=== PATIENT | female | born 1950 | race Caucasian/White ===

== ENCOUNTER 2018-12-14 14:45 | Inpatient (IN) | payer MEDICARE, OTHER ==
[~2018-12-14] VITALS: Ht 172.7 cm; Wt 69.9 kg
[~2018-12-14 14:45] MED LIST: ATENOLOL50 MG PO; EFFEXOR XR 3737.5 MG PO; KEPPRA XR500 MG PO; NEURONTIN300 MG PO; TOPIRAMATE100 MG PO
--- OUTSIDE RECORDS SUMMARY | 2018-12-14 14:48 | XMS REPORT | Clinical Summary ---
Author Author Jesus Manuel [facility] Organization [facility] Address Unknown Phone Unavailable Care Team Providers Care Radiocommunications Technician Name Role Phone Asked, No Pcp PCP Unavailable Allergies Comments Active Allergy Reactions Severity Noted Date Skin removal Adhesive Tape-Silicones Other (See 07/09/2016 Comments) Codeine GI 07/09/2016 Intolerance Meperidine Anaphylaxis High 06/03/2016 Erythromycin Base Rash Low 06/03/2016 Morphine Anaphylaxis High 06/03/2016 Pentobarbital Sodium Rash Low 07/09/2016 Penicillins Hives 07/09/2016 Phenobarbital Rash Low 07/09/2016 Sulfa (Sulfonamide Rash Low 06/03/2016 Antibiotics) Vision issues Carbamazepine Other (See 07/09/2016 Comments) Perphenazine-Amitriptylin Rash Low 07/09/2016 e Medications End Date Status Medication Sig Dispensed Refills Start Date Active atenolol (TENORMIN) 25 MG Take 25 mg by 0 tablet mouth every morning. Active omeprazole (PriLOSEC) 20 Take 20 mg by 0 MG capsule mouth every morning. Active venlafaxine XR TAKE 1 180 capsule 3 (EFFEXOR-XR) 150 MG 24 hr CAPSULE TWICE 7 capsule A DAY 01/22/2019 Active gabapentin (NEURONTIN) Take 3 540 capsule 3 300 mg capsule capsules (900 8 mg total) by mouth 2 (two) times a day. 01/22/2019 Active topiramate (TOPAMAX) 100 Take 1 tablet 180 tablet 3 MG tablet (100 mg 8 total) by mouth 2 (two) times a day. Active levETIRAcetam (KEPPRA) Take 1,500 mg 0 500 MG tablet by mouth 2 (two) times a day. 11/16/2018 Discontinued cholecalciferol, vitamin Take 5,000 0 D3, (VITAMIN D3) 5,000 Units by unit capsule mouth every morning. 11/16/2018 Discontinued calcium citrate-vitamin Take 1 tablet 0 D3 (CITRACAL+D) 315-200 by mouth mg-unit per tablet nightly. 11/16/2018 Discontinued vitamin E 1000 UNIT Take 1,000 0 capsule Units by mouth nightly. 11/16/2018 Discontinued calcium carbonate-vitamin Take 1 tablet 0 D3 (CALCIUM 600 + D,3,) by mouth 600 mg(1,500mg) -200 unit nightly. per tablet 11/16/2018 Discontinued vit Take 1 tablet 0 [id number]-syuiba-bioflv-ros by mouth e 1,000-50-50 mg tablet nightly. extended release 11/16/2018 Discontinued ascorbic acid, vitamin C, Take 1,000 mg 0 (vitamin C) 1000 MG by mouth tablet nightly. 11/16/2018 Discontinued multivitamin (THERAGRAN) Take 1 tablet 0 tablet by mouth nightly. 11/16/2018 Discontinued aspirin (ECOTRIN) 81 MG Take 81 mg by 0 enteric coated tablet mouth daily. 11/16/2018 Discontinued nortriptyline (PAMELOR) TK 1 C PO QHS 0 25 MG capsule 7 01/22/2018 Discontinued gabapentin (NEURONTIN) Take 3 540 capsule 3 300 mg capsule capsules (900 7 mg total) by mouth 2 (two) times a day. 01/22/2018 Discontinued topiramate (TOPAMAX) 100 Take 1 tablet 180 tablet 3 MG tablet (100 mg 7 total) by mouth 2 (two) times a day. 08/12/2018 levETIRAcetam XR (KEPPRA Take 6 540 tablet 3 XR) 500 mg 24 hr tablet tablets 7 (3,000 mg total) by mouth daily. 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 Malignant neoplasm of breast 06/03/2016 Seizure disorder 06/03/2016 Seizure 06/03/2016 Encounters Care Team Description Date Type Specialty Sacha Olivarez 11/17/2018 Anesthesia General Surgery Event Vega Madrigal MD RIGHT ESWL WITH CYSTO STENT PLACEMENT, LITHOLAPAXY, STONE EXTRACTION 11/17/2018 Surgery General Surgery Vega Madrigal MD 11/17/2018 Hospital General Surgery Encounter Vega Madrigal MD 11/16/2018 Hospital Radiology Encounter Vega Madrigal MD Preop testing 11/16/2018 Hospital Radiology Encounter Vega Madrigal MD Preop testing (Primary Dx) 11/16/2018 Pre-Admit Pre-Admission Testing Testing Appointment Shun Lugo MD Spondylosis without myelopathy or radiculopathy, lumbosacral region 03/05/2018 Hospital Radiology Encounter Shun Lugo MD Spondylosis without myelopathy or radiculopathy, lumbar region 03/05/2018 Hospital Radiology Encounter Shun Lugo MD Spondylosis without myelopathy or radiculopathy, lumbar region (Primary Dx); Spondylosis without myelopathy or radiculopathy, lumbosacral region 02/25/2018 Transcribe Access Orders Jojo Gutierrez RN 01/22/2018 Refill Neurology Jojo Gutierrez RN 01/22/2018 Refill Neurology after 12/13/2017 Family History Medical History Relation Name Comments Heart murmur Father Cancer Mother breast Relation Name Status Comments Father Mother Social History Date Tobacco Use Types Packs/Day Years Used Never Smoker Smokeless Tobacco: Never Used Alcohol Use Drinks/Week oz/Week Comments Yes occasional Sex Assigned at Date Recorded Not on file Industry Job Start Date Occupation Not on file Not on file Not on file Travel End Travel History Travel Start No recent travel history available. Last Filed Vital Signs Time Taken Vital Sign Reading 11/17/2018 5:15 PM CDT Blood Pressure 108/63 11/17/2018 5:15 PM CDT Pulse 91 11/17/2018 4:49 PM CDT Temperature 36.6 C (97.9 F) 11/17/2018 5:15 PM CDT Respiratory Rate 16 11/17/2018 5:15 PM CDT Oxygen Saturation 98% - Inhaled Oxygen - Concentration 11/17/2018 12:55 PM CDT Weight 63.5 kg (140 lb) 11/17/2018 12:55 PM CDT Height 172.7 cm (5' 8") 11/17/2018 12:55 PM CDT Body Mass Index 21.29 Plan of Treatment Care Team Description Date Type Specialty Kartik Sullivan MD [address] [facility] [address] [place] [address] 02/23/2019 Office Visit Neurology Health Maintenance Due Date Last Done Comments BREAST CANCER SCREENING 2000 COLON CANCER SCREENING 2000 SHINGLES VACCINES (#1) 2000 65+ PNEUMOCOCCAL VACCINE 2015 (1 of 2 - PCV13) PNEUMOCOCCAL 2015 POLYSACCHARIDE VACCINE AGE 65 AND OVER INFLUENZA VACCINE 03/31/2019 Implants Device Identifier Shelf Expiration Date Model / Serial / Lot Implanted Type Area Manufactur er 11/26/2018 [id number] / / [id number] Kit Mixer Bone Cmnt Kyphon Kyphx Surgical N/A: N/A KYPHON DIV Hv-R - [id number] Implants; OF Implanted: Qty: 1 on 05/08/2017 by Expanders; MEDTc Zhang MD Extenders; SPINE Surgical Wires 1600 [id number] / / Wire K Dual Trcr Pt [id number] Ns - Temporary Left: Thumb MICRO AIRE [id number] Fixation SURGICAL Implanted: Qty: 2 on 08/21/2017 by Pin or INSTRUMENT Marilu Summers MD Wire 09/07/2021 [id number] / / [id number] Stent Uretl Unvrsa 6fr 26cm Urological N/A: N/A COOK Hydrphlc W/O Gw - [id number] Implants UROLOGICAL Implanted: Qty: 1 on 11/17/2018 by or Vega Colvin MD Procedures Comments Procedure Name Priority Date/Time Associated Diagnosis SURGICAL PATHOLOGY Routine 11/17/2018 REQUEST 2:48 PM CDT CALCULI ANALYSIS WITH Routine 11/17/2018 PHOTO 2:48 PM CDT ND AN ELECTIVE Routine 11/17/2018 SUPRAGLOTTIC AIRWAY 2:27 PM CDT Procedure Note - Sacha Olivarez - 11/17/2018 2:27 PM CDT Airway Performed by: Sacha Olivarez Authorized by: Ezio Hassan MD Location: OR Urgency: Elective Difficult Airway: No Anesthesio logist: Ezio Hassan MD Resident/C RNA/AA: Sacha Olivarez Performed by: resident/C RNA/AA Preoxygena jimmy with 100% O2: Yes C-spine Precaution s Maintained Throughout : Yes Mask Ventilatio n: Not attempted Final Airway Type: Supraglott ic airway Final LMA: Unique LMA Size: 4 Number of Attempts at Approach: 1 ESWL WITH CYSTO WITH 11/17/2018 KIDNEY STONE INSERTION OF STENT 2:00 PM CDT N20.0 XR KUB KIDNEY URETER Routine 11/16/2018 Preop testing BLADDER 12:15 PM CDT XR CHEST 1 VW Routine 11/16/2018 Preop testing 12:14 PM CDT SMEAR REVIEW Routine 11/16/2018 11:02 AM CDT HC COMPLETE BLD COUNT Routine 11/16/2018 Preop testing W/AUTO DIFF 11:02 AM CDT ECG 12-LEAD Routine 11/16/2018 Preop testing 10:14 AM CDT MRI LUMBAR SPINE WO Routine 03/05/2018 Spondylosis without CONTRAST 2:28 PM CDT myelopathy or radiculopathy, lumbar region MRI SACRUM AND OR COCCYX Routine 03/05/2018 Spondylosis without WO CONTRAST 2:08 PM CDT myelopathy or radiculopathy, lumbosacral region after 12/13/2017 Results * Calculi analysis with photo (11/17/2018 2:48 PM CDT) Calculi mass 101 mg [facility] Calculi number 6 [facility] Calculi size Various mm [facility] Calculi descrption See Note [facility] Comment: Specimen consists of six, various sized (1 mm to 9 mm), sage, irregular calculi fragments. Calculi composition See Note [facility] Comment: Calculi composed primarily of: 80% magnesium ammonium phosphate (struvite), and 20% calcium phosphate (hydroxy- and carbonate- apatite). INTERPRETIVE INFORMATION: Calculi (Stone) analysis Calculi are the products of physiological processes that yield crystalline compounds in a matrix of biological compounds and blood.Matrix components are not reported.The clinically significant crystalline components identified in calculi specimens are reported.Gross description may not be consistent with composition determined by FTIR analysis. EER calculi (stone) See Note [facility] analysis and photo Comment: Access [employer] Enhanced Report using either link below: -Direct access: [email or web address] -Enter Username, Password: [email or web address] Username: [email or web address] Password: [email or web address] Performed by [facility], [address] [place], [place] [id number] [email or web address], Junito Heck MD - Lab. Director Specimen Serum Narrative Performed At [id number] [employer] LABORATORY UTERERAL STONE Performing Organization Address City/[facility]/Zipcode Phone Number [email or web address] LABORATORY [address] [place] [id number] [place] RE[facility] LAB [address] [place] [address] * Surgical pathology request (11/17/2018 2:48 PM CDT) [facility] DEPARTMENT OF PATHOLOGY AND GENOMIC MEDICINE Surgical pathology report See link below for PDF Lab [facility] DEPARTMENT OF Report PATHOLOGY AND GENOMIC MEDICINE Result status This is Final Report for [facility] DEPARTMENT OF [id number] PATHOLOGY AND GENOMIC MEDICINE Performing Organization Address City/State/Zipcode Phone Number [facility] DEPARTMENT [place] [address] [place] [address] PATHOLOGY AND GENOMIC MEDICINE * XR Kub Kidney Ureter Bladder (11/16/2018 12:15 PM CDT) Narrative Performed At EXAMINATION:XR KUB KIDNEY URETER BLADDER [facility] CLINICAL HISTORY:Z01.818 Encounter for other preprocedural examination, preop for right stent stone COMPARISON:None. FINDINGS: Double-J ureteral stent on the right Numerous bilateral calculi projected over the kidneys measuring up to 7-10 mm in size, right greater than left. Moderate fecal material in the colon somewhat limiting evaluation Kyphoplasty/vertebral plasty changes L1 and T11 IMPRESSION: Bilateral renal calculi Right-sided double-J ureteral stent [facility]-[id number] Procedure Note Interface, Radiology Results Incoming - 11/16/2018 1:03 PM CDT EXAMINATION: XR KUB KIDNEY URETER BLADDER CLINICAL HISTORY: Z01.818 Encounter for other preprocedural examination, preop for right stent stone COMPARISON: None. FINDINGS: Double-J ureteral stent on the right Numerous bilateral calculi projected over the kidneys measuring up to 7-10 mm in size, right greater than left. Moderate fecal material in the colon somewhat limiting evaluation Kyphoplasty/vertebral plasty changes L1 and T11 IMPRESSION: Bilateral renal calculi Right-sided double-J ureteral stent [facility]-[id number] Performing Organization Address [facility] Phone Number [employer] [place] [address] * XR Chest 1 Vw (11/16/2018 12:14 PM CDT) Narrative Performed At EXAMINATION:XR CHEST 1 VW [facility] CLINICAL HISTORY:Z01.818 Encounter for other preprocedural examination, preop COMPARISON:05/06/2017 chest IMPRESSION: No acute abnormality single view chest The lungs are clear. Azygos lobe incidentally noted The heart is not enlarged. Minimal atherosclerosis arch aorta. Axillary clips on the right as before. Previously noted right subclavian catheter has been removed The bony structures are within normal limits. [facility]-[id number] Procedure Note Interface, Radiology Results Incoming - 11/16/2018 1:04 PM CDT EXAMINATION: XR CHEST 1 VW CLINICAL HISTORY: Z01.818 Encounter for other preprocedural examination, preop COMPARISON: 05/06/2017 chest IMPRESSION: No acute abnormality single view chest The lungs are clear. Azygos lobe incidentally noted The heart is not enlarged. Minimal atherosclerosis arch aorta. Axillary clips on the right as before. Previously noted right subclavian catheter has been removed The bony structures are within normal limits. [facility]-[id number] Performing Organization Address [facility]/[employer] Phone Number [place] [address] * Smear review (11/16/2018 11:02 AM CDT) Platelet slide review Violeta adequate [facility] Anisocytosis Few [facility] Reactive lymphocytes 100 [facility] Performing Organization Address [facility] Phone Number [address] [place] [address] PATHOLOGY AND GENOMIC MEDICINE [address] * CBC with platelet and differential (11/16/2018 11:02 AM CDT) WBC 11.21 (H) 4.50 - 11.00 k/uL [facility] RBC 4.78 4.20 - 5.50 m/uL [facility] HGB 14.7 12.0 - 16.0 g/dL [facility] HCT 47.8 (H) 37.0 - 47.0 % [facility] MCV 100.0 82.0 - 100.0 fL [facility] MCH 30.8 27.0 - 34.0 pg [facility] MCHC 30.8 (L) 31.0 - 37.0 g/dL [facility] RDW - SD 44.9 37.0 - 55.0 fL [facility] MPV 9.4 8.8 - 13.2 fL [facility] Platelet count 303 150 - 400 k/uL [facility] Nucleated RBC 0.00 /100 WBC [facility] Neutrophils 35.7 (L) 39.0 - 69.0 % [facility] Lymphocytes 53.4 (H) 25.0 - 45.0 % [facility] Monocytes 8.2 0.0 - 10.0 % [facility] Eosinophils 2.0 0.0 - 5.0 % [facility] Basophils 0.4 0.0 - 1.0 % [facility] Specimen Blood Performing Organization Address City/[facility]/Zipcode Phone Number [facility] DEPARTMENT [address] [place] [address] PATHOLOGY AND GENOMIC MEDICINE [facility] [address] [place] [address] [facility] * ECG 12 lead (11/16/2018 10:14 AM CDT) Ventricular rate 80 [facility] Atrial rate 80 [facility] ND interval 142 [facility] QRSD interval 80 [facility] QT interval 376 [facility] QTC interval 433 [facility] P axis 1 25 [facility] QRS axis 1 -35 [facility] T wave axis 49 [facility] EKG impression Normal sinus rhythm-Left axis [facility] deviation-Low voltage QRS-Nonspecific T wave abnormality-Abnormal ECG-In automated comparison with ECG of 20-AUG-2017 13:04,-Nonspecific T wave abnormality now evident in Anterior leads- Narrative Performed At Performing Organization Address City/State/Zipcode Phone Number [facility] MUSE [address] [place] [address] * MRI Lumbar Spine Wo Contrast (03/05/2018 2:28 PM CDT) Narrative Performed At EXAMINATION: MRI LUMBAR SPINE WO CONTRAST [facility] CLINICAL HISTORY: M47.816 Spondylosis without myelopathy or radiculopathylumbar region, Spondylosis without myelopathy or radiculopathylumbar region COMPARISON:MRI lumbar spine from April 15, 2017 TECHNIQUE: Multiplanar multisequence noncontrast enhanced examination was performed of the Lumbar spine. FINDINGS: There are old treated fractures with methylmethacrylate signal intensity at L1 and T11. There are other old fractures which were not treated. There is no signal to suggest an acute fracture in the lumbar and thoracic spine. The lumbar curvature is convex towards the left. There is decreased T2 signal intensity in the lumbar discs. L5-S1: The left S1 and S2 nerve root sleeves are conjoined. There is inward concavity of the endplates greater in the left inferior L5 region with greater decreased height of the vertebral body in this area. There is bulge slightly indenting the anterior subarachnoid space greater on the left near the S1 nerve roots. There is facet hypertrophic changes with a small amount of fluid in the left facet joint. There is severe proximal left and mild right foramen stenosis. There is left extraforaminal spondylosis near the nerve. L4-5: There is greater right disc space narrowing and severe posterior disc space narrowing. There is dorsal spondylosis with bulge indenting the anterior subarachnoid space. There is narrowing of the ventrolateral subarachnoid space in the region of the L5 nerve root between bulge and facet and ligamentum flavum hypertrophy with trefoil shape canal stenosis. There is no significant narrowing of the AP dimension of the central subarachnoid space. There is moderate left and slightly less right foramen stenosis. L3-4: There is inward concavity of the upper left L4 endplate and portion of the inferior L3 endplate greater in the central region. There is dorsal spondylosis with bulge indenting the anterior subarachnoid space without definite mass effect on the nerve roots. There is facet hypertrophic changes. There is mild posterior midline epidural fat and mild narrowing of the AP dimension of the central subarachnoid space. There is mild left foramen stenosis. L2-3: There is greater right and posterior disc space narrowing. There is bulge with tiny central protrusion with T2 hyperintensity in the annulus indenting the anterior subarachnoid space without mass effect on the nerve roots. There is also a shallow left foramen and extraforaminal protrusion without definite mass effect on the nerve. It tapers in the paracentral region and slightly indents the ventrolateral subarachnoid space without mass effect on the nerve roots. There is facet and ligamentum flavum hypertrophic changes. The right posterior lateral indentation on the subarachnoid space near the nerve roots. There is no significant canal or foramen stenosis from degenerative change. L1-2: There is severe posterior disc space narrowing. There is minimal retropulsion of bone with uncovered disc indenting the anterior subarachnoid space. There are facet hypertrophic changes with posterior lateral indentation on the subarachnoid space on the right near the nerve roots. There is no significant central canal stenosis or foramen stenosis. The sagittal images show dorsal spondylosis at T11-12 and T12-L1 indenting the anterior subarachnoid space. At T10-11 there is dorsal spondylosis indenting the anterior subarachnoid space with minimal angulation of the cord at this level. The study was not performed for proper imaging of soft tissue structures in the abdomen and pelvis. IMPRESSION: Multiple old compression fractures some of which were treated with placement of methylmethacrylate. Lumbar curvature convex towards the left. Degenerative changes with areas of canal and foramen stenosis as described. Indentation on the subarachnoid space in the regions of the L5 and left S1 nerve roots. [id number] Procedure Note Hm Interface, Radiology Results Incoming - 03/05/2018 4:13 PM CDT EXAMINATION: MRI LUMBAR SPINE WO CONTRAST CLINICAL HISTORY: M47.816 Spondylosis without myelopathy or radiculopathy lumbar region, Spondylosis without myelopathy or radiculopathy lumbar region COMPARISON: MRI lumbar spine from April 15, 2017 TECHNIQUE: Multiplanar multisequence noncontrast enhanced examination was performed of the Lumbar spine. FINDINGS: There are old treated fractures with methylmethacrylate signal intensity at L1 and T11. There are other old fractures which were not treated. There is no signal to suggest an acute fracture in the lumbar and thoracic spine. The lumbar curvature is convex towards the left. There is decreased T2 signal intensity in the lumbar discs. L5-S1: The left S1 and S2 nerve root sleeves are conjoined. There is inward concavity of the endplates greater in the left inferior L5 region with greater decreased height of the vertebral body in this area. There is bulge slightly indenting the anterior subarachnoid space greater on the left near the S1 nerve roots. There is facet hypertrophic changes with a small amount of fluid in the left facet joint. There is severe proximal left and mild right foramen stenosis. There is left extraforaminal spondylosis near the nerve. L4-5: There is greater right disc space narrowing and severe posterior disc space narrowing. There is dorsal spondylosis with bulge indenting the anterior subarachnoid space. There is narrowing of the ventrolateral subarachnoid space in the region of the L5 nerve root between bulge and facet and ligamentum flavum hypertrophy with trefoil shape canal stenosis. There is no significant narrowing of the AP dimension of the central subarachnoid space. There is moderate left and slightly less right foramen stenosis. L3-4: There is inward concavity of the upper left L4 endplate and portion of the inferior L3 endplate greater in the central region. There is dorsal spondylosis with bulge indenting the anterior subarachnoid space without definite mass effect on the nerve roots. There is facet hypertrophic changes. There is mild posterior midline epidural fat and mild narrowing of the AP dimension of the central subarachnoid space. There is mild left foramen stenosis. L2-3: There is greater right and posterior disc space narrowing. There is bulge with tiny central protrusion with T2 hyperintensity in the annulus indenting the anterior subarachnoid space without mass effect on the nerve roots. There is also a shallow left foramen and extraforaminal protrusion without definite mass effect on the nerve. It tapers in the paracentral region and slightly indents the ventrolateral subarachnoid space without mass effect on the nerve roots. There is facet and ligamentum flavum hypertrophic changes. The right posterior lateral indentation on the subarachnoid space near the nerve roots. There is no significant canal or foramen stenosis from degenerative change. L1-2: There is severe posterior disc space narrowing. There is minimal retropulsion of bone with uncovered disc indenting the anterior subarachnoid space. There are facet hypertrophic changes with posterior lateral indentation on the subarachnoid space on the right near the nerve roots. There is no significant central canal stenosis or foramen stenosis. The sagittal images show dorsal spondylosis at T11-12 and T12-L1 indenting the anterior subarachnoid space. At T10-11 there is dorsal spondylosis indenting the anterior subarachnoid space with minimal angulation of the cord at this level. The study was not performed for proper imaging of soft tissue structures in the abdomen and pelvis. IMPRESSION: Multiple old compression fractures some of which were treated with placement of methylmethacrylate. Lumbar curvature convex towards the left. Degenerative changes with areas of canal and foramen stenosis as described. Indentation on the subarachnoid space in the regions of the L5 and left S1 nerve roots. [facility]-[id number] Performing Organization Address City/State/Zipcode Phone Number [facility] [address] [place] [address] * MRI Sacrum And Or Coccyx Wo Contrast (03/05/2018 2:08 PM CDT) Narrative Performed At [facility] EXAMINATION:MRI SACRUM AND OR COCCYX WO CONTRAST CLINICAL HISTORY:M47.817 Spondylosis without myelopathy or radiculopathylumbosacral region, Spondylosis without myelopathy or radiculopathylumbosacral region COMPARISON:MRI lumbar spine from April 15, 2017. FINDINGS: There is no evidence of acute fracture in the sacrum or coccyx. There are mild degenerative changes of the sacroiliac joints which are relatively stable. There is nonspecific prominent size sigmoid colon and rectum region. The study was not performed for good evaluation of a mass distal to this region. Recommend clinical correlation with other imaging if indicated. The uterus is absent. IMPRESSION: Mild degenerative changes of the sacroiliac joints. Nonspecific prominent aeration of the sigmoid colon and rectum region. I cannot exclude a mass distal to this region. This can be better evaluated with other imaging if indicated. [id number] Procedure Note Hm Interface, Radiology Results Incoming - 03/05/2018 4:08 PM CDT EXAMINATION: MRI SACRUM AND OR COCCYX WO CONTRAST CLINICAL HISTORY: M47.817 Spondylosis without myelopathy or radiculopathy lumbosacral region, Spondylosis without myelopathy or radiculopathy lumbosacral region COMPARISON: MRI lumbar spine from April 15, 2017. FINDINGS: There is no evidence of acute fracture in the sacrum or coccyx. There are mild degenerative changes of the sacroiliac joints which are relatively stable. There is nonspecific prominent size sigmoid colon and rectum region. The study was not performed for good evaluation of a mass distal to this region. Recommend clinical correlation with other imaging if indicated. The uterus is absent. IMPRESSION: Mild degenerative changes of the sacroiliac joints. Nonspecific prominent aeration of the sigmoid colon and rectum region. I cannot exclude a mass distal to this region. This can be better evaluated with other imaging if indicated. [id number] Performing Organization Address City/State/Zipcode Phone Number [facility] [address] [place] [address] after 12/13/2017 Insurance Payer Benefit Subscriber ID Type Phone Address Plan / Group HUMANA MEDICARE HUMANA xxxxxxxxx PPO MEDICARE PPO/PFFS/E [facility] Advance Directives Patient has advance care planning documents, and code status on file. For more i nformation, please contact: Jesus Manuel Ochoa [address] [place] [address] Date Inactivated Comments Code Status Date Activated 09/09/2016 6:38 PM Full Code 09/08/2016 2:20 PM Code Status decision reached by: Patient
[2018-12-14 16:30] LABS: BASOPHILS # (AUTO) 0.1 (0.0-0.1); BASOPHILS % 0.3 % (0.0-1.0); EOSINOPHILS % 0.2 % (0.0-6.0); HEMATOCRIT 39.9 % (34.2-44.1); HEMOGLOBIN 12.6 g/dL (12.0-16.0); LYMPHOCYTES # (AUTO) 3.7 (1.0-3.2); LYMPHOCYTES % 17.2 % (18.0-39.1); MEAN CORPUSCULAR HGB CONC 31.6 g/dL (31-35); MONOCYTES # (AUTO) 1.7 (0.2-0.8); MONOCYTES % 7.8 % (4.4-11.3); NEUTROPHILS # (AUTO) 15.7 (2.1-6.9); NEUTROPHILS % 71.9 % (38.7-80.0); PLATELET COUNT 339 x10e3/uL (140-360); RED CELL DISTRIBUTION WIDTH 12.3 % (11.7-14.4)
[2018-12-14 16:44] LABS: ALBUMIN 2.6 g/dL (3.5-5.0); ALBUMIN/GLOBULIN RATIO 0.4 (0.8-2.0); ANION GAP 19.1 mmol/L (8-16); CALCIUM 9.9 mg/dL (8.4-10.2); CREATININE, SERUM 1.61 mg/dL (0.57-1.11)
[2018-12-14] MEDS ORDERED: SODIUM CHLORIDE 0.9% 1000ML 1,000 ML IV ONE ×2 (16:45)
[2018-12-14 16:47] LABS: POTASSIUM 5.1 mmol/L (3.5-5.1)
[2018-12-14 16:53] LABS: COLOR,URINE YELLOW (YELLOW)
[2018-12-14 16:54] LABS: BILIRUBIN,URINE NEGATIVE (NEGATIVE); CLARITY,URINE HAZY (CLEAR); KETONES,URINE NEGATIVE (NEGATIVE); LEUKOCYTE ESTERASE ,URINE 2+ (NEGATIVE); NITRITE,URINE POSITIVE (NEGATIVE); PROTEIN,URINE DIPSTICK NEGATIVE (NEGATIVE); URINE UROBILINOGEN 0.2 mg/dL (0.2 - 1)
--- NOTE | 2018-12-14 17:00 | Diagnostic Imaging Report ---
EXAMINATION: CHEST 2 VIEWS INDICATION: Fever. Lethargic. ^SEPSIS ^[id number] ^1642 ^Y COMPARISON: 11/25/2018 FINDINGS: LINES/TUBES: Surgical clips present in the right axilla. LUNGS: No consolidations or edema. Azygos lobe present. PLEURA: No effusions or pneumothorax. HEART AND MEDIASTINUM: Normal size and contour. BONES AND SOFT TISSUES: No acute findings. Vertebroplasty cement in a lower thoracic spine and upper lumbar spine vertebral body. IMPRESSION: No acute thoracic abnormality. Signed by: Dr. Brad Osborne M.D. on 12/14/2018 4:56 PM
[2018-12-14 17:07] LABS: BACTERIA,URINE MANY /HPF
[2018-12-14] MEDS: LEVOFLOXACIN 750MG/D5W 150ML 150 ML IV SCH (17:46)
[2018-12-14] MEDS ORDERED: PRILOSEC OTC20 MG PO (17:50)
[2018-12-14] MEDS ORDERED: ONDANSETRON HCL INJ 2MG/ML 2ML 2 MG/ML VIAL IV PRN (18:30)
[2018-12-14 18:49] LABS: CREATINE KINASE MB 0.6 ng/mL (0-5.0)
[2018-12-14] MEDS: SODIUM CHLORIDE 0.9% 1000ML 1,000 ML IV SCH (19:34)
[2018-12-14] MEDS ORDERED: CEFEPIME HCL 1 GM VIAL IV SCH (20:15)
[2018-12-14] MEDS ORDERED: VANCOMYCIN 1GM/NS 250 ML 250 ML IV NR (20:15)
[2018-12-14] MEDS: CEFEPIME 1GM/NS 0.9% 50 ML 50 ML IV SCH (20:22)
--- OUTSIDE RECORDS SUMMARY | 2018-12-14 20:31 | XMS REPORT | Clinical Summary ---
Author Author [facility] Address Unknown Phone Unavailable Care Team Providers Care Supervisor Filling And Packing Name Role Phone Asked, No Pcp PCP [...] 11/16/2018 Discontinued vit Take 1 tablet 0 K-roqrp-yhtlgu-bioflv-ros by mouth e 1,000-50-50 mg tablet nightly. [...] Description Date Type Specialty Kartik Sullivan MD [address] [facility] [address] [place] [address] 02/23/2019 Office Visit Neurology Health [...] Area Manufactur er 11/26/2018 [id number] / / [id number] Kit Mixer Bone Cmnt Kyphon Kyphx Surgical N/A: N/A KYPHON DIV Hv-R - [id number] Implants; OF Implanted: Qty: 1 on 05/08/2017 by Expanders; MEDTc Zhang MD Extenders; SPINE Surgical Wires 1600 [id number] / / Wire K Dual Trcr Pt [id number] Ns - Temporary Left: Thumb MICRO AIRE [id number] Fixation SURGICAL Implanted: Qty: 2 on 08/21/2017 by Pin or INSTRUMENT Marilu Summers MD Wire 09/07/2021 [id number] / / [id number] Stent Uretl Unvrsa 6fr 26cm Urological N/A: N/A COOK Hydrphlc W/O Gw - [id number] Implants UROLOGICAL Implanted: Qty: 1 on 11/17/2018 by or Vega Colvin MD Procedures Comments Procedure Name Priority Date/Time Associated Diagnosis SURGICAL PATHOLOGY Routine 11/17/2018 REQUEST 2:48 PM CDT CALCULI ANALYSIS WITH Routine 11/17/2018 PHOTO 2:48 PM CDT MS AN ELECTIVE Routine 11/17/2018 SU[address]IC AIRWAY 2:27 [...] REF LAB analysis and photo Comment: Access [employer] Enhanced Report using either link below: -Direct access: [email or web address] -Enter Username, Password: [email or web address] Username: [email or web address] Password: [email or web address] Performed by [employer], [address] [place], [place] [id number] [email or web address], Junito Heck MD - Lab. Director Specimen Serum Narrative Performed At [id number] [employer] LABORATORY UTERERAL STONE Performing Organization Address City/[facility]/Zipcode Phone Number [facility] LABORATORY [address] [place] [address] [place] REF LAB [address] [place] [address] * Surgical pathology request (11/17/2018 2:48 PM CDT) [facility] DEPARTMENT OF PATHOLOGY AND GENOMIC MEDICINE Surgical pathology report See link below for PDF Lab [facility] DEPARTMENT OF Report PATHOLOGY AND GENOMIC MEDICINE Result status This is Final Report for [facility] DEPARTMENT OF [id number] PATHOLOGY AND GENOMIC MEDICINE Performing Organization Address City/State/Zipcode Phone Number [facility] DEPARTMENT [place] [address] [place] [address] PATHOLOGY AND GENOMIC MEDICINE * XR Kub [...] Bilateral renal calculi Right-sided double-J ureteral stent [facility]-[id number] Procedure Note Interface, Radiology Results Incoming - [...] Bilateral renal calculi Right-sided double-J ureteral stent [facility]-[id number] Performing Organization Address [facility] Phone Number [facility] [place] [address] * XR Chest 1 Vw (11/16/2018 12:14 [...] The bony structures are within normal limits. [facility]-[id number] Procedure Note Interface, Radiology Results Incoming - [...] The bony structures are within normal limits. [facility]-[id number] Performing Organization Address [facility]/DGTS Phone Number [place] [address] * Smear review (11/16/2018 11:02 AM CDT) Platelet slide review Violeta adequate [facility] Anisocytosis Few [facility] Reactive lymphocytes 100 [facility] Performing Organization Address [facility] Cent[facility] Phone Number [address] [place] [address] PATHOLOGY AND GENOMIC MEDICINE [address] * CBC with platelet and differential (11/16/2018 11:02 AM CDT) WBC 11.21 (H) 4.50 - 11.00 k/uL [facility] RBC 4.78 4.20 - 5.50 m/uL [facility] HGB 14.7 12.0 - 16.0 g/dL [facility] HCT 47.8 (H) 37.0 - 47.0 % [facility] MCV 100.0 82.0 - 100.0 fL [facility] MCH 30.8 27.0 - 34.0 pg [facility] MCHC 30.8 (L) 31.0 - 37.0 g/dL [facility] RDW - SD 44.9 37.0 - 55.0 fL [facility] MPV 9.4 8.8 - 13.2 fL [facility] Platelet count 303 150 - 400 k/uL [facility] Nucleated RBC 0.00 /100 WBC [facility] Neutrophils 35.7 (L) 39.0 - 69.0 % [facility] Lymphocytes 53.4 (H) 25.0 - 45.0 % [facility] Monocytes 8.2 0.0 - 10.0 % [facility] Eosinophils 2.0 0.0 - 5.0 % [facility] Basophils 0.4 0.0 - 1.0 % [facility] Specimen Blood Performing Organization Address City/[facility]/Zipcode Phone Number [facility] DEPARTMENT [address] [place] [address] PATHOLOGY AND GENOMIC MEDICINE [facility] [address] [place] [address] [facility] * ECG 12 lead (11/16/2018 10:14 AM CDT) Ventricular rate 80 [facility] Atrial rate 80 [facility] MS interval 142 [facility] QRSD interval 80 [...] At Performing Organization Address City/State/Zipcode Phone Number [facility] MUSE [address] [place] [address] * MRI Lumbar Spine Wo Contrast (03/05/2018 [...] the L5 and left S1 nerve roots. [id number] Procedure Note Hm Interface, Radiology Results Incoming [...] the L5 and left S1 nerve roots. [facility]-[id number] Performing Organization Address City/State/Zipcode Phone Number [facility] [address] [place] [address] * MRI Sacrum And Or Coccyx Wo [...] better evaluated with other imaging if indicated. [id number] Procedure Note Hm Interface, Radiology Results Incoming [...] better evaluated with other imaging if indicated. [id number] Performing Organization Address City/State/Zipcode Phone Number [facility] [address] [place] [address] after 12/13/2017 Insurance Payer Benefit Subscriber ID Type Phone Address Plan / Group HUMANA MEDICARE HUMANA xxxxxxxxx PPO MEDICARE PPO/PFFS/E [facility] Advance Directives Patient has advance care planning documents, and code status on file. For more i nformation, please contact: Jesus Manuel Ochoa [address] [place] [address] Date Inactivated Comments Code Status Date Activated 09/09/2016 6:38 PM Full Code 09/08/2016 2:20 PM Code Status decision reached by: Patient
[2018-12-14 22:07] VITALS: BP 91/47
[2018-12-14 22:15] VITALS: BP 91/47
--- NOTE | 2018-12-14 22:26 | Diagnostic Imaging Report ---
CT Abdomen and Pelvis without contrast INDICATION: Renal stent, fever TECHNIQUE: Thin collimation axial images obtained from the diaphragm to the level of the pubic symphysis without nonionic intravenous contrast. Dose reduction techniques used: Automated exposure control, adjustment of the mAs and/or kVp according to patient size, standardized low-dose protocol, and/or iterative reconstruction technique. [facility] DOSE: Total DLP: 3-3.3 mGy*cm Estimated effective dose: (DLP x 0.015 x size factor) mSv CTDIvol has been reviewed. It is below the limits set by the Radiation Protocol Committee (RPC). COMPARISON: None. ABDOMEN FINDINGS: Lung Bases: Mild volume loss of the right hemithorax with posterior lower lobe subsegmental atelectasis. Visualized portion of the mediastinum is normal. Liver: Normal in attenuation without mass. Gallbladder: Absent. No ductal dilatation. Pancreas: Normal attenuation without mass. Spleen: Normal size without mass. Adrenal Glands: No evidence for mass. Kidneys/ureters: Right: Multiple intrarenal calculi measure up to 13 mm. No perinephric inflammation or fluid collection. A stent is in the collecting system and extends into the bladder. No evidence of encrustation. No collecting system dilatation. The ureter is normal in diameter throughout its course. Left: Multiple intrarenal calculi measuring up to 11 mm. The collecting system is prominent. No perinephric inflammation. The upper and mid ureter are distended. A calculus in the mid/distal ureter measures 6 mm. Distal to this, the ureter is collapsed. Lymph Nodes: No enlarged abdominal or retroperitoneal lymph nodes. Aorta: Normal in diameter with scattered calcifications. PELVIS FINDINGS: Bowel: Stomach: Normal. Small Bowel: Normal in caliber with normal wall thickness. Large Bowel: Moderate burden of stool throughout with a prominent stool ball in the rectum. No mural thickening or colonic inflammation. Appendix: Not visualized and may be absent or collapsed. Bladder: No mural thickening or intraluminal calculus. No perivesicular inflammation. The uterus is absent. There are no adnexal masses. Peritoneum/retroperitoneum: No free fluid or fluid collection. Bones: Diffusely demineralized. Kyphoplasty changes of L1 and T11. There is excreted methylmethacrylate into a vein anterior to the T11 vertebral body. Superior endplate compression deformities are present in L2 and L4. The spinal canal is widely patent. No listhesis. Soft tissues: The right breast is absent. No soft tissue mass. IMPRESSION: 1. Calculus in the mid/distal left ureter with mild to moderate hydroureteronephrosis. 2. Bilateral intrarenal calculi. Right ureteral stent in appropriate position. 3. Moderate colonic stool burden with prominent stool ball in the rectum. No bowel obstruction. 4. Kyphoplasty and untreated compression deformities of the spine as described above. Signed by: Dr. Sana Bryant MD on 12/14/2018 10:23 PM
--- NOTE | 2018-12-14 22:57 | NUR ---
Dr. Charlton paged for orders regarding pt condition and meds.
[2018-12-14 23:00] VITALS: BP 94/46
--- NOTE | 2018-12-14 23:55 | NUR ---
Spoke to Dr. Charlton regarding low BP. Read results of CT ABD to . New orders received. Order received for central line to be placed for vasopressors.
[2018-12-15] VITALS (35 sets, daily range): BP systolic 69–137; BP diastolic 43–78
[2018-12-15] MEDS ORDERED: TOPIRAMATE 100 MG TAB PO STA (00:09)
[2018-12-15] MEDS ORDERED: LEVETIRACETAM 1500 MG PO SCH (00:12)
[2018-12-15] MEDS ORDERED: LEVETIRACETAM 500 MG TAB PO STA (00:12)
[2018-12-15] MEDS ORDERED: DIPHENHYDRAMINE HCL 25 MG CAP PO ONE (00:15)
[2018-12-15] MEDS ORDERED: DIPHENHYDRAMINE HCL ELIX 12.5 MG/5 ML UDC PO ONE (00:15)
--- NOTE | 2018-12-15 00:59 | NUR ---
Spoke to Dr. Charlton regarding Venous access. Ok to insert a PICC line at this time despite Renal Labs, however he wants to keep the order for Central line active and have one placed as soon as possible.
[2018-12-15] MEDS ORDERED: SODIUM CHLORIDE 0.9% 1000ML 1,000 ML IV STA (01:00)
[2018-12-15] MEDS: ACETAMINOPHEN 325 MG TAB PO PRN ×3 (01:15→21:39)
--- NOTE | 2018-12-15 01:15 | NUR ---
R peripheral EJ placed by ER RNs. Called Dr. Charlton for order to run levophed through EJ until PICC or central line could be placed. Dr. Charlton denied order, MD stated that Levophed cannot be started until PICC line is inserted.
[2018-12-15] MEDS ORDERED: SODIUM CHLORIDE 0.9% 1000ML 1,000 ML IV SCH (01:30)
--- NOTE | 2018-12-15 02:26 | History and Physical ---
CHIEF COMPLAINT: Lethargy and weakness. HISTORY OF PRESENT ILLNESS: Ms. Ball is a 68-year-old female. She presented to the Emergency Room with complaints of increasing lethargy. The patient underwent removal of encrusted indwelling right ureteral stent, another stent was placed, and renal calculus was removed. She underwent cystoscopy and it was done by Dr. Madrigal. The patient postoperatively did well, was sent home. She grew out Pseudomonas and Enterococcus in the urine on 12/03. Unsure if she was on antibiotics. She came here with increasing lethargy. Her , who is from her, brought her here. In the Emergency Room, her white cell count was 21,000, platelet count of 339. Chemistry showing creatinine 1.61 and lactic acid was 42. She was hypotensive and septic and received IV fluids and IV antibiotics. The patient is more awake and more alert now and less lethargic. She is mostly bed bound for last 6 months and had kidney stones in the past. She lives by herself. REVIEW OF SYSTEMS: GENERAL: Possibly having fever and chills. Denies any nausea or vomiting. HEENT: Denies any head trauma, head injury. ENT, denies any earache. CVS: Denies any chest pain. RESPIRATORY: Denies any shortness of breath. GI: Denies any nausea, vomiting. The rest of the review of systems are negative except as in HPI. PAST MEDICAL HISTORY: Hypertension, hyperlipidemia, arachnoid cyst, seizure disorder. FAMILY AND SOCIAL HISTORY: She does not smoke, does not drink. PHYSICAL EXAMINATION: VITAL SIGNS: Temperature 98.9, pulse of 97, blood pressure 100/56, respiratory rate of 18, and O2 saturation 98% on room air. HEENT: Head atraumatic, normocephalic. NECK: Supple. CHEST: Clear to auscultation bilaterally. No wheezing. No crackles. HEART: S1, S2 audible. ABDOMEN: Soft, nontender. EXTREMITIES: No pedal edema and has footdrop. NEUROLOGIC: Awake and alert. LABORATORY DATA: Sodium 133, potassium 5.1, creatinine 1.6. Lactic acid 42, total protein 9.6. Chest x-ray done in the Emergency Room showed no acute thoracic abnormality. ASSESSMENT: Ms. Ball is a 68-year-old female, who presented with septic shock due to urinary tract infection present on admission. The patient underwent ureteral stent placement on 12/03 and has a ureteral stent, came in with urinary tract infection. Current Problems: 1. Urinary tract infection, sepsis, septic shock. 2. Bed-bound status. 3. History of seizure disorder. 4. History of kidney stones in the past. PLAN: 1. Cultures growing Pseudomonas and Enterococcus. I will give a dose of vancomycin and start the patient on IV cefepime. Consult Infectious Disease. 2. IV hydration for mild acute kidney injury. 3. Continue the patient on IV fluids. We will repeat the lactic acid. 4. CT abdomen and pelvis. Discussed with the patient and her at bedside in detail. Critical care time spent 50 minutes. MD JOSELYN Blackmon/RUSTY /[id number]
[2018-12-15 02:35] LABS: INR 1.33; PARTIAL THROMBOPLASTIN TIME 31.1 seconds (23.8-35.5); PROTHROMBIN TIME 17.1 seconds (11.9-14.5)
[2018-12-15] MEDS: SODIUM CHLORIDE 0.9% 1000ML 1,000 ML IV SCH ×4 (03:06→20:38)
[2018-12-15] MEDS ORDERED: NOREPINEPHRINE INJ 4MG/4ML 8 MG in DEXTROSE 5% 250ML 250 ML IV PRN (03:15)
[2018-12-15] MEDS ORDERED: NOREPINEPHRINE 8 MG/D5W 250 ML 250 ML ONE (03:20)
--- NOTE | 2018-12-15 03:28 | Diagnostic Imaging Report ---
EXAMINATION: CHEST SINGLE (PORTABLE) COMPARISON: Chest x-ray 1634 hours INDICATION: ^PICC LINE PLACEMENT ^[id number] ^0315 DISCUSSION: Frontal view of the chest obtained at 0313 hours. HEART AND MEDIASTINUM: The cardiomediastinal silhouette is unremarkable. LINES: Left PICC line terminates in the SVC without pneumothorax LUNGS: The lungs are well inflated and clear. Azygos lobe and fissure are redemonstrated. No pneumonia or pulmonary edema. PLEURA: No pleural effusion or pneumothorax. BONES AND SOFT TISSUES: Stable kyphoplasty changes in the lower thoracic spine. Right axillary lymph node dissection clips are stable. IMPRESSION: Left PICC line terminates in the SVC without pneumothorax. No acute cardiopulmonary process. Signed by: Dr. Sana Bryant MD on 12/15/2018 3:25 AM
--- NOTE | 2018-12-15 04:57 | NUR ---
Dr. Haney returned call regarding consult. Notified MD of consult. No new orders received.
[2018-12-15 05:23] LABS: BASOPHILS # (AUTO) 0.1 (0.0-0.1); BASOPHILS % 0.4 % (0.0-1.0); EOSINOPHILS # (AUTO) 0.2 (0.0-0.4); HEMATOCRIT 27.8 % (34.2-44.1); LYMPHOCYTES # (AUTO) 4.7 (1.0-3.2); LYMPHOCYTES % 28.6 % (18.0-39.1); MEAN CORPUSCULAR HEMOGLOBIN 30.2 pg (28-32); MEAN CORPUSCULAR HGB CONC 32.4 g/dL (31-35); MEAN CORPUSCULAR VOLUME 93.3 fL (81-99); MONOCYTES # (AUTO) 1.5 (0.2-0.8); MONOCYTES % 9.3 % (4.4-11.3); NEUTROPHILS # (AUTO) 9.5 (2.1-6.9); NEUTROPHILS % 58.3 % (38.7-80.0); PLATELET COUNT 244 x10e3/uL (140-360); RED BLOOD COUNT 2.98 x10e6/uL (3.6-5.1); RED CELL DISTRIBUTION WIDTH 12.1 % (11.7-14.4)
[2018-12-15 05:56] LABS: ANION GAP 11.3 mmol/L (8-16); CREATININE, SERUM 1.19 mg/dL (0.57-1.11)
[2018-12-15 05:57] LABS: CALCIUM 8.1 mg/dL (8.4-10.2); POTASSIUM 3.3 mmol/L (3.5-5.1)
--- NOTE | 2018-12-15 06:18 | NUR ---
PICC line placed by PICC team at 0305. No acute distress noted.
[2018-12-15 06:51] LABS: CREATINE KINASE 54 IU/L (29-168)
--- NOTE | 2018-12-15 07:05 | NUR ---
PT TAKEN FOR SURGERY AT THIS TIME.
[2018-12-15] MEDS ORDERED: IOPAMIDOL 610MG/1ML 300 MG/ML VIAL IV ONE (07:24)
[2018-12-15] MEDS: PANTOPRAZOLE SOD 40 MG TABEC PO SCH (07:30)
--- NOTE | 2018-12-15 08:45 | NUR ---
PT BACK FROM SURGERY AT THIS TIME. LETHARGIC BUT RESPONSIVE HALL IN PLACE
--- NOTE | 2018-12-15 09:03 | NUR ---
110/57 BP LEVOPHED TURNED OFF AT THIS TIME WILL CONTINUE TO MONITOR
[2018-12-15] MEDS: VENLAFAXINE HCL 75 MG CAPCR PO SCH ×2 (09:32→16:53)
[2018-12-15] MEDS: TOPIRAMATE 100 MG TAB PO SCH ×2 (09:32→16:53)
[2018-12-15] MEDS: CEFEPIME 1GM/NS 0.9% 50 ML 50 ML IV SCH ×2 (09:32→20:38)
[2018-12-15] MEDS: LEVETIRACETAM 500 MG TAB PO SCH ×2 (09:32→16:53)
--- NOTE | 2018-12-15 11:25 | NUR ---
WOUND CARE CONSULTATION INITIAL EVALUATION Patient admitted from Home to ER. DX: Sepsis, IRMA, Pyelonephritis LABS: WBC16.27 HGB10.3 HCT27.8 Wound Care Consulted For evaluation of sacral wound present on admission. PATIENT VISIT: Patient is laying supine in bed AAOx3, 1-2 Person assist to repositioning. Kevin Score = 13 Moderate PUP Active Alternating Pressure Air Mattress set to current patient weight Heel Protectors in place. Redness to right lateral malleolus consistent with other areas of ecchymosis throughout other parts of body. No pattern to sites. non indurated, non draining, appear superficial. Not currently on anticoagulant therapy. Indwelling Patel Catheter. Ulceration to Left Gluteal Area. Oval Shaped, Draining serosanguineous fluid. Central area of ulceration purple dusky/ poorly perfused area. Wound will likely will progress to unstageable ulcer. Pt states possibly laying or sitting on object at home. Oval Shaped over a non bony area. IMPRESSION: Right Gluteal - Stage II Pressure Ulcer with DTI - Present On Admission RECOMMENDATION: - Right Gluteal - Stage II Pressure Ulcer with DTI - Present On Admission - Cleanse wound with NS and 4x4 gauze - Apply Santyl and Pleated Xeroform Gauze Cut to Size and Cover with Allevyn Foam Sacrum Dressing Daily. - Continue Alternating Pressure Air Mattress - Continue Bilateral Heel Protectors / Offload Heels with Pillows while in bed. - Turn and Reposition Every 2 Hours using turning clock schedule. - HOB elevation < or = to 30 Degrees as tolerated. Thank you for consulting with Wound Care. Addendum: 12/15/18 at 1141 by Avery Casanova RN Amended: Links added. Addendum: 12/20/18 at 1054 by Avery Casanova RN IMPRESSION: LEFT GLUTEAL ULCER- ( site entry error - NOT RIGHT)
--- NOTE | 2018-12-15 11:53 | Progress Note ---
DATE: SUBJECTIVE: The patient is doing well now on 2.5 mcg of Levophed. Overnight became septic, hypotensive, and transferred to ICU. She is denying any complaints. She is still very weak, status post stent placement, came from the OR just now. PHYSICAL EXAMINATION: VITAL SIGNS: Temperature 97.6, pulse of 82, blood pressure 122/75, respiratory rate of 18, O2 saturation of 100%. HEENT: Head is atraumatic, normocephalic. Oral mucosa is very dry. NECK: Supple. CHEST: Clear to auscultation bilaterally. No wheezing. HEART: S1, S2 audible. ABDOMEN: Soft. EXTREMITIES: Footdrop very weak, muscle wasting and trace pedal edema. NEUROLOGIC: Awake, alert. LABORATORY DATA: White count is down to 16,000, hemoglobin 9.0, platelets 244. Chemistries; sodium 138, potassium 3.3, chloride 111, BUN 30, creatinine 1.19, it was 1.61 on admission. It is getting better. Lactic acid is down to 21, it was 42. Urine culture grew out gram-negative bacilli. This patient is already on antibiotics. ASSESSMENT AND PLAN: 1. Ms. Marilee Ball is a 68-year-old female. She presented with a complicated urinary tract infection with stent placement. Stent has been removed. The patient is doing well. 2. Septic shock secondary to complicated urinary tract infection with stent placement, which is resolving. Lactic acid is still high, but it is coming down. 3. Bed-bound status. The patient has been extremely deconditioned and bed-bound and has a foot drop. We will consult physical therapy and consult Dr. Kirkpatrick for rehab evaluation. 4. Continue antibiotics, cefepime and Levaquin. Infectious Disease has been consulted. We will follow the recommendation. 5. History of seizure disorder. Resume the Keppra and Topamax. 6. IV Dilaudid for pain control. 7. Wean the Levophed. Patient's diet can be resumed. Plan of care was discussed with the RN taking care of the patient. MD JOSELYN Blackmon/RUSTY /[id number]
--- NOTE | 2018-12-15 12:18 | Operative Report ---
DATE OF PROCEDURE: 12/15/2018 SURGEON: Vega Madrigal MD PREOPERATIVE DIAGNOSES: 1. Indwelling right ureteral stent. 2. Left hydronephrosis. POSTOPERATIVE DIAGNOSES: 1. Indwelling right ureteral stent. 2. Left hydronephrosis. PROCEDURES: 1. Cystourethroscopy with complicated removal of a right indwelling ureteral stent (entirely separate procedure for diagnosis of a right indwelling ureteral stent). 2. Cystourethroscopy with insertion of a left indwelling ureteral stent in a staged fashion (entirely separate procedure for right hydronephrosis). 3. Cystourethroscopy with insertion of a left indwelling ureteral stent in a staged fashion (entirely separate procedure to rid the patient of left hydronephrosis). 4. Supervision of fluoroscopy. 5. Interpretation of retrograde pyelography. ANESTHESIA: General. ESTIMATED BLOOD LOSS: Minimal. COMPLICATIONS: None. INDICATIONS FOR PROCEDURE: Ms. Ball is a very pleasant 68-year-old female patient with a history of right encrusted stent with recent right stent removal, now presenting with fever, chills, nausea, and vomiting, was found to have stent in good position on the right side; however, dropped left renal calculi into left ureteral calculi creating hydronephrosis and obstructing the collecting system. The patient currently has been transferred to the unit with hypotension and tachycardia and clinical symptoms of septic shock. She and I had a long discussion regarding alternatives, risks, and benefits and she elected to proceed with placement of left indwelling stent and right stent change. PROCEDURE IN DETAIL: After informed consent was obtained, the patient was taken to operative suite and she was placed supine on the operating table. She underwent general anesthesia by Anesthesia Service. She was placed in the dorsal lithotomy position, sterilely prepped and draped in a sterile fashion for cystoscopy. A 21-Ecuadorean cystoscope was inserted per urethra The right stent was grasped and this was removed intact. A guidewire was inserted into the upper tract . Right stent was removed intact. Right stent was deployed with coil in the pelvic and coil in the bladder. Attention was then turned to the left ureteral orifice. Retrograde pyelogram was performed which revealed mid ureteral calculus on the left side with severe obstruction. With moderate difficulty, guidewire was advanced proximally. This hydronephrotic drip was captured and sent off the table as specimen. A 7 x 26 ureteral stent was then deployed with coil in the renal pelvis and coil in the bladder. The patient's bladder was drained with a 20-Ecuadorean Patel catheter. She is awaken from anesthesia and transferred to ICU in stable condition. Supervision of fluoroscopy and interpretation of retrograde pyelography: I was present for the entire procedure and I supervised the use of fluoroscopy as no radiologist was present. Attention was turned to both of the ureteral orfices which were catheterized with a 5-Ecuadorean catheter. Retrograde pyelogram was performed revealing mid ureteral calculus and proximal hydronephrosis. Postop reviews reveal bilateral stents in adequate position. MD WILLAM Vazquez/RUSTY /[id number] MTDD
[2018-12-15 12:23] LABS: EOSINOPHILS % (MANUAL) 4 % (0-7); LYMPHOCYTES % (MANUAL) 15 % (19-48); MONOCYTES % (MANUAL) 6 % (3.4-9.0); NEUTROPHILS % (MANUAL) 75 % (40-74)
[2018-12-15 12:24] LABS: HYPOCHROMASIA SLIGHT; PLATELET ESTIMATE ADEQUATE; PLATELET MORPHOLOGY COMMENT NORMAL; POIKILOCYTOSIS SLIGHT; RBC MORPHOLOGY COMMENT ABNORMAL
[2018-12-15] MEDS ORDERED: FENTANYL CITRATE/PF 100MCG/2 ML INJ ONE (14:09)
[2018-12-15] MEDS ORDERED: MIDAZOLAM HCL 2 MG/2 ML VIAL ONE (14:09)
--- NOTE | 2018-12-15 16:16 | NUR ---
SPOKE TO REGARDING PATIENT LIVING SITUATION, PER THEY ARE AND HAVE BEEN FOR A LONG TIME, PT LIES ALONE RECEIVES HOME HEALTH CARE 2 A WEEK WITH PHYSICAL THERAPY. STATES HE COMES TO SEE HER, CHANGE HER DIAPER, LINEN AND BRING HER FOOD ONCE A DAY FOR 5 DAYS. ON WEEKEND THERE IS A NEPHEW WHO COMES TO CARE FOR HER ONCE A DAY. Addendum: 12/15/18 at 1619 by Monique Aguirre RN CLOTH REELER CONSULTED
[2018-12-15] MEDS: LEVOFLOXACIN 750MG/D5W 150ML 150 ML IV SCH (17:11)
[2018-12-15] MEDS ORDERED: SEVOFLURANE INHAL SOLN 250 ML PEN BTL ONE (20:10)
[2018-12-15] MEDS ORDERED: LIDOCAINE HCL 2% LOCAL INJ 5 ML SDV VIAL INJ ONE (20:10)
[2018-12-15] MEDS ORDERED: ONDANSETRON HCL INJ 2MG/ML 2ML 2 MG/ML VIAL ONE (20:10)
[2018-12-15] MEDS ORDERED: DEXAMETHASONE SOD PHOS INJ 4 MG/ML VIAL ONE (20:10)
--- NOTE | 2018-12-15 23:27 | Consultation ---
DATE OF CONSULTATION: REASON FOR CONSULTATION: Sepsis and UTI. Thank you so much for asking me to see this patient. HISTORY OF PRESENT ILLNESS: This patient is a 68-year-old white female, who comes into emergency room with feeling lethargy, not doing well. I was contacted by the ER physician urgently, discussed the case. The patient has history of UTI and history of stone before, underwent removal of indwelling right ureteral stent, another stent was placed. She had a renal calculus, which was also removed. Had a cystoscopy done by Dr. Madrigal recently. Postoperatively did well. She was sent home. The patient on December 03 had Pseudomonas Enterococcus and she was given some antibiotic. The patient was doing fine till the day of admission when she became really sick. Apparently, she has been last couple days. In the emergency room, she had a white count of 21,000, creatinine was 1.6, lactic acid was 42, and hypotensive. Started on IV fluids and IV antibiotics. Please refer to initial orders. The patient was admitted, Dr. Madrigal. The patient underwent cystourethroscopy, removal of the right indwelling ureteral stent with insertion of left indwelling ureteral stent in a staged fashion. The patient is currently in the intensive care unit. She is feeling much better since she came here. When she first came, she was quite lethargic. ALLERGIES: THE PATIENT IS ALLERGIC TO PENICILLIN, SULFA, ADHESIVE TAPE. PAST MEDICAL HISTORY: Renal stone as mentioned above, hypertension, hyperlipidemia, seizure disorder. PAST SURGICAL HISTORY: As above, multiple urological procedures. SOCIAL HISTORY: There is no smoking, drug abuse, alcohol abuse. FAMILY HISTORY: Hypertension. REVIEW OF SYSTEMS: GENERAL: At the present time, she is more alert. She has no complaint. She is just weak in general. HEENT: Negative. PULMONARY: Negative. CARDIAC: Negative. : Negative. GI: Negative at the present time. SKIN: There is no rash. Showing no erythema or edema. LABORATORY DATA: Urine culture showing gram-negative rods. Her white count on admission 21.8, came down to 16.27, hemoglobin 9.0, platelets 244. Sodium 138, potassium 3.3, creatinine 1.19. Lactic acid when she first came was 21. Calcium was 8.1. MEDICATION LIST: She is on Topamax, cefepime, Tylenol, and levofloxacin. PHYSICAL EXAMINATION: GENERAL: She is currently alert, oriented, does not seem to be in acute distress. VITAL SIGNS: Stable. Afebrile. Temperature 97.8, heart rate of 80, respiration 11, blood pressure 91/56. HEENT: Normocephalic. Not icteric. NECK: Supple. No JVD. No lymphadenopathy. No thyromegaly. CHEST: Clear bilateral. HEART: S1, S2. No S3, S4, or murmur. ABDOMEN: Soft. Bowel sounds present. No tenderness. EXTREMITIES: No edema. SKIN: No rash. IMPRESSION: Sepsis on admission, pyelonephritis on admission, acute kidney injury on admission secondary to the above. Agree with cefepime and Levaquin. She is growing gram-negative rods. Agree with IV fluids. She is already doing better. Agree with supportive care. Discussed with the patient and discussed with attending. Other medical problems seem to be stable. We will recheck CBC. We will recheck chemistry panel. Further recommendation depending on her progress. MD SISSY Cardona/RUSTY /[id number]
[2018-12-16] VITALS (15 sets, daily range): BP systolic 105–145; BP diastolic 61–86
[2018-12-16] MEDS: ACETAMINOPHEN 325 MG TAB PO PRN (04:41)
[2018-12-16 05:11] LABS: BASOPHILS % 0.3 % (0.0-1.0); EOSINOPHILS # (AUTO) 0.1 (0.0-0.4); EOSINOPHILS % 0.8 % (0.0-6.0); HEMOGLOBIN 8.3 g/dL (12.0-16.0); LYMPHOCYTES # (AUTO) 4.3 (1.0-3.2); LYMPHOCYTES % 27.8 % (18.0-39.1); MEAN CORPUSCULAR HEMOGLOBIN 29.6 pg (28-32); MEAN CORPUSCULAR HGB CONC 31.9 g/dL (31-35); MEAN CORPUSCULAR VOLUME 92.9 fL (81-99); MONOCYTES # (AUTO) 1.1 (0.2-0.8); MONOCYTES % 6.9 % (4.4-11.3); NEUTROPHILS # (AUTO) 9.7 (2.1-6.9); NEUTROPHILS % 62.5 % (38.7-80.0); PLATELET COUNT 224 x10e3/uL (140-360); RED CELL DISTRIBUTION WIDTH 11.9 % (11.7-14.4)
[2018-12-16] MEDS: SODIUM CHLORIDE 0.9% 1000ML 1,000 ML IV SCH (05:13)
[2018-12-16 05:28] LABS: ANION GAP 9.5 mmol/L (8-16); BLOOD UREA NITROGEN 11 mg/dL (7-26); BUN/CREATININE RATIO 20 (6-25); CALCIUM 8.4 mg/dL (8.4-10.2); CARBON DIOXIDE 20 mmol/L (22-29); CHLORIDE 115 mmol/L (98-107); CREATININE, SERUM 0.55 mg/dL (0.57-1.11); EST GLOMERULAR FILTRATION RATE > 60 ML/MIN (60-); GLUCOSE 87 mg/dL (74-118); POTASSIUM 3.5 mmol/L (3.5-5.1); SODIUM 141 mmol/L (136-145)
[2018-12-16] MEDS: CEFEPIME 1GM/NS 0.9% 50 ML 50 ML IV SCH (08:00)
[2018-12-16] MEDS: TOPIRAMATE 100 MG TAB PO SCH ×2 (08:00→17:27)
[2018-12-16] MEDS: PANTOPRAZOLE SOD 40 MG TABEC PO SCH (08:00)
[2018-12-16] MEDS: LEVETIRACETAM 500 MG TAB PO SCH ×2 (08:00→17:27)
[2018-12-16] MEDS: VENLAFAXINE HCL 75 MG CAPCR PO SCH ×2 (08:00→17:27)
[2018-12-16] MEDS: COLLAGENASE 5 GM TUBE TOP SCH (08:00)
--- NOTE | 2018-12-16 10:30 | NUR ---
SPOKE WITH PATIENT, SHE STATES SHE LIVES IN A HOME BY HERSELF BUT HAS A HOME HEALTH ([facility] PROVID[facility] BUT NOT SURE PLEASE VERIFY WITH )THAT COMES 3 TIMES A WEEK. STATES SHE HAS A PAO AND A NEPHEW THAT COME AND CHECK ON HER EVERY DAY. HAS HAD PRIOR BRAIN SURGERY AND IS AFFASIC. THAT HAS HAD 4 SURGERIES FOR KIDNEY STONES SINCE JULY AND HAS NOT BEEN ABLE TO WALK FOR A FEW MONTHS. HAS ALL EQUIPMENT AT HOME BUT DOES WANT TO GO TO A FACILITY IN [place] THAT IS ASSOCIATED WITH [facility] AND IT IS SHUT DOWN. WE DISCUSSED A PLAN FOR TREATMENT AND IS AGREEMENT FOR PLACEMENT.
--- NOTE | 2018-12-16 10:45 | NUR ---
MET W THE PT AT THE BEDSIDE TO PROVIDE CHOICE. STATES SHE WANTED TO HAVE HER PRESENT TO MAKE DECISION IF INPT REHAB IS APPROPRIATE.
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
--- NOTE | 2018-12-16 12:49 | NUR ---
Received patient via bed from ICU. AAOX3 to time, person, place. Respirations even and unlabored. Oriented patient to room. Instructed to use call light for assistance. Voiced understanding.
[2018-12-16] MEDS ORDERED: MEROPENEM 1GM 100 ML IV SCH (14:00)
[2018-12-16] MEDS ORDERED: SODIUM CHLORIDE 0.9% 250ML 250 ML ONE (14:28)
[2018-12-16] MEDS: HYDROMORPHONE 2MG/ML 2 MG/ML ML IV PRN ×2 (14:30→21:00)
--- NOTE | 2018-12-16 14:32 | NUR ---
MET W THE PT AND AT THE BEDSIDE. PT REQUESTS FOR HER TO SIGN ALL OF HER PAPERWORK DISCUSSED CHOICE FOR REHAB. PT CHOSE [facility]. PT HAD MENTIONED REHAB AT A SNF EARLIER. CHOICE LETTER WAS SIGNED AND COPY GIVEN; COPY TO CHART. MOT WAS INITIATED ALSO. ALSO SIGNED MOT. STATES HE IS FROM THE PT AND SHE LIVES ALONE. STATES HE VISITS DAILY; USUALLY IN THE MORNING (2-3HRS) AND THE NEPHEW VISITS IN THE EVENING. 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 STATES THE PT HAS A WALKER, ROLLATOR, TRANSPORT WC. STATES THE PT HAS NOT AMBULATED SINCE JUL 2018 AND HAS RELIED ON FAMILY AND HH FOR FOOD PREP AND ASSISTING W ADL'S.
[2018-12-16] MEDS: MEROPENEM 1GM 100 ML IV SCH ×2 (15:39→22:46)
--- NOTE | 2018-12-16 18:17 | Consultation ---
DATE OF CONSULTATION: 12/16/2018 REASON FOR CONSULTATION: 1. Debility state. 2. UTI. 3. Renal masses. HISTORY: History is mainly from medical records and the chart. This patient is a very poor historian. The patient is an unfortunate 68-year-old female who came into the emergency room with increased lethargy. Recently, she had a right ureteral stent replaced and has known history of renal calculus, underwent cystoscopy, which grew out Pseudomonas as well as Enterococcus. The patient pretty much has been bed-bound quite some time, but she is very poor with regard to her reasons and not able to give much history PAST MEDICAL HISTORY: Hypertension, hyperlipidemia, arachnoid cyst, seizure disorder. PAST SURGICAL HISTORY: Multiple renal surgeries. FAMILY HISTORY: She is denying, but she is not very reliable historian. REVIEW OF SYSTEMS: GENERAL: She states she is pretty much bed-bound for the past 6 months and when I asked her why, she really could not tell me. I asked her if she was diagnosed with neuromuscular disease and she says definitely was due to her stones. Rest of review of systems essentially negative. HABITS: Denies smoking or drinking. SOCIAL HISTORY: She states that she lives at home by herself, but if she is bed bound, I asked who comes to help her, she says she has a diaper and then I asked if she cannot be bed bound and not be able to provide food etc and she said her comes once a day to help her and then later on she said she has assisted living. So, nonetheless, I am not able to glean any useful information in regard to higher level of function. LABORATORY DATA: White cell count of 15.5, hemoglobin 8.2, hematocrit 26.0, platelets of 224. Sodium is 141, potasium 3.5, BUN 11, creatinine 0.5. She had a chest x-ray, which showed PICC line terminates in SVC without pneumothorax. PHYSICAL EXAMINATION: GENERAL: The patient is somewhat awake, somewhat alert, but she is not really that oriented. EYES: Gaze is conjugate. NECK: She tends to keep her neck in extended position. HEART: Regular. LUNGS: Fair air entry. ABDOMEN: Nondistended. EXTREMITIES: She can move her legs, she can move her arms okay. Sensory zaragoza, denies any new onset numbness, tingling in the hands, feet, or face. Manual muscle testing, 3/5 strength to the right upper extremities bilaterally within the range of motion, which is limited especially at the shoulders, but in the lower extremities, she demonstrates basically 2/5 strength and very limited range of motion. She could not achieve full range of motion and she has tight heel cords, could not get her to the neutral position with her Achilles tendon is being tight. IMPRESSION: 1. Debilitation, nonambulatory, etiology uncertain. 2. Recent urinary tract infection, pyelonephritis as well as urinary stenting. 3. History of seizure disorder. PLAN: Staff initiated seeing her with PT, they are trying to establish her prior level of function. At this point, we will see how she does. I would also like to add speech therapy to her regimen to see what we are dealing with her with regard to her cognition. Continue supportive care. Thank you once again for allowing me to participate in the care of this unfortunate patient. Yves Kirkpatrick DO RPL/MODL /[id number]
--- NOTE | 2018-12-16 19:20 | NUR ---
bedside report given to oncoming nurse. Resting in bed. No s/s of acute distress noted.
--- NOTE | 2018-12-16 22:00 | NUR ---
pt received IV pain medication at 2100, not pt very lethargic, respond to painful stimuli, noted with periods of apnea, dr. ceballos called and informed, order for stat ABGs, 97/64, 112, 95% RA, resp 14, and to call with results
--- NOTE | 2018-12-16 22:15 | NUR ---
pt still very lethargic with periods of apnea, rapid response called
--- NOTE | 2018-12-16 22:20 | NUR ---
Narcan 1mg administered to patient during rapid, 105/63, 112, 98% 2L NC
[2018-12-16] MEDS ORDERED: NALOXONE HCL INJ 0.4 MG/ML AMP ONE ×2 (22:28→22:34)
--- NOTE | 2018-12-16 22:47 | NUR ---
pt awake and alert, able to verbalize, no more periods of apnea, O2 sat 98% on 2L NC, waiting on results of ABGs
[2018-12-16 22:49] LABS: ABG HCO3 -9 mmol/L (23-28); ABG PCO2 56 mmHg (41-51); ABG PH 7.16 (7.31-7.41); ABG PO2 133 mmHg (80-105)
--- NOTE | 2018-12-16 23:00 | NUR ---
results of ABGS called in to DR. Charlton, orders to move to ICU,
--- NOTE | 2018-12-16 23:07 | NUR ---
report called to ESCOBAR martinez and pt moved to icu
[2018-12-16] MEDS ORDERED: SODIUM BICARBONATE 8.4% SYRING 150 ML ONE (23:09)
[2018-12-16] MEDS ORDERED: DEXTROSE 5% 1,000 ML IV ONE (23:10)
--- NOTE | 2018-12-16 23:18 | NUR ---
RECEIVED FROM MS 2 VIA BED, NASAL CANNULA AT 3L, RESPONDS TO ORAL STIMULI
[2018-12-16] MEDS ORDERED: SODIUM BICARBONATE 8.4% SYRING 150 ML in DEXTROSE 5% 1,000 ML IV SCH (23:32)
--- NOTE | 2018-12-16 23:35 | NUR ---
STAT LABS DRAWN, BICARB DRIP INITIATED AT 50 ML/HR VIA PUMP, BIPAP INTIATED BY RT
[2018-12-17] VITALS (26 sets, daily range): BP systolic 90–150; BP diastolic 54–91
[2018-12-17 00:36] LABS: ANION GAP 12.3 mmol/L (8-16); BLOOD UREA NITROGEN 8 mg/dL (7-26); BUN/CREATININE RATIO 14 (6-25); CALCIUM 8.6 mg/dL (8.4-10.2); CARBON DIOXIDE 18 mmol/L (22-29); CHLORIDE 113 mmol/L (98-107); CREATININE, SERUM 0.57 mg/dL (0.57-1.11); EST GLOMERULAR FILTRATION RATE > 60 ML/MIN (60-); GLUCOSE 85 mg/dL (74-118); POTASSIUM 3.3 mmol/L (3.5-5.1); SODIUM 140 mmol/L (136-145)
[2018-12-17 02:35] LABS: ABG PCO2 36 mmHg (41-51); ABG PH 7.35 (7.31-7.41); ABG PO2 194 mmHg (80-105)
[2018-12-17 02:36] LABS: ABG HCO3 20 mmol/L (23-28)
[2018-12-17 06:05] LABS: BASOPHILS % 0.3 % (0.0-1.0); EOSINOPHILS # (AUTO) 0.2 (0.0-0.4); EOSINOPHILS % 2.1 % (0.0-6.0); HEMATOCRIT 26.6 % (34.2-44.1); HEMOGLOBIN 8.5 g/dL (12.0-16.0); LYMPHOCYTES # (AUTO) 3.3 (1.0-3.2); LYMPHOCYTES % 28.8 % (18.0-39.1); MEAN CORPUSCULAR HEMOGLOBIN 29.8 pg (28-32); MEAN CORPUSCULAR VOLUME 93.3 fL (81-99); MONOCYTES # (AUTO) 0.9 (0.2-0.8); MONOCYTES % 7.6 % (4.4-11.3); NEUTROPHILS # (AUTO) 6.9 (2.1-6.9); NEUTROPHILS % 59.2 % (38.7-80.0); PLATELET COUNT 251 x10e3/uL (140-360); RED BLOOD COUNT 2.85 x10e6/uL (3.6-5.1); RED CELL DISTRIBUTION WIDTH 12.2 % (11.7-14.4)
[2018-12-17 06:24] LABS: ANION GAP 14.6 mmol/L (8-16); BLOOD UREA NITROGEN 8 mg/dL (7-26); BUN/CREATININE RATIO 15 (6-25); CALCIUM 8.5 mg/dL (8.4-10.2); CARBON DIOXIDE 22 mmol/L (22-29); CHLORIDE 112 mmol/L (98-107); CREATININE, SERUM 0.54 mg/dL (0.57-1.11); EST GLOMERULAR FILTRATION RATE > 60 ML/MIN (60-); GLUCOSE 91 mg/dL (74-118); POTASSIUM 3.6 mmol/L (3.5-5.1); SODIUM 145 mmol/L (136-145)
[2018-12-17] MEDS: MEROPENEM 1GM 100 ML IV SCH ×3 (06:24→21:39)
--- NOTE | 2018-12-17 06:35 | NUR ---
Spoke with Dr Charlton by telephone, updated on patient condition, ABG and other lab results. States to take patient off bi-pap and see how she does, RT notified
[2018-12-17] MEDS: PANTOPRAZOLE SOD 40 MG TABEC PO SCH (07:30)
--- NOTE | 2018-12-17 08:58 | NUR ---
RR called on pt overnight. Transferred to icu for greater level of care. Pt is now placed on PT hold and will need new orders to resume PT services. Thank you. Addendum: 12/17/18 at 0859 by PRATIBHA HUTCHINS PTA Amended: Links added.
[2018-12-17] MEDS: LEVETIRACETAM 500 MG TAB PO SCH ×2 (09:00→17:11)
[2018-12-17] MEDS: VENLAFAXINE HCL 75 MG CAPCR PO SCH ×2 (09:00→17:11)
[2018-12-17] MEDS: COLLAGENASE 5 GM TUBE TOP SCH (09:00)
[2018-12-17] MEDS: TOPIRAMATE 100 MG TAB PO SCH ×2 (09:00→17:11)
--- NOTE | 2018-12-17 11:16 | Diagnostic Imaging Report ---
Exam: Head CT without contrast History: Sepsis, IRMA, hyperextended neck Comparison studies: None Technique: Axial images were obtained from the skull base to the vertex. Coronal and sagittal images reconstructed from the axial data. Dose modulation, iterative reconstruction, and/or weight based adjustment of the mA/kV was utilized to reduce the radiation dose to as low as reasonably achievable. Radiation dose: Total DLP: 1164 mGy*cm. Estimated effective dose: DLP x 0.015 Intravenous contrast: None Findings: Scalp and bones: Surgical changes of prior left pterional craniotomy. Brain sulci: Sylvian fissures and bilateral frontal sulci are moderately prominent. Remaining sulci are mildly prominent. Ventricles: Compensatory dilatation of the ventricles, greatest along the frontal horns. No hydrocephalus. Extra-axial spaces: A 2.5 x 2.6 x 3.4 cm (SI x AP x TV) extra axial space similar to CSF density along the anterior left temporal convexity is most compatible with arachnoid cyst which exerts mild mass effect on the anterior left temporal lobe. Parenchyma: Chronic encephalomalacia and gliosis in the left lateral temporal lobe beneath a left pterional craniotomy. A few ill-defined hypodensities in the supratentorial white matter are nonspecific but most compatible with chronic microvascular ischemic changes. No mass, acute hemorrhage or acute cortical infarct. Sellar/suprasellar region: No abnormalities. Craniocervical junction: Patent foramen magnum. No Chiari one malformation. Incidental findings: Lens replacements for previous cataract surgery. Atherosclerotic calcifications in the carotid siphons. IMPRESSION: No acute intracranial abnormalities. Chronic findings: 1. Surgical changes of prior left pterional craniotomy with encephalomalacia in the underlying left temporal lobe. 2. Mild chronic microvascular ischemic changes. 3. Generalized cerebral volume loss with a bifrontal predominance. 4. Small left middle cranial fossa arachnoid cyst. Signed by: Dr. Abdiaziz Ann M.D. on 12/17/2018 11:13 AM
--- NOTE | 2018-12-17 13:43 | NUR ---
RECEIVED CALL FROM ERI Cantrell [facility] THAT THE PT'S PLAN IS [id number] AND PT WOULD INCUR LARGE OOP COSTS. REFERRAL WAS FAXED TO [facility] TO SEE IF THEY ARE IN NETWORK. WILL FOLLOW UP W PT ONCE RETURN CALL RECEIVED.
--- NOTE | 2018-12-17 16:38 | Diagnostic Imaging Report ---
Exam: Neck CT without IV contrast History: Hyperextended neck, altered mental status Comparison studies: None Technique: Axial images were obtained from the skull base to the thoracic inlet. Coronal and sagittal images reconstructed from the axial data. Dose modulation, iterative reconstruction, and/or weight based adjustment of the mA/kV was utilized to reduce the radiation dose to as low as reasonably achievable. Intravenous contrast: None Findings: Evaluation of the neck is limited due to the absence of intravenous contrast. In spite of this limitation, Soft tissues: No gross abnormalities. Lymph nodes: No enlarged lymph nodes. Vessels: Cannot evaluate luminal patency. Minimal calcified plaque at the left carotid bulb. Partially imaged left sided central venous catheter. Thyroid gland: Homogeneous, no mass. Submandibular parotid glands: Atrophic, no mass. Included paranasal sinuses: Clear. Temporal bones: No abnormalities. Skull base and facial bones: Partially imaged left pterional craniotomy. Cervical spine: The patient's head is rotated to the left at the time of the exam. The anterior and lateral atlantal dental intervals are otherwise maintained. No fracture or subluxation. Mild hyperlordotic curvature is nonspecific. Multilevel facet arthrosis. No significant canal or foraminal stenosis. A nonaggressive-appearing 10 mm calcification in the dorsal spinal canal at the T3 level result in moderate to severe canal stenosis. A 4 mm nonaggressive-appearing sclerotic lesion may be a bone island in the left C2 lateral mass. Chronic-appearing superior T2 endplate deformity results in approximately 20% height loss anteriorly. IMPRESSION: 1. Head rotated to the left and neck is hyperextended. Findings may be related to patient position or muscle spasm . No cervical spine fracture or subluxation. 2. No mass or gross acute abnormalities in the upper aerodigestive tract or neck soft tissues. 3. Incidental 10 mm nonaggressive calcified/ossified lesion in the dorsal spinal canal at T3 which results in moderate to severe canal stenosis may represent calcified meningioma or possibly small exostosis or osteoma. Thoracic spine MRI with IV contrast may further evaluate. Please refer to separate head CT report from the same date for further characterization of intracranial findings. Signed by: Dr. Abdiaziz Ann M.D. on 12/17/2018 4:34 PM
[2018-12-17] MEDS: ACETAMINOPHEN 325 MG TAB PO PRN (16:54)
[2018-12-17] MEDS ORDERED: SODIUM CHLORIDE 0.9% 250ML 250 ML IV ONE ×2 (17:45→18:00)
[2018-12-17] MEDS ORDERED: AMIODARONE HCL 360MG 200 ML IV SCH ×2 (17:45→18:00)
[2018-12-17] MEDS: DIGOXIN INJ 0.25 MG/ML 2 ML AMP IV SCH (18:00)
[2018-12-17] MEDS ORDERED: AMIODARONE 900MG 500 ML IV NR (18:00)
[2018-12-17] MEDS ORDERED: DIGOXIN INJ 0.25 MG/ML 2 ML AMP IV NR (18:00)
[2018-12-17] MEDS ORDERED: AMIODARONE HCL 150MG 100 ML IV NR (18:00)
--- NOTE | 2018-12-17 23:13 | Consultation ---
DATE OF CONSULTATION: 12/17/2018 Neurology Consult Note HISTORY OF PRESENT ILLNESS: History is obtained from the patient, her , Tu Ball, review of the electronic medical record, and hospital staff. Toward the beginning of November,, Ms. Ball underwent cystoscopy with removal of an encrusted indwelling right ureteral stent, placement of another stent, and removal of renal calculus. Ms. Ball reportedly tolerated the procedure well and was discharged to home postoperatively. A urine culture from this hospitalization grew Pseudomonas and Enterococcus. It is unknown whether or not the patient was treated with antibiotics at that time. On December 14, 2018, Ms. Ball presented to the emergency center at [facility] with worsening lethargy. Ms. Ball was admitted to the hospital with a urinary tract infection and sepsis. Overnight, the patient developed septic shock. She was transferred to the Intensive Care Unit and placed on a continuous Levophed infusion. While in the Intensive Care Unit, Ms. Ball was evaluated by Dr. Haney who diagnosed the patient with pyelonephritis. The patient was treated with intravenous cefepime and Levaquin, pending the results of a urine culture. Once the results of the urine culture returns, the patient will be prescribed meropenem. Ms. Ball gradually improved over the next 1-2 days. She was weaned from Levophed. On December 16, 2018, the patient was transferred from the Intensive Care Unit to a Medicine/Surgery floor. On the evening of December 16, 2018, at approximately 2200 hours, a Rapid Response was called because the patient was somnolent and had witnessed apneic episodes. Of note, Ms. Ball had received a dose of Dilaudid at 2100 hours, 1 hour before the Rapid Response was called. At 2220 hours, Ms. Ball was administered Narcan. At 2246 hours, the patient was reportedly awake and alert. No further apnea was observed. After the Rapid Response was called, Ms. Ball was transferred back to the Intensive Care Unit for closer monitoring. Throughout the day of December 17, 2018, the patient gradually became more awake and alert. However, in the late afternoon/early evening of December 17, 2018, the patient developed atrial fibrillation with rapid ventricular response. Ms. Ball was placed on an amiodarone drip. A Cardiology consultation has been requested and is pending. The Neurology Service is consulted for evaluation and treatment of altered mental status and generalized weakness. As regard to the generalized weakness, Ms. Ball was reportedly able to ambulate with a walker in the fall of 2017. However, according to her , the patient underwent a prolonged hospitalization in July 2018 with urinary tract infection and nephrolithiasis. Following this prolonged hospitalization, Ms. Ball did receive some rehabilitation. However, it is not known what that rehabilitation consisted of (i.e. occupational therapy, physical therapy, etc.). It is also not known where this rehabilitation took place (the patient's home, a prison facility, inpatient rehabilitation facility). Following a short course of rehabilitation, Ms. Ball was able to ambulate with assistance for very short distances (i.e. to the bathroom). However, shortly after the rehabilitation services were discontinued, the patient became bed-bound. According to Ms. Ball's , the patient requires total assistance with any in all activities of daily living as well as independent activities of daily living. At the time of this encounter, Ms. Huffman neck is hyperextended. When questioned as to how long her neck has been hyperextended, the patient reports the hyperextension began last night, 12/15/2018. However, according to one of the patient's nurses, Ms. Huffman neck has been hyperextended since her admission on December 14, 2018. When asked if she has any burning pain, tingling, pins and needles sensation, or numbness affecting her feet, legs, hands, or arms, Ms. Ball replies in the negatives. The patient does report pain in her ankles and knees. She describes this pain as a constant dull aching pain. According to the patient's nurse, Ms. Schmidts ability to do things for herself waxes and wanes. For example, the patient recently alerted her nurse, requesting the nurse come in and turn off the patient's television. The button to turn off the television is located near the button to call the nurse on the patient's handheld control. Another example is as follows: When given Tylenol for pain, Ms. Ball had the nurse tip the pills from a cup into her mouth, followed by the nurse holding a straw to her lip, so she could drink water from a glass with which to swallow her pills. However, a short time later, Ms. Ball was able to feed herself chocolate pudding. REVIEW OF SYSTEMS: Lethargy, fast or irregular heartbeat, nausea, vomiting, generalized weakness, neck and back pain, hyperextension of the neck. Otherwise, a 12-point review of systems is negative. PAST MEDICAL HISTORY: Newly diagnosed atrial fibrillation, multiple urinary tract infections, nephrolithiasis, gastroesophageal reflux disease, mixed depression/anxiety disorder, migraines, seizure disorder, right breast cancer, status post mastectomy and radiation. PAST SURGICAL HISTORY: Right breast mastectomy, multiple ureteral stents placed, appendectomy, cholecystectomy, section, total hysterectomy, bilateral cataract removal, and bilateral carpal tunnel release, excision of an arachnoid cyst, surgical repair of vertebral compression fractures. PAST HOSPITALIZATIONS: Surgeries/procedures as listed, numerous other hospitalizations. FAMILY MEDICAL HISTORY: Ms. Ball reports other family members have had "brain cyst." Multiple maternal relatives have had either breast, uterine, or ovarian cancer. SOCIAL HISTORY: Ms. Ball is , but legally from her . The patient is retired. Ms. Ball does not report current or prior tobacco, alcohol, or recreational drug use. HOME MEDICATIONS: Reviewed. Please see the list of home medications available in the electronic medical record. HOSPITAL MEDICATIONS: Reviewed. Please see the list of hospital medications available in the electronic medical record. ALLERGIES: NEMBUTAL, PENICILLIN, SULFA, TRYPTIZOL (TRIAVIL ?), CARBAMAZEPINE, CODEINE, ERYTHROMYCIN, MEPERIDINE, MORPHINE, PHENOBARBITAL. NO KNOWN FOOD ALLERGIES. NO KNOWN ALLERGIES TO LATEX. MS. BALL DOES REPORT AN ALLERGY TO ADHESIVE TAPE. NO KNOWN ALLERGIES TO IODINE OR OTHER CONTRAST MATERIALS. PHYSICAL EXAMINATION: VITAL SIGNS: Height 68 inches, weight 152 pounds, BMI 23.1 kg/m2. Blood pressure 128/88 mmHg, pulse 96 beats per minute, respiratory rate 20 breaths per minute, and oxygen saturation 99% on 3 L by nasal cannula. GENERAL: The patient is awake and alert, mildly distressed. HEENT: Normocephalic, atraumatic. Pupils are equal, round, and reactive to light. Moist mucous membranes. NECK: Hyperextended. No significant spasm of cervical paraspinous, strap, or trapezius muscles. No appreciable thyromegaly. No appreciable carotid bruits. CARDIOVASCULAR: S1, S2, irregular rhythm, tachycardic. No murmurs, rubs, or gallops. RESPIRATORY: Clear to auscultation bilaterally. No wheezes, rhonchi, or rales. EXTREMITIES: The skin is warm and dry. No clubbing or cyanosis. There is 1+ nonpitting edema present. The posterior tibial and dorsalis pedis pulses are 1+ and symmetric. SKIN: No rashes or lesions. NEUROLOGIC: Memory/Attention: The patient is awake and alert, oriented to person, place, time (month, year), and moderately to situation. Cranial Nerves: Cranial nerve I - not tested. Cranial nerve II, III, IV, and - pupils are equal and round, reactive briskly to light (from 4 mm to 2 mm). Extraocular movements intact. No nystagmus. Cranial nerve V - sensation to light touch is intact in the bilateral V1 through V3 distributions. Strength in the temporalis and masseter muscles is within normal limits. Cranial nerve VII - the face is symmetric as are all facial movements. Strength is within normal limits. Cranial nerve VIII - hearing is diminished to finger rub bilaterally. Cranial nerve IX, X - soft palate elevates equally and symmetrically. Cranial nerve XII - the tongue protrudes midline and moves symmetrically from [id number]-wu-[id number]. Strength: Bulk is decreased throughout. Ms. Ball is able to lift both forearms against gravity, but cannot overcome resistance. Strength of the finger flexors is approximately 4/5. Strength in the lower extremities is 1/5. Ms. Ball is able to wiggle the toes. Tone is mildly diminished to normal in the upper extremities. Tone is markedly increased in the bilateral lower extremities. DTRs: Deep tendon reflexes are 1+ and symmetric at the triceps, biceps, brachioradialis, and patellas. Deep tendon reflexes are absent and symmetric at the Achilles. Plantar responses are mute bilaterally. Sensation: Sensation is intact to light touch in both arms and both legs. Cerebellar: Unable to assess secondary to generalized weakness. Gait: Deferred. Speech: Spontaneous speech is normal without appreciable dysarthria or aphasia. Repetition is intact. Involuntary Movements: None. Pronator Drift: As per motor exam. LABORATORY DATA: The most recent basic metabolic panel is significant for a chloride of 112 and a creatinine of 0.54. A liver function panel collected on December 14, 2018, was significant for an elevated total protein of 9.6, decreased albumin of 2.6, and elevated globulin of 7.0. Cardiac enzymes are negative x3. Lactic acid 42.0, 21.1, 5.1. The most recent CBC with differential and platelets reveals a white blood cell count of 11.58 with 59.2% neutrophils, 28.8% lymphocytes, 7.6% monocytes, 2.1% eosinophils, and 0.3% basophils. The hemoglobin and hematocrit are 8.5 and 26.6, respectively. The platelet count is 251. An arterial blood gas from December 17, 2018, reveals a pH of 7.35, pCO2 of 36, pO2 of 194, bicarbonate of 20, O2 saturation of 100.0, base excess of -6.0, and FiO2 of 40. A urinalysis collected on December 14, 2018, revealed hazy urine with 4+ blood, positive nitrites, 2+ leukocyte esterase, 11-20 red blood cells, 11-20 white blood cells, and many urine bacteria. Blood cultures collected on December 14, 2018, revealed no growth after 72 hours. A urine culture collected on December 14, 2018, grew Proteus mirabilis ESBL. A urine culture collected on December 15, 2018, revealed no growth at 36-48 hours. DIAGNOSTIC STUDIES: Electrocardiogram, 12/17/2018 at 1706 hours: Atrial fibrillation with rapid ventricular response at 143 beats per minute with premature aberrantly conducted complexes. Chest x-ray, 12/14/2018: No acute thoracic abnormality. CT abdomen and pelvis, 12/14/2018: 1. Calculus in the mid/distal left ureter with oebh-go-sjjcyhfl hydroureteronephrosis. 2. Bilateral intrarenal calculi. Right ureteral stent in appropriate position. 3. Moderate colonic stool burden with prominent stool ball in the rectum. No bowel obstruction. 4. Kyphoplasty and untreated compression deformities of the spine as described above. Chest x-ray, 12/15/2018: Left PICC line terminates in the SVC without pneumothorax. No acute cardiopulmonary process. CT of the soft tissue of the neck, 12/17/2018: 1. Head rotated to the left and neck is hyperextended. Findings may be related to the patient's position or muscle spasm. No cervical spine fracture or subluxation. 2. No mass or gross acute abnormalities in the upper aerodigestive tract or neck soft tissues. 3. Incidental 10-mm nonaggressive calcified/ossified lesion in the dorsal spinal canal at T3, which results in gvydotfr-xz-monhdd canal stenosis, may represent calcified meningioma or possibly small exostosis or osteoma. Thoracic spine MRI with IV contrast may further evaluate. CT of the brain without contrast, 12/17/2018: On my review, there is no evidence of recent large territorial ischemia, hemorrhage, mass, or mass effect. There are surgical changes of a prior left pterional craniotomy with encephalomalacia in the underlying left temporal lobe. A small left middle cranial fossa arachnoid cyst is observed. There is diffuse cerebral atrophy with compensatory dilatation of the ventricles, with bifrontal predominance, more than expected for the patient's age. There are findings compatible with wwzx-kz-ffydhdnt chronic small-vessel ischemic disease. ASSESSMENT AND PLAN: Ms. Ball is a 68-year-old woman with multiple medical problems, admitted to [facility] on December 14, 2018, with pyelonephritis, sepsis, and acute kidney injury. On December 16, 2018, the patient was found to be somnolent and had witnessed apneic episodes secondary to medication effect superimposed on pyelonephritis, sepsis, etc. As detailed in the history of present illness, Ms. Ball has experienced generalized weakness of an unknown etiology since approximately July 2018. At this time, Ms. Ball has undergone a thorough neurological examination with findings detailed above. Her laboratory data and other diagnostic studies have been reviewed and are documented above. 1. Altered mental status: Probably secondary to medication effect superimposed on underlying pyelonephritis, sepsis, acute kidney injury, etc., rapidly improving. Continue intravenous antibiotics for treatment of the underlying infection. Acute kidney injury has resolved. Limit treatment with sedative/hypnotic and pain medications as these are known to alter the sensorium. Utilize environmental cues to combat delirium. 2. Seizure disorder: Well controlled. Continue the patient's home medications of Keppra 1500 mg by mouth twice daily and topiramate 100 mg by mouth twice daily. Monitor clinically for seizure activity. 3. Weakness: The etiology of the patient's weakness is unknown. Unfortunately, due to the patient's reported symptoms, the reported waxing and waning nature of her weakness, and findings on her neurological examination, it is impossible to localize the patient's lesion. The increased tone in the legs suggest a spinal cord injury either at the level of the thoracic or lumbar or lumbosacral spinal cord. However, the patient does not have risk reflexes or upgoing toes - findings generally seen with an upper motor neuron lesion. Peripheral neuropathy is less likely given the presence of a 1+ response at the triceps, biceps, brachioradialis, and patellas. An acquired myopathy or disuse myopathy is a possibility. However, there should be no increased tone with an acquired myopathy or disuse myopathy. Recommendations for evaluating the patient's weakness are as follows: A. Muscle enzymes will be ordered to evaluate for an inflammatory or irritative myopathy. B. When the patient is medically stable, an MRI of the entire spine without contrast will be ordered to evaluate for spinal cord compression. C. An NCV and EMG of the arms and legs should be performed as an outpatient. D. Defer treatment of the remaining medical comorbidities to the primary and other services following the patient. Thank you for this consultation. I will continue to follow the patient while she remains in the hospital. TIME SPENT: 70 minutes. Rufina James MD CP/RUSTY /[id number] MTDD
[2018-12-18] VITALS (27 sets, daily range): BP systolic 107–150; BP diastolic 63–107
[2018-12-18] MEDS ORDERED: AMIODARONE 900MG 500 ML IV SCH
[2018-12-18] MEDS: DIGOXIN INJ 0.25 MG/ML 2 ML AMP IV SCH ×2 (00:36→05:42)
[2018-12-18] MEDS: MEROPENEM 1GM 100 ML IV SCH ×3 (05:42→21:27)
--- NOTE | 2018-12-18 07:15 | NUR ---
Patient received awake, and EKG being done on patient now at bedside. Respirations are even and unlabored. Monitor reads NSR. Patient presently on Amiodarone drip at .5mg.
[2018-12-18] MEDS: PANTOPRAZOLE SOD 40 MG TABEC PO SCH (07:30)
--- NOTE | 2018-12-18 08:10 | NUR ---
Echo being done at bedside
[2018-12-18] MEDS: TOPIRAMATE 100 MG TAB PO SCH ×2 (09:00→17:28)
[2018-12-18] MEDS: LEVETIRACETAM 500 MG TAB PO SCH ×2 (09:00→17:28)
[2018-12-18] MEDS: VENLAFAXINE HCL 75 MG CAPCR PO SCH ×2 (09:00→17:28)
--- NOTE | 2018-12-18 09:10 | NUR ---
ELLEN Arevalo here at bedside to see patient
[2018-12-18 09:54] LABS: MAGNESIUM 1.4 MG/DL (1.3-2.1)
[2018-12-18 10:21] LABS: THYROID STIMULATING HORMONE 1.233 uIU/mL (0.350-4.940)
--- NOTE | 2018-12-18 11:00 | NUR ---
ST Note: Meal tray noted in pt's room. Pt's current diet order is mech soft with nectar thick liquids. Discussed results and recommendations of Bedside Swallow Evaluation completed 12/17/18 with ESCOBAR Rushing. It was recommended pt be NPO with NGT feeds and a Modified Barium Swallow study be completed 12/20/18. Order for MBS noted.
[2018-12-18] MEDS ORDERED: IOPAMIDOL 370 MG/ML 200 ML INFUS..BTL INJ ONE (13:10)
[2018-12-18] MEDS ORDERED: SODIUM CHLORIDE 0.9% 50ML 50 ML ONE (13:10)
--- NOTE | 2018-12-18 13:35 | Consultation ---
DATE OF CONSULTATION: 12/17/2018 REASON FOR CONSULTATION: AFib with RVR. CONSULTING PHYSICIAN: Dr. Charlton. HISTORY OF PRESENT ILLNESS: This is an unfortunate 68-year-old female, who presented with sepsis. The patient has history of UTI and renal stent in the past. She underwent a stent removal and replacement. She had low blood pressure. She was started on Levophed, later weaned off. She was transferred out of ICU. She was on the floor, has some pain. She received some pain medication and became unresponsive. Rapid response was called on her. She received some Narcan and woke up and was later transferred to ICU for closer observation. Yesterday, she went into AFib with RVR and Cardiology was consulted. She was started on amiodarone drip and this morning she converted back to normal sinus rhythm. She denied any chest pain, any palpitation, any diaphoresis, nausea, or vomiting. PAST MEDICAL HISTORY: She is bed bound, multiple UTIs, history of seizure, history of kidney stone, hypertension, hyperlipidemia, arachnoid cyst, reflux acid, depression, anxiety, migraine, right breast cancer. PAST SURGICAL HISTORY: Right breast mastectomy, multiple ureteral stent placement, appendectomy, cholecystectomy, , total hysterectomy, bilateral cataract removal, bilateral carpal tunnel surgery, and brain surgery for the arachnoid cyst. FAMILY HISTORY: Noncontributory. SOCIAL HISTORY: No smoking, no drinking. MEDICATIONS: See med list. ALLERGIES: SHE HAS MULTIPLE ALLERGIES, SEE CHART. REVIEW OF SYSTEMS: Negative except those mentioned above. PHYSICAL EXAMINATION: VITAL SIGNS: Temperature 98, heart rate 80, blood pressure 142/85, respirations 14, and oxygen saturation 100% on 3 L nasal cannula. GENERAL: She is alert, but lethargic. HEENT: Mucous membranes moist. NECK: Supple. LUNGS: Bilateral with decreased breath sounds. CARDIOVASCULAR: S1, S2 present. ABDOMEN: Soft. NEUROLOGICAL: She is able to follow simple commands. EXTREMITIES: With no edema with footdrop. LABS: Sodium 145, potassium 3.6, chloride 112, CO2 of 22, BUN 8, creatinine 0.54, glucose 91. White blood cell 11.5, hemoglobin 8.5, hematocrit 26.6, platelet 251. PT 17.1, PTT 31.1, INR 1.33. IMPRESSION: 1. Paroxysmal atrial fibrillation. 2. Altered mental status. 3. Sepsis with urinary tract infection. 4. Debility. 5. Anemia. 6. Sacral wound. 7. History of seizure and arachnoid cyst. PLAN: 1. She is on IV amiodarone. She converted back to normal sinus rhythm. We will continue the same as per the protocol, then we will switch her to p.o. amiodarone. 2. We will get an echocardiogram to assess the LV and the valve function. 3. Possible p.o. anticoagulation when okay with Urology and no other surgical procedures are planned. Continue her blood pressure medication. Further cardiac workup pending clinical course. Thank you for this consultation. Dictated by Kirby Yeboah, [employer] MD JORDAN Zimmerman/MODL /[id number]
--- NOTE | 2018-12-18 14:42 | Diagnostic Imaging Report ---
EXAM: CT Chest WITH contrast 12/18/2018 10:26 AM INDICATION: ^r/o pulmonary embolism ^[id number] ^1310 COMPARISON: None. TECHNIQUE: Spiral CT images of the chest were performed from the lung apices through the level of the adrenal glands after the IV contrast administration. Thin section reconstructions were obtained with special concentration on the pulmonary arteries. IV CONTRAST: 100 mL of Isovue-370 ORAL CONTRAST: None COMPLICATIONS: None RADIATION DOSE: Total DLP: 446.2 mGy*cm Estimated effective dose: (DLP x 0.015 x size factor) mSv CTDIvol has been reviewed. It is below the limits set by the Radiation Protocol Committee (RPC). FINDINGS: LINES/ TUBES: None. PULMONARY ARTERIES: Nonocclusive filling defects in a few subsegmental and segmental branches of the right lower lobe, for example on series 2, images 49, 51, and 53. No filling defects in the remaining pulmonary arteries. The main pulmonary artery normal in caliber, measuring 1.9 cm in diameter. LUNGS AND AIRWAYS: Incidental azygous lobe. Mild diffuse round glass opacity throughout the lungs suggestive of mild pulmonary edema. Indeterminate 6 mm groundglass pulmonary nodule in the lingula on series 3, image 78. Airways are normal. PLEURA: The pleural spaces are clear. HEART AND MEDIASTINUM: The thyroid gland is normal. No mediastinal, hilar or axillary lymphadenopathy. The heart is normal in size. Trace pericardial effusion. The thoracic aorta and pulmonary arteries are unremarkable. UPPER ABDOMEN: Unremarkable. BONES: Kyphoplasty of T11 vertebral body. Multilevel degenerative changes of the remaining thoracic vertebral bodies. SOFT TISSUES: Unremarkable. IMPRESSION: Mild segmental and subsegmental right lower lobe acute pulmonary embolism. No RV strain. Normal size of the pulmonary arteries. No pulmonary infarct. These findings were communicated to Mr Rushing (nurse) on 12/18/2018 at 2:35PM. Signed by: Dr. Claire Blake M.D. on 12/18/2018 2:38 PM
--- NOTE | 2018-12-18 14:43 | NUR ---
Dr Charlton notified of positive PE results from CT scan. Lovenox to be started.
[2018-12-18] MEDS ORDERED: ENOXAPARIN SOD INJ 40 MG/0.4 ML SYR SC SCH (17:00)
[2018-12-18] MEDS ORDERED: AMIODARONE HCL 200 MG TAB PO ONE (18:30)
[2018-12-18] MEDS: COLLAGENASE 5 GM TUBE TOP SCH (21:02)
[2018-12-18] MEDS: ENOXAPARIN INJ 80 MG/0.8 ML SYR SC SCH (21:27)
[2018-12-19] VITALS (27 sets, daily range): BP systolic 104–136; BP diastolic 68–85
[2018-12-19] MEDS: MEROPENEM 1GM 100 ML IV SCH ×3 (06:01→22:00)
[2018-12-19] MEDS: PANTOPRAZOLE SOD 40 MG TABEC PO SCH (08:20)
[2018-12-19] MEDS: AMIODARONE HCL 200 MG TAB PO SCH (08:56)
[2018-12-19] MEDS: LEVETIRACETAM 500 MG TAB PO SCH ×2 (08:56→19:47)
[2018-12-19] MEDS: VENLAFAXINE HCL 75 MG CAPCR PO SCH ×2 (08:56→19:47)
[2018-12-19] MEDS: ENOXAPARIN INJ 80 MG/0.8 ML SYR SC SCH ×2 (08:57→21:00)
[2018-12-19] MEDS: TOPIRAMATE 100 MG TAB PO SCH ×2 (08:57→19:47)
[2018-12-19] MEDS: ACETAMINOPHEN 325 MG TAB PO PRN (15:00)
[2018-12-19] MEDS: COLLAGENASE 5 GM TUBE TOP SCH (19:47)
[2018-12-20] VITALS (19 sets, daily range): BP systolic 95–135; BP diastolic 58–88
[2018-12-20] MEDS: MEROPENEM 1GM 100 ML IV SCH ×3 (05:58→22:00)
--- NOTE | 2018-12-20 08:13 | NUR ---
SPOKE WITH PT ABOUT THE COST OF THE REHAB, SHE STATES WHE WOULD LIKE FOR ME TO CALL HER EX TO PICK A FACILITY SINCE THE ONE SHE WANTS IS CLOSED. CALLED [facility] [phone] [employer] IN NETWORK [facility]OO[facility] [place], WILL FAX CLINICALS.
--- NOTE | 2018-12-20 08:50 | NUR ---
FAXED CLINICALS TO [facility] AT [facility] WITH [facility] CONFIRMED RECEIPT FROM [facility]. FILLED OUT RTF AND PUT IN PACKET WITH CLINICALS.
[2018-12-20] MEDS: VENLAFAXINE HCL 75 MG CAPCR PO SCH ×2 (08:54→18:59)
[2018-12-20] MEDS: LEVETIRACETAM 500 MG TAB PO SCH ×2 (08:54→18:59)
[2018-12-20] MEDS: TOPIRAMATE 100 MG TAB PO SCH ×2 (08:54→18:59)
[2018-12-20] MEDS: AMIODARONE HCL 200 MG TAB PO SCH (08:54)
[2018-12-20] MEDS: PANTOPRAZOLE SOD 40 MG TABEC PO SCH (08:54)
[2018-12-20] MEDS: ENOXAPARIN INJ 80 MG/0.8 ML SYR SC SCH ×2 (08:54→21:03)
[2018-12-20] MEDS: ONDANSETRON HCL 4 MG ORAL DISINTEGRATING TAB PO PRN (09:00)
--- NOTE | 2018-12-20 10:59 | NUR ---
WOUND CARE CONSULTATION Re-Consulted / Follow up Patient admitted from Home to ER. DX: Sepsis, IRMA, Pyelonephritis Wound Care Consulted For evaluation of left gluteal wound present on admission. PATIENT VISIT: Patient is laying supine in bed AAOx3, 1-2 Person assist to repositioning. Kevin Score = 14 Moderate PUP Active Alternating Pressure Air Mattress set to current patient weight Heel Protectors in place. Bilateral feet- no pressure injuries identified. Indwelling Patel Catheter. Ulceration to Left Gluteal Area. Oval Shaped, Draining light serosanguineous fluid. Central area of ulceration pale/ yellow slough. Wound progressed as expected to Unstageable ulcer. Pt states possibly laying or sitting on object at home. Oval Shaped over a non bony area. Edges appear healthy, non reddened. and epithelialization present. Slow healing ulcer. IMPRESSION: Left Gluteal - Unstageable Pressure Ulcer - Present On Admission RECOMMENDATION: -Left Gluteal - Stage II with DTI - Progressing to Unstageable- Present On Admission - Cleanse wound with NS and 4x4 gauze - Continue Santyl and Pleated Xeroform Gauze Cut to Size and Cover with Allevyn Foam Sacrum Dressing Daily. - Continue Alternating Pressure Air Mattress - Continue Bilateral Heel Protectors / Offload Heels with Pillows while in bed. - Turn and Reposition Every 2 Hours using turning clock schedule. - HOB elevation < or = to 30 Degrees as tolerated. Thank you for re-consulting with Wound Care. Addendum: 12/20/18 at 1105 by Avery Casanova RN Amended: Links added.
[2018-12-20] MEDS ORDERED: DIPHENHYDRAMINE HCL 25 MG CAP PO PRN (11:30)
[2018-12-20] MEDS: DIPHENHYDRAMINE HCL ELIX 12.5 MG/5 ML UDC PO PRN (14:04)
--- NOTE | 2018-12-20 15:13 | Diagnostic Imaging Report ---
EXAM: Modified barium swallow with Speech Pathologist INDICATION: ^Difficulty swallowing ^[id number] ^1000 COMPARISON: None available. RADIATION DOSE: Fluoroscopy Time: 3.4 min Dose (Kerma) Area Product: 4.86 Gycm2 Air Kerma (AK) value has been reviewed. It is below the limits set by the Radiation Protocol Committee (RPC) committee. FINDINGS: See impression IMPRESSION: Laryngeal penetration was noted with thin liquids, nectar thick liquids, and thick puree. Trace aspiration of cup and straw sips of thin liquid, trace overt aspiration of nectar thick liquid,, trace aspiration of thick puree. Refer to speech pathology report for further details and recommendations. Signed by: Dr. Abdiaziz Buenrostro M.D. on 12/20/2018 3:09 PM
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
--- NOTE | 2018-12-20 15:52 | Diagnostic Imaging Report ---
Exam: Abdominal film Clinical History: NG tube placement Comparison: CT abdomen and pelvis without contrast 12/14/2018. DISCUSSION: Enteric tube tip projects over the distal gastric body. Ingested contrast material from barium swallow examination 12/20/2018 opacifies the stomach. Enteric contrast material is also noted within the right colon. Bilateral internal ureteral stents partially visualized. Bowel gas pattern is nonobstructive. Vertebroplasty cement at T11 and L1. No acute osseous abnormality. No jose maria pneumoperitoneum. No mass effect or organomegaly. IMPRESSION: Enteric tube tip projects over the distal gastric body. Signed by: Dr. Abdiaziz Buenrostro M.D. on 12/20/2018 3:49 PM
--- NOTE | 2018-12-20 16:25 | NUR ---
REC'D PT IN JORDAN'S POSITION WITH NGT, NO S/S OF DISTRESS, BED IN LOWEST POSITION, SIDE RAILS UP X2, AND CALL ARIAS WITHIN REACH.
--- NOTE | 2018-12-20 18:30 | NUR ---
PT SITTING IN HIGH FOWLERS POSITION, NGT IN PLACE, BED IN LOWEST POSITION, SIDE RAILS UP X2, AND CALL ARIAS WITHIN REACH
--- NOTE | 2018-12-20 20:04 | NUR ---
RECEIVED PT IN BED AOX3 .RESPIRATIONS ARE EVEN AND UNLABORED .PT HAS NG TUBE STAG2 C DTI AT [facility]UM .LEFT UA PICC AND LEFT WRIST 22 G S/L .DENIES PAIN .CALL LIGHT WITH IN IN REACH .CONTINUE TO MONITOR
[2018-12-20] MEDS ORDERED: SODIUM CHLORIDE 0.9% 250ML 250 ML ONE (21:08)
[2018-12-21] VITALS (8 sets, daily range): BP systolic 91–122; BP diastolic 53–63
[2018-12-21] MEDS: MEROPENEM 1GM 100 ML IV SCH ×3 (06:00→21:27)
--- NOTE | 2018-12-21 06:13 | NUR ---
PT RESTING .PT IS TOLERATING THE FEEDING .DENIES PAIN .CALL LIGHT WITHIN REACH ,CONTINUE TO MONITOR
[2018-12-21] MEDS: COLLAGENASE 5 GM TUBE TOP SCH (09:14)
[2018-12-21] MEDS: TOPIRAMATE 100 MG TAB PO SCH ×2 (09:14→17:08)
[2018-12-21] MEDS: VENLAFAXINE HCL 75 MG CAPCR PO SCH ×2 (09:14→17:08)
[2018-12-21] MEDS: ENOXAPARIN INJ 80 MG/0.8 ML SYR SC SCH ×2 (09:14→21:27)
[2018-12-21] MEDS: PANTOPRAZOLE SOD 40 MG TABEC PO SCH (09:14)
[2018-12-21] MEDS: AMIODARONE HCL 200 MG TAB PO SCH (09:14)
[2018-12-21] MEDS: LEVETIRACETAM ORAL SOLUTION 500 MG/5 ML SOLN NG SCH ×2 (09:17→21:27)
--- NOTE | 2018-12-21 09:50 | NUR ---
FAXING PT NOTES TO [facility]
--- NOTE | 2018-12-21 14:55 | NUR ---
SPOKE WITH PAO LYONS AND EXPLAINED ABOUT THE [place] LOCATION IS IN AGREEMENT TO GO TO [facility]. SHE HAS BEEN ACCEPTED TO ROOM [address] CHANEY[address] LET MENA KNOW ABOUT PEG PLACEMENT, SHE STATES JUST TO GET SPECS AND LET THEM KNOW
--- NOTE | 2018-12-21 15:15 | NUR ---
ST NOTE: Attempted NMES to treat dysphagia, pt out of room for MRI, will reattempt on 12/22/18. Pt scheduled for peg tube placement 12/22/18. handoff to ESCOBAR Hinds
--- NOTE | 2018-12-21 22:10 | Diagnostic Imaging Report ---
EXAMINATION: MRI of the brain without contrast. HISTORY: Acute weakness, evaluate for a stroke, severe sepsis with acute renal failure. COMPARISON: Head CT 12/17/2018 TECHNIQUE: Sagittal T2; axial DWI, T2, FLAIR, T1-IR, T2 gradient echo; coronal FLAIR. IMAGE QUALITY: Adequate. FINDINGS: Parenchyma: 1. Chronic cortical subcortical encephalomalacia in the left lateral middle and inferior temporal gyri, beneath left adrenal craniotomy. 2. Few scattered white matter T2 and FLAIR hyperintense foci, most likely nonspecific chronic microvascular ischemic changes involving most of the luisa as well. 3. No mass, hemorrhage, acute or chronic infarcts. Skull: Left pterional craniotomy defect. Vessels: Expected flow voids present in the major arteries and dural sinuses. Extra-axial spaces: Unchanged well-circumscribed approximately 2.5 x 2.6 x 3.4 cm (SI x AP x T) left sylvian fissure arachnoid cyst with minimal mass effect upon the left anterior temporal lobe, however there is no abnormal signal in the parenchyma. Small arachnoid cyst along the anterior interhemispheric fissure without significant mass effect is also noted. Brain volume: Mild generalized brain volume loss. Ventricles: No hydrocephalus or displacement. Foramen magnum: Unremarkable. Sella: Unremarkable. Paranasal / mastoid sinuses: No significant inflammatory disease. IMPRESSION: 1. No acute infarcts. 2. Mild chronic microvascular ischemic changes. 3. Left temporal encephalomalacia beneath a left pterional craniotomy. Signed by: Dr. Svitlana Logan M.D. on 12/21/2018 10:07 PM
--- NOTE | 2018-12-21 22:31 | Diagnostic Imaging Report ---
EXAMINATION: MRI of the cervical, thoracic and lumbar spine without contrast HISTORY: Acute generalized weakness, severe sepsis with acute renal failure. COMPARISON: Neck CT 12/17/2018 TECHNIQUE: Sagittal T1, T2, STIR; axial T2, gradient echo. FINDINGS: Curvature: -Increased cervical lordosis, likely from hyperextension perhaps associated to muscle spasm as there is mild edema of the posterior paraspinal soft tissues without evidence of fluid collections. -Normal thoracic kyphosis and lumbar lordosis. -Mild thoracolumbar S shaped scoliosis. Spinal Canal: Again noted approximately 10 mm nonaggressive, well-circumscribed calcified/ossified extra-medullary intradural lesion in the dorsal spinal canal at T3 which results in moderate canal stenosis, likely represent a calcified meningioma without cord compression. Vertebrae: -Bone marrow edema along the left posterior vertebral body and pedicle of T2 may correspond to microtrabecular fracture, displaced fracture is seen. -Status post percutaneous vertebral cement injection to treat osteoporotic compression fractures at T11 and L1, with mild decreased vertebral body height (approximately 20 and 40% respectively) -Mild chronic depression of the superior endplate of T2, T4, L2 and L4 as well as the inferior endplate of L5. -Minimal chronic anterior wedging of T10. -No evidence of neoplasm, infection, or fracture. Foramen magnum: No mass, Chiari malformation, or basilar invagination. Spinal Cord: Normal size and signal intensity. Soft Tissues: Severe atrophy of the lumbosacral paraspinal muscles. Degenerative changes: Cervical spine: No significant degenerative changes, no spinal canal or foraminal stenoses. Thoracic spine: No significant degenerative changes, no spinal canal or foraminal stenosis. Lumbar spine: Mild symmetric disc bulge and [id number] facet arthrosis from L2-L3 to L5-S1 without significant spinal canal or foraminal stenoses. Incidental findings: -Partially visualized orogastric tube. IMPRESSION: 1. Well-circumscribed extra-medullary intradural partially calcified lesion in the dorsal spinal canal at the level of T3 corresponds to a benign meningioma, with associated moderate canal stenosis, no spinal cord compression. 2. Bone marrow edema along the left posterior vertebral body and pedicle of T2 may correspond to a microtrabecular fracture without associated displacement, posterior canal retropulsion or stenosis. 3. Otherwise no acute displaced fractures. Status post percutaneous vertebral cement injection in the T11 and L1 vertebral bodies. Signed by: Dr. Svitlana Logan M.D. on 12/21/2018 10:28 PM
[2018-12-22] VITALS (7 sets, daily range): BP systolic 105–130; BP diastolic 56–64
[2018-12-22] MEDS ORDERED: PHYTONADIONE 10MG/ML 20 MG in SODIUM CHLORIDE 0.9% 100 ML 100 ML IV ONE (00:30)
[2018-12-22] MEDS ORDERED: PHYTONADIONE 10MG/ML 1 ML ONE (00:31)
[2018-12-22] MEDS ORDERED: SODIUM CHLORIDE 0.9% 100 ML ONE (00:33)
[2018-12-22] MEDS: ACETAMINOPHEN 325 MG TAB PO PRN (04:57)
[2018-12-22] MEDS: MEROPENEM 1GM 100 ML IV SCH ×3 (05:28→21:38)
[2018-12-22 06:34] LABS: INR 1.07; PROTHROMBIN TIME 14.4 seconds (11.9-14.5)
[2018-12-22] MEDS: PANTOPRAZOLE SOD 40 MG TABEC PO SCH (07:30)
[2018-12-22] MEDS: TOPIRAMATE 100 MG TAB PO SCH ×2 (09:00→16:49)
[2018-12-22] MEDS: ENOXAPARIN INJ 80 MG/0.8 ML SYR SC SCH ×2 (09:00→21:00)
[2018-12-22] MEDS: LEVETIRACETAM ORAL SOLUTION 500 MG/5 ML SOLN NG SCH ×2 (09:00→21:00)
[2018-12-22] MEDS: AMIODARONE HCL 200 MG TAB PO SCH (09:00)
[2018-12-22] MEDS: VENLAFAXINE HCL 75 MG CAPCR PO SCH ×2 (09:00→16:49)
[2018-12-22] MEDS: COLLAGENASE 5 GM TUBE TOP SCH (12:17)
--- NOTE | 2018-12-22 13:41 | Progress Note ---
DATE: 12/22/2018 SUBJECTIVE: Ms. Ball is seen on rounds. Events noted. She has got moved to the regular unit. Spouse is at the bedside. I was able to get more information from him. On exam, the patient is currently sleepy/sedated. A #[address] is in [address]. OBJECTIVE: HEART: Regular. LUNGS: Diminished breath sounds. Air entry was okay, but she did not take a deep breath. ABDOMEN: Not distended. I was not able to get her to really move her arms or legs as she is sedated as it is right now. VITAL SIGNS: Blood pressure is 115/58, respirations of 18, heart rate of 94, and temperature . I did speak with spouse at discharge, she does live by herself. He would come five days a week to help take care of her, but she has not walked since the fall of last season. States that despite this, she was able to be by herself for the most part. She has family member, who lives nearby, who comes to check on her for some time. She has not been ambulatory. At this point, mobility training has been limited secondary to her current condition. Right now, it does appear that she can tolerate a whole lot. Continue supportive care. Discussed with patient's spouse at length. Yves Kirkpatrick DO RPL/MODL /[id number]
--- NOTE | 2018-12-22 14:39 | NUR ---
MET W THE PT'S SPOUSE AT THE BEDSIDE. EXPLAINED IMM LETTER AGAIN; VERBALIZED UNDERSTANDING. LETTER WAS SIGNED AND COPY TO SPOUSE AND COPY TO CHART. DISCUSSED PT RECEIVING PEG TODAY AND THEN TRANSFERRING TO [facility].
--- NOTE | 2018-12-22 16:10 | NUR ---
patient off unit to OR for EGD and PEG placement
[2018-12-22] MEDS ORDERED: FENTANYL CITRATE/PF 100MCG/2 ML INJ ONE (17:52)
[2018-12-22] MEDS ORDERED: HYDROMORPHONE 2MG/ML 2 MG/ML ML ONE (18:22)
[2018-12-22] MEDS ORDERED: DIPHENHYDRAMINE HCL INJ 50 MG/ML VIAL ONE (18:47)
--- NOTE | 2018-12-22 19:00 | NUR ---
patient returned from OR, Resp even and unlabored. no c/o pain at this time. bed in low and locked position. call light placed within reach. PEG tube in place with Patel drain bag attached to PEG, per OR nurse-MD instructions to wait 24hrs post op before using PEG.
[2018-12-22] MEDS ORDERED: LIDOCAINE HCL 2% LOCAL INJ 5 ML SDV VIAL INJ ONE (19:12)
[2018-12-22] MEDS ORDERED: PROPOFOL IV EMULSION 10 MG/ML 20 ML VIAL ONE (19:12)
[2018-12-23] VITALS (7 sets, daily range): BP systolic 107–127; BP diastolic 58–73
[2018-12-23] MEDS ORDERED: ACETAMINOPHEN 1000 MG/100 ML IV PRN
--- NOTE | 2018-12-23 02:30 | NUR ---
Dr. Pat Solis to see pt and ok to resume feedings at 2pm on 12/23/18
[2018-12-23] MEDS: LACTATED RINGER'S 1,000 ML IV SCH ×2 (03:09→15:59)
--- NOTE | 2018-12-23 04:44 | Operative Report ---
DATE OF PROCEDURE: 12/22/2018 SURGEON: Bjorn Solis MD PROCEDURE: EGD and PEG tube insertion. REFERRING PHYSICIAN: Abdiaziz Hsu MD and Julita Charlton MD INDICATION FOR PROCEDURE: Abnormal swallow evaluation, the patient's NG tube feeding dependent. PROCEDURE IN DETAIL: With the patient in the left supine position, a flexible fiberoptic Olympus gastroscope was introduced into the esophagus under direct visualization without any difficulty. There was some patchy erythema noted in distal esophagus. The scope was then advanced with ease into the stomach traversing a small sliding hiatal hernia. Mucosa overlying the antrum and the body revealed some patchy erythema. Pylorus was intubated with ease and the scope was advanced all the way to the second portion of the duodenum. The scope was then withdrawn slowly. Mucosa overlying the proximal second portion and the duodenal bulb appeared to be within normal limits. The scope was then withdrawn back into the stomach and retroflexed mucosa overlying the fundus and cardia appeared to be within normal limits. The scope was then straightened out and after delineation of a safe entry point through external digital palpation and transabdominal illumination, PEG tube insertion was carried out in the usual fashion. The scope was subsequently withdrawn after documenting a good positioning of the intragastric bumper. The patient tolerated the procedure well. IMPRESSION: 1. Mild distal esophagitis. 2. Small sliding hiatal hernia. 3. Gastritis. 4. PEG tube insertion carried out in the usual fashion. The patient tolerated the procedure well. PLAN: PEG tube to drain to gravity in a Patel bag x24 hours then can use. Apply abdominal binder. Bjorn Solis MD [facility] [place] [place] /[id number] cc: MD Julita Dasilva MD
[2018-12-23] MEDS: MEROPENEM 1GM 100 ML IV SCH ×3 (05:51→22:00)
--- NOTE | 2018-12-23 06:27 | Diagnostic Imaging Report ---
EXAM: CHEST SINGLE (PORTABLE), PA and lateral DATE: 12/23/2018 INDICATION: Sepsis. Stroke. COMPARISON: 11/25/2018. FINDINGS: LINES/TUBES: Left upper extremity PICC with distal tip projected on the cavoatrial junction. LUNGS: Bilateral perihilar peribronchial thickening. Bibasilar atelectasis. No consolidations or edema. Azygos and fissure and lobe present. PLEURA: No effusions or pneumothorax. HEART AND MEDIASTINUM: Normal size and contour. BONES AND SOFT TISSUES: No acute findings. Vertebroplasty cement in a lower thoracic spine and upper lumbar spine vertebral body. Surgical clips present in the right axilla. Residual contrast within the colon. IMPRESSION: Bibasilar atelectasis. Signed by: Dr. Wayne Bernard M.D. on 12/23/2018 6:24 AM
[2018-12-23 06:52] LABS: ANION GAP 9.2 mmol/L (8-16); BLOOD UREA NITROGEN 10 mg/dL (7-26); BUN/CREATININE RATIO 23 (6-25); CALCIUM 8.5 mg/dL (8.4-10.2); CARBON DIOXIDE 26 mmol/L (22-29); CHLORIDE 106 mmol/L (98-107); CREATININE, SERUM 0.44 mg/dL (0.57-1.11); EST GLOMERULAR FILTRATION RATE > 60 ML/MIN (60-); GLUCOSE 82 mg/dL (74-118); POTASSIUM 3.2 mmol/L (3.5-5.1); SODIUM 138 mmol/L (136-145)
[2018-12-23 06:54] LABS: BASOPHILS % 0.3 % (0.0-1.0); EOSINOPHILS # (AUTO) 0.3 (0.0-0.4); EOSINOPHILS % 2.7 % (0.0-6.0); HEMATOCRIT 28.6 % (34.2-44.1); LYMPHOCYTES # (AUTO) 3.8 (1.0-3.2); LYMPHOCYTES % 37.9 % (18.0-39.1); MEAN CORPUSCULAR HEMOGLOBIN 29.8 pg (28-32); MEAN CORPUSCULAR HGB CONC 31.5 g/dL (31-35); MEAN CORPUSCULAR VOLUME 94.7 fL (81-99); MONOCYTES # (AUTO) 0.8 (0.2-0.8); NEUTROPHILS # (AUTO) 5.1 (2.1-6.9); NEUTROPHILS % 50.1 % (38.7-80.0); PLATELET COUNT 311 x10e3/uL (140-360); RED BLOOD COUNT 3.02 x10e6/uL (3.6-5.1); RED CELL DISTRIBUTION WIDTH 13.1 % (11.7-14.4)
[2018-12-23] MEDS: PANTOPRAZOLE SOD 40 MG TABEC PO SCH (07:30)
--- NOTE | 2018-12-23 08:41 | NUR ---
PT UNABLE TO START PEG FEEDING UNTIL AFTER 2PM TODAY, WILL SEND UPDATES TO [facility] SOON THEY ARE AVAILABLE.
[2018-12-23] MEDS: LEVETIRACETAM ORAL SOLUTION 500 MG/5 ML SOLN NG SCH ×2 (08:44→21:00)
[2018-12-23] MEDS: VENLAFAXINE HCL 75 MG CAPCR PO SCH ×2 (08:45→17:50)
[2018-12-23] MEDS: AMIODARONE HCL 200 MG TAB PO SCH (08:45)
[2018-12-23] MEDS: TOPIRAMATE 100 MG TAB PO SCH ×2 (08:45→17:50)
[2018-12-23] MEDS ORDERED: POTASSIUM CHLORIDE 20MEQ/100ML 200 ML IV ONE (09:00)
[2018-12-23] MEDS: COLLAGENASE 5 GM TUBE TOP SCH (09:16)
[2018-12-23] MEDS: ENOXAPARIN INJ 80 MG/0.8 ML SYR SC SCH ×2 (09:16→21:00)
[2018-12-23] MEDS ORDERED: AMIODARONE HCL200 MG PO (10:16)
[2018-12-23] MEDS ORDERED: Collagenase TOP (10:16)
[2018-12-23] MEDS ORDERED: ELIQUIS (10:16)
--- NOTE | 2018-12-23 10:38 | NUR ---
home O2 eval done, O2 saturation @98% on room air.
--- NOTE | 2018-12-23 14:30 | NUR ---
per MD orders, TF started at 25ml/hr via PEG. goal is 65ml/hr. 40ml free water flush every 4hrs. will monitor. clean dry dressing to site.
--- NOTE | 2018-12-23 15:27 | NUR ---
Patient tolerating PEG TF, no residual. denies N/V and abdominal pain. no Resp distress noted, denies SOB. HOB up 45 degrees. call light within reach.
--- NOTE | 2018-12-23 17:29 | Progress Note ---
DATE: 12/23/2018 SUBJECTIVE: Ms. Ball was seen on rounds today. They have inserted PEG and drain with her NG tube. Right now, she is pretty sleepy. Her spouse is at the bedside. OBJECTIVE: GENERAL: The patient is sleepy, not too arousable at this time, resting up. VITAL SIGNS: Temperature 97.9 degrees, respirations 18, heart rate 82, and blood pressure 109/60. HEART: Regular rate and rhythm. LUNGS: Diminished breath sounds. ABDOMEN: Nondistended. Nontender. LABORATORY DATA: White cell count of 10, hemoglobin 9, hematocrit 28.6, and platelets of 311. ASSESSMENT AND PLAN: We advised not to brush too much. Scheduled for intermediate facility transfer. Discussed with spouse, ex-spouse, as well as nursing. Yves Kirkpatrick DO RPL/MODL /[id number]
[2018-12-23] MEDS: ACETAMINOPHEN 325 MG TAB PO PRN (17:50)
--- NOTE | 2018-12-23 17:50 | NUR ---
TF increased to 30ml/hr, tolerating well. active bowel sounds x4, abdomen soft. call light within reach.
--- NOTE | 2018-12-23 19:49 | NUR ---
RECEIVED PT IN BED AOX3 .RESPIRATIONS ARE EVEN AND UNLABORED .PT HAS PEG TUBE OSMOLITE 1.2 35 ML/HR .PT HAS PUREWICK .DENIES PAIN .CALL LIGHT WITH IN REACH.CONTINUE TO MONITOR
[2018-12-24] VITALS: BP 107/78
[2018-12-24 00:56] VITALS: BP 107/78
[2018-12-24 04:00] VITALS: BP 121/75
[2018-12-24] MEDS: LACTATED RINGER'S 1,000 ML IV SCH (05:37)
[2018-12-24] MEDS: MEROPENEM 1GM 100 ML IV SCH ×2 (05:37→13:28)
[2018-12-24] MEDS: DIPHENHYDRAMINE HCL ELIX 12.5 MG/5 ML UDC PO PRN ×2 (05:53→15:00)
--- NOTE | 2018-12-24 06:42 | NUR ---
PT RESTING .C/O ITCHING AND GIVEN BENADRYL.PT TOLERATING THE FEEDING .OSMOLITE 1.2 IS RUNNING AT 50CC/HR .PT HAD BATH .CALL LIGHT WITH IN REACH .CONTINUE TO MONITOR
--- NOTE | 2018-12-24 07:11 | NUR ---
REPORT GIVEN TO THE ON COMING NURSE
[2018-12-24 08:00] VITALS: BP 98/85
[2018-12-24] MEDS: AMIODARONE HCL 200 MG TAB PO SCH (08:27)
[2018-12-24] MEDS: PANTOPRAZOLE SOD 40 MG TABEC PO SCH (08:27)
[2018-12-24] MEDS: VENLAFAXINE HCL 75 MG CAPCR PO SCH (08:27)
[2018-12-24] MEDS: LEVETIRACETAM ORAL SOLUTION 500 MG/5 ML SOLN NG SCH (08:27)
[2018-12-24] MEDS: TOPIRAMATE 100 MG TAB PO SCH (08:28)
[2018-12-24] MEDS: COLLAGENASE 5 GM TUBE TOP SCH (08:28)
[2018-12-24] MEDS ORDERED: RIVAROXABAN 15 MG TABLET PO SCH (09:00)
--- NOTE | 2018-12-24 09:48 | NUR ---
ST NOTE: Attempted NMES to treat dysphagia, pt sleeping and refusing therapy treatment when aroused. Pt had refused treatment at every attempt. Pt to d/c to SNF today. Handoff to ESCOBAR Whitlock
[2018-12-24 12:00] VITALS: BP 124/80
[2018-12-24] MEDS: ONDANSETRON HCL 4 MG ORAL DISINTEGRATING TAB PO PRN (13:28)
[2018-12-24] MEDS: ACETAMINOPHEN 325 MG TAB PO PRN (13:28)
--- NOTE | 2018-12-24 13:34 | NUR ---
IMM LETTER EXPLAINED TO SPOUSE AND PT. IMM LETTER WAS SIGNED AND COPY TO PT AND COPY TO CHART.
--- NOTE | 2018-12-24 13:37 | NUR ---
GOT AUTH FOR PT TO GO TO FACILITY FILLED OUT RTF AT [facility] WITH NUMBER TO CALL FOR REPORT AND ROOM 161.
--- NOTE | 2018-12-25 04:28 | Discharge Summary ---
HOSPITAL COURSE: A 68-year-old woman admitted with progressive lethargy, recently underwent removal of an encrusted indwelling ureteral stent and replacement also removal of a calculus. Cystoscopy had been done by Dr. Madrigal. Cultures grew Pseudomonas and enterococcus on 12/03/2018. She was treated with antibiotics. She is felt to have pyelonephritis, was treated with IV cefepime and Levaquin. She was in shock, thought to be related to sepsis and was treated with Levaquin. This was related to her pyelonephritis. She had episodes of apnea, which was felt to be related to Dilaudid. She was monitored in the ICU. An episode of atrial fibrillation requiring amiodarone drip. She was seen by Neurology. The patient had a history of subarachnoid bleed requiring surgical intervention. Also found to have pulmonary emboli. She had difficulty feeding and was aspirating, a PEG tube was placed prior to discharge. There was no evidence of stroke. There is a left pterional craniotomy with encephalomalacia in the left temporal lobe. Small left middle cranial fossa arachnoid cyst. Diffuse atrophy of the brain. She remained severely weak. Her rehabilitation potential was felt to be poor. care home was recommended. She is discharged, pending mcc placement. Continue amiodarone, Eliquis, sacral wound care, Neurontin, omeprazole, topiramate, Effexor, and Keppra. She was treated again with meropenem and this will be discontinued at the time of discharge. MD MAXIMILIAN Dasilva/RUSTY /[id number]
--- NOTE | 2018-12-25 19:11 | Discharge Summary ---
ADDENDUM: The patient's neurologic problems seem not entirely related to her dementia and myopathy is entertained. Fortunately, EMG studies could not be performed to confirm this impression, but should be considered as an outpatient. MD MAXIMILIAN Dasilva/RUSTY /[id number]
== END 2018-12-24 15:13 | DRG 853 ==
LOC: ER 14:45 → ERHOLD 20:29 → IMCU 22:12 → ICU 12-15 06:30 → MED/SURG2 12-16 12:50 → ICU 12-16 23:06 → MED/SURG3 12-20 16:30
PROVIDERS: ADMIT Internal Medicine; ATTEND Internal Medicine
PROC: 0DH68UZ Insertion of Feeding Device into Stomach, Via Natural or Artificial Opening Endoscopic (ICD-10-PCS; 2018-12-14)
PROC: 0TP98DZ Removal of Intraluminal Device from Ureter, Via Natural or Artificial Opening Endoscopic (ICD-10-PCS; 2018-12-15)
PROC: 02HV33Z Insertion of Infusion Device into Superior Vena Cava, Percutaneous Approach (ICD-10-PCS; 2018-12-15)
PROC: 0T768DZ Dilation of Right Ureter with Intraluminal Device, Via Natural or Artificial Opening Endoscopic (ICD-10-PCS; principal; 2018-12-15 07:29)
PROC: 0T778DZ Dilation of Left Ureter with Intraluminal Device, Via Natural or Artificial Opening Endoscopic (ICD-10-PCS; 2018-12-15 07:29)
PROC: BT141ZZ Fluoroscopy of Kidneys, Ureters and Bladder using Low Osmolar Contrast (ICD-10-PCS; 2018-12-15 07:29)
DX: A41.51 Sepsis due to Escherichia coli [E. coli] (principal); R65.21 Severe sepsis with septic shock; I26.99 Other pulmonary embolism without acute cor pulmonale; N17.9 Acute kidney failure, unspecified; N13.6 Pyonephrosis; R06.81 Apnea, not elsewhere classified; G93.89 Other specified disorders of brain; G93.0 Cerebral cysts; Z74.01 Bed confinement status; Z87.440 Personal history of urinary (tract) infections; E78.5 Hyperlipidemia, unspecified; F32.9 Major depressive disorder, single episode, unspecified; F41.9 Anxiety disorder, unspecified; Z85.3 Personal history of malignant neoplasm of breast; Z90.11 Acquired absence of right breast and nipple; I48.0 Paroxysmal atrial fibrillation; D64.9 Anemia, unspecified; L89.152 Pressure ulcer of sacral region, stage 2; G40.909 Epilepsy, unspecified, not intractable, without status epilepticus; G62.9 Polyneuropathy, unspecified; B96.4 Proteus (mirabilis) (morganii) as the cause of diseases classified elsewhere; Z16.12 Extended spectrum beta lactamase (ESBL) resistance; A41.89 Other specified sepsis; R13.10 Dysphagia, unspecified; E87.8 Other disorders of electrolyte and fluid balance, not elsewhere classified; T50.995A Adverse effect of other drugs, medicaments and biological substances, initial encounter
CPT/HCPCS: 36415; 36569; 36600; 43246; 70450; 70490; 70551; 71045; 71046; 71260; 72141; 72146; 72148; 74018; 74176; 74230; 74420; 80048; 80053; 81001; 82085; 82550; 82553; 82805; 83605; 83735; 83874; 84443; 84484; 85025; 85610; 85730; 87040; 87086; 87186; 92523; 93005; 93306; 93880; 94660; 97139; 97150; 99284; C1758; C2617; J0692; J1100; J1160; J1200; J1650; J2001; J2250; J2310; J2405; J3370; J3430; J3480; J7030; J7050; J7070; J7121; Q9967

== ENCOUNTER 2018-12-30 09:41 | Inpatient (IN) | payer MEDICARE ==
[~2018-12-30] VITALS: Ht 172.7 cm; Wt 66.4 kg
[~2018-12-30 09:41] MED LIST changes: +AMIODARONE HCL200 MG PO; +Collagenase TOP; +ELIQUIS; +PRILOSEC OTC20 MG PO
--- OUTSIDE RECORDS SUMMARY | 2018-12-30 09:45 | XMS REPORT | Clinical Summary ---
Author Author Jesus Manuel [facility] Address Unknown Phone Unavailable Care Team Providers Care Senior Coldfusion Developer Name Role Phone Asked, No Pcp PCP [...] 11/16/2018 Discontinued vit Take 1 tablet 0 V-esrit-forjtw-bioflv-ros by mouth e 1,000-50-50 mg tablet nightly. [...] Jojo Gutierrez RN 01/22/2018 Refill Neurology after 12/29/2017 Family History Medical History Relation Name Comments [...] Description Date Type Specialty Kartik Sullivan MD [address] [facility] [address] [place] [address] 02/23/2019 Office Visit Neurology Health [...] Area Manufactur er 11/26/2018 [id number] / / [id number] Kit Mixer Bone Cmnt Kyphon Kyphx Surgical N/A: N/A KYPHON DIV Hv-R - [id number] Implants; OF Implanted: Qty: 1 on 05/08/2017 by Expanders; MEDTc Zhang MD Extenders; SPINE Surgical Wires 1600 [id number] / / Wire K Dual Trcr Pt [id number] Ns - Temporary Left: Thumb MICRO AIRE [id number] Fixation SURGICAL Implanted: Qty: 2 on 08/21/2017 by Pin or INSTRUMENT Marilu Summers MD Wire 09/07/2021 [id number] / / [id number] Stent Uretl Unvrsa 6fr 26cm Urological N/A: N/A COOK Hydrphlc W/O Gw - [id number] Implants UROLOGICAL Implanted: Qty: 1 on 11/17/2018 by or Vega Colvin MD Procedures Comments Procedure Name Priority Date/Time Associated Diagnosis SURGICAL PATHOLOGY Routine 11/17/2018 REQUEST 2:48 PM CDT CALCULI ANALYSIS WITH Routine 11/17/2018 PHOTO 2:48 PM CDT CO AN ELECTIVE Routine 11/17/2018 SUPRAGLOTTIC AIRWAY 2:27 [...] CDT myelopathy or radiculopathy, lumbosacral region after 12/29/2017 Results * Calculi analysis with photo (11/17/2018 [...] REF LAB analysis and photo Comment: [employer] Enhanced Report using either link below: -Direct access: [email or web address] -Enter Username, Password: [email or web address] Username: [email or web address] Password: [email or web address] Performed by [facility], [address] [place], [place] [id number] [email or web address], Junito Heck MD - Lab. Director Specimen Serum Narrative Performed At [id number] [facility]TERERAL STONE Performing Organization Address City/[facility]/Zipcode Phone Number [facility] [address] [place] [address] [place] REF LAB [address] [place] [address] * Surgical pathology request (11/17/2018 2:48 PM CDT) [facility] DEPARTMENT OF PATHOLOGY AND GENOMIC MEDICINE Surgical pathology report See link below for PDF Lab [facility] DEPARTMENT OF Report PATHOLOGY AND GENOMIC MEDICINE Result status This is Final Report for [facility] DEPARTMENT OF [id number] PATHOLOGY AND GENOMIC MEDICINE Performing Organization Address City/State/Zipcode Phone Number [facility] DEPARTMENT [place] [address] [place] [address] PATHOLOGY AND GENOMIC MEDICINE * XR Kub [...] Bilateral renal calculi Right-sided double-J ureteral stent [facility]-[id number] Procedure Note Interface, Radiology Results Incoming - [...] Bilateral renal calculi Right-sided double-J ureteral stent [facility]-[id number] Performing Organization Address [facility] Phone Number [employer] [place] [address] * XR Chest 1 Vw (11/16/2018 12:14 [...] The bony structures are within normal limits. [facility]-[id number] Procedure Note Interface, Radiology Results Incoming - [...] The bony structures are within normal limits. [facility]-[id number] Performing Organization Address [facility]/[employer] [place] [address] * Smear review (11/16/2018 11:02 AM CDT) Platelet slide review Violeta adequate [facility] Anisocytosis Few [facility] Reactive lymphocytes 100 [facility] Performing Organization Address [facility] Hospital[facility] Phone Number [address] [place] [address] PATHOLOGY AND GENOMIC MEDICINE [address] * CBC with platelet and differential (11/16/2018 11:02 AM CDT) WBC 11.21 (H) 4.50 - 11.00 k/uL [facility] RBC 4.78 4.20 - 5.50 m/uL [facility] HGB 14.7 12.0 - 16.0 g/dL [facility] HCT 47.8 (H) 37.0 - 47.0 % [facility] MCV 100.0 82.0 - 100.0 fL [facility] MCH 30.8 27.0 - 34.0 pg [facility] MCHC 30.8 (L) 31.0 - 37.0 g/dL [facility] RDW - SD 44.9 37.0 - 55.0 fL [facility] MPV 9.4 8.8 - 13.2 fL [facility] Platelet count 303 150 - 400 k/uL [facility] Nucleated RBC 0.00 /100 WBC [facility] Neutrophils 35.7 (L) 39.0 - 69.0 % [facility] Lymphocytes 53.4 (H) 25.0 - 45.0 % [facility] Monocytes 8.2 0.0 - 10.0 % [facility] Eosinophils 2.0 0.0 - 5.0 % [facility] Basophils 0.4 0.0 - 1.0 % [facility] Specimen Blood Performing Organization Address City/[facility]/Zipcode Phone Number [facility] DEPARTMENT [address] [place] [address] PATHOLOGY AND GENOMIC MEDICINE [facility] [address] [place] [address] [facility] * ECG 12 lead (11/16/2018 10:14 AM CDT) Ventricular rate 80 [facility] MUSE Atrial rate 80 [facility] CO interval 142 [facility] QRSD interval 80 [...] At Performing Organization Address City/State/Zipcode Phone Number [facility] MUSE [address] [place] [address] * MRI Lumbar Spine Wo Contrast (03/05/2018 [...] the L5 and left S1 nerve roots. [facility]-[id number] Procedure Note Hm Interface, Radiology Results Incoming [...] the L5 and left S1 nerve roots. [facility]-[id number] Performing Organization Address City/State/Zipcode Phone Number [facility] [address] [place] [address] * MRI Sacrum And Or Coccyx Wo [...] better evaluated with other imaging if indicated. [id number] Procedure Note Hm Interface, Radiology Results Incoming [...] better evaluated with other imaging if indicated. [id number] Performing Organization Address City/State/Zipcode Phone Number [facility] [address] [place] [address] after 12/29/2017 Insurance Payer Benefit Subscriber ID Type Phone Address Plan / Group HUMANA MEDICARE HUMANA xxxxxxxxx PPO MEDICARE PPO/PFFS/E [facility] Advance Directives Patient has advance care planning documents, and code status on file. For more i nformation, please contact: Jesus Manuel Ochoa [address] [place] [address] Date Inactivated Comments Code Status Date Activated 09/09/2016 6:38 PM Full Code 09/08/2016 2:20 PM Code Status decision reached by: Patient
--- NOTE | 2018-12-30 09:53 | NUR ---
Perry hooper in [facility] - 12/30/18 at 0957 by BRITTNEY report to laborer poultry hatchery team and care turned over to laborer poultry hatchery staff
[2018-12-30] MEDS ORDERED: DIPHENHYDR12.5 MG/5 PO (10:10)
[2018-12-30] MEDS ORDERED: TYLENOL WITH C1 EACH PO (10:10)
[2018-12-30] MEDS ORDERED: MULTI-VITAMIN1 EACH PO (10:10)
[2018-12-30] MEDS ORDERED: ZOFRAN4 MG PO (10:11)
[2018-12-30] MEDS ORDERED: DIPHENHYDRAMINE HCL INJ 50 MG/ML VIAL IV STA (10:44)
[2018-12-30] MEDS ORDERED: ACETAMINOPHEN 1000 MG/100 ML IV STA (11:01)
[2018-12-30 11:20] LABS: CLARITY,URINE TURBID (CLEAR); COLOR,URINE RED (YELLOW)
[2018-12-30 11:21] LABS: AMORPHOUS SEDIMENT,URINE RARE (FEW); BACTERIA,URINE RARE /HPF; BILIRUBIN,URINE NEGATIVE (NEGATIVE); EPITHELIAL CELLS,URINE RARE /LPF; KETONES,URINE NEGATIVE (NEGATIVE); LEUKOCYTE ESTERASE ,URINE 1+ (NEGATIVE); NITRITE,URINE NEGATIVE (NEGATIVE); PROTEIN,URINE DIPSTICK 2+ (NEGATIVE); RBC,URINE >50 /HPF (0-5); URINE UROBILINOGEN 0.2 mg/dL (0.2 - 1)
--- NOTE | 2018-12-30 11:23 | NUR ---
PICC LINE FLUSHING SLOWLY AND UNABLE TO DRAW BACK BLOOD FOR LABS. LAB CALLED TO DRAW BLOOD. ORDERS PLACED FOR LINE VERIFICATION
[2018-12-30] MEDS ORDERED: VITAMIN C500 M1 PO (11:34)
[2018-12-30] MEDS ORDERED: ULTRAM 50MG50 MG PO (11:34)
[2018-12-30] MEDS ORDERED: ZINC SULFATE220 MG PO (11:34)
[2018-12-30] MEDS ORDERED: XARELTO20 MG PO (11:34)
[2018-12-30] MEDS ORDERED: MEROPENEM1 GM IV (11:34)
[2018-12-30] MEDS ORDERED: SANTYL TOP (11:34)
[2018-12-30] MEDS ORDERED: PANTOPRAZOLE SO40 MG PO (11:34)
--- NOTE | 2018-12-30 11:45 | NUR ---
WAREHOUSE ORDER SELECTOR AT BEDSIDE
[2018-12-30 12:11] LABS: BASOPHILS # (AUTO) 0.1 (0.0-0.1); BASOPHILS % 0.7 % (0.0-1.0); EOSINOPHILS # (AUTO) 0.7 (0.0-0.4); EOSINOPHILS % 5.2 % (0.0-6.0); HEMATOCRIT 30.8 % (34.2-44.1); HEMOGLOBIN 9.6 g/dL (12.0-16.0); LYMPHOCYTES # (AUTO) 4.4 (1.0-3.2); MEAN CORPUSCULAR HEMOGLOBIN 30.3 pg (28-32); MEAN CORPUSCULAR HGB CONC 31.2 g/dL (31-35); MEAN CORPUSCULAR VOLUME 97.2 fL (81-99); MONOCYTES # (AUTO) 1.1 (0.2-0.8); MONOCYTES % 8.5 % (4.4-11.3); NEUTROPHILS # (AUTO) 6.9 (2.1-6.9); NEUTROPHILS % 51.7 % (38.7-80.0); PLATELET COUNT 363 x10e3/uL (140-360); RED BLOOD COUNT 3.17 x10e6/uL (3.6-5.1); RED CELL DISTRIBUTION WIDTH 14.5 % (11.7-14.4)
[2018-12-30 12:26] LABS: ALANINE AMINOTRANSFERASE 13 IU/L (0-55); ALBUMIN 2.6 g/dL (3.5-5.0); ALBUMIN/GLOBULIN RATIO 0.5 (0.8-2.0); ALKALINE PHOSPHATASE 83 IU/L (40-150); ANION GAP 9.8 mmol/L (8-16); BLOOD UREA NITROGEN 27 mg/dL (7-26); BUN/CREATININE RATIO 48 (6-25); CALCIUM 9.5 mg/dL (8.4-10.2); CARBON DIOXIDE 33 mmol/L (22-29); CHLORIDE 99 mmol/L (98-107); CREATININE, SERUM 0.56 mg/dL (0.57-1.11); EST GLOMERULAR FILTRATION RATE > 60 ML/MIN (60-); GLUCOSE 95 mg/dL (74-118); POTASSIUM 3.8 mmol/L (3.5-5.1); SODIUM 138 mmol/L (136-145)
[2018-12-30 12:27] LABS: INR 0.92; PARTIAL THROMBOPLASTIN TIME 28.6 seconds (23.8-35.5); PROTHROMBIN TIME 12.8 seconds (11.9-14.5)
--- NOTE | 2018-12-30 14:03 | Diagnostic Imaging Report ---
EXAMINATION: CHEST SINGLE (PORTABLE) INDICATION: Verify PICC. COMPARISON: Chest radiograph 12/23/2018. CT chest 12/18/2018. FINDINGS: TUBES and LINES: Left-sided PICC terminates in the expected location of the mid SVC. LUNGS: Lungs are not well inflated. Lungs are clear. There is no evidence of pneumonia or pulmonary edema. Incidental azygos fissure. PLEURA: No pleural effusion or pneumothorax. HEART AND MEDIASTINUM: The cardiomediastinal silhouette is unremarkable. BONES AND SOFT TISSUES: No acute osseous abnormality. Partially seen lower thoracic and upper lumbar vertebral augmentation changes. There are surgical clips projecting over the right axilla. UPPER ABDOMEN: No free air under the diaphragm. IMPRESSION: Left-sided PICC terminates in the expected location of the mid SVC. No evidence of pneumothorax. Signed by: Dr. Gaurav Molina MD on 12/30/2018 1:59 PM
[2018-12-30] MEDS ORDERED: SODIUM CHLORIDE 0.9% 50ML 50 ML ONE (15:48)
[2018-12-30] MEDS ORDERED: IOPAMIDOL 370 MG/ML 200 ML INFUS..BTL INJ ONE (15:48)
--- NOTE | 2018-12-30 16:12 | Diagnostic Imaging Report ---
EXAM: CT Abdomen and Pelvis WITH contrast INDICATION: Lower abdominal pain, hematuria. COMPARISON: CT abdomen/pelvis without contrast 12/14/2018. TECHNIQUE: Abdomen and pelvis were scanned utilizing a multidetector helical scanner from the lung base to the pubic symphysis after administration of IV contrast. Coronal and sagittal reformations were obtained. Routine protocol was performed. Scan was performed when during portal venous phase. IV CONTRAST: 100 cc of Isovue 370 ORAL CONTRAST: Water. Barium contrast is present within the colon from prior study. COMPLICATIONS: None RADIATION DOSE: Total DLP: 374.3 mGy*cm Dose modulation, iterative reconstruction, and/or weight based adjustment of the mA/kV was utilized to reduce the radiation dose to as low as reasonably achievable. FINDINGS: LINES and TUBES: None. LOWER THORAX: Mild patchy opacity within the lingula may represent atelectasis or may be infectious/inflammatory. HEPATOBILIARY: No evidence of focal lesion. No biliary ductal dilation. Status post cholecystectomy. SPLEEN: No splenomegaly. PANCREAS: No focal masses or ductal dilatation. ADRENALS: No adrenal nodules KIDNEYS/URETERS: Kidneys enhance symmetrically. No evidence of hydronephrosis or solid mass. Again noted are multiple bilateral renal stones, measuring up to 1.3 cm on the right and 1.1 cm on the left. The previously noted left upper pole stone, measuring up to 1 cm in aggregate has decreased in size, now measures up to 0.4 cm. Interval placement of bilateral internal ureteral stents extending from the renal pelvis bilaterally to the bladder. There is a left mid ureteral stone, measuring up to 5 mm, previously 6 mm. GI TRACT: No evidence of wall thickening or distension. Appendix is normal. Gastrostomy tube terminates in the stomach. Air and contrast within the colon somewhat limits evaluation. PELVIC ORGANS/BLADDER: The bladder is decompressed. Status post hysterectomy. LYMPH NODES: No lymphadenopathy. VESSELS: While evaluation is limited, there is suspected central filling defect extending from the left common iliac vein into the external iliac vein, common femoral vein, deep femoral vein, and at the origin of the superficial femoral vein. Scattered atherosclerotic calcifications of the abdominal aorta and branch vessels. PERITONEUM / RETROPERITONEUM: No free air or fluid. BONES AND SOFT TISSUES: Diffuse osteopenia. Again noted are kyphoplasty changes at T11 and L1 with moderate compression deformity at L1. Mild superior endplate compression deformities are present at L2 and L4. As before, there is excreted cement into a vein anterior to the right aspect of the T11 vertebral body. CONCLUSION: Suspected left iliofemoral DVT. Recommend ultrasound for further evaluation. Bilateral nonobstructing renal stones with bilateral internal ureteral stents in place as above. A 5 mm left mid ureteral stone, previously 6 mm. No evidence of hydronephrosis. The above findings were discussed with ESCOBAR Zhu on 12/30/2018 at 4:08 PM, who responded indicating that the communication was understood. Signed by: Dr. Gaurav Molina MD on 12/30/2018 4:09 PM
--- NOTE | 2018-12-30 16:17 | NUR ---
DR. MOODY AB BEDSIDE EVALUATING PATIENT AFTER RECEIVING CT REPORT
--- NOTE | 2018-12-30 17:11 | NUR ---
TARPER AT BEDSIDE
--- NOTE | 2018-12-30 17:12 | NUR ---
PATIENT ORIGINALLY CAME IN WITH LOWER QUADRANT PAIN, NO DURING ULTRASOUND PATIENT C/O OF LEFT GROIN PAIN AND KNEE PAIN
--- OUTSIDE RECORDS SUMMARY | 2018-12-30 18:28 | XMS REPORT | Clinical Summary ---
Author Author Jesus Manuel [facility] Address Unknown Phone Unavailable Care Team Providers Care Painter Structural Steel Name Role Phone Asked, No Pcp PCP [...] 11/16/2018 Discontinued vit Take 1 tablet 0 B-fsmlq-xdtmdb-bioflv-ros by mouth e 1,000-50-50 mg tablet nightly. [...] Orders Jojo Gutierrez RN 01/22/2018 Refill Neurology Jooj Gutierrez RN 01/22/2018 Refill Neurology after 12/29/2017 [...] Description Date Type Specialty Kartik Sullivan MD [address] [facility] [address] [place] [address] 02/23/2019 Office Visit Neurology Health [...] Area Manufactur er 11/26/2018 C01B / / [id number] Kit Mixer Bone Cmnt Kyphon Kyphx Surgical N/A: N/A KYPHON DIV Hv-R - [id number] Implants; OF Implanted: Qty: 1 on 05/08/2017 by Expanders; MEDTc Zhang MD Extenders; SPINE Surgical Wires 1600 [id number] / / Wire K Dual Trcr Pt [id number] Ns - Temporary Left: Thumb MICRO AIRE [id number] Fixation SURGICAL Implanted: Qty: 2 on 08/21/2017 by Pin or INSTRUMENT Marilu Summers MD Wire 09/07/2021 [id number] / / [id number] Stent Uretl Unvrsa 6fr 26cm Urological N/A: N/A COOK Hydrphlc W/O Gw - [id number] Implants UROLOGICAL Implanted: Qty: 1 on 11/17/2018 by or Vega Colvin MD Procedures Comments Procedure Name Priority Date/Time Associated Diagnosis SURGICAL PATHOLOGY Routine 11/17/2018 REQUEST 2:48 PM CDT CALCULI ANALYSIS WITH Routine 11/17/2018 PHOTO 2:48 PM CDT IA AN ELECTIVE Routine 11/17/2018 SUPRAGLOTTIC AIRWAY 2:27 [...] REF LAB analysis and photo Comment: [employer] Enhanced Report using either link below: -Direct access: [email or web address] -Enter Username, Password: [email or web address] Username: [email or web address] Password: [email or web address] Performed by [facility], [address] [place], [place] [id number] [email or web address], Junito Heck MD - Lab. Director Specimen Serum Narrative Performed At [id number] [facility] UTERERAL STONE Performing Organization Address City/[facility]/Zipcode Phone Number [facility] [address] [place] [address] [place] REF LAB [address] [place] [address] * Surgical pathology request (11/17/2018 2:48 PM CDT) [facility] [[email or web address] DEPARTMENT OF PATHOLOGY AND GENOMIC MEDICINE Surgical pathology report See link below for PDF Lab [facility] [[email or web address]] DEPARTMENT OF Report PATHOLOGY AND GENOMIC MEDICINE Result status This is Final Report for [facility] [[email or web address]] DEPARTMENT OF [id number] PATHOLOGY AND GENOMIC MEDICINE Performing Organization Address City/State/Zipcode Phone Number [facility] [[email or web address]] DEPARTMENT [place] [address] [place] [address] PATHOLOGY AND GENOMIC MEDICINE * XR Kub [...] Bilateral renal calculi Right-sided double-J ureteral stent [facility]-[id number] Procedure Note Interface, Radiology Results Incoming - [...] Bilateral renal calculi Right-sided double-J ureteral stent [facility]-[id number] Performing Organization Address [facility] HospitalAfrimarketaz Phone Number [id number] [place] [address] * XR Chest 1 Vw (11/16/2018 12:14 [...] The bony structures are within normal limits. [facility]-[id number] Procedure Note Interface, Radiology Results Incoming - [...] The bony structures are within normal limits. [facility]-[id number] Performing Organization Address [facility]/[employer] [place] [address] * Smear review (11/16/2018 11:02 AM CDT) Platelet slide review Violeta adequate [facility] Anisocytosis Few [facility] Reactive lymphocytes 100 [facility] Performing Organization Address [facility] Phone Number [address] [place] [address] PATHOLOGY AND GENOMIC MEDICINE [address] * CBC with platelet and differential (11/16/2018 11:02 AM CDT) WBC 11.21 (H) 4.50 - 11.00 k/uL [facility] RBC 4.78 4.20 - 5.50 m/uL [facility] HGB 14.7 12.0 - 16.0 g/dL [facility] HCT 47.8 (H) 37.0 - 47.0 % [facility] MCV 100.0 82.0 - 100.0 fL [facility] MCH 30.8 27.0 - 34.0 pg [facility] MCHC 30.8 (L) 31.0 - 37.0 g/dL [facility] RDW - SD 44.9 37.0 - 55.0 fL [facility] MPV 9.4 8.8 - 13.2 fL [facility] Platelet count 303 150 - 400 k/uL [facility] Nucleated RBC 0.00 /100 WBC [facility] Neutrophils 35.7 (L) 39.0 - 69.0 % [facility] Lymphocytes 53.4 (H) 25.0 - 45.0 % [facility] Monocytes 8.2 0.0 - 10.0 % [facility] Eosinophils 2.0 0.0 - 5.0 % [facility] Basophils 0.4 0.0 - 1.0 % [facility] Specimen Blood Performing Organization Address City/[facility]/Zipcode Phone Number [facility] [[email or web address] DEPARTMENT [address] [place] [address] PATHOLOGY AND GENOMIC MEDICINE [facility] [address] [place] [address] [facility] * ECG 12 lead (11/16/2018 10:14 AM CDT) Ventricular rate 80 [facility] MUSE Atrial rate 80 [facility] MUSE IA interval 142 [facility] MUSE QRSD interval 80 [...] At Performing Organization Address City/State/Zipcode Phone Number [facility] MUSE [address] [place] [address] * MRI Lumbar Spine Wo Contrast (03/05/2018 [...] the L5 and left S1 nerve roots. [id number] Procedure Note Hm Interface, Radiology Results Incoming [...] the L5 and left S1 nerve roots. [facility]-[id number] Performing Organization Address City/State/Zipcode Phone Number [facility] [address] [place] [address] * MRI Sacrum And Or Coccyx Wo [...] better evaluated with other imaging if indicated. [id number] Procedure Note Hm Interface, Radiology Results Incoming [...] better evaluated with other imaging if indicated. [id number] Performing Organization Address City/State/Zipcode Phone Number [facility] [address] [place] [address] after 12/29/2017 Insurance Payer Benefit Subscriber ID Type Phone Address Plan / Group HUMANA MEDICARE HUMANA xxxxxxxxx PPO MEDICARE PPO/PFFS/E [facility] Advance Directives Patient has advance care planning documents, and code status on file. For more i nformation, please contact: Jesus Manuel Ochoa [address] [place] [address] Date Inactivated Comments Code Status Date Activated 09/09/2016 6:38 PM Full Code 09/08/2016 2:20 PM Code Status decision reached by: Patient
--- NOTE | 2018-12-30 18:32 | NUR ---
PATIENT CHANGED TO HOSPITAL BED
--- NOTE | 2018-12-30 19:25 | NUR ---
REPORT CALLED. TREVOR Lopez AWARE PATIENT NEEDS TELE AND TRANSPORT
--- NOTE | 2018-12-30 19:45 | NUR ---
PATIENT RECEIVED FROM ER. PATIENT IS AAOX3. RESP EVEN AND UNLABORED. PATIENT C/O PAIN TO LOWER ABDOMEN AND HEMATURIA. LEFT UPPER ARM PICC LINE NOTED. TELE IN PLACE NOTED. PEG TUBE NOTED. PATIENT STATED SHE HAS BEEN HAVING FEEDING FROM [facility]. LEFT BUTTOCK PRESSURE ULCER WOUND STAGE 3 NOTED. DRESSING DRY AND INTACT. ORIENTED TO ROOM. CALL LIGHT WITHIN REACH. INSTRUCT TO CALL FOR ASSISTANCE. BED LOW/LOCKED. CONTINUE TO MONITOR CLOSELY
[2018-12-30 20:00] VITALS: BP 111/59
[2018-12-30] MEDS ORDERED: MEROPENEM 500MG 500 MG in SODIUM CHLORIDE 0.9% 50ML 50 ML IV SCH (20:15)
--- NOTE | 2018-12-30 20:25 | NUR ---
CHARGE NURSE AND PLACEMENT MANAGER ATTEMPT TO INSERT HALL, HEMATURIA NOTED.
[2018-12-30] MEDS ORDERED: MEROPENEM 500MG/ NS 50ML 50 ML IV SCH (20:30)
[2018-12-30] MEDS ORDERED: DIPHENHYDRAMINE HCL INJ 50 MG/ML VIAL IV ONE (21:00)
[2018-12-30] MEDS: MEROPENEM 500MG/ NS 50ML 50 ML IV SCH (21:35)
[2018-12-30] MEDS ORDERED: SODIUM CHLORIDE 0.9% 250ML 250 ML ONE (21:37)
[2018-12-30 21:45] VITALS: BP 111/59
[2018-12-30] MEDS ORDERED: TRAMADOL HCL 50 MG TAB PO SCH (22:00)
[2018-12-31] VITALS (8 sets, daily range): BP systolic 105–148; BP diastolic 50–75
[2018-12-31] MEDS ORDERED: ACETAMINOPHEN/CODEINE 300MG - 30MG TAB PO SCH
--- NOTE | 2018-12-31 02:38 | History and Physical ---
CHIEF COMPLAINT: The patient was readmitted from [facility] for hematuria. HISTORY OF PRESENT ILLNESS: Ms. Ball is a 68-year-old female. She initially came in during last admission when she was admitted on 12/15/2018 with complaints of lethargy and weakness and she was found to have UTI. The patient had recent stent placement and Urology was consulted. The patient also has a history of seizure disorder, was bed-bound. She stayed in the hospital, was treated with IV antibiotic, developed atrial fibrillation and shortness of breath. Cardiology was consulted. The patient underwent CT of the chest, which showed PE. She was discharged on antibiotics and Eliquis to the group home. She came back because of hematuria. She has been bed-bound for unknown reason for which Neurology was consulted. Complete workup was not possible with possibility of myopathy. The patient has a history of a seizure disorder. On last admission, she had a swallow eval and the patient was aspirating and underwent PEG tube placement by Dr. Bjorn Solis. She is denying any complaints of chest pain, nausea, or vomiting. She has history of ESBL Proteus during the last admission. REVIEW OF SYSTEMS: GENERAL: Denies any fever or chills. HEAD: Denies any head trauma. ENT: Denies any earache. CVS: Denies any chest pain. RESPIRATORY: Denies any shortness of breath. The rest of the review of systems are negative except as in HPI. PAST MEDICAL HISTORY: History of seizure disorder, bed-bound status, severe muscle weakness, kidney stones, recent pulmonary embolism, was on anticoagulation. FAMILY AND SOCIAL HISTORY: She does not smoke and does not drink. PHYSICAL EXAMINATION: VITAL SIGNS: Temperature 98.7, pulse of 87, blood pressure 108/60, and respiratory rate of 18, O2 saturation 100%. HEENT: Head is atraumatic, normocephalic. NECK: Supple. CHEST: Clear to auscultation bilaterally. No wheezing HEART: S1, S2 audible. ABDOMEN: Soft, nontender, nondistended. EXTREMITIES: No clubbing, cyanosis, or edema. NEUROLOGIC: She is awake and alert. She is bed-bound. LABORATORY DATA: White count 15324, hemoglobin 9.6. When she was discharged on , her hemoglobin was 9.0, platelets 363. Chemistry is within normal limits. ASSESSMENT: Ms. Ball is a 68-year-old female with hematuria. 1. Hematuria by history. Hemoglobin has been stable. I will insert a Patel catheter and consult Urology. 2. History of ESBL UTI and ESBL Proteus infection in the past. I will restart the meropenem and consult Infectious Disease. 3. Resume all home medications. She has a history of atrial fibrillation. She was started on amiodarone. 4. Hold off on anticoagulation. If there is no jose maria hematuria, we will resume the patient on heparin. Otherwise, consider IVC filter placement. 5. Oxygen as needed to keep the O2 saturation more than or equal to 92%. 6. Oropharyngeal dysphagia, which may have resolved as the patient looks much better now. I will repeat a swallow evaluation. MD JOSELYN Blackmon/RUSTY /[id number]
[2018-12-31] MEDS: MEROPENEM 500MG/ NS 50ML 50 ML IV SCH ×3 (05:43→21:20)
--- NOTE | 2018-12-31 06:00 | NUR ---
PAGED DR DEWITT FOR CONSULTATION. AWAITING FOR MD TO CALL BACK
[2018-12-31] MEDS ORDERED: VENLAFAXINE HCL 37.5MG XR CAP PO SCH (09:00)
--- NOTE | 2018-12-31 09:17 | NUR ---
PAGED AND TALKED DR QUINTANILLA REGARDING TUBE FEED GOT NEW ORDERS
--- NOTE | 2018-12-31 09:30 | NUR ---
FEG TUBE FEEDING STARTED WITH JEVITY 1.2 IN TO 20 ML
[2018-12-31] MEDS ORDERED: HEPARIN IV SCH ×6 (10:00→11:00)
[2018-12-31] MEDS ORDERED: [UNRECOGNIZED DRUG - OTHER] IV SCH (10:00)
[2018-12-31 10:19] LABS: BASOPHILS # (AUTO) 0.1 (0.0-0.1); BASOPHILS % 0.5 % (0.0-1.0); EOSINOPHILS # (AUTO) 0.7 (0.0-0.4); EOSINOPHILS % 6.8 % (0.0-6.0); HEMATOCRIT 31.2 % (34.2-44.1); HEMOGLOBIN 10.2 g/dL (12.0-16.0); LYMPHOCYTES % 36.3 % (18.0-39.1); MEAN CORPUSCULAR HEMOGLOBIN 30.9 pg (28-32); MEAN CORPUSCULAR HGB CONC 32.7 g/dL (31-35); MEAN CORPUSCULAR VOLUME 94.5 fL (81-99); MONOCYTES # (AUTO) 0.8 (0.2-0.8); MONOCYTES % 7.3 % (4.4-11.3); NEUTROPHILS # (AUTO) 5.2 (2.1-6.9); NEUTROPHILS % 47.7 % (38.7-80.0); PLATELET COUNT 360 x10e3/uL (140-360); RED CELL DISTRIBUTION WIDTH 14.8 % (11.7-14.4)
[2018-12-31 10:30] LABS: ANION GAP 10.5 mmol/L (8-16); BLOOD UREA NITROGEN 19 mg/dL (7-26); BUN/CREATININE RATIO 37 (6-25); CALCIUM 9.7 mg/dL (8.4-10.2); CARBON DIOXIDE 29 mmol/L (22-29); CHLORIDE 103 mmol/L (98-107); CREATININE, SERUM 0.52 mg/dL (0.57-1.11); EST GLOMERULAR FILTRATION RATE > 60 ML/MIN (60-); GLUCOSE 96 mg/dL (74-118); POTASSIUM 3.5 mmol/L (3.5-5.1); SODIUM 139 mmol/L (136-145)
[2018-12-31] MEDS: HEPARIN IV SCH (10:45)
[2018-12-31] MEDS: [UNRECOGNIZED DRUG - OTHER] IV SCH (10:45)
[2018-12-31] MEDS ORDERED: [UNRECOGNIZED DRUG - OTHER] IV SCH ×5 (10:45→11:00)
--- NOTE | 2018-12-31 11:00 | NUR ---
HEPARIN DRIP STARTED
[2018-12-31] MEDS: TOPIRAMATE 100 MG TAB PO SCH ×2 (11:10→17:00)
[2018-12-31] MEDS: ASCORBIC ACID 500 MG TAB PO SCH ×2 (11:10→17:00)
[2018-12-31] MEDS: PANTOPRAZOLE SOD 40 MG TABEC PO SCH (11:10)
[2018-12-31] MEDS: MULTIVITAMINS/MINERALS TAB PO SCH (11:10)
[2018-12-31] MEDS: VENLAFAXINE HCL 75 MG CAPCR PO SCH ×2 (11:10→17:00)
[2018-12-31] MEDS: AMIODARONE HCL 200 MG TAB PO SCH (11:10)
[2018-12-31] MEDS: ZINC SULFATE 220 MG CAP PO SCH (11:10)
--- NOTE | 2018-12-31 13:00 | NUR ---
PT PASSED MBS PAGED AND NOTIFIED DR QUINTANILLA GOT THE DIET ORDER THEY RECOMMENDED MECHANICAL SOFT WITH CHOPPED MEAT AND VEGETABLES
--- NOTE | 2018-12-31 14:00 | NUR ---
PT TOLERATING THE FEED
--- NOTE | 2018-12-31 16:09 | NUR ---
Nutrition Intervention Note RD Recommendation(s) for Physician: -Continue GI soft diet as medically appropriate; diet texture per PRODUCTION GRADER -Discontinue TF as PO intake exceeds 50% -Rec Jayy BID to promote wound healing Plan of Care: RD following, monitoring for tolerance and adequacy, TF Nutrition reason for involvement: MD Consult EN RD Assessment 12/31 68yo F, who was admitted for hematuria. Pt had PEG placed during her last admission on 12/15/2018. Today, pt passed MBS and PRODUCTION GRADER rec mechanical soft diet. Visited pt in the room. TF was running with Jevity 1.2 @20mL/hr. Pt denied any nausea or vomiting. Diet is to start dinner tonight. Will continue to monitor and follow. Principal Problems/Diagnoses: Hematuria PMH: seizure disorder, bed-bound status, severe muscle weakness, kidney stones, recent pulmonary embolism, was on anticoagulation. GI: PEG present Skin: stage III pressure ulcer per RN Labs: (12/31) creatinine 0.52 L Meds: abx, zinc sulfate, protonix, MVi w/mineral, vitamin C Ht: 68in Wt: 154lb BMI: 23.4kg/m2 IBW: 140lb Malnutrition Evaluation (12/31) The patient does not meet criteria for a specified degree of malnutrition at this time. Will re-evaluate at follow-up as appropriate. Nutrition Prescription (Diet Order): GI soft Estimated Nutritional Needs: 1729 - 2075 kcals at 25-30 kcals/kg/bw 83 - 103g of protein at 1.2-1.5g/kg/bw Diet Adequacy: Not meeting calorie needs, Not meeting protein needs Diet Education Needs Assessment: Diet education indicated, but patient not appropriate for education at this time. Nutrition Care Level: mod Goal: Patient will meet 75-100% of estimated needs by follow up Progress: N/A Interventions: Texture-modified diet, Multivitamin/mineral supplement therapy, Collaboration with other providers Monitoring/Evaluation: Total energy intake, Total protein intake, Modified diet, Weight change Signed: Nataly Villalba MS, RD, LD
[2018-12-31] MEDS: TRAMADOL HCL 50 MG TAB PO PRN (16:17)
--- NOTE | 2018-12-31 16:25 | NUR ---
Came from SNF with DVT. Was previously in this facility. She lives alone at home, and is from her . He is still involved in her life and she wants him to participate in decisions. His name is Tu Ball [phone]. No other needs at this time. Plan is to return to SNF.
--- NOTE | 2018-12-31 16:26 | NUR ---
WOUND CAR CONSULTATION - INITIAL EVALUATION Patient admitted from [place] to ER for Abdominal Pain and Hematuria. DX: DVT of L Iliofemoral Vein. HX: UTI with Stent Placement., Seizures, A-Fib, SOB, PE, PEG, Failed MBS 12/22/18 LABS: WBC10.95 HGB10.2 HCT31.2 NEUT%47.7 GLU96 ALB2.6 Wound Care Consulted for Evaluation of left buttocks wound present on admission. PATIENT VISIT: Kevin Score 12 Moderate PUP Active Presents with ulceration to left gluteal- partial thickness with slough mixed with fibrotic tissue over 70% of wound bed. 30% pale pink granulation tissue. Periwound Stephenson and intact. Wound appears to be stable. No redness, no swelling, no induration. Likely due to combination of pressure and shear friction. IMPRESSION: Left Gluteal - Unstageable Pressure Ulcer- Present on Admission. RECOMMENDATION: 1. Left Gluteal - Unstageable Pressure Ulcer-Present On Admission 2. Continue Alternating Pressure Air Mattress 3. Turn and Reposition Every 2 Hours using Wall Clock Turning Schedule 4. Continue Bilateral Heel Protectors while in bed. 5. Keep Head of Bed 30 degrees or less as tolerated. 6. Continue Moderate PUP Thank you for consulting with Wound Care. Addendum: 12/31/18 at 1634 by Avery Casanova RN Amended: Links added. Addendum: 12/31/18 at 1637 by Avery Casanova RN RECOMMENDATION: 1. Left Gluteal - Unstageable Pressure Ulcer-Present On Admission - Cleanse wound with NS and 4x4 gauze - Apply Santyl and Cover with Xeroform Gauze then Apply Allevyn Foam Sacrum Dressing Daily. 2. Continue Alternating Pressure Air Mattress 3. Turn and Reposition Every 2 Hours using Wall Clock Turning Schedule 4. Continue Bilateral Heel Protectors while in bed. 5. Keep Head of Bed 30 degrees or less as tolerated. 6. Continue Moderate PUP
--- NOTE | 2018-12-31 17:00 | NUR ---
pt in 24 fr munoz and CBD
--- NOTE | 2018-12-31 17:08 | Consultation ---
DATE OF CONSULTATION: 12/31/2018 REASON FOR CONSULTATION: about urinary tract infection, hematuria, recommendation antibiotic. Thank you so much for asking me to see this patient. The patient is seen and examined. HISTORY OF PRESENT ILLNESS: This patient is very pleasant a 68-year-old white female. The patient was here on December 15 with lethargy and weakness. She was found to have UTI. The patient had the stent placement. The patient also has history of seizure disorder. She is bedbound. She is treated with intravenous antibiotic, had atrial fibrillation and shortness of breath. She was seen by Cardiology, underwent a CAT scan, showed she had pulmonary embolism. She was discharged with antibiotic and Eliquis to the custodial. While she was there, she developed hematuria. She came back here, she was admitted. The patient underwent cystoscopy. The patient at the present time is feeling well, complaining of some pain. She has no fever, no chills, no nausea, no vomiting, no diarrhea. No urgency, no frequency. Skin, there are no complaints. The patient is being admitted. PAST MEDICAL HISTORY: Seizure disorder, atrial fibrillation, pulmonary embolism, and history of UTI. PAST SURGICAL HISTORY: Stent placement and cystoscopy now. ALLERGIES: PENICILLIN AND SULFA. SOCIAL HISTORY: There is no smoking, drug abuse, or alcohol abuse. FAMILY HISTORY: Otherwise unremarkable. REVIEW OF SYSTEMS: HEENT: Negative. PULMONARY: Negative. CARDIAC: Negative. : Negative. GI: Negative. SKIN: There are no other rashes at present time. All symptoms within normal limits. PHYSICAL EXAMINATION: GENERAL: She is currently alert, oriented, does not seem to be in acute distress. VITAL SIGNS: Stable, afebrile. HEENT: Normocephalic, not icteric. NECK: Supple. No JVD. No lymphadenopathy. No thyromegaly. CHEST: Clear bilateral. HEART: S1, S2. No S3, S4, or murmur. ABDOMEN: Soft. Bowel sounds present. No tenderness. No hepatosplenomegaly. EXTREMITIES: No edema. SKIN: No rash. LABORATORY DATA: Reviewed. CHART: Reviewed. IMPRESSION: 1. Hematuria, probably a combination of being on anticoagulation and trauma as well as stent. The patient is on Eliquis. 2. History of deep vein thrombosis. 3. History of pulmonary embolism. 4. History of seizure. From Infectious Disease point of view, she is currently on meropenem. I think I am concerned about her seizure activity. However, she is allergic to several antibiotics and she did well with meropenem before. We will keep her meropenem for three days and then discontinue. We will treat for cystitis. 5. We will wait for the cultures. 6. Discussed with the patient. 7. Anemia, probably from bleeding as well as chronic disease. Discussed with the patient at length. All laboratory data reviewed, all chart reviewed. MD SISSY Cardona/RUSTY /[id number]
--- NOTE | 2018-12-31 19:10 | NUR ---
PT RESTING ON BED BED SIDE REPORT GIVEN TO ONCOMING NURSE
--- NOTE | 2018-12-31 19:58 | NUR ---
PTT 67.5, no changes to heparin drip, drip remains at 12ml/hr. will recheck ptt in 6 hrs.
[2018-12-31] MEDS ORDERED: SODIUM CHLORIDE 0.9% 500ML 500 ML ONE (20:17)
[2018-12-31] MEDS: DIPHENHYDRAMINE HCL INJ 50 MG/ML VIAL IV PRN (21:51)
--- NOTE | 2018-12-31 22:09 | Diagnostic Imaging Report ---
EXAM: CT Pelvis WITH contrast INDICATION: ^CYSTOGRAM ^[id number] ^2039 ^Y COMPARISON: CT abdomen/pelvis dated 12/30/2018 TECHNIQUE: Pelvis were scanned utilizing a multidetector helical scanner from the iliac crest to the pubic symphysis without administration of IV contrast. 50 cc of Isovue-370 diluted in 500 cc of saline, injected through the Patel catheter. COMPLICATIONS: None RADIATION DOSE: Total DLP: 539.77 mGy*cm Estimated effective dose: (DLP x 0.015 x size factor) mSv CTDIvol has been reviewed. It is below the limits set by the Radiation Protocol Committee (RPC). FINDINGS: LINES and TUBES: Patel catheter. Mid to distal parts of the bilateral ureter stents are visualized with distal tips in the bladder. GI TRACT: Visualized bowel loops are unremarkable. Oral contrast from prior exam is seen within colon. PELVIC ORGANS/BLADDER: Bladder is decompressed by Patel catheter in place. The Patel catheter balloon is within the bladder lumen. There is also contrast and small amount of air within bladder. Mild perivesical fat stranding. Hysterectomy. LYMPH NODES: No lymphadenopathy. VESSELS: Unremarkable. PERITONEUM / RETROPERITONEUM: No free air or fluid. BONES: Unremarkable. SOFT TISSUES: Unremarkable. IMPRESSION: 1. Follow-up catheter in appropriate position with balloon within bladder lumen. Signed by: Dr. Rivera Aguilar MD on 12/31/2018 10:05 PM
[2019-01-01] VITALS (8 sets, daily range): BP systolic 110–137; BP diastolic 58–67
--- NOTE | 2019-01-01 02:42 | NUR ---
PTT 50.7 within range, no change to heparin drip. Current rate continues at 12 ml/hr.
[2019-01-01] MEDS: TRAMADOL HCL 50 MG TAB PO PRN ×2 (03:54→18:19)
[2019-01-01] MEDS: MEROPENEM 500MG/ NS 50ML 50 ML IV SCH (05:00)
--- NOTE | 2019-01-01 07:10 | NUR ---
RCD PT AT BED PT IS ALERT AND ORIENTED PT RESTING ON BED NO SIGNS OF ANY DISTRESS NOTED HALL DRAINING BY CONTINUOUS IRRIGATION BED LOW AND LOCKED CALL LIGHT IN REACH
[2019-01-01 07:22] LABS: BASOPHILS # (AUTO) 0.1 (0.0-0.1); BASOPHILS % 0.4 % (0.0-1.0); EOSINOPHILS # (AUTO) 0.7 (0.0-0.4); EOSINOPHILS % 6.5 % (0.0-6.0); HEMOGLOBIN 9.3 g/dL (12.0-16.0); LYMPHOCYTES # (AUTO) 4.3 (1.0-3.2); MEAN CORPUSCULAR HEMOGLOBIN 30.5 pg (28-32); MEAN CORPUSCULAR HGB CONC 32.1 g/dL (31-35); MEAN CORPUSCULAR VOLUME 95.1 fL (81-99); MONOCYTES % 8.8 % (4.4-11.3); NEUTROPHILS % 44.6 % (38.7-80.0); PLATELET COUNT 341 x10e3/uL (140-360); RED BLOOD COUNT 3.05 x10e6/uL (3.6-5.1); RED CELL DISTRIBUTION WIDTH 14.8 % (11.7-14.4)
[2019-01-01 07:36] LABS: ANION GAP 12.1 mmol/L (8-16); BLOOD UREA NITROGEN 14 mg/dL (7-26); BUN/CREATININE RATIO 26 (6-25); CALCIUM 9.1 mg/dL (8.4-10.2); CARBON DIOXIDE 28 mmol/L (22-29); CHLORIDE 101 mmol/L (98-107); CREATININE, SERUM 0.54 mg/dL (0.57-1.11); EST GLOMERULAR FILTRATION RATE > 60 ML/MIN (60-); GLUCOSE 97 mg/dL (74-118); POTASSIUM 3.1 mmol/L (3.5-5.1); SODIUM 138 mmol/L (136-145)
--- NOTE | 2019-01-01 08:43 | NUR ---
PAGED AND NOTIFIED POTASSIUM LEVEL TO DR QUINTANILLA GOT NEW ORDERS
[2019-01-01] MEDS ORDERED: POTASSIUM CHLORIDE 10MEQ/100ML 100 ML IV ONE (08:45)
[2019-01-01] MEDS: AMIODARONE HCL 200 MG TAB PO SCH (09:00)
[2019-01-01] MEDS: ZINC SULFATE 220 MG CAP PO SCH (09:00)
[2019-01-01] MEDS: MULTIVITAMINS/MINERALS TAB PO SCH (09:00)
[2019-01-01] MEDS: VENLAFAXINE HCL 75 MG CAPCR PO SCH ×2 (09:00→16:37)
[2019-01-01] MEDS: TOPIRAMATE 100 MG TAB PO SCH ×2 (09:00→16:37)
[2019-01-01] MEDS: COLLAGENASE OINTMENT 30 GM TUBE TP SCH (09:00)
[2019-01-01] MEDS: PANTOPRAZOLE SOD 40 MG TABEC PO SCH (09:00)
[2019-01-01] MEDS: ASCORBIC ACID 500 MG TAB PO SCH ×2 (09:00→16:37)
[2019-01-01] MEDS ORDERED: POTASSIUM CHLORIDE 10MEQ/100ML 300 ML IV ONE (09:45)
[2019-01-01] MEDS ORDERED: POTASSIUM CHLORIDE 20 MEQ TAB CR PO PRN (10:45)
[2019-01-01] MEDS: HEPARIN IV SCH (10:45)
[2019-01-01] MEDS: [UNRECOGNIZED DRUG - OTHER] IV SCH (10:45)
--- NOTE | 2019-01-01 15:45 | NUR ---
Interviewee: X Patient Family Caregiver No interview 1. Was your hospital visit [on x readmission date] scheduled ahead of time? Yes X No 2. Can you tell me what happened that brought you back to the hospital this time? PAIN TO LEG a.Why do you think this happened? Enter open text UNK b.Was there anything you think that PMC could have been done to prevent this? Enter open text UNK c.How are things going at home/care at SNF? (Probe for psych/social/family/non-medical issues). Enter open text OK AT SNF 3. Medications (referring to index hospitalization or the first time you were in the hospital) a. Were changes made in your medications when you were in the hospital on [date of index hospitalization]? Yes No X Not sure Explain: Note: If no or not sure, please skip to question d b. Did you understand the changes? Yes No Explain:WENT TO SNF c. Were you able to obtain your new medications right away? Yes No X n/a SNF only Explain: d. Were you able to take your medications like the doctor wanted you to? Yes No Explain: e. Did the hospital give you an accurate, easy to understand list of medications when you left? Yes No X n/a SNF only Explain: 4. From your perspective, who is in charge of your care at [facility]? PCP X specialist family caseworker RN Other RN Hospitalist SNF doc Other: 5. How often are you in touch with this provider? How are things going with this provider? 6. Does it seem like this provider and others responsible for your care are talking to each other about your care? Yes No Explain: UNK ? Referring to your first hospital visit, COULD WE HAVE. STEP 1STEP 2 If YES, ask, to what degree did city planning engineer you back to the hospital? Y, N, NA?Definitely a factorSomewhat a factorNot at all a factor 1. NExplained things more clearly to you? 2. NChecked in on you from time to time? 3. NTalked to you more about your medications and the reason you take them? 4. NMade it easier for you to get in touch with someone at [facility] when you needed help? 5. NReduced the time it took to get an appointment? 6.NProvided more written materials for you to look over? 7.NProvided additional support or information to your caregiver or family members? 8.NDiscussed what you might expect to happen in the future regarding your health and the expected course of your illness and treatment? 9.NMade sure you had the equipment and other things you needed once you arrived home? 10.NAnything else? (please specify) 7. a. Did you receive a follow-up phone call after your hospitalization? Yes No Do not remember X n/a If no or do not remember, skip to #8. b. If yes, who did you receive the call from? Transitions Nurse Other Nurse Pharmacist PCP Hospitalist Specialist Artillery Officer Surgeon Dont remember Multiple calls Other: c. On a scale from 1-10, with 1 being the least and 10 being the most, how helpful was the call? 8. In hindsight, how likely is it that [facility] might have been able to keep you safely at home, preventing the second hospital visit [on x date]? not at all likely slightly likely moderately likely very likely completely likely Explain: UNK 9. Is there anything else youd like to share with us? NO
--- NOTE | 2019-01-01 16:00 | NUR ---
FEEDING TUBE CHANGED
[2019-01-01] MEDS ORDERED: HYDROMORPHONE 1MG/1ML INJ IV PRN (18:30)
--- NOTE | 2019-01-01 18:49 | NUR ---
PT RESTING ON BED BED SIDE REPORT GIVEN TO ONCOMING NURSE
[2019-01-01] MEDS ORDERED: FENTANYL 25 MCG/HR PATCH TOP SCH (20:00)
[2019-01-02] VITALS (7 sets, daily range): BP systolic 105–139; BP diastolic 55–67
--- NOTE | 2019-01-02 04:18 | NUR ---
01/01/19 @ 1900 Received report at bed side from day nurse, patient is alert and oriented, introduced self to patient and patient encouraged to call for help when needed with the call light, bed in lowest position and locked, needed items beside bed, patient is currently stable will continue to monitor. patient has a peg and tube feeding, patient is also on heparin drip, rate verified, patient also has continuos bladder irrigation, output was red. 2000: patient rounded and stable. 0000 patient rounded and stable 0200 patient rounded and stable 0400: patient rounded and stable.
[2019-01-02] MEDS: TRAMADOL HCL 50 MG TAB PO PRN (06:14)
--- NOTE | 2019-01-02 07:16 | NUR ---
patient endorsed to next shift for continuity of care.
--- NOTE | 2019-01-02 07:37 | NUR ---
GOT THE PTT REPORT DECREASE BY 200 UNITS UP TO 10 UNITS
[2019-01-02] MEDS: AMIODARONE HCL 200 MG TAB PO SCH (09:00)
[2019-01-02] MEDS: VENLAFAXINE HCL 75 MG CAPCR PO SCH ×2 (09:00→17:00)
[2019-01-02] MEDS: TOPIRAMATE 100 MG TAB PO SCH ×2 (09:00→17:00)
[2019-01-02] MEDS: MULTIVITAMINS/MINERALS TAB PO SCH (09:00)
[2019-01-02] MEDS: COLLAGENASE OINTMENT 30 GM TUBE TP SCH (09:00)
[2019-01-02] MEDS: PANTOPRAZOLE SOD 40 MG TABEC PO SCH (09:00)
[2019-01-02] MEDS: ASCORBIC ACID 500 MG TAB PO SCH ×2 (09:00→17:00)
[2019-01-02] MEDS: ZINC SULFATE 220 MG CAP PO SCH (09:00)
[2019-01-02] MEDS: HEPARIN IV SCH (10:45)
[2019-01-02] MEDS: [UNRECOGNIZED DRUG - OTHER] IV SCH (10:45)
--- NOTE | 2019-01-02 14:00 | NUR ---
PEG TUBE SITE DRESSING CHANGED AND DRESSING CHANGED ON THE BEDSORE
[2019-01-02 16:25] LABS: ANION GAP 12.8 mmol/L (8-16); BLOOD UREA NITROGEN 11 mg/dL (7-26); BUN/CREATININE RATIO 18 (6-25); CALCIUM 9.5 mg/dL (8.4-10.2); CARBON DIOXIDE 27 mmol/L (22-29); CHLORIDE 100 mmol/L (98-107); EST GLOMERULAR FILTRATION RATE > 60 ML/MIN (60-); GLUCOSE 109 mg/dL (74-118); POTASSIUM 3.8 mmol/L (3.5-5.1); SODIUM 136 mmol/L (136-145)
--- NOTE | 2019-01-02 18:44 | NUR ---
PT RESTING ON BED BED SIDE REPORT GIVEN TO ONCOMING NURSE
[2019-01-02] MEDS ORDERED: HEPARIN IV SCH (20:30)
[2019-01-02] MEDS ORDERED: [UNRECOGNIZED DRUG - OTHER] IV SCH (20:30)
--- NOTE | 2019-01-02 20:30 | NUR ---
ptt 104, heparin decreased by 150 units. new rate 6.5 ml/hr, verified by second RN.
[2019-01-02] MEDS: HEPARIN 25,000U/0.45% NS 250ML 25,000 UNIT in Premix Bag 250 ML IV SCH (20:34)
[2019-01-03] VITALS (7 sets, daily range): BP systolic 99–128; BP diastolic 55–70
[2019-01-03 01:42] LABS: BASOPHILS % 0.3 % (0.0-1.0); EOSINOPHILS # (AUTO) 0.6 (0.0-0.4); EOSINOPHILS % 6.3 % (0.0-6.0); HEMATOCRIT 25.2 % (34.2-44.1); HEMOGLOBIN 8.2 g/dL (12.0-16.0); LYMPHOCYTES % 44.4 % (18.0-39.1); MEAN CORPUSCULAR HEMOGLOBIN 30.7 pg (28-32); MEAN CORPUSCULAR HGB CONC 32.5 g/dL (31-35); MEAN CORPUSCULAR VOLUME 94.4 fL (81-99); MONOCYTES # (AUTO) 0.7 (0.2-0.8); MONOCYTES % 7.4 % (4.4-11.3); NEUTROPHILS # (AUTO) 3.7 (2.1-6.9); NEUTROPHILS % 40.8 % (38.7-80.0); PLATELET COUNT 325 x10e3/uL (140-360); RED BLOOD COUNT 2.67 x10e6/uL (3.6-5.1); RED CELL DISTRIBUTION WIDTH 14.6 % (11.7-14.4)
[2019-01-03 02:09] LABS: ANION GAP 11.5 mmol/L (8-16); BLOOD UREA NITROGEN 10 mg/dL (7-26); BUN/CREATININE RATIO 18 (6-25); CALCIUM 9.1 mg/dL (8.4-10.2); CARBON DIOXIDE 27 mmol/L (22-29); CHLORIDE 100 mmol/L (98-107); CREATININE, SERUM 0.56 mg/dL (0.57-1.11); EST GLOMERULAR FILTRATION RATE > 60 ML/MIN (60-); GLUCOSE 100 mg/dL (74-118); POTASSIUM 3.5 mmol/L (3.5-5.1); SODIUM 135 mmol/L (136-145)
--- NOTE | 2019-01-03 02:09 | NUR ---
PTT 64.9, no change to heparin drip, current rate is 6.5 ml/hr. verified by second RN.
--- NOTE | 2019-01-03 03:24 | Consultation ---
DATE OF CONSULTATION: 01/01/2019 REQUESTING PHYSICIAN: Dr. Lalitha Charlton. CONSULTING PHYSICIAN: Dr. Shakira Das, Hematology-Oncology Service. REASON FOR CONSULTATION: Evaluation and management of the patient with known history of deep vein thrombosis and pulmonary embolism. HISTORY OF PRESENTING ILLNESS: Ms. Ball is a very pleasant 68-year-old female with multiple medical problems including known history of seizure disorder, myopathy leading to severe muscle weakness and bed-bound status, atrial fibrillation and recent history of pulmonary embolism presented to the hospital due to hematuria. Apparently, she was discharged on Eliquis, which as per records she has been receiving. She does have history of recurrent urine tract infection. During this admission, she underwent Doppler of lower extremity revealing acute totally occlusive deep vein thrombosis in the left common femoral and femoral vein. Hematology-Oncology has been consulted to assist with the management. The patient is lying comfortably, not in acute distress. She is still having hematuria. She has been started on continuous bladder irrigation. She also had cystoscopy and Urology is on board. PAST MEDICAL HISTORY: 1. Seizure disorder. 2. History of renal stone. 3. History of recurrent urine tract infection. 4. Myopathy leading to severe generalized weakness and bed-bound status. 5. Atrial fibrillation. 6. History of pulmonary embolism. 7. Now deep vein thrombosis in the left leg. PAST SURGICAL HISTORY: Stent placement and cystoscopy. ALLERGIES: PENICILLIN, SULFA. SOCIAL HISTORY: No reported history of alcohol use, smoking, and drug use. FAMILY HISTORY: Unknown. REVIEW OF SYSTEMS: Complete review of system unobtainable though deny headache, nausea, vomiting, fever. Positive for hematuria. Positive for weakness. PHYSICAL EXAMINATION: VITAL SIGNS: Reviewed as per electronic medical record. HEENT: PERRLA. Extraocular movement intact. Head is atraumatic and normocephalic. NECK: Supple. CVS: S1, S2 audible. RESPIRATORY: Decreased bilateral air entry. ABDOMEN: Positive bowel sounds. EXTREMITIES: Positive edema. NEURO: The patient is alert, awake. LABORATORY DATA: White blood cell count of 11.1, hemoglobin 9.3, hematocrit 29.0, platelets 341. BUN 14, creatinine 0.5. ASSESSMENT AND PLAN: Ms. Ball is a very pleasant 68-year-old female with multiple medical problems with known history of seizure disorder, myopathy leading to muscle weakness and bed-bound status, history of atrial fibrillation, history of recurrent urinary tract infection and recent history of pulmonary embolism for which she has been discharged on Eliquis. Now, she has been hospitalized due to hematuria. She underwent Doppler due to lower extremity swelling revealing nonocclusive thrombus in the left common femoral and femoral vein. Hematology-Oncology has been consulted to assist with the management. I have reviewed the record and discussed at length with the patient as well as primary team about her current disease and importance of anticoagulation. At this point, recommendation will be to continue with the heparin which she already has been started. I do not think so this is Eliquis failure. It appears that she might have this deep vein thrombosis in previous admission as I do not see any Doppler was performed during that visit. Eliquis failure is very less likely. However, due to the patient bed-bound status and recurrent hematuria as well as compliance issue, it will be more appropriate to be on Coumadin rather than Eliquis for monitoring purposes. However, at this point recommendation would be to continue with the heparin as the patient is having hematuria. If in case hematuria does not resolve and we have to stop heparin and she definitely will require IVC filter placement without stopping heparin. We will closely monitor and coordinate care with the Urology and Pulmonary team. Thank you for the consult. I will continue to be available. Please call with questions. MD PERNELL Rios/IGORL /[id number]
[2019-01-03] MEDS: HEPARIN 25,000U/0.45% NS 250ML 25,000 UNIT in Premix Bag 250 ML IV SCH ×2 (09:23→20:00)
--- NOTE | 2019-01-03 09:23 | NUR ---
PTT at this time is 45.7. Increased heparin dosage by 100 units/hr to 750 units/hr or 7.5 mls/hr. Will recheck PTT at 1530.
[2019-01-03 09:42] LABS: % IRON SATURATION 15 % (15-50); IRON 33 ug/dL (50-170); TOTAL IRON BINDING CAPACITY 221 ug/dL (261-478); TRANSFERRIN 158 mg/dL (180-382)
[2019-01-03] MEDS: ASCORBIC ACID 500 MG TAB PO SCH ×2 (09:47→17:25)
[2019-01-03] MEDS: ZINC SULFATE 220 MG CAP PO SCH (09:47)
[2019-01-03] MEDS: AMIODARONE HCL 200 MG TAB PO SCH (09:47)
[2019-01-03] MEDS: MULTIVITAMINS/MINERALS TAB PO SCH (09:47)
[2019-01-03] MEDS: VENLAFAXINE HCL 75 MG CAPCR PO SCH ×2 (09:47→17:25)
[2019-01-03] MEDS: TOPIRAMATE 100 MG TAB PO SCH ×2 (09:47→17:25)
[2019-01-03] MEDS: PANTOPRAZOLE SOD 40 MG TABEC PO SCH (09:47)
--- NOTE | 2019-01-03 10:27 | NUR ---
IMM letter delivered and explained to pt. She verbalized understanding, stated she has gotten IMMs from previous admissions. Signed copy placed in chart. Copy placed in transition of care folder.
--- NOTE | 2019-01-03 12:36 | NUR ---
CM SPOKE TO PATIENT /GREG CARDOSO REGARDING PATIENT PLAN OF CARE. PATIENT LETHARGIC AND DELEGATES SIGN ON HER BEHALF. CM INFORMED PATIENT OF [facility]TE SPECIAL[facility] ORDER PLACED BY MEDICAL DOCTOR FOR DISCHARGE PLAN. PATIENT GIVEN CHOICES AND VERBALLY AGREED TO [facility]. CHOICE LETTER SIGNED BY PATIENT THEN PLACED IN CHART. CLINICAL PICKED UP BY [facility] LIAISON KATELYNN AGUIRRE. [facility] Address: [address], [place] [address] PENDING AUTH AND MOT FOR TRANSFER MOT INITIATED AND PLACED AT NURSING STATION WITH MANIFEST CLERK YEN.
[2019-01-03] MEDS: COLLAGENASE OINTMENT 30 GM TUBE TP SCH (12:43)
--- NOTE | 2019-01-03 16:28 | NUR ---
PTT is 57.4. Continue current heparin infusion at 750 units/hr or 7.5 ml/hr. Redraw due at 2230.
--- NOTE | 2019-01-03 19:20 | NUR ---
Patient received lying in bed. AAO x 3. Patient had no complaints of pain. No signs of respiratory distress. Fall precautions implemented. Tube feeding infusing at 20 cc / hr. Continuous bladder irrigation in process. Patel catheter draining blood-tinged urine (pinkish in color). Heparin drip infusing at 7.5cc/hr. Patient instructed to call for assistance when needed. Call light within reach.
[2019-01-03] MEDS: DIPHENHYDRAMINE HCL INJ 50 MG/ML VIAL IV PRN (21:00)
--- NOTE | 2019-01-03 22:40 | NUR ---
PTT recorded as 54.5. No rate change to Heparin drip. Second nurse double checked results. Heparin drip currently infusing at 7.5 cc /hr.
[2019-01-03] MEDS: TRAMADOL HCL 50 MG TAB PO PRN (23:17)
[2019-01-04] VITALS (9 sets, daily range): BP systolic 94–134; BP diastolic 53–70
--- NOTE | 2019-01-04 01:40 | NUR ---
Feeding tube changed. No residual from PEG tube. New dressing applied to PEG tube site.
--- NOTE | 2019-01-04 02:40 | NUR ---
Wound dressing done as per MD's orders.
[2019-01-04] MEDS: DIPHENHYDRAMINE HCL INJ 50 MG/ML VIAL IV PRN (02:47)
[2019-01-04 09:02] LABS: BASOPHILS % 0.5 % (0.0-1.0); EOSINOPHILS # (AUTO) 0.5 (0.0-0.4); EOSINOPHILS % 5.8 % (0.0-6.0); HEMATOCRIT 25.8 % (34.2-44.1); HEMOGLOBIN 8.2 g/dL (12.0-16.0); LYMPHOCYTES # (AUTO) 3.6 (1.0-3.2); LYMPHOCYTES % 41.1 % (18.0-39.1); MEAN CORPUSCULAR HEMOGLOBIN 30.3 pg (28-32); MEAN CORPUSCULAR HGB CONC 31.8 g/dL (31-35); MEAN CORPUSCULAR VOLUME 95.2 fL (81-99); MONOCYTES # (AUTO) 0.7 (0.2-0.8); MONOCYTES % 8.3 % (4.4-11.3); NEUTROPHILS # (AUTO) 3.9 (2.1-6.9); NEUTROPHILS % 43.7 % (38.7-80.0); PLATELET COUNT 342 x10e3/uL (140-360); RED BLOOD COUNT 2.71 x10e6/uL (3.6-5.1); RED CELL DISTRIBUTION WIDTH 14.8 % (11.7-14.4)
--- NOTE | 2019-01-04 09:27 | NUR ---
Feeding stopped at this time. Flushed PEG tube with 30 ml of water and clamped. No residual. Orders to resume at 2200 and feed until 0600.
[2019-01-04] MEDS: AMIODARONE HCL 200 MG TAB PO SCH (09:29)
[2019-01-04] MEDS: VENLAFAXINE HCL 75 MG CAPCR PO SCH ×2 (09:43→17:33)
[2019-01-04] MEDS: ZINC SULFATE 220 MG CAP PO SCH (09:43)
[2019-01-04] MEDS: PANTOPRAZOLE SOD 40 MG TABEC PO SCH (09:43)
[2019-01-04] MEDS: MULTIVITAMINS/MINERALS TAB PO SCH (09:43)
[2019-01-04] MEDS: ASCORBIC ACID 500 MG TAB PO SCH ×2 (09:43→17:33)
[2019-01-04] MEDS: TOPIRAMATE 100 MG TAB PO SCH ×2 (09:43→17:33)
--- NOTE | 2019-01-04 13:59 | NUR ---
Nutrition Intervention Note RD Recommendation(s) for Physician: - Rec regular diet to promote PO intake; diet texture per CONE WINDER (mechanical soft/ chopped/ nectar thick) - Rec Ensure Enlive TID to promote protein-calorie intake through PO - Rec Ensure pudding once daily - Continue nocturnal feeding of Jevity 1.2 @20mL/hr from 2200 0600, providing 192kcal, 9g protein, and 129mL H2O. - If PO intake is inadequate with ONS, rec to increase rate of TF (please consult RD) - Continue to check daily labs, gastric tolerance, weight Plan of Care: RD following, monitoring for tolerance and adequacy, TF, ONS Nutrition reason for involvement: Follow up RD Assessment 01/04 - Chart reviewed. Visited pt in the room. Pt has had poor appetite and PO intake while on GI soft diet. Per tech, pt didnt eat anything this AM. Pt denied any nausea or vomiting but complained of pain from PEG site. Per ESCOBAR Mora, PEG was clean and no sign of infection. Current diet texture was well tolerated. Pt drank Boost x3 daily when PO intake was feasible prior to PEG placement and pt would like to have Ensure to see if she can get more calories in. RD also rec Ensure Pudding; pt was willing to try. Discussed nutrition goals with pt and ESCOBAR Mora. Plan to restart TF with Jevity 1.2 @20mL/hr from 2200 to 0600. Will continue to monitor and follow. 12/31 68yo F, who was admitted for hematuria. Pt had PEG placed during her last admission on 12/15/2018. Today, pt passed MBS and CONE WINDER rec mechanical soft diet. Visited pt in the room. TF was running with Jevity 1.2 @20mL/hr. Pt denied any nausea or vomiting. Diet is to start dinner tonight. Will continue to monitor and follow. Principal Problems/Diagnoses: Hematuria PMH: seizure disorder, bed-bound status, severe muscle weakness, kidney stones, recent pulmonary embolism, was on anticoagulation. GI: PEG present, LBM 01/04, abdomen soft, non-tender, round Skin: Left Gluteal - Unstageable Pressure Ulcer- Present on Admission. Labs: (01/04) Na 135 L, Creatinine 0.56 L, iron 33 L, TIBC 221 L, transferrin 158 L (12/31) creatinine 0.52 L Meds: zinc sulfate, protonix, MVi w/ minerals, vitamin C Ht: 68in Wt: 154lb; 144.44lb BMI: 23.4kg/m2 IBW: 140lb Malnutrition Evaluation (12/31) The patient does not meet criteria for a specified degree of malnutrition at this time. Will re-evaluate at follow-up as appropriate. Nutrition Prescription (Diet Order): GI soft Estimated Nutritional Needs: 1729 - 2075 kcals at 25-30 kcals/kg/bw 83 - 103g of protein at 1.2-1.5g/kg/bw Diet Adequacy: Not meeting calorie needs, Not meeting protein needs Diet Education Needs Assessment: Diet education indicated, but patient not appropriate for education at this time. Nutrition Care Level: mod Goal: Patient will meet 75-100% of estimated needs by follow up Progress: N/A Interventions: Texture-modified diet, Composition, Rate, Formula, Multivitamin/mineral supplement therapy, Collaboration with other providers Monitoring/Evaluation: Total energy intake, Total protein intake, Modified diet, Weight change, Labs, Gastric tolerance Signed: Nataly Villalba, , RD, LD
--- NOTE | 2019-01-04 14:00 | NUR ---
Spoke with ESCOBAR Mora regarding nutrition rec. Diet order received from Dr. Hsu for nocturnal TF with diet.
[2019-01-04] MEDS: COLLAGENASE OINTMENT 30 GM TUBE TP SCH (18:16)
--- NOTE | 2019-01-04 19:25 | NUR ---
Patient received sitting up in bed. AAO x 4. No acute distress noted. Patient instructed to call for assistance when needed. Call light within reach.
[2019-01-04] MEDS: ENOXAPARIN SOD INJ 60 MG/0.6 ML SYR SC SCH (20:53)
[2019-01-05] VITALS (8 sets, daily range): BP systolic 97–114; BP diastolic 56–68
[2019-01-05] MEDS: TRAMADOL HCL 50 MG TAB PO PRN ×3 (01:45→22:30)
[2019-01-05] MEDS: LEVETIRACETAM 500 MG TAB PO SCH ×2 (09:00→17:00)
[2019-01-05] MEDS: ASCORBIC ACID 500 MG TAB PO SCH ×2 (09:00→17:00)
[2019-01-05] MEDS: COLLAGENASE OINTMENT 30 GM TUBE TP SCH (09:00)
[2019-01-05] MEDS: MULTIVITAMINS/MINERALS TAB PO SCH (09:00)
[2019-01-05] MEDS: PANTOPRAZOLE SOD 40 MG TABEC PO SCH (09:00)
[2019-01-05] MEDS: TOPIRAMATE 100 MG TAB PO SCH ×2 (09:00→17:00)
[2019-01-05] MEDS: ZINC SULFATE 220 MG CAP PO SCH (09:00)
[2019-01-05] MEDS: VENLAFAXINE HCL 75 MG CAPCR PO SCH ×2 (09:00→17:00)
[2019-01-05] MEDS: ENOXAPARIN SOD INJ 60 MG/0.6 ML SYR SC SCH ×2 (09:00→21:11)
[2019-01-05] MEDS: AMIODARONE HCL 200 MG TAB PO SCH (09:00)
[2019-01-05] MEDS ORDERED: LEVETIRACETAM 1500 MG PO SCH (09:00)
--- NOTE | 2019-01-05 11:11 | NUR ---
IMM letter delivered and explained to pt. She verbalized understanding. Signed copy placed in chart. copy to pt's transition of care folder.
[2019-01-05] MEDS ORDERED: BELLADONNA/OPIUM 30 MG SUPP RC PRN (12:15)
--- NOTE | 2019-01-05 13:48 | Diagnostic Imaging Report ---
PROCEDURE: X-RAY MODIFIED BARIUM SWALLOW COMPARISON: Modified barium swallow 12/20/18. INDICATION: Aspiration Radiation Details: Fluoroscopy time: 2.4 minutes Cumulative dose: 10.4 mGy DAP: 2.4 Gycm2 Air Kerma (AK) value has been reviewed. It is below the limits set by the Radiation Protocol Committee (RPC) committee. DISCUSSION: Fluoroscopic examination was performed in conjunction with speech pathology during swallowing a variety of thin and thick liquid consistencies. Provided images demonstrate no laryngeal penetration or aspiration. No significant vallecular or piriform sinus residue. CONCLUSION: Modified barium swallow demonstrating no laryngeal penetration or aspiration. Please refer to the speech pathology report for further details. Signed by: Dr. Gaurav Molina MD on 01/05/2019 1:45 PM
[2019-01-05] MEDS: OXYBUTYNIN CHLORIDE 5 MG TAB PO SCH ×2 (14:16→21:11)
[2019-01-05] MEDS: DIPHENHYDRAMINE HCL INJ 50 MG/ML VIAL IV PRN ×2 (15:47→23:50)
--- NOTE | 2019-01-05 18:42 | NUR ---
PT RESTING ON BED BED SIDE REPORT GIVEN TO ONCOMING NURSE
--- NOTE | 2019-01-05 22:00 | NUR ---
TUBE FEEDING STARTED AT 20ML/HR
[2019-01-06] VITALS (8 sets, daily range): BP systolic 103–127; BP diastolic 57–63
--- NOTE | 2019-01-06 00:37 | NUR ---
TEMP RECHECKED 98.6 F.
--- NOTE | 2019-01-06 06:10 | NUR ---
TUBE FEEDING STOPPED.
[2019-01-06] MEDS: TOPIRAMATE 100 MG TAB PO SCH ×2 (09:00→17:00)
[2019-01-06] MEDS: APIXABAN 5 MG TABLET PO SCH ×2 (09:00→17:00)
[2019-01-06] MEDS: OXYBUTYNIN CHLORIDE 5 MG TAB PO SCH ×3 (09:00→20:07)
[2019-01-06] MEDS: AMIODARONE HCL 200 MG TAB PO SCH (09:00)
[2019-01-06] MEDS: COLLAGENASE OINTMENT 30 GM TUBE TP SCH (09:00)
[2019-01-06] MEDS: MULTIVITAMINS/MINERALS TAB PO SCH (09:00)
[2019-01-06] MEDS: PANTOPRAZOLE SOD 40 MG TABEC PO SCH (09:00)
[2019-01-06] MEDS: ASCORBIC ACID 500 MG TAB PO SCH ×2 (09:00→17:00)
[2019-01-06] MEDS: ZINC SULFATE 220 MG CAP PO SCH (09:00)
[2019-01-06] MEDS: LEVETIRACETAM 500 MG TAB PO SCH ×2 (09:00→17:00)
[2019-01-06] MEDS: VENLAFAXINE HCL 75 MG CAPCR PO SCH ×2 (09:00→17:00)
--- NOTE | 2019-01-06 09:49 | NUR ---
PICC LINE DRESSING CHANGED
--- NOTE | 2019-01-06 13:20 | NUR ---
DR SOMMER RETURNED CALL AND GOT NEW ORDERS
[2019-01-06] MEDS: ACETAMINOPHEN 325 MG TAB PO PRN (13:35)
--- NOTE | 2019-01-06 13:39 | NUR ---
PAGED DR SOMMER TO NOTIFY THE FEVER AND GET SOME ORDER TO FEVER
--- NOTE | 2019-01-06 14:35 | NUR ---
BEST SPOKE TO TERRY WITH [facility] REGARDING PATIENT DISCHARGE PLAN. INSURANCE BEST STATES PATIENT IS NOT QUALIFIED FOR SNF ACUTE CARE SERVICES. PATIENT IS NOT USING MORE THAN 1 IV ABX AND ONLY ON CONTINUOUS BLADDER IRRIGATION. TERRY STATES IT IS ADVISABLE FOR PATIENT TO STAY AT HOSPITAL UNTIL CBI IS DISCONTINUED.
--- NOTE | 2019-01-06 16:15 | NUR ---
Nutrition Intervention Note RD Recommendation(s) for Physician: - Continue regular diet to promote PO intake; diet texture per [employer] T[employer] AUDITOR (mechanical soft/ chopped/ nectar thick) - Continue Ensure Enlive TID (1050kcal, 60g protein) to promote protein-calorie intake through PO - Continue Ensure pudding (170kcal, 4g protein) once daily - Continue nocturnal feeding of Jevity 1.2 @20mL/hr from 2200 0600, providing 192kcal, 9g protein, and 129mL H2O. - Continue to check daily labs, gastric tolerance, weight Plan of Care: RD following, monitoring for tolerance and adequacy, TF, ONS Nutrition reason for involvement: Follow up RD Assessment 01/06 Pt was discussed during AM rounds. Pt had fever today. Blood culture pending. Per ESCOBAR Arechiga, pt has ~25% intake from meals. However, pt really likes the Ensure Enlive and pudding with ~75% intake. Visited pt in the room. Unable to obtain info from pt as she was not feeling well. Pending placement. Will continue to monitor and follow. 01/04 - Chart reviewed. Visited pt in the room. Pt has had poor appetite and PO intake while on GI soft diet. Per tech, pt didnt eat anything this AM. Pt denied any nausea or vomiting but complained of pain from PEG site. Per ESCOBAR Mora, PEG was clean and no sign of infection. Current diet texture was well tolerated. Pt drank Boost x3 daily when PO intake was feasible prior to PEG placement and pt would like to have Ensure to see if she can get more calories in. RD also rec Ensure Pudding; pt was willing to try. Discussed nutrition goals with pt and ESCOBAR Mora. Plan to restart TF with Jevity 1.2 @20mL/hr from 2200 to 0600. Will continue to monitor and follow. 12/31 68yo F, who was admitted for hematuria. Pt had PEG placed during her last admission on 12/15/2018. Today, pt passed MBS and [employer] TAX AUDITOR rec mechanical soft diet. Visited pt in the room. TF was running with Jevity 1.2 @20mL/hr. Pt denied any nausea or vomiting. Diet is to start dinner tonight. Will continue to monitor and follow. Principal Problems/Diagnoses: Hematuria PMH: seizure disorder, bed-bound status, severe muscle weakness, kidney stones, recent pulmonary embolism, was on anticoagulation. GI: PEG present, LBM 01/06, abdomen soft, non-tender, round Skin: Left Gluteal - Unstageable Pressure Ulcer- Present on Admission. Labs: (01/04) Na 135 L, Creatinine 0.56 L, iron 33 L, TIBC 221 L, transferrin 158 L (12/31) creatinine 0.52 L Meds: zinc sulfate, protonix, MVi w/ minerals, vitamin C Ht: 68in Wt: 154lb; 144.44lb BMI: 23.4kg/m2 IBW: 140lb Malnutrition Evaluation (12/31) The patient does not meet criteria for a specified degree of malnutrition at this time. Will re-evaluate at follow-up as appropriate. Nutrition Prescription (Diet Order): regular diet with texture modification Estimated Nutritional Needs: 1729 - 2075 kcals at 25-30 kcals/kg/bw 83 - 103g of protein at 1.2-1.5g/kg/bw Diet Adequacy: Not meeting calorie needs, Not meeting protein needs Diet Education Needs Assessment: Diet education indicated, but patient not appropriate for education at this time. Nutrition Care Level: mod Goal: Patient will meet 75-100% of estimated needs by follow up Progress: Progressing Interventions: Texture-modified diet, Composition, Rate, Formula, Multivitamin/mineral supplement therapy, Collaboration with other providers Monitoring/Evaluation: Total energy intake, Total protein intake, Modified diet, Weight change, Labs, Gastric tolerance Signed: Nataly Villalba MS, RD, LD
--- NOTE | 2019-01-06 18:39 | NUR ---
PT RESTING ON BED BED SIDE REPORT GIVEN TO ONCOMING NURSE
--- NOTE | 2019-01-06 21:50 | NUR ---
Peg tube feeding started
[2019-01-07] VITALS (7 sets, daily range): BP systolic 90–115; BP diastolic 53–65
[2019-01-07] MEDS: ACETAMINOPHEN 325 MG TAB PO PRN (04:05)
[2019-01-07 06:44] LABS: BASOPHILS % 0.3 % (0.0-1.0); EOSINOPHILS # (AUTO) 0.5 (0.0-0.4); EOSINOPHILS % 4.4 % (0.0-6.0); HEMOGLOBIN 7.8 g/dL (12.0-16.0); LYMPHOCYTES # (AUTO) 3.4 (1.0-3.2); LYMPHOCYTES % 29.9 % (18.0-39.1); MEAN CORPUSCULAR HEMOGLOBIN 30.6 pg (28-32); MEAN CORPUSCULAR HGB CONC 32.5 g/dL (31-35); MEAN CORPUSCULAR VOLUME 94.1 fL (81-99); MONOCYTES # (AUTO) 1.3 (0.2-0.8); MONOCYTES % 11.7 % (4.4-11.3); NEUTROPHILS # (AUTO) 6.1 (2.1-6.9); NEUTROPHILS % 52.9 % (38.7-80.0); PLATELET COUNT 336 x10e3/uL (140-360); RED BLOOD COUNT 2.55 x10e6/uL (3.6-5.1); RED CELL DISTRIBUTION WIDTH 15.3 % (11.7-14.4)
--- NOTE | 2019-01-07 07:10 | NUR ---
The pt. was received from the off-g0ing nurse and the pt. is awake alert and oriented. She comp of 9ain in her leg due to dtv. She denies any other issues or concerns. The pt. was advised that I will bring her pain med kirby.
[2019-01-07] MEDS: OXYBUTYNIN CHLORIDE 5 MG TAB PO SCH ×3 (09:00→22:23)
[2019-01-07] MEDS: AMIODARONE HCL 200 MG TAB PO SCH (09:00)
[2019-01-07] MEDS: PANTOPRAZOLE SOD 40 MG TABEC PO SCH (09:00)
[2019-01-07] MEDS: TOPIRAMATE 100 MG TAB PO SCH ×2 (09:00→17:30)
[2019-01-07] MEDS: ZINC SULFATE 220 MG CAP PO SCH (09:00)
[2019-01-07] MEDS: COLLAGENASE OINTMENT 30 GM TUBE TP SCH (09:00)
[2019-01-07] MEDS: ASCORBIC ACID 500 MG TAB PO SCH ×2 (09:00→17:30)
[2019-01-07] MEDS: VENLAFAXINE HCL 75 MG CAPCR PO SCH ×2 (09:00→17:30)
[2019-01-07] MEDS: MULTIVITAMINS/MINERALS TAB PO SCH (09:00)
[2019-01-07] MEDS: LEVETIRACETAM 500 MG TAB PO SCH ×2 (09:00→17:30)
[2019-01-07] MEDS: APIXABAN 5 MG TABLET PO SCH ×2 (10:33→17:30)
[2019-01-07 13:43] LABS: EOSINOPHILS % (MANUAL) 6 % (0-7); LYMPHOCYTES % (MANUAL) 25 % (19-48); MONOCYTES % (MANUAL) 9 % (3.4-9.0); NEUTROPHILS % (MANUAL) 54 % (40-74)
[2019-01-07 13:44] LABS: ANISOCYTOSIS SLIGHT; HYPOCHROMASIA MODERATE; PLATELET ESTIMATE ADEQUATE; PLATELET MORPHOLOGY COMMENT NORMAL; RBC MORPHOLOGY COMMENT NORMAL
--- NOTE | 2019-01-07 16:10 | NUR ---
PATIENT DENIED WORKING SUPERVISOR ACUTE CARE PLACEMENT. PATIENT AWARE AND MD AWARE. NO PEER TO PEER PER DR. QUINTANILLA. PATIENT TO CONTINUE CONTINUOUS BLADDER IRRIGATION IN HOUSE.
--- NOTE | 2019-01-07 16:38 | NUR ---
IMM EXPLAINED TO PT, SIGNED BY PT AND PLACED IN CHART COPY TO PT AND PLACED IN CARE TRANSITIONS FOLDER
--- NOTE | 2019-01-07 16:45 | NUR ---
PATIENT DENIED LTAC. DR. SOMMER CALLED FOR NEW PLAN OF CARE. PENDING RETURN CALL FOR UPDATED PLAN OF CARE. ESCOBAR ANDERSON NOTIFIED TO CALL AND FOLLOW UP WITH ROS TA FOR NEW DISCHARGE PLAN WELL. JOSE ANGEL CM TO FOLLOW UP.
--- NOTE | 2019-01-07 17:00 | NUR ---
Dr. Bean notified that case management reports that the pt. does not qualify for ltac. Orders received and spoke with them and about appealing the transfer due to need for continuous bladder irrigation.
[2019-01-08] VITALS (7 sets, daily range): BP systolic 99–123; BP diastolic 51–65
[2019-01-08] MEDS: DIPHENHYDRAMINE HCL INJ 50 MG/ML VIAL IV PRN ×4 (02:13→22:20)
--- NOTE | 2019-01-08 03:07 | Diagnostic Imaging Report ---
Examination: Single AP view of the chest. COMPARISON: None. INDICATION: PICC placement DISCUSSION: Lines/tubes: PICC line with tip overlying the SVC. Lungs: The lungs are well inflated and clear. No pneumonia or pulmonary edema. Pleura: No pleural effusion or pneumothorax. Heart and mediastinum: The heart and the mediastinum are unremarkable. Bones and soft tissues: No acute bony abnormalities. IMPRESSION: 1. PICC line with tip overlying the SVC. Signed by: Dr. Yan Sheriff M.D. on 01/08/2019 3:03 AM
--- NOTE | 2019-01-08 07:20 | NUR ---
GAVE REPORT TO ONCOMING NURSE. CALL LIGHT WITHIN REACH. PATIENT IN BED.
--- NOTE | 2019-01-08 07:52 | NUR ---
Pt resting at this time. No distress noted. Patel in place, bag below bladder, no kinks of tubing noted, patent. CBI at this time, urine noted to be clear with pink tint, sediment observed. Pt c/o of cramping to bladder, requested medication for cramping. Resp WNL. PEG tube in place, no redness to insertion site. Bed in lowest position and call light within reach.
[2019-01-08] MEDS ORDERED: BELLADONNA/OPIUM 60 MG SUPP PR PRN (09:00)
[2019-01-08] MEDS: VENLAFAXINE HCL 75 MG CAPCR PO SCH ×2 (09:03→17:50)
[2019-01-08] MEDS: PANTOPRAZOLE SOD 40 MG TABEC PO SCH (09:03)
[2019-01-08] MEDS: AMIODARONE HCL 200 MG TAB PO SCH (09:03)
[2019-01-08] MEDS: OXYBUTYNIN CHLORIDE 5 MG TAB PO SCH ×3 (09:03→21:02)
[2019-01-08] MEDS: MULTIVITAMINS/MINERALS TAB PO SCH (09:03)
[2019-01-08] MEDS: ZINC SULFATE 220 MG CAP PO SCH (09:03)
[2019-01-08] MEDS: TOPIRAMATE 100 MG TAB PO SCH ×2 (09:03→17:50)
[2019-01-08] MEDS: LEVETIRACETAM 500 MG TAB PO SCH ×2 (09:03→17:50)
[2019-01-08] MEDS: ASCORBIC ACID 500 MG TAB PO SCH ×2 (09:03→17:50)
[2019-01-08] MEDS: APIXABAN 5 MG TABLET PO SCH ×2 (09:03→17:50)
[2019-01-08] MEDS: ACETAMINOPHEN 325 MG TAB PO PRN ×3 (09:04→23:46)
--- NOTE | 2019-01-08 11:41 | NUR ---
Spoke with Dr. Charlton and informed him of LTAC denial. He stated that her urine is clear today. Urology to decide on when to stop CBI. Pt to return to halfway on discharge.
--- NOTE | 2019-01-08 13:37 | NUR ---
Output of 5,200cc of urine collected in total at this time per CBI. Patel patent, pink tinged urine at this time. Patel bag below bladder.
--- NOTE | 2019-01-08 14:23 | NUR ---
Wound care provided at this time. Skin broken, yellow/white noted. Redness surrounding would site. Allevyn dressing applied, Santyl ointment administered to wound. Pt tolerated well. No c/o pain to site.
[2019-01-08] MEDS: COLLAGENASE OINTMENT 30 GM TUBE TP SCH (14:26)
--- NOTE | 2019-01-08 14:30 | NUR ---
Allevyn dressing applied to upper L back. Pt has four scratch gonzales to back, stated she did not scratch herself. Redness noted to entire back.
--- NOTE | 2019-01-08 19:00 | NUR ---
received report from day nurse. patient is resting comfortably in bed. continues on continuous bladder irrigation. denies pain or discomfort. bed is in lowest position and call whitehead is within reach. will continue to monitor patient.
[2019-01-09] VITALS (8 sets, daily range): BP systolic 92–114; BP diastolic 58–67
--- NOTE | 2019-01-09 | NUR ---
patient's temperature is elevated. Will medicate patient with prn medication orders.will continue to monitor patients temperature.
[2019-01-09] MEDS: DIPHENHYDRAMINE HCL INJ 50 MG/ML VIAL IV PRN (02:54)
[2019-01-09] MEDS: ACETAMINOPHEN 325 MG TAB PO PRN ×3 (05:04→22:48)
--- NOTE | 2019-01-09 06:54 | NUR ---
report given to day nurse. patient is resting comfortably in bed. bed is in lowest position and call whitehead is within reach.
--- NOTE | 2019-01-09 08:44 | Diagnostic Imaging Report ---
EXAMINATION: CHEST SINGLE (PORTABLE) COMPARISON: Chest x-ray 01/08/2019 INDICATION: Fever ^fever ^[id number] ^0830 DISCUSSION: Frontal view of the chest obtained at 0833 hours. HEART AND MEDIASTINUM: The cardiomediastinal silhouette is unremarkable. LINES: Left PICC line remains in the SVC. LUNGS: Lung volumes are low. No airspace opacities. Azygos lobe and fissure are stable. No pneumonia or pulmonary edema. PLEURA: No pleural effusion or pneumothorax. BONES AND SOFT TISSUES: No focal osseous lesion. Surgical clips in the right axilla are stable. IMPRESSION: Stable chest. No active disease. Signed by: Dr. Sana Bryant MD on 01/09/2019 8:40 AM
[2019-01-09] MEDS: APIXABAN 5 MG TABLET PO SCH ×2 (09:00→17:27)
[2019-01-09] MEDS: ASCORBIC ACID 500 MG TAB PO SCH ×2 (09:00→17:28)
[2019-01-09] MEDS: LEVETIRACETAM 500 MG TAB PO SCH ×2 (09:00→17:28)
[2019-01-09] MEDS: VENLAFAXINE HCL 75 MG CAPCR PO SCH ×2 (09:00→17:27)
[2019-01-09] MEDS: AMIODARONE HCL 200 MG TAB PO SCH (09:00)
[2019-01-09] MEDS: ZINC SULFATE 220 MG CAP PO SCH (09:00)
[2019-01-09] MEDS: COLLAGENASE OINTMENT 30 GM TUBE TP SCH (09:00)
[2019-01-09] MEDS: MULTIVITAMINS/MINERALS TAB PO SCH (09:00)
[2019-01-09] MEDS: OXYBUTYNIN CHLORIDE 5 MG TAB PO SCH ×3 (09:00→22:07)
[2019-01-09] MEDS: TOPIRAMATE 100 MG TAB PO SCH ×2 (09:00→17:28)
[2019-01-09] MEDS: PANTOPRAZOLE SOD 40 MG TABEC PO SCH (09:00)
[2019-01-09] MEDS ORDERED: ALTEPLASE RECOMBINANT 2 MG/2 ML VIAL IV ONE (10:30)
[2019-01-09] MEDS ORDERED: VANCOMYCIN 1GM/NS 250 ML 250 ML IV SCH (11:00)
--- NOTE | 2019-01-09 11:21 | NUR ---
Pt in bed resting at this time. Appears to be lethargic, in comparison to yesterday. Only wakes to respond to questions/voice, closes eyes mid conversation.
--- NOTE | 2019-01-09 11:24 | NUR ---
CBI still in place, munoz catheter bag placed below bladder. No c/o of pain. Urine specimen collected this morning. PICC line to L upper arm, red colored lumen patent, blue lumen flows slowly. No redness or irritation to insertion site. [place] color urine draining into collection bag, good output. No s/s of resp distress. Temp at 99.3 this morning. Alert when spoken to, responds with correct answers pertaining to self and care being provided. MD notified regarding change in condition.
[2019-01-09 11:59] LABS: BASOPHILS % 0.3 % (0.0-1.0); EOSINOPHILS # (AUTO) 0.5 (0.0-0.4); EOSINOPHILS % 3.8 % (0.0-6.0); HEMATOCRIT 25.2 % (34.2-44.1); LYMPHOCYTES # (AUTO) 3.6 (1.0-3.2); LYMPHOCYTES % 26.6 % (18.0-39.1); MEAN CORPUSCULAR HEMOGLOBIN 30.8 pg (28-32); MEAN CORPUSCULAR HGB CONC 31.7 g/dL (31-35); MEAN CORPUSCULAR VOLUME 96.9 fL (81-99); MONOCYTES # (AUTO) 1.8 (0.2-0.8); MONOCYTES % 13.1 % (4.4-11.3); NEUTROPHILS # (AUTO) 7.5 (2.1-6.9); NEUTROPHILS % 55.5 % (38.7-80.0); PLATELET COUNT 326 x10e3/uL (140-360); RED CELL DISTRIBUTION WIDTH 14.9 % (11.7-14.4)
--- NOTE | 2019-01-09 12:00 | NUR ---
Cathflo Activase administered into blue lumen on PICC line to L upper arm, will recheck return blood flow at 1230
[2019-01-09 12:25] LABS: ANION GAP 16.9 mmol/L (8-16); BLOOD UREA NITROGEN 13 mg/dL (7-26); BUN/CREATININE RATIO 21 (6-25); CALCIUM 9.1 mg/dL (8.4-10.2); CARBON DIOXIDE 21 mmol/L (22-29); CHLORIDE 103 mmol/L (98-107); CREATININE, SERUM 0.61 mg/dL (0.57-1.11); EST GLOMERULAR FILTRATION RATE > 60 ML/MIN (60-); GLUCOSE 83 mg/dL (74-118); POTASSIUM 3.9 mmol/L (3.5-5.1); SODIUM 137 mmol/L (136-145)
--- NOTE | 2019-01-09 12:34 | NUR ---
No blood return noted. Activase remained in place. Will recheck in 30mins per protocol.
--- NOTE | 2019-01-09 14:45 | NUR ---
Blood returned present from blue colored lumen on PICC line.
[2019-01-09] MEDS: VANCOMYCIN 1GM/NS 250 ML 250 ML IV SCH (15:02)
--- NOTE | 2019-01-09 16:47 | NUR ---
paged for medication order of Cefepime. Pharmacy notified nurse regarding pt allergy to PCN.
[2019-01-09] MEDS ORDERED: ACETAMINOPHEN/CODEINE 300MG - 30MG TAB PO ONE (19:30)
--- NOTE | 2019-01-09 21:20 | NUR ---
Patient received lying in bed. AAO x 4. Continuous bladder irrigation in process. Patel catheter draining blood tinged urine (pinkish). No acute distress noted. Fall precautions implemented. Call light within reach.
[2019-01-10] VITALS (8 sets, daily range): BP systolic 94–162; BP diastolic 54–83
[2019-01-10] MEDS: ACETAMINOPHEN 325 MG TAB PO PRN (02:46)
[2019-01-10] MEDS ORDERED: SODIUM CHLORIDE 0.9% 250ML 250 ML ONE (03:24)
[2019-01-10] MEDS: VANCOMYCIN 1GM/NS 250 ML 250 ML IV SCH ×2 (03:30→16:42)
--- NOTE | 2019-01-10 06:50 | NUR ---
Walking rounds done. Shift report given to oncoming nurse about patient's status.
--- NOTE | 2019-01-10 07:30 | NUR ---
REC'D PT AAOX3 ON SEMI-JORDAN'S POSITION. HALL WITH BLADDER IRRIGATION TAKING PLACE. URINE IS RED/YELLOW. IV IS INTACT AND CLEAN WITH NO COMPLICATIONS. PT IS ON ROOM AIR. NO S/S OF DISTRESS. SIDE RAILS UP X2, BED IN LOWEST POSITION, AND CALL ARIAS WITHIN REACH.
--- NOTE | 2019-01-10 07:46 | NUR ---
SPOKE WITH THIS MORNING HE WANTS TO SET UP A PEER TO PEER FOR THE LTAC DENIAL WILL CALL AND SET UP.
--- NOTE | 2019-01-10 07:56 | NUR ---
CALLED [facility] TERRYKELLY MILTON [phone] LEFT MESSAGE THAT WANTS TO DO A PEER TO PEER ON THE LTAC DENIAL. ASKED FOR A CALL BACK TO THE DOCTOR OR MYSELF.
--- NOTE | 2019-01-10 08:00 | NUR ---
CM RECEIVES ORDER FROM DR. VILLEGAS STATING PATIENT NEEDS TO HAVE PEER TO PEER FOR LTAC PLACEMENT. DR. QUINTANILLA AWARE AND STATES HE AND DR. VILLEGAS ARE WILING TO DO PEER TO PEER. KATELYNN FROM [facility] NOTIFIED AND CHECKING TO SEE IF PEER TO PEER IS OR NOT. KATELYNN STATES SHE WILL CALL DR. VILLEGAS TO DETERMINE WHAT HE WANTS TO DO REGARDING ELECTRICAL [employer] MECHANIC ACUTE CARE PLACEMENT. IF PEER TO PEER NOT THEN MD TO DO PEER TO PEER. KATELYNN TO CALL BACK WITH PEER TO PEER EXPIRATION AND/ OR MD PLAN OF CARE.
[2019-01-10] MEDS: MULTIVITAMINS/MINERALS TAB PO SCH (08:50)
[2019-01-10] MEDS: LEVETIRACETAM 500 MG TAB PO SCH ×2 (08:50→17:16)
[2019-01-10] MEDS: AMIODARONE HCL 200 MG TAB PO SCH (08:50)
[2019-01-10] MEDS: OXYBUTYNIN CHLORIDE 5 MG TAB PO SCH ×3 (08:50→21:19)
[2019-01-10] MEDS: APIXABAN 5 MG TABLET PO SCH ×2 (08:50→17:16)
[2019-01-10] MEDS: VENLAFAXINE HCL 75 MG CAPCR PO SCH ×2 (08:50→17:16)
[2019-01-10] MEDS: ZINC SULFATE 220 MG CAP PO SCH (08:51)
[2019-01-10] MEDS: TOPIRAMATE 100 MG TAB PO SCH ×2 (08:51→17:20)
[2019-01-10] MEDS: ASCORBIC ACID 500 MG TAB PO SCH ×2 (08:51→17:20)
[2019-01-10] MEDS: PANTOPRAZOLE SOD 40 MG TABEC PO SCH (08:51)
[2019-01-10] MEDS: COLLAGENASE OINTMENT 30 GM TUBE TP SCH (09:06)
--- NOTE | 2019-01-10 10:44 | NUR ---
IMM letter delivered and explained to pt. She verbalized understanding. Signed copy placed in chart. Copy to pt's transition of care folder.
[2019-01-10] MEDS ORDERED: CEFEPIME 1GM/NS 0.9% 50 ML 50 ML IV SCH (13:00)
--- NOTE | 2019-01-10 14:00 | NUR ---
PAGED DR. DEWITT REGARDING PT ALLERGIC TO PCN AND CEFEPIME BEING ORDERED FOR HER.
--- NOTE | 2019-01-10 14:17 | NUR ---
Nutrition Intervention Note RD Recommendation(s) for Physician: - Recommend nocturnal feeding of Jevity 1.2 at 35 mL/hr x 10 hrs from 1999 0600, to provide 420 kcal and 19 gm protein - Consider an appetite stimulant to promote po intake - Continue regular diet to promote PO intake; diet texture per [employer]US [employer] OFFICER (mechanical soft/ chopped/ nectar thick) - Continue Ensure Enlive TID (1050kcal, 60g protein) to promote protein-calorie intake through PO - Continue Ensure pudding (170kcal, 4g protein) once daily - Continue to check daily labs, gastric tolerance, weight Plan of Care: RD following, monitoring for tolerance and adequacy, TF, ONS Nutrition reason for involvement: Follow up RD Assessment 01/10- Pt seen for follow up, discussed during am rounds- not receiving nocturnal TF per RN. ESCOBAR Hudson reports noctural TF not given per report by night RN. Pt sleeping at time of visit, did not disturb and no family present at bedside. Pt with poor po intake of 0-25% of meals for several days. Spoke with ESCOBAR Hudson regarding TF rec's and POC. 01/06 Pt was discussed during AM rounds. Pt had fever today. Blood culture pending. Per ESCOBAR Arechiga, pt has ~25% intake from meals. However, pt really likes the Ensure Enlive and pudding with ~75% intake. Visited pt in the room. Unable to obtain info from pt as she was not feeling well. Pending placement. Will continue to monitor and follow. 01/04 - Chart reviewed. Visited pt in the room. Pt has had poor appetite and PO intake while on GI soft diet. Per tech, pt didnt eat anything this AM. Pt denied any nausea or vomiting but complained of pain from PEG site. Per ESCOBAR Mora, PEG was clean and no sign of infection. Current diet texture was well tolerated. Pt drank Boost x3 daily when PO intake was feasible prior to PEG placement and pt would like to have Ensure to see if she can get more calories in. RD also rec Ensure Pudding; pt was willing to try. Discussed nutrition goals with pt and ESCOBAR Mora. Plan to restart TF with Jevity 1.2 @20mL/hr from 2200 to 0600. Will continue to monitor and follow. 12/31 68yo F, who was admitted for hematuria. Pt had PEG placed during her last admission on 12/15/2018. Today, pt passed MBS and [employer] OFFICER rec mechanical soft diet. Visited pt in the room. TF was running with Jevity 1.2 @20mL/hr. Pt denied any nausea or vomiting. Diet is to start dinner tonight. Will continue to monitor and follow. Principal Problems/Diagnoses: Hematuria PMH: seizure disorder, bed-bound status, severe muscle weakness, kidney stones, recent pulmonary embolism, was on anticoagulation. GI: PEG present, LBM 01/09, abdomen soft, non-tender, round Skin: Left Gluteal - Unstageable Pressure Ulcer- Present on Admission. Labs: 01/10: Na 137, K 3.9, BUN 13, Cr 0.61, Gluc 83 (01/04) Na 135 L, Creatinine 0.56 L, iron 33 L, TIBC 221 L, transferrin 158 L (12/31) creatinine 0.52 L Meds: zinc sulfate, protonix, MVi w/ minerals, vitamin C, keppra, abx, Kdur Ht: 68in Wt: 154lb; 144.44lb BMI: 23.4kg/m2 IBW: 140lb Malnutrition Evaluation (12/31) The patient does not meet criteria for a specified degree of malnutrition at this time. Will re-evaluate at follow-up as appropriate. Nutrition Prescription (Diet Order): Mechanical Soft with nectar thick liquids Estimated Nutritional Needs: 1729 - 2075 kcals at 25-30 kcals/kg/bw 83 - 103g of protein at 1.2-1.5g/kg/bw Diet Adequacy: Not meeting calorie needs, Not meeting protein needs Diet Education Needs Assessment: Diet education indicated, but patient not appropriate for education at this time. Nutrition Care Level: mod Goal: Patient will meet 75-100% of estimated needs by follow up Progress: Progressing Interventions: Texture-modified diet, Composition, Rate, Formula, Multivitamin/mineral supplement therapy, Collaboration with other providers Monitoring/Evaluation: Total energy intake, Total protein intake, Modified diet, Weight change, Labs, Gastric tolerance Signed: Saundra Timmons RD, LD, [facility]
[2019-01-10] MEDS: AZTREONAM (AZACTAM) 0.5 GM in SODIUM CHLORIDE 0.9% 50ML 50 ML IV SCH ×2 (15:42→22:46)
[2019-01-10] MEDS: DIPHENHYDRAMINE HCL INJ 50 MG/ML VIAL IV PRN ×2 (17:58→23:25)
--- NOTE | 2019-01-10 18:00 | NUR ---
PT REPOSITIONED UPWARD AND TO HER LEFT SIDE AND SEMI-FOWLERS. IRRIGATION RUNNING. URINE IS REDISH/YELLOW. NO S/S OF DISTRESS. SIDE RAILS UP X2, CALL ARIAS WITHIN REACH, AND BED IN LOWEST POSITION.
--- NOTE | 2019-01-10 18:00 | NUR ---
PT WOUND ON LEFT BUTTOCK CLEANED WITH NS AND PAT DRY WITH GAUZE. SANTYL AND FOAM DRESSING APPLIED. CHANGED PEG-TUBE DRESSING. PEG AREA RED. PT TOLERATED WELL.
--- NOTE | 2019-01-10 18:50 | NUR ---
PAGED DR. DEWITT FOR SECOND TIME TO LET HIM KNOW ABOUT PT ALLERGIC TO PENICILLIN. PT HAS CEFEPIME ORDERED. PHARMACY SAID THAT PT COULD HAVE AN ALLERGIC REACTION TO CEFEPIME WELL.
--- NOTE | 2019-01-10 19:25 | NUR ---
PATIENT LINEN OBSERVED SATURATED WITH CONTINUOUS BLADDER IRRIGATION SOLUTION, SHE'S KEPT CLEAN AND DRY, REPOSITION FOR COMFORT. SHE DENIES PAIN, NO RESPIRATORY DISTRESS OBSERVED. DRESSING CHANGE PROVIDED TO THE LEFT BUTTOCK OPEN AREA. CALL LIGHT WITHIN EASY REACH, SHE'S INSTRUCTED TO CALL FOR ASSISTANCE NEEDED.
[2019-01-10] MEDS ORDERED: AZTREONAM (AZACTAM) 0.5 GM in WATER STERILE 10ML VIAL 10 ML IV SCH (22:00)
--- NOTE | 2019-01-10 23:25 | NUR ---
PATIENT C/O ITCHING, MEDICATED WITH BENADRYL ORDERED. PATIENT C/O OF BEEN WET, SHE WAS KEPT CLEAN AND DRY, REPOSITION FOR COMFORT. CALL LIGHT WITHIN EASY REACH. WILL LEAVE A NOTE FOR DR VILLEGAS TO NOTIFY HIM THAT THE PATIENT'S HALL CATHETER IS LEAKING.
[2019-01-11] VITALS (8 sets, daily range): BP systolic 101–136; BP diastolic 57–87
--- NOTE | 2019-01-11 03:15 | NUR ---
PATIENT ASSISTED WITH ADLS, NO PAIN VOICED. CBI INFUSING ORDERED, URINE COLOR YELLOW WITHOUT CLOTS.
[2019-01-11] MEDS: VANCOMYCIN 1GM/NS 250 ML 250 ML IV SCH (03:25)
[2019-01-11] MEDS: AZTREONAM (AZACTAM) 0.5 GM in SODIUM CHLORIDE 0.9% 50ML 50 ML IV SCH (06:12)
--- NOTE | 2019-01-11 06:42 | NUR ---
PATIENT CONDITION STABLE WITHOUT ACUTE DISTRESS; DR VILLEGAS WAS IN TO SEE THE PATIENT, HE WAS MADE AWARE THAT THE PATIENT'S HALL CATHETER HAS BEEN LEAKING AND ALSO THE RATE WAS SLOW ON THE CBI BUT THE URINE BECAME BLOODY SO THE RATE WAS ADJUSTED TO CLEAR THE BLOODY COLOR URINE. NO NEW ORDERS RECEIVED.
[2019-01-11] MEDS: AMIODARONE HCL 200 MG TAB PO SCH (10:39)
[2019-01-11] MEDS: ASCORBIC ACID 500 MG TAB PO SCH ×2 (10:40→17:39)
[2019-01-11] MEDS: VENLAFAXINE HCL 75 MG CAPCR PO SCH ×2 (10:40→17:39)
[2019-01-11] MEDS: OXYBUTYNIN CHLORIDE 5 MG TAB PO SCH ×3 (10:40→21:20)
[2019-01-11] MEDS: COLLAGENASE OINTMENT 30 GM TUBE TP SCH (10:40)
[2019-01-11] MEDS: MULTIVITAMINS/MINERALS TAB PO SCH (10:40)
[2019-01-11] MEDS: LEVETIRACETAM 500 MG TAB PO SCH ×2 (10:40→17:39)
[2019-01-11] MEDS: PANTOPRAZOLE SOD 40 MG TABEC PO SCH (10:40)
[2019-01-11] MEDS: APIXABAN 5 MG TABLET PO SCH ×2 (10:40→17:39)
[2019-01-11] MEDS: ZINC SULFATE 220 MG CAP PO SCH (10:40)
[2019-01-11] MEDS: TOPIRAMATE 100 MG TAB PO SCH ×2 (10:40→17:39)
[2019-01-11 14:27] LABS: BASOPHILS % 0.3 % (0.0-1.0); EOSINOPHILS # (AUTO) 0.5 (0.0-0.4); EOSINOPHILS % 4.7 % (0.0-6.0); HEMOGLOBIN 7.2 g/dL (12.0-16.0); LYMPHOCYTES # (AUTO) 3.1 (1.0-3.2); LYMPHOCYTES % 30.2 % (18.0-39.1); MEAN CORPUSCULAR HEMOGLOBIN 30.4 pg (28-32); MEAN CORPUSCULAR HGB CONC 32.7 g/dL (31-35); MEAN CORPUSCULAR VOLUME 92.8 fL (81-99); MONOCYTES # (AUTO) 1.3 (0.2-0.8); MONOCYTES % 12.5 % (4.4-11.3); NEUTROPHILS # (AUTO) 5.2 (2.1-6.9); NEUTROPHILS % 50.7 % (38.7-80.0); PLATELET COUNT 313 x10e3/uL (140-360); RED BLOOD COUNT 2.37 x10e6/uL (3.6-5.1); RED CELL DISTRIBUTION WIDTH 14.7 % (11.7-14.4)
[2019-01-11 14:40] LABS: ALANINE AMINOTRANSFERASE 10 IU/L (0-55); ALBUMIN 2.2 g/dL (3.5-5.0); ALBUMIN/GLOBULIN RATIO 0.5 (0.8-2.0); ALKALINE PHOSPHATASE 65 IU/L (40-150); ANION GAP 11.1 mmol/L (8-16); BLOOD UREA NITROGEN 11 mg/dL (7-26); BUN/CREATININE RATIO 19 (6-25); CARBON DIOXIDE 22 mmol/L (22-29); CHLORIDE 104 mmol/L (98-107); CREATININE, SERUM 0.57 mg/dL (0.57-1.11); EST GLOMERULAR FILTRATION RATE > 60 ML/MIN (60-); GLUCOSE 92 mg/dL (74-118); POTASSIUM 3.1 mmol/L (3.5-5.1); SODIUM 134 mmol/L (136-145)
--- NOTE | 2019-01-11 15:20 | NUR ---
PAGED DR. QUINTANILLA REGARDING PT HGB OF 7.2 AND VANC TROUGH OF 20.2.
--- NOTE | 2019-01-11 15:33 | NUR ---
REC'D PT AAOX2, NO S/S OF DISTRESS, PT ON RA. BLADDER IRRIGATION TAKING PLACE. SIDE RAILS UP X2, BED IN LOWEST POSITION, CALL ARISA WITHIN REACH, AND SIDE RAILS UP X2.
[2019-01-11] MEDS ORDERED: ACETAMINOPHEN 325 MG TAB PO ONE (15:44)
[2019-01-11] MEDS ORDERED: SODIUM CHLORIDE 0.9% 250ML 250 ML IV ONE (15:45)
[2019-01-11] MEDS ORDERED: DIPHENHYDRAMINE HCL INJ 50 MG/ML VIAL IV ONE (15:45)
--- NOTE | 2019-01-11 19:42 | NUR ---
CALL PLACED OUT TO DR DR DEWITT REGARDING MERREM ANTIBIOTIC ORDER CLARIFICATION, AWAITING CALL BACK FROM THE PHYSICIAN.
--- NOTE | 2019-01-11 19:56 | NUR ---
SPOKE WITH DR DEWITT REGARDING THE RAFAELA ISBELL, ORDER TO ADMINISTER THE MEDICATION AND OBSERVE THE PATIENT FOR ANY REACTION AND NOTIFY HIM.
[2019-01-11] MEDS ORDERED: SODIUM CHLORIDE 0.9% 250ML 250 ML ONE (21:22)
[2019-01-11] MEDS: MEROPENEM 500MG/ NS 50ML 50 ML IV SCH (21:35)
--- NOTE | 2019-01-11 22:11 | NUR ---
MERREM ANTIBIOTIC COMPLETED WITHOUT ADVERSE REACTION, SKIN INTEGRITY REMAINS INTACT WITHOUT REDNESS OR ITCHING AND PATIENT DENIES ANY RESPIRATORY DISTRESS. HALL CATHETER NOTED LEAKING, PATIENT KEPT CLEAN AND DRY, SHE'S REPOSITION FOR COMFORT.
--- NOTE | 2019-01-11 22:56 | NUR ---
BLOOD TRANSFUSION STARTED AT 2235, PATIENT TOLERATING THE TRANSFUSION WITHOUT ADVERSE EFFECT. PRIMARY NURSE STAYED WITH THE PATIENT FOR THE FIRST FIFTEEN MINUTES PER PROTOCOL FOR CLOSE OBSERVATION. WILL CONTINUE TO CLOSELY MONITOR THE PATIENT UNTIL THE TRANSFUSION IS COMPLETED.
[2019-01-12] VITALS (8 sets, daily range): BP systolic 115–142; BP diastolic 59–73
--- NOTE | 2019-01-12 00:25 | NUR ---
PATIENT IS SOUNDLY ASLEEP, SHE'S EASY TO AROUSE. NO RESPIRATORY DISTRESS OBSERVED, SHE'S TOLERATING BLOOD TRANSFUSION WITHOUT ADVERSE REACTIONS. PATIENT TOLERATING TUBE FEEDING WITHOUT NAUSEA/VOMITING OR DIARRHEA.
--- NOTE | 2019-01-12 01:59 | NUR ---
BLOOD TRANSFUSION COMPLETED WITHOUT ADVERSE EFFECT, PATIENT CONDITION REMAINS STABLE.
--- NOTE | 2019-01-12 04:08 | NUR ---
PATIENT IS SOUNDLY ASLEEP, NO RESPIRATORY DISTRESS OBSERVED. SHE'S EASY TO AROUSE, NO PAIN VOICED AND CALL LIGHT WITHIN EASY REACH.
[2019-01-12] MEDS ORDERED: SODIUM CHLORIDE 0.9% 50ML 50 ML ONE (05:58)
[2019-01-12] MEDS: MEROPENEM 500MG/ NS 50ML 50 ML IV SCH ×3 (06:11→22:00)
[2019-01-12] MEDS: ACETAMINOPHEN 325 MG TAB PO PRN ×2 (06:24→12:09)
--- NOTE | 2019-01-12 06:25 | NUR ---
PATIENT C/O NECK PAIN, MEDICATED WITH TYLENOL ORDERED. KEPT CLEAN AND DRY FROM LEAK OF THE HALL CATHETER.
--- NOTE | 2019-01-12 08:00 | NUR ---
RECEIVED REPORT FROM NIGHT NURSE. PT LAYING IN BED, PICC LINE INTACT, NO S/S OF INFECTION, BED IN LOWEST POSITION, WHEELS LOCKED, CALL LIGHT AND BEDSIDE TABLE WITHIN REACH. PT HAS CONTINUOUS BLADDER IRRIGATION GOING, URINE IS DARK RED. WILL CONTINUE TO MONITOR AMOUNT OF HEMATURIA
[2019-01-12] MEDS: COLLAGENASE OINTMENT 30 GM TUBE TP SCH (09:00)
[2019-01-12 09:11] LABS: BASOPHILS # (AUTO) 0.1 (0.0-0.1); BASOPHILS % 0.5 % (0.0-1.0); EOSINOPHILS # (AUTO) 0.5 (0.0-0.4); EOSINOPHILS % 4.6 % (0.0-6.0); HEMATOCRIT 28.3 % (34.2-44.1); HEMOGLOBIN 9.1 g/dL (12.0-16.0); LYMPHOCYTES # (AUTO) 2.9 (1.0-3.2); LYMPHOCYTES % 29.7 % (18.0-39.1); MEAN CORPUSCULAR HEMOGLOBIN 29.4 pg (28-32); MEAN CORPUSCULAR HGB CONC 32.2 g/dL (31-35); MEAN CORPUSCULAR VOLUME 91.3 fL (81-99); MONOCYTES % 10.1 % (4.4-11.3); NEUTROPHILS # (AUTO) 5.3 (2.1-6.9); NEUTROPHILS % 53.7 % (38.7-80.0); PLATELET COUNT 354 x10e3/uL (140-360); RED CELL DISTRIBUTION WIDTH 14.8 % (11.7-14.4)
[2019-01-12] MEDS: ASCORBIC ACID 500 MG TAB PO SCH ×2 (09:45→18:50)
[2019-01-12] MEDS: OXYBUTYNIN CHLORIDE 5 MG TAB PO SCH ×3 (09:45→21:12)
[2019-01-12] MEDS: APIXABAN 5 MG TABLET PO SCH ×2 (09:45→17:00)
[2019-01-12] MEDS: ZINC SULFATE 220 MG CAP PO SCH (09:45)
[2019-01-12] MEDS: TOPIRAMATE 100 MG TAB PO SCH ×2 (09:45→17:00)
[2019-01-12] MEDS: VENLAFAXINE HCL 75 MG CAPCR PO SCH ×2 (09:45→17:00)
[2019-01-12] MEDS: MULTIVITAMINS/MINERALS TAB PO SCH (09:45)
[2019-01-12] MEDS: LEVETIRACETAM 500 MG TAB PO SCH ×2 (09:45→17:00)
[2019-01-12] MEDS: PANTOPRAZOLE SOD 40 MG TABEC PO SCH (09:45)
[2019-01-12] MEDS: AMIODARONE HCL 200 MG TAB PO SCH (09:45)
[2019-01-12] MEDS: DIPHENHYDRAMINE HCL INJ 50 MG/ML VIAL IV PRN (10:09)
[2019-01-12] MEDS ORDERED: SODIUM CHLORIDE 0.9% 250ML 250 ML ONE (15:35)
--- NOTE | 2019-01-12 16:04 | NUR ---
WOUND CAR CONSULTATION - FOLLOW UP Patient admitted from [place] to ER for Abdominal Pain and Hematuria. DX: DVT of L Iliofemoral Vein. HX: UTI with Stent Placement., Seizures, A-Fib, SOB, PE, PEG, Failed MBS 12/22/18 Wound Care Consulted for Evaluation of left buttocks wound present on admission. PATIENT VISIT: Kevin Score 9 Strict PUP Active Presents with ulceration to left gluteal- partial thickness with slough mixed with fibrotic tissue over 10% of wound bed. 90% beefy red granulation tissue. Periwound [place] and intact and epithelialization present. Wound appears to be Healing. No redness, no swelling, no induration. IMPRESSION: Left Gluteal - Unstageable Pressure Ulcer- Present on Admission. ( Healing Slow ) RECOMMENDATION: 1. Left Gluteal - Unstageable Pressure Ulcer-Present On Admission - Cleanse wound with NS and 4x4 gauze - Apply Santyl and Cover with Xeroform Gauze then Apply Allevyn Foam Sacrum Dressing Daily. 2. Continue Alternating Pressure Air Mattress 3. Turn and Reposition Every 2 Hours using Wall Clock Turning Schedule 4. Continue Bilateral Heel Protectors while in bed. 5. Keep Head of Bed 30 degrees or less as tolerated. 6. Continue Strict PUP Addendum: 01/12/19 at 1607 by Avery Casanova RN Amended: Links added.
--- NOTE | 2019-01-12 18:07 | NUR ---
RN PERSUADED PT TO EAT DINNER, AFTER REFUSING BREAKFAST AND LUNCH. PT OBLIGED, AND STATED SHE IS GLAD SHE DID. PT HAS NO COMPLAINTS AT THE MOMENT
--- NOTE | 2019-01-12 19:32 | NUR ---
Dr. Forte Jawed here to see patient. New orders received.
--- NOTE | 2019-01-12 19:35 | NUR ---
New order received from Dr. Reanna Das for IR Consult for IVC filter placement and discontinuation of administration of Eliquis 5 mg.
--- NOTE | 2019-01-12 20:00 | NUR ---
Patient informed of recommended medical procedure ----IVC Filter placement for DVT. Patient instructed about NPO status after midnight. Patient verbalized understanding. Patient voluntarily signed "Disclosure and Consent" form.
[2019-01-13] VITALS (7 sets, daily range): BP systolic 120–142; BP diastolic 67–85
[2019-01-13] MEDS: DIPHENHYDRAMINE HCL INJ 50 MG/ML VIAL IV PRN ×3 (00:34→21:29)
[2019-01-13] MEDS: MEROPENEM 500MG/ NS 50ML 50 ML IV SCH ×3 (06:18→22:00)
--- NOTE | 2019-01-13 08:00 | NUR ---
Spoke to Lucy in radiology and notified her that patient is scheduled for IVC filter placement but has been taking Eliquis, last dose given 01/12/19 1700. She said per radiology protocol patient has to be off Eliquis for [address] Das and await further orders.
--- NOTE | 2019-01-13 08:25 | NUR ---
Spoke to Dr. Das , notified him about radiology department protocol regarding 48 hours off of Eliquis before IVC placement. He said will continue to hold off on blood thinners and see if IVC placement can be done tomorrow.
[2019-01-13] MEDS: ASCORBIC ACID 500 MG TAB PO SCH ×2 (09:00→18:02)
[2019-01-13] MEDS: OXYBUTYNIN CHLORIDE 5 MG TAB PO SCH ×3 (09:00→20:35)
[2019-01-13] MEDS: LEVETIRACETAM 500 MG TAB PO SCH ×2 (09:00→18:02)
[2019-01-13] MEDS: VENLAFAXINE HCL 75 MG CAPCR PO SCH ×2 (09:00→18:02)
[2019-01-13] MEDS: TOPIRAMATE 100 MG TAB PO SCH ×2 (09:00→18:02)
--- NOTE | 2019-01-13 09:50 | NUR ---
Dr. Buenrostro in radiology called and said that optical laboratory manager is out of IVC filters but they are trying to get some more, he will update me later if he thinks IVC placement will not be done today. Dr. Buenrostro also stated that it is OK that patient had Eliquis yesterday and can still proceed with IVC filter placement today.
--- NOTE | 2019-01-13 15:33 | NUR ---
Nivia with [facility] called and said she has an MOT for this patient. Room [address] to be admitted to Dr[address] Charlton. Number to call report at [facility] [phone]. Notified Dr. Charlton that patient does have a room ready at [facility] but IVC filter cannot be placed until tomorrow. Per Dr. Charlton, room can be held for now and patient can be transferred tomorrow 01/14/19 after IVC filter placement.
[2019-01-13] MEDS: MULTIVITAMINS/MINERALS TAB PO SCH (18:02)
[2019-01-13] MEDS: COLLAGENASE OINTMENT 30 GM TUBE TP SCH (18:02)
[2019-01-13] MEDS: PANTOPRAZOLE SOD 40 MG TABEC PO SCH (18:02)
[2019-01-13] MEDS: AMIODARONE HCL 200 MG TAB PO SCH (18:02)
[2019-01-13] MEDS: ZINC SULFATE 220 MG CAP PO SCH (18:02)
--- NOTE | 2019-01-13 19:25 | NUR ---
Patient received asleep in bed. Arousable by tactile stimuli. No complaints of pain. No signs of respiratory distress. Continuous Bladder Irrigation in process. Patel catheter draining blood tinged urine. Fall precautions implemented. Patient instructed to call for assistance when needed.Call light within reach.
--- NOTE | 2019-01-13 20:04 | NUR ---
Patient instructed bout "NPO status" after midnight for upcoming procedure----IVC filter placement. Patient verbalized understanding.
--- NOTE | 2019-01-13 22:35 | NUR ---
Mr. Mehdi Bryant (Nursing Road Roller Operator) from [facility] called to find out if patient was still coming to the facility. Nurse informed him that patient would be coming tomorrow after her medical procedure.
--- NOTE | 2019-01-13 22:42 | NUR ---
Patient complained about itching. Benadryl (12.5 mg ) administered per eMAR. Patient informed RN that she would want a stronger dose of Benadryl because she was still itching. Dr. Pat Charlton paged. Awaiting call back.
--- NOTE | 2019-01-13 23:40 | NUR ---
Dr. Charlton called back . New order received to give a one time dose of Benadryl 12.5 mg
[2019-01-14] VITALS: BP 124/69
[2019-01-14] MEDS ORDERED: DIPHENHYDRAMINE HCL INJ 50 MG/ML VIAL IV ONE
[2019-01-14] MEDS: MEROPENEM 500MG/ NS 50ML 50 ML IV SCH ×2 (05:59→16:29)
--- NOTE | 2019-01-14 06:30 | NUR ---
Wound dressing done per MD's orders. PEG tube dressing changed. Patient tolerated well.
--- NOTE | 2019-01-14 07:10 | NUR ---
Walking rounds done. Shift report given to oncoming nurse regarding patient's status.
[2019-01-14 08:00] VITALS: BP 143/74
[2019-01-14 08:30] VITALS: BP 143/74
[2019-01-14] MEDS: VENLAFAXINE HCL 75 MG CAPCR PO SCH ×2 (08:49→16:29)
[2019-01-14] MEDS: OXYBUTYNIN CHLORIDE 5 MG TAB PO SCH ×2 (08:49→16:29)
[2019-01-14] MEDS: AMIODARONE HCL 200 MG TAB PO SCH (08:49)
[2019-01-14] MEDS: LEVETIRACETAM 500 MG TAB PO SCH ×2 (08:49→16:29)
[2019-01-14] MEDS: MULTIVITAMINS/MINERALS TAB PO SCH (08:50)
[2019-01-14] MEDS: TOPIRAMATE 100 MG TAB PO SCH ×2 (08:50→16:29)
[2019-01-14] MEDS: ASCORBIC ACID 500 MG TAB PO SCH ×2 (08:50→16:29)
[2019-01-14] MEDS: PANTOPRAZOLE SOD 40 MG TABEC PO SCH (08:50)
[2019-01-14] MEDS: ZINC SULFATE 220 MG CAP PO SCH (08:50)
[2019-01-14] MEDS: DIPHENHYDRAMINE HCL INJ 50 MG/ML VIAL IV PRN (09:00)
[2019-01-14] MEDS: COLLAGENASE OINTMENT 30 GM TUBE TP SCH (09:00)
[2019-01-14] MEDS ORDERED: MIDAZOLAM HCL 2 MG/2 ML VIAL ONE (10:00)
[2019-01-14] MEDS ORDERED: FENTANYL CITRATE/PF 100MCG/2 ML INJ ONE (10:00)
[2019-01-14] MEDS ORDERED: LIDOCAINE HCL 2% LOCAL 20 ML VIAL ONE (10:00)
[2019-01-14] MEDS ORDERED: SODIUM CHLORIDE 0.9% 500ML 1,000 ML ONE (10:00)
--- NOTE | 2019-01-14 10:23 | NUR ---
pt off unit for IVC filter placement
[2019-01-14] MEDS ORDERED: IOPAMIDOL 370 MG/ML 200 ML INFUS..BTL INJ ONE (11:12)
--- NOTE | 2019-01-14 11:30 | NUR ---
per , continue with CBI and transfer to LTAC with munoz&CBI.
[2019-01-14 11:54] VITALS: BP 171/73
--- NOTE | 2019-01-14 12:43 | Diagnostic Imaging Report ---
IVC filter placement. History: Patient with pulmonary emboli and left iliofemoral thrombus. Informed consent: The patient was informed of the procedure. Risk and benefits were explained. Specific comments concerning filter migration, perforation or filter fracture was discussed. Contrast: 40cc of Isovue-300. Medication: 2 mg Versed IV, 50 mcg fentanyl IV. Monitored conscious sedation was accomplished with sedation time of 30 minutes or less. EBL: Less than 5 cc. Specimen: None. Technique: The patient's right groin was prepped and draped in a sterile fashion. The skin was anesthetized with 1% lidocaine and a dermatotomy was made. The right common femoral vein was accessed using 21-gauge micropuncture single wall needle and a 0.018 inch wire. A 0.035 " 3 mm J was placed through the micropuncture sheath. An 8.4 Tamazight introducer sheath was then placed over the wire. DSA venogram was obtained demonstrating patency of the IVC and normal position of the renal veins. A Bard Elissa retrievable filter was deployed in an infrarenal location and a completion cavogram was obtained. The sheath was removed and hemostasis was obtained with manual compression. The patient tolerated procedure well without evidence of immediate complication. IMPRESSION: 1. Successful Bard Elissa IVC filter placement. 2. Please consult interventional radiology when/if there is indication for filter removal. Signed by: Dr. Alli Spears DO on 01/14/2019 12:39 PM
[2019-01-14 12:44] LABS: INR 1.1; PROTHROMBIN TIME 14.7 seconds (11.9-14.5)
--- NOTE | 2019-01-14 14:56 | NUR ---
PATIENT DISCHARGE DISPOSITION: PATIENT ACCEPTED AND TRANSFERRING TO INTERMEDIATE ACUTE CARE PLACEMENT: [facility] Address: [address], [place] [address] Call report: ROOM# 305 ACCEPTING MD: DR. QUINTANILLA AOS: JUAN PABLO ACUÑA, DISTRICT MEDICAL EXAMINER BEDSIDE RN AWARE TO MOVE PATIENT TODAY DUE TO AUTH EXPIRATION. PATIENT TO MOVE AFTER 3 PM. MOT COMPLETED AND SIGNED. PATIENT READY TO TRANSFER.
[2019-01-14 16:30] VITALS: BP 183/84
--- NOTE | 2019-01-14 16:49 | NUR ---
report called to [place] nurse at [facility], patient to admit to to room 305. made aware of transfer.
--- NOTE | 2019-01-14 18:50 | NUR ---
pt d/c via EMS stretcher and transferred to [facility]. PICC to LUE left in place for continuing IV antibiotics. all personal belongings with patient. munoz cath left in place with CBI.
--- NOTE | 2019-01-15 04:47 | Discharge Summary ---
FINAL DIAGNOSES: 1. Deep vein thrombosis. 2. Urinary tract infection with pseudomonas. 3. Bed-bound status. 4. Pulmonary embolism. 5. Severe protein-calorie malnutrition. 6. Oropharyngeal dysphagia, which is resolving. However, appetite is poor. 7. Hypertension. ADMISSION HISTORY AND HOSPITAL COURSE: Ms. Ball is a 68-year-old female. She presented to the emergency room with complaints of leg edema and she was found to have large DVT. She was sent from here to [facility] a week ago and she also had hematuria when she came in. Hematology was consulted. The patient was started on bladder irrigation. Hematology was consulted as there was a question about anticoagulation. The patient was continued on heparin and then Eliquis, however, the hematuria never subsided and hence it was decided to put IVC filter and hold the anticoagulation. The patient will be transferred to [facility] where she will get a complete bladder irrigation and then once the hematuria has subsided, we will consider starting the anticoagulation again. This was discussed with Dr. Das, who is the systematic theology professor on the case. She will be discharged to [facility] for further care. MD JOSELYN Blackmon/RUSTY /[id number]
== END 2019-01-14 19:26 | DRG 853 ==
LOC: ER 09:41 → ERHOLD 18:25 → MED/SURG2 19:33
PROVIDERS: ADMIT Internal Medicine; ATTEND Internal Medicine
PROC: 30233N1 Transfusion of Nonautologous Red Blood Cells into Peripheral Vein, Percutaneous Approach (ICD-10-PCS; 2019-01-11)
PROC: 06H03DZ Insertion of Intraluminal Device into Inferior Vena Cava, Percutaneous Approach (ICD-10-PCS; principal; 2019-01-14)
DX: A41.9 Sepsis, unspecified organism (principal); E43 Unspecified severe protein-calorie malnutrition; N39.0 Urinary tract infection, site not specified; E87.1 Hypo-osmolality and hyponatremia; I82.412 Acute embolism and thrombosis of left femoral vein; Z74.01 Bed confinement status; R31.9 Hematuria, unspecified; Z86.718 Personal history of other venous thrombosis and embolism; Z79.01 Long term (current) use of anticoagulants; Z96.0 Presence of urogenital implants; R13.10 Dysphagia, unspecified; N39.41 Urge incontinence; L89.320 Pressure ulcer of left buttock, unstageable; E87.6 Hypokalemia; G72.9 Myopathy, unspecified; Z68.22 Body mass index [BMI] 22.0-22.9, adult
CPT/HCPCS: 36415; 37191; 71045; 72193; 74177; 74230; 74470; 75825; 80048; 80053; 80202; 81001; 83540; 83605; 83735; 84466; 85025; 85610; 85730; 86850; 86900; 86920; 87040; 87086; 87186; 93970; 93971; 96367; 96376; 97139; C1769; J1200; J1644; J1650; J2001; J2250; J2997; J3370; J3480; J7040; J7050; P9016; Q9967

== ENCOUNTER 2019-02-13 16:11 | Inpatient (IN) | payer MEDICARE, OTHER ==
[~2019-02-13] VITALS: Ht 170.2 cm; Wt 67.6 kg
[~2019-02-13 16:11] MED LIST changes: +DIPHENHYDR12.5 MG/5 PO; +MEROPENEM1 GM IV; +MULTI-VITAMIN1 EACH PO; +PANTOPRAZOLE SO40 MG PO; +SANTYL TOP; +TYLENOL WITH C1 EACH PO; +ULTRAM 50MG50 MG PO; +VITAMIN C500 M1 PO; +XARELTO20 MG PO; +ZINC SULFATE220 MG PO; +ZOFRAN4 MG PO
--- OUTSIDE RECORDS SUMMARY | 2019-02-13 16:15 | XMS REPORT | Clinical Summary ---
Author Author Jesus Manuel [facility] Organization [place] [facility] Address Unknown Phone Unavailable Care Team Providers Care Finance Insurance Manager Name Role Phone Asked, No Pcp PCP [...] hr CAPSULE TWICE 7 capsule A DAY Active levETIRAcetam (KEPPRA) Take 1,500 mg 0 [...] 11/16/2018 Discontinued vit Take 1 tablet 0 A-ghveo-famlru-bioflv-ros by mouth e 1,000-50-50 mg tablet nightly. [...] PO QHS 0 25 MG capsule 7 08/12/2018 levETIRAcetam XR (KEPPRA Take 6 540 tablet 3 XR) 500 mg 24 hr tablet tablets 7 (3,000 mg total) by mouth daily. 01/22/2019 gabapentin (NEURONTIN) Take 3 540 capsule 3 300 mg capsule capsules (900 8 mg total) by mouth 2 (two) times a day. 01/22/2019 topiramate (TOPAMAX) 100 Take 1 tablet 180 tablet 3 MG tablet (100 mg 8 total) by mouth 2 (two) times a day. Active Problems Problem Noted Date Closed nondisplaced [...] radiculopathy, lumbosacral region 02/25/2018 Transcribe Access Orders after 02/12/2018 Family History Medical History Relation Name Comments [...] Description Date Type Specialty Kartik Sullivan MD [address] [place] [address] 02/23/2019 Office Visit Neurology Health Maintenance Due Date Last Done Comments BREAST CANCER SCREENING 2000 COLONOSCOPY SCREENING 2000 SHINGLES VACCINES (#1) 2000 65+ PNEUMOCOCCAL VACCINE 2015 (1 of 2 - PCV13) INFLUENZA VACCINE 03/31/2019 Implants Device Identifier Shelf Expiration Date Model / Serial / Lot Implanted Type Area Manufactur er 11/26/2018 [id number] / / [id number] Kit Mixer Bone Cmnt Kyphon Kyphx Surgical N/A: N/A KYPHON DIV Hv-R - [id number] Implants; OF Implanted: Qty: 1 on 05/08/2017 by Expanders; Tc Nelson MD Extenders; SPINE Surgical Wires 1600 [id number] / / Wire K Dual Trcr Pt [id number] Ns - Temporary Left: Thumb MICRO AIRE [id number] Fixation SURGICAL Implanted: Qty: 2 on 08/21/2017 by Pin or INSTRUMENT Marilu Summesr MD Wire 09/07/2021 [id number] / / [id number] Stent Uretl Unvrsa 6fr 26cm Urological N/A: N/A COOK Hydrphlc W/O Gw - [id number] Implants UROLOGICAL Implanted: Qty: 1 on 11/17/2018 by or Vega Colvin MD Procedures Comments Procedure Name Priority Date/Time Associated Diagnosis SURGICAL PATHOLOGY Routine 11/17/2018 REQUEST 2:48 PM CDT CALCULI ANALYSIS WITH Routine 11/17/2018 PHOTO 2:[address] AN ELECTIVE Routine 11/17/2018 SUPRAGLOTTIC AIRWAY 2:27 [...] CDT myelopathy or radiculopathy, lumbosacral region after 02/12/2018 Results * Calculi analysis with photo (11/17/2018 2:48 PM CDT) Calculi mass 101 mg [facility] Calculi number 6 [facility] Calculi size Various mm [facility] Calculi See Note [facility] descrption Comment: Specimen consists of six, various sized (1 mm to 9 mm), sage, irregular calculi fragments. Calculi See Note [facility] composition Comment: Calculi composed primarily of: 80% magnesium [...] composition determined by FTIR analysis. EER calculi See Note [facility] (stone) Comment: analysis and Access [facility] Enhanced Report photo using either link below: -Direct access: [email or web address] -Enter Username, Password: [email or web address] Username: [email or web address] Password: [email or web address] Performed by [facility], [address] [place] [id number] [email or web address], Junito Heck MD - Lab. Director Specimen Serum Narrative Performed At [id number] [email or web address] LABORATORY UTERERAL STONE Performing Organization Address City/[facility]/Zipcode Phone Number [facility] [address] [place] [address] [facility] [address] [place] [address] * Surgical pathology request (11/17/2018 2:48 PM CDT) [facility] DEPARTMENT OF PATHOLOGY AND GENOMIC MEDICINE Surgical See link below for PDF Lab [facility] pathology Report DEPARTMENT OF report PATHOLOGY AND GENOMIC MEDICINE Result status This is Final Report for [facility] [id number] DEPARTMENT OF PATHOLOGY AND GENOMIC MEDICINE Specimen Performing Organization Address City/State/Zipcode Phone Number [facility] DEPARTMENT [address] [place] [address] PATHOLOGY AND GENOMIC MEDICINE * XR Kub Kidney Ureter Bladder (11/16/2018 12:15 PM CDT) Specimen Narrative Performed At EXAMINATION:XR KUB KIDNEY URETER BLADDER [facility] CLINICAL HISTORY:Z01.818 Encounter for other preprocedural examination, preop for right stent stone COMPARISON:None. FINDINGS: Double-J ureteral stent on the right Numerous bilateral calculi projected over the kidneys measuring up to 7-10 mm in size, right greater than left. Moderate fecal material in the colon somewhat limiting evaluation Kyphoplasty/vertebral plasty changes L1 and T11 IMPRESSION: Bilateral renal calculi Right-sided double-J ureteral stent [facility]-[id number] Procedure Note Interface, Radiology Results Incoming - [...] Bilateral renal calculi Right-sided double-J ureteral stent [facility]-[id number] Performing Organization Address [facility] Hospital[facility] Phone Number [facility] [address] [place] [address] * XR Chest 1 Vw (11/16/2018 12:14 PM CDT) Specimen Narrative Performed At EXAMINATION:XR CHEST 1 VW [...] The bony structures are within normal limits. [facility]-[id number] Procedure Note Interface, Radiology Results Incoming - [...] The bony structures are within normal limits. [facility]-[id number] Performing Organization Address [facility] Phone Number [facility] [address] [place] [address] * Smear review (11/16/2018 11:02 AM CDT) Platelet slide Violeta adequate [place] review [facility] Anisocytosis Few [facility] Reactive 100 [place] lymphocytes [facility] Specimen Performing Organization Address City/[facility]/Zipcode Phone Number [facility] DEPARTMENT OF [address] [place] [address] [place] [address] PATHOLOGY AND GENOMIC MEDICINE [address] [place] [id number] [facility] * CBC with platelet and differential (11/16/2018 11:02 AM CDT) [facility] WBC 11.21 (H) 4.50 - 11.00 k/uL [facility] RBC 4.78 4.20 - 5.50 m/uL [facility] HGB 14.7 12.0 - 16.0 g/dL [facility] HCT 47.8 (H) 37.0 - 47.0 % [facility] MCV 100.0 82.0 - 100.0 fL [facility] MCH 30.8 27.0 - 34.0 pg [facility] MCHC 30.8 (L) 31.0 - 37.0 g/dL [facility] RDW - SD 44.9 37.0 - 55.0 fL [facility] MPV 9.4 8.8 - 13.2 fL [facility] Platelet count 303 150 - 400 k/uL [facility] Nucleated RBC 0.00 /100 WBC [facility] Neutrophils 35.7 (L) 39.0 - 69.0 % [facility] Lymphocytes 53.4 (H) 25.0 - 45.0 % [facility] Monocytes 8.2 0.0 - 10.0 % [facility] Eosinophils 2.0 0.0 - 5.0 % [facility] Basophils 0.4 0.0 - 1.0 % [facility] Specimen Blood Performing Organization Address City/State/Zipcode Phone Number [facility] [id number] [place] [address] [place] [address] PATHOLOGY AND GENOMIC MEDICINE [facility] [id number] [place] [address] * ECG 12 lead (11/16/2018 10:14 AM CDT) [facility] Ventricular 80 [facility] rate Atrial rate [address] interval 142 [facility] QRSD interval 80 [facility] QT interval 376 [facility] QTC interval 433 [facility] P axis 1 25 [facility] QRS axis 1 -35 [facility] T wave axis 49 [facility] EKG impression Normal sinus rhythm-Left axis [facility] MUSE deviation-Low voltage QRS-Nonspecific T wave abnormality-Abnormal ECG-In automated comparison with ECG of 20-AUG-2017 13:04,-Nonspecific T wave abnormality now evident in Anterior leads- Specimen Narrative Performed At Performing Organization Address City/State/Zipcode Phone Number [facility] MUSE [address] [place] [address] * MRI Lumbar Spine Wo Contrast (03/05/2018 2:28 PM CDT) Specimen Narrative Performed At EXAMINATION: MRI LUMBAR SPINE [...] the L5 and left S1 nerve roots. [facility]-[id number] Procedure Note Hm Interface, Radiology Results - 03/05/2018 4:13 PM CDT EXAMINATION: MRI [...] the L5 and left S1 nerve roots. [facility]-[id number] Performing Organization Address City/State/Zipcode Phone Number [facility] [address] [place] [address] * MRI Sacrum And Or Coccyx Wo Contrast (03/05/2018 2:08 PM CDT) Specimen Narrative Performed At [facility] EXAMINATION:MRI SACRUM AND [...] better evaluated with other imaging if indicated. [facility]-[id number] Procedure Note Interface, Radiology Results - 03/05/2018 4:08 PM CDT EXAMINATION: MRI [...] better evaluated with other imaging if indicated. [facility]-[id number] Performing Organization Address City/State/Zipcode Phone Number [facility] [address] [place] [address] after 02/12/2018 Insurance Type Payer Benefit Subscriber ID Effective Phone Address Plan / Dates Group PPO HUMANA MEDICARE HUMANA xxxxxxxxx [id number] MEDICARE resent PPO/PFFS/E [facility] Advance Directives Patient has advance care planning documents, and code status on file. For more i nformation, please contact: Jesus Manuel Ochoa [address] [place] [address] Date Inactivated Comments Code Status Date Activated 09/09/2016 6:38 PM Full Code 09/08/2016 2:20 PM Code Status decision reached by: Patient
[2019-02-13] MEDS ORDERED: SODIUM CHLORIDE 0.9% 1000ML 1,000 ML IV STA (17:25)
[2019-02-13] MEDS ORDERED: PANTOPRAZOLE 40 MG 10ML VIAL IV ONE (17:25)
[2019-02-13 17:44] LABS: BASOPHILS # (AUTO) 0.1 (0.0-0.1); BASOPHILS % 0.4 % (0.0-1.0); EOSINOPHILS # (AUTO) 0.5 (0.0-0.4); EOSINOPHILS % 4.7 % (0.0-6.0); HEMOGLOBIN 9.5 g/dL (12.0-16.0); LYMPHOCYTES # (AUTO) 3.9 (1.0-3.2); LYMPHOCYTES % 35.2 % (18.0-39.1); MEAN CORPUSCULAR HEMOGLOBIN 28.7 pg (28-32); MEAN CORPUSCULAR HGB CONC 31.7 g/dL (31-35); MEAN CORPUSCULAR VOLUME 90.6 fL (81-99); MONOCYTES % 8.9 % (4.4-11.3); NEUTROPHILS # (AUTO) 5.6 (2.1-6.9); NEUTROPHILS % 50.1 % (38.7-80.0); PLATELET COUNT 378 x10e3/uL (140-360); RED BLOOD COUNT 3.31 x10e6/uL (3.6-5.1); RED CELL DISTRIBUTION WIDTH 14.4 % (11.7-14.4)
[2019-02-13 17:51] LABS: INR 0.98; PARTIAL THROMBOPLASTIN TIME 30.3 seconds (23.8-35.5); PROTHROMBIN TIME 13.5 seconds (11.9-14.5)
[2019-02-13 18:00] LABS: ALANINE AMINOTRANSFERASE 12 IU/L (0-55); ALBUMIN 2.8 g/dL (3.5-5.0); ALBUMIN/GLOBULIN RATIO 0.5 (0.8-2.0); ALKALINE PHOSPHATASE 77 IU/L (40-150); AMYLASE 44 U/L (25-125); ANION GAP 12.9 mmol/L (8-16); BLOOD UREA NITROGEN 15 mg/dL (7-26); BUN/CREATININE RATIO 25 (6-25); CALCIUM 9.6 mg/dL (8.4-10.2); CARBON DIOXIDE 27 mmol/L (22-29); CHLORIDE 104 mmol/L (98-107); CREATINE KINASE 17 IU/L (29-168); EST GLOMERULAR FILTRATION RATE > 60 ML/MIN (60-); GLUCOSE 94 mg/dL (74-118); LIPASE 12 U/L (8-78); POTASSIUM 3.9 mmol/L (3.5-5.1); SODIUM 140 mmol/L (136-145)
--- NOTE | 2019-02-13 18:02 | Diagnostic Imaging Report ---
Examination: Single AP view of the chest. COMPARISON: None. INDICATION: Altered mental status DISCUSSION: Lines/tubes: None. Lungs: The lungs are well inflated and clear. No pneumonia or pulmonary edema. Pleura: No pleural effusion or pneumothorax. Heart and mediastinum: The heart and the mediastinum are unremarkable. Bones and soft tissues: No acute bony abnormalities. IMPRESSION: 1. No acute cardiopulmonary abnormalities. Signed by: Dr. Yan Sheriff M.D. on 02/13/2019 5:59 PM
[2019-02-13] MEDS ORDERED: SODIUM CHLORIDE 0.9% 50ML 50 ML ONE (18:13)
[2019-02-13] MEDS ORDERED: IOPAMIDOL 370 MG/ML 200 ML INFUS..BTL INJ ONE (18:14)
[2019-02-13 18:45] LABS: BILIRUBIN,URINE NEGATIVE (NEGATIVE); CLARITY,URINE CLOUDY (CLEAR); COLOR,URINE YELLOW (YELLOW); KETONES,URINE NEGATIVE (NEGATIVE); LEUKOCYTE ESTERASE ,URINE LARGE (NEGATIVE); NITRITE,URINE POSITIVE (NEGATIVE); PROTEIN,URINE DIPSTICK 2+ (NEGATIVE); URINE UROBILINOGEN 0.2 mg/dL (0.2 - 1)
[2019-02-13 18:53] LABS: BACTERIA,URINE MANY /HPF; RBC,URINE 21-50 /HPF (0-5); WBC,URINE (MAN) >50 /HPF (0-5)
[2019-02-13 18:54] LABS: EPITHELIAL CELLS,URINE RARE /LPF
--- NOTE | 2019-02-13 19:01 | Diagnostic Imaging Report ---
EXAMINATION: CT of the abdomen and pelvis with contrast. TECHNIQUE: Helical CT images of the abdomen and pelvis were performed from the lung bases to the lesser trochanters after the intravenous administration of 100 cc of Omnipaque 300 and the oral administration of none. Coronal and sagittal reformatted images were obtained.Dose modulation, iterative reconstruction, and/or weight based adjustment of the mA/kV was utilized to reduce the radiation dose to as low as reasonably achievable. COMPARISON: None. CLINICAL HISTORY:abdominal pain DISCUSSION: ABDOMEN/PELVIS: LOWER THORAX:Unremarkable. HEPATOBILIARY: No focal hepatic lesions. No intra-or extrahepatic biliary ductal dilation. Gallbladder absent. SPLEEN: No splenomegaly. PANCREAS: No focal masses or ductal dilatation. ADRENALS: No adrenal nodules. KIDNEYS/URETERS: Cortical thinning. Bilateral ureteral stents in expected position. Calcification along the proximal portion of the right stent image 44 and left mid stent axial image 57. PELVIC ORGANS/BLADDER: Patel catheter within the bladder. PERITONEUM/RETROPERITONEUM: No free air or fluid. LYMPH NODES: No intra-abdominal, retroperitoneal, pelvic or inguinal lymphadenopathy. VESSELS: IVC filter. GI TRACT: Gastrostomy tube. No obstruction. Large amount of stool within the rectum. BONES AND SOFT TISSUE: No bony destructive lesions. Prior vertebral augmentation at T11 and L1. IMPRESSION: No acute CT finding. Large amount of stool within the rectum, may be impacted. Signed by: Dr. Yan Sheriff M.D. on 02/13/2019 6:58 PM
--- NOTE | 2019-02-13 19:03 | Diagnostic Imaging Report ---
EXAMINATION: Head CT HISTORY: Worsening alteration of consciousness COMPARISON: Head CT 12/17/2018 report TECHNIQUE: Multidetector axial images were obtained without contrast from the foramen magnum to the vertex . The images were reconstructed using brain and bone algorithms. Thin section brain images were reformatted into coronal and sagittal planes. Image quality: Motion/streaking artifact limits the evaluation of the skull base and posterior cranial fossa. Dose modulation, iterative reconstruction, and/or weight based adjustment of the mA/kV was utilized to reduce the radiation dose to as low as reasonably achievable. FINDINGS: Parenchyma: 1. Chronic encephalomalacia and gliosis in the left lateral temporal lobe beneath a left pterional craniotomy may be related to remote trauma. 2. Persistent a few ill-defined hypodensities in the supratentorial white matter are nonspecific but most compatible with chronic microvascular ischemic changes slightly more confluent towards the left greater than right subinsular regions and anterior limb of the internal capsules. 3. No mass or hemorrhage. No CT evidence of acute territorial vascular insult. Extra-axial spaces:No abnormal density. No extra-axial fluid collections . Unchanged benign left temporal arachnoid cyst without significant mass effect. Brain volume: Sylvian fissures and bilateral frontal sulci remain moderately prominent. Remaining sulci are mildly prominent Ventricles: Compensatory dilatation of the ventricles, greatest along the frontal horns. Arteries: No density suggestive of thrombus. Dural sinuses: No abnormal density. Extra-axial spaces: No abnormal density. Foramen magnum: No mass, Chiari malformation, or basilar invagination. Sella: No obvious mass. Paranasal/mastoid sinuses: Imaged portions unremarkable. Skull/Scalp: Prior left pterional craniotomy . IMPRESSION: 1. No acute intracranial abnormalities. 2. Left pterional craniotomy and underlying temporal encephalomalacia, unchanged. 3. Mild chronic microvascular ischemic changes and generalized volume loss. Signed by: Dr. Svitlana Logan M.D. on 02/13/2019 7:00 PM
[2019-02-13] MEDS ORDERED: MEROPENEM 1GM 100 ML IV STA (19:11)
[2019-02-13] MEDS ORDERED: CEFTRIAXONE SOD 1 GM/NS 50 ML 50 ML IV ONE (19:15)
[2019-02-13] MEDS ORDERED: LEVOFLOXACIN 500MG/D5W 100ML 100 ML IV SCH (19:30)
[2019-02-13] MEDS ORDERED: ONDANSETRON HCL INJ 2MG/ML 2ML 2 MG/ML VIAL IV PRN (20:15)
--- OUTSIDE RECORDS SUMMARY | 2019-02-13 20:15 | XMS REPORT | Clinical Summary ---
Author Author [facility] Organization [facility] Address Unknown Phone Unavailable Care Team Providers Care Hydrodynamics Professor Name Role Phone Asked, No Pcp PCP [...] 11/16/2018 Discontinued vit Take 1 tablet 0 S-qvgls-rfoghq-bioflv-ros by mouth e 1,000-50-50 mg tablet nightly. [...] Description Date Type Specialty Kartik Sullivan MD [address] [facility] [address] [place] [address] 02/23/2019 Office Visit Neurology Health Maintenance Due Date Last Done Comments BREAST CANCER SCREENING 2000 COLONOSCOPY SCREENING 2000 SHINGLES VACCINES (#1) 2000 65+ PNEUMOCOCCAL VACCINE 2015 (1 of 2 - PCV13) INFLUENZA VACCINE 03/31/2019 Implants Device Identifier Shelf Expiration Date Model / Serial / Lot Implanted Type Area Manufactur er 11/26/2018 [id number] / / [id number] Kit Mixer Bone Cmnt Kyphon Kyphx Surgical N/A: N/A KYPHON DIV Hv-R - [id number] Implants; OF Implanted: Qty: 1 on 05/08/2017 by Expanders; Tc Nelson MD Extenders; SPINE Surgical Wires 1600 [id number] / / Wire K Dual Trcr Pt [id number] Ns - Temporary Left: Thumb MICRO AIRE [id number] Fixation SURGICAL Implanted: Qty: 2 on 08/21/2017 by Pin or INSTRUMENT Marilu Summers MD Wire 09/07/2021 [id number] / / [id number] Stent Uretl Unvrsa 6fr 26cm Urological N/A: N/A COOK Hydrphlc W/O Gw - [id number] Implants UROLOGICAL Implanted: Qty: 1 on 11/17/2018 by or Vega Colvin MD Procedures Comments Procedure Name Priority Date/Time Associated Diagnosis SURGICAL PATHOLOGY Routine 11/17/2018 REQUEST 2:48 PM CDT CALCULI ANALYSIS WITH Routine 11/17/2018 PHOTO 2:48 PM CDT GA AN ELECTIVE Routine 11/17/[address] SU[address]IC AIRWAY 2:27 [...] REF LAB (stone) Comment: analysis and Access [facility] Enhanced Report photo using either link below: -Direct access: [email or web address] -Enter Username, Password: [email or web address] Username: [email or web address] Password: [email or web address] Performed by [facility], [address] [place] [id number] [email or web address], Junito Heck MD - Lab. Director Specimen Serum Narrative Performed At [id number] [facility] LABORATORY UTERERAL STONE Performing Organization Address City/[facility]/Zipcode Phone Number [facility] [address] [place] [phone] [facility] [address] [place] [phone] * Surgical pathology request (11/17/2018 2:48 PM CDT) [facility]OMIC MEDICINE Surgical See link below for PDF Lab [facility] pathology Report DEPARTMENT OF report PATHOLOGY AND GENOMIC MEDICINE Result status This is Final Report for [facility] [id number] DEPARTMENT OF PATHOLOGY AND GENOMIC MEDICINE Specimen Performing Organization Address City/State/Zipcode Phone Number [facility] [address] [place] [address] PATHOLOGY AND GENOMIC MEDICINE * XR Kub [...] Bilateral renal calculi Right-sided double-J ureteral stent [facility]-[id number] Procedure Note Interface, Radiology Results Incoming - [...] Bilateral renal calculi Right-sided double-J ureteral stent [facility]-[id number] Performing Organization Address [facility] Phone Number [facility] [address] [place] [address] * XR Chest 1 Vw (11/16/2018 12:14 [...] The bony structures are within normal limits. [facility]-[id number] Procedure Note Interface, Radiology Results Incoming - [...] The bony structures are within normal limits. [facility]-[id number] Performing Organization Address [facility] Phone Number [facility] [address] [place] [address] * Smear review (11/16/2018 11:02 AM CDT) Platelet slide Violeta adequate [place] review [facility] Anisocytosis Few [facility] Reactive 100 [place] lymphocytes [facility] Specimen Performing Organization Address City/[facility]/Zipcode Phone Number [facility] DEPARTMENT OF [address] [place] [address] [place] [address] PATHOLOGY AND GENOMIC MEDICINE [address] [place] [id number] [facility] * CBC with platelet and differential (11/16/2018 11:02 AM CDT) [facility] WBC 11.21 (H) 4.50 - 11.00 k/uL [facility] RBC 4.78 4.20 - 5.50 m/uL [facility] HGB 14.7 12.0 - 16.0 g/dL [facility] HCT 47.8 (H) 37.0 - 47.0 % [facility] MCV 100.0 82.0 - 100.0 fL [facility] MCH 30.8 27.0 - 34.0 pg [facility] MCHC 30.8 (L) 31.0 - 37.0 g/dL [facility] RDW - SD 44.9 37.0 - 55.0 fL [facility] MPV 9.4 8.8 - 13.2 fL [facility] Platelet count 303 150 - 400 k/uL [facility] Nucleated RBC 0.00 /100 WBC [facility] Neutrophils 35.7 (L) 39.0 - 69.0 % [facility] Lymphocytes 53.4 (H) 25.0 - 45.0 % [facility] Monocytes 8.2 0.0 - 10.0 % [facility] Eosinophils 2.0 0.0 - 5.0 % [facility] Basophils 0.4 0.0 - 1.0 % [facility] Specimen Blood Performing Organization Address City/State/Zipcode Phone Number [facility] [id number] [place] [address] [place] [address] PATHOLOGY AND GENOMIC MEDICINE [facility] [id number] [place] [address] * ECG 12 lead (11/16/2018 10:14 AM CDT) [facility] Ventricular 80 [facility] rate Atrial rate 80 [facility] GA interval 142 [facility] QRSD interval 80 [facility] QT interval 376 [facility] QTC interval 433 [facility] P axis 1 25 [facility] QRS axis 1 -35 [facility] T wave axis 49 [facility] EKG impression Normal sinus rhythm-Left axis [facility] MUSE deviation-Low voltage QRS-Nonspecific T wave abnormality-Abnormal ECG-In automated comparison with ECG of 20-AUG-2017 13:04,-Nonspecific T wave abnormality now evident in Anterior leads- Specimen Narrative Performed At Performing Organization Address City/State/Zipcode Phone Number [facility] MUSE [address] [place] [address] * MRI Lumbar Spine Wo Contrast (03/05/2018 [...] the L5 and left S1 nerve roots. [facility]-[id number] Procedure Note Hm Interface, Radiology Results - [...] the L5 and left S1 nerve roots. [facility]-[id number] Performing Organization Address City/State/Zipcode Phone Number [facility] [address] [place] [address] * MRI Sacrum And Or Coccyx Wo [...] better evaluated with other imaging if indicated. [facility]-[id number] Procedure Note Interface, Radiology Results - 03/05/2018 [...] better evaluated with other imaging if indicated. [facility]-[id number] Performing Organization Address City/State/Zipcode Phone Number [facility] [address] [place] [address] after 02/12/2018 Insurance Type Payer Benefit Subscriber ID Effective Phone Address Plan / Dates Group PPO HUMANA MEDICARE HUMANA xxxxxxxxx [id number] MEDICARE resent PPO/PFFS/E [facility] Advance Directives Patient has advance care planning documents, and code status on file. For more i nformation, please contact: Jesus Manuel Ochoa [address] [place] [address] Date Inactivated Comments Code Status Date Activated 09/09/2016 6:38 PM Full Code 09/08/2016 2:20 PM Code Status decision reached by: Patient
[2019-02-13] MEDS ORDERED: DIPHENHYDRAMINE25 M2 PO (20:22)
[2019-02-13] MEDS ORDERED: ATENOLOL25 MG PO (20:24)
[2019-02-13] MEDS ORDERED: NON-FORMULARY MEDICATION (Ondansetron Hcl* (Zofran*) 4 MG) PO PRN (20:30)
[2019-02-13] MEDS ORDERED: TRAMADOL HCL 50 MG TAB PO PRN (20:30)
[2019-02-13] MEDS ORDERED: DIPHENHYDRAMINE HCL 25 MG CAP PO PRN (20:30)
[2019-02-13] MEDS ORDERED: OXYBUTYNIN CHLOR5 M1 PO (20:34)
[2019-02-13] MEDS ORDERED: BISACODYL5 MG PO (20:35)
--- NOTE | 2019-02-13 20:46 | NUR ---
pt noted c rash developing to l fa. levaquin stopped. md informed. new orders noted.
[2019-02-13] MEDS ORDERED: FAMOTIDINE 20 MG/2 ML VIAL IV ONE (20:48)
[2019-02-13] MEDS ORDERED: METHYLPREDNISOLONE SOD SUCC 125 MG/2ML VIAL ONE (20:48)
[2019-02-13] MEDS ORDERED: DIPHENHYDRAMINE HCL INJ 50 MG/ML VIAL ONE (20:48)
--- NOTE | 2019-02-13 21:05 | NUR ---
pt received from er to room 200, AAOx3, 24F munoz in place, peg tube to left abdomen, open area to lower back and non blanchable redness to sacrum, bedbound, 20G to left forearm with NS at 75ml/hr, bed in lowest and locked position and call light in reach
[2019-02-13 21:06] VITALS: BP 155/81
[2019-02-13] MEDS ORDERED: FAMOTIDINE 20 MG/2 ML VIAL IV STA (21:06)
[2019-02-13] MEDS ORDERED: METHYLPREDNISOLONE SOD SUCC 125 MG/2ML VIAL IV ONE (21:15)
[2019-02-13] MEDS ORDERED: DIPHENHYDRAMINE HCL INJ 50 MG/ML VIAL IV ONE (21:15)
[2019-02-13] MEDS ORDERED: ONDANSETRON HCL 4 MG ORAL DISINTEGRATING TAB PO PRN (21:30)
[2019-02-13] MEDS: SODIUM CHLORIDE 0.9% 1000ML 1,000 ML IV SCH (21:38)
[2019-02-13 23:42] VITALS: BP 155/81
[2019-02-13 23:48] VITALS: BP 155/81
[2019-02-14] VITALS: BP 133/68
[2019-02-14 04:49] VITALS: BP 136/86
[2019-02-14 05:23] LABS: BASOPHILS % 0.2 % (0.0-1.0); HEMATOCRIT 31.2 % (34.2-44.1); HEMOGLOBIN 10.2 g/dL (12.0-16.0); LYMPHOCYTES # (AUTO) 1.8 (1.0-3.2); LYMPHOCYTES % 18.6 % (18.0-39.1); MEAN CORPUSCULAR HEMOGLOBIN 29.5 pg (28-32); MEAN CORPUSCULAR HGB CONC 32.7 g/dL (31-35); MEAN CORPUSCULAR VOLUME 90.2 fL (81-99); MONOCYTES % 0.4 % (4.4-11.3); NEUTROPHILS # (AUTO) 7.7 (2.1-6.9); NEUTROPHILS % 79.9 % (38.7-80.0); PLATELET COUNT 388 x10e3/uL (140-360); RED BLOOD COUNT 3.46 x10e6/uL (3.6-5.1); RED CELL DISTRIBUTION WIDTH 14.4 % (11.7-14.4)
[2019-02-14 05:49] LABS: ALANINE AMINOTRANSFERASE 13 IU/L (0-55); ALBUMIN 2.8 g/dL (3.5-5.0); ALKALINE PHOSPHATASE 82 IU/L (40-150); ANION GAP 13.5 mmol/L (8-16); BLOOD UREA NITROGEN 12 mg/dL (7-26); BUN/CREATININE RATIO 19 (6-25); CALCIUM 9.5 mg/dL (8.4-10.2); CARBON DIOXIDE 20 mmol/L (22-29); CHLORIDE 110 mmol/L (98-107); CREATININE, SERUM 0.62 mg/dL (0.57-1.11); EST GLOMERULAR FILTRATION RATE > 60 ML/MIN (60-); GLUCOSE 150 mg/dL (74-118); POTASSIUM 3.5 mmol/L (3.5-5.1); SODIUM 140 mmol/L (136-145)
[2019-02-14 06:05] LABS: ALBUMIN/GLOBULIN RATIO 0.5 (0.8-2.0)
--- NOTE | 2019-02-14 07:30 | NUR ---
Pt received in bed with eyes open. Pt aox2 at this time. Continues on Pegtube feeding and well tolerated. Patel in place and draining yellow urine with small amount of sediment noted. Breaths are even and unlabored.
[2019-02-14 08:00] VITALS: BP 145/93
[2019-02-14] MEDS: PANTOPRAZOLE SOD 40 MG TABEC PO SCH (08:45)
[2019-02-14] MEDS: LEVETIRACETAM 500 MG TAB PO SCH ×2 (08:46→17:21)
[2019-02-14] MEDS: GABAPENTIN 300 MG CAP PO SCH ×2 (08:46→17:21)
[2019-02-14] MEDS: AMIODARONE HCL 200 MG TAB PO SCH (08:46)
[2019-02-14] MEDS: ATENOLOL 50 MG TAB PO SCH (08:46)
[2019-02-14] MEDS: VENLAFAXINE HCL 37.5MG XR CAP PO SCH ×2 (08:46→17:21)
[2019-02-14] MEDS: MULTIVITAMINS/MINERALS TAB PO SCH (08:46)
[2019-02-14] MEDS: ASCORBIC ACID 500 MG TAB PO SCH ×2 (08:47→17:21)
[2019-02-14] MEDS: TOPIRAMATE 100 MG TAB PO SCH ×2 (08:47→17:21)
[2019-02-14] MEDS ORDERED: COLLAGENASE OINTMENT 30 GM TUBE TP SCH ×2 (09:00)
[2019-02-14] MEDS ORDERED: NON-FORMULARY MEDICATION (Atenolol 25 MG) PO SCH (09:00)
[2019-02-14] MEDS ORDERED: COLLAGENASE TOP SCH (09:00)
[2019-02-14] MEDS ORDERED: SANTYL TOP SCH (09:00)
[2019-02-14] MEDS ORDERED: LEVETIRACETAM 1500 MG PO SCH (09:00)
[2019-02-14] MEDS ORDERED: NON-FORMULARY MEDICATION (Omeprazole Magnesium (Prilosec Otc) 20 MG) PO SCH (09:00)
[2019-02-14] MEDS: SODIUM CHLORIDE 0.9% 1000ML 1,000 ML IV SCH ×2 (09:06→22:41)
--- NOTE | 2019-02-14 11:06 | NUR ---
WOUND CARE NURSE INITIAL CONSULTATION. 68 YEAR OLD FEMALE ADMITTED TO [facility] WITH DX OF CONFUSION. HEAD TO TOE SKIN ASSESSMENT PERFORMED TODAY. PT PRESENTS WITH A 0.5X1.3X0.1CM STAGE II PRESSURE ULCER TO LEFT BUTTOCK AND BLANCHABLE REDNESS TO BILATERAL BUTTOCKS. PT NEEDS MAXIMUM ASSISTANCE TO REPOSITION. HALL CATHETER AND G-TUBE IN PLACE. NO S/S OF INFECTION PRESENT. NO OTHER AREAS OF CONCERN NOTED AT THIS TIME. LABS: WBC: 9.64 ALB: 2.8 BLOOD CX RESULTS PENDING. RECOMMENDATIONS: APPLY VENELEX TO BILATERAL BUTTOCKS BID AND COVER WITH FOAM DRESSING. CONTINUE WITH ALTERNATING LOW AIR LOSS MATTRESS PROVIDE BILATERAL HEEL PROTECTORS REPOSITION PT EVERY 2 HOURS AND PRN. THAN[address] RAMIREZ FOR THIS CONSULTATION. Addendum: 02/14/19 at 1115 by Meliza Maxwell RN Amended: Links added.
[2019-02-14 11:58] VITALS: BP 113/74
[2019-02-14 16:00] VITALS: BP 121/58
[2019-02-14] MEDS: BALSAM PERU/CASTOR OIL 60 GM OINT...G. TP SCH (17:21)
--- NOTE | 2019-02-14 18:37 | NUR ---
Pt in bed. Aox2-3 at this time. Pt is forgetful. Continues on tube feeding to pegtube and well tolerated. Denies any pain at this time. Pt has munoz with yellow urine with small amount of sediment noted.
--- NOTE | 2019-02-14 19:30 | NUR ---
Patient received asleep in bed. Arousable to tactile stimuli. HOB elevated. Patel catheter draining cloudy pale yellow urine. Tube feeding (Jevity 1.2) infusing at 40 cc / hr and NS at 75 cc/hr. Fall precautions implemented. Call light within reach.
[2019-02-14 20:00] VITALS: BP 125/61
--- NOTE | 2019-02-14 21:37 | Consultation ---
DATE OF CONSULTATION: 02/14/2019 REASON FOR CONSULTATION: Altered mental status, concern about UTI. HISTORY OF PRESENT ILLNESS: Thank you so much for allowing to see this patient. This patient who is a 68-year-old white female, who was really back here in November for lethargy and weakness. The patient had removal of indwelling right ureteral stent. The patient was diagnosed with UTI at that time and she was discharged to skilled care facility with IV antibiotic. 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 The patient does not really provide any meaningful information. She has history of seizure, history of renal stone before, complicated history of UTI. The patient was started IV antibiotic on that first admission, discharged home, came back on December 30 with hematuria. She was again given a course of antibiotic. Discharged to skilled care facility. Apparently, the patient was going to be discharged home yesterday, but she was more confused than usual, so she was brought here, started on IV antibiotic and IV fluid. The patient does not really provide any meaningful information. The patient was brought here. She was evaluated, admitted, and started on antibiotics. She is currently lying in bed comfortably. She has no complaints. History was taken mainly from the chart, but the nurses tell me that she was alert and oriented earlier and she is currently lying in bed, comfortable, but there is no fever since admission. Otherwise, she is stable. PAST MEDICAL HISTORY: As above. PAST SURGICAL HISTORY: As above. ALLERGIES: SULFA AND PENICILLIN. SOCIAL HISTORY: There is no smoking, drug abuse, or alcohol abuse. REVIEW OF SYSTEMS: At the present time, HEENT: There is no headache, visual changes, or hearing changes. GI: There is no nausea, no vomiting, no diarrhea. CARDIAC: There is no arrhythmia. : The patient does have a Patel catheter. The patient has history of DVT, history of pulmonary embolism, protein-calorie malnutrition diseases, dysphagia, and bedbound. Otherwise, she is bedbound, weak, chronic Patel catheter. There has been issues with aspiration before PEG tube placement. FAMILY HISTORY: Otherwise noncontributory. PHYSICAL EXAMINATION: GENERAL: She is alert, but stable. VITAL SIGNS: Currently afebrile. HEENT: She is not icteric. Normocephalic. NECK: Supple. CHEST: Clear bilateral. COR: S1 and S2. No S3, S4, or murmur. ABDOMEN: Soft. Bowel sounds present. No tenderness. EXTREMITIES: No edema. SKIN: No rash. IMPRESSION: 1. I think the patient came more confused, but resolved, probably dehydration. The following is known to be colonized and multidrug resistant pathogen. I would recommend to hold off antibiotic. Observe the patient clinically. 2. Atrial fibrillation. 3. Aspiration. 4. Debility. 5. Bedbound. 6. Depression. We will follow with you. Discussed with Internal Medicine. Discussed with the nursing team. MD SISSY Cardona/RUST[facility] /[id number]
[2019-02-15] VITALS (8 sets, daily range): BP systolic 106–139; BP diastolic 54–86
--- NOTE | 2019-02-15 00:30 | NUR ---
Patel catheter leaking. Patel irrigated with 50 cc . Wound dressing performed per MD's orders.
--- NOTE | 2019-02-15 06:50 | NUR ---
Patient resting comfortably. Shift report given to oncoming nurse for continuity of care.
[2019-02-15] MEDS: TOPIRAMATE 100 MG TAB PO SCH ×2 (09:48→17:22)
[2019-02-15] MEDS: COLLAGENASE 5 GM TUBE TP SCH (09:48)
[2019-02-15] MEDS: GABAPENTIN 300 MG CAP PO SCH ×2 (09:48→17:22)
[2019-02-15] MEDS: ASCORBIC ACID 500 MG TAB PO SCH ×2 (09:48→17:22)
[2019-02-15] MEDS: AMIODARONE HCL 200 MG TAB PO SCH (09:48)
[2019-02-15] MEDS: MULTIVITAMINS/MINERALS TAB PO SCH (09:48)
[2019-02-15] MEDS: ATENOLOL 50 MG TAB PO SCH (09:48)
[2019-02-15] MEDS: VENLAFAXINE HCL 37.5MG XR CAP PO SCH ×2 (09:48→17:22)
[2019-02-15] MEDS: LEVETIRACETAM 500 MG TAB PO SCH ×2 (09:48→17:22)
[2019-02-15] MEDS: PANTOPRAZOLE SOD 40 MG TABEC PO SCH (09:48)
[2019-02-15] MEDS: BALSAM PERU/CASTOR OIL 60 GM OINT...G. TP SCH ×2 (09:48→17:22)
--- NOTE | 2019-02-15 10:00 | NUR ---
Received orders to change munoz to 20FR/5cc balloon this am from Dr. Bean because catheter was leaking. Munoz catheter changed this am per sterile procedure. Yellow urine noted at time of insertion.
--- NOTE | 2019-02-15 12:00 | NUR ---
SIGNED CHOICE FOR [facility], UNHAPPY WITH HAVING TO GO TO [facility] WERE NOT GIVEN A CHOICE AND STATES DO NOT WANT TO RETURN, WAS HAPPIER AT [facility]. WILL FAX CLINICALS TO MENA AT [facility].
[2019-02-15] MEDS: SODIUM CHLORIDE 0.9% 1000ML 1,000 ML IV SCH (12:01)
--- NOTE | 2019-02-15 16:00 | NUR ---
Pt states that she eats food by mouth at home. Spoke with Dr. Solis if pt can have food by mouth. Received orders to have speech do bedside swallow eval and she can have diet recommended by speech therapists. Speech therapist recommended mechanical soft with thin liquids.
--- NOTE | 2019-02-15 19:22 | NUR ---
Patient received lying in bed. AAO x 3. No acute distress noted. Call light within reach.
[2019-02-16] VITALS (9 sets, daily range): BP systolic 100–124; BP diastolic 57–68
[2019-02-16] MEDS: SODIUM CHLORIDE 0.9% 1000ML 1,000 ML IV SCH ×3 (01:21→20:54)
--- NOTE | 2019-02-16 06:55 | NUR ---
Patient resting comfortably. Walking rounds done. Shift report given to oncoming nurse for continuity of care.
[2019-02-16] MEDS: PANTOPRAZOLE SOD 40 MG TABEC PO SCH (08:00)
--- NOTE | 2019-02-16 08:25 | NUR ---
CALLED DR RAMIREZ OFFICE AND INFORMED FERMIN ABOUT PT ISOLATION STATUS
--- NOTE | 2019-02-16 08:45 | NUR ---
VERO WALKER ABOUT PT ISOLATION STATUS PER DR. RAMIREZ
--- NOTE | 2019-02-16 08:50 | NUR ---
PER RICHY WALKER ADMINISTER MEROPENEM AND WATCH THE PT.
[2019-02-16] MEDS: COLLAGENASE 5 GM TUBE TP SCH (09:00)
[2019-02-16] MEDS: BALSAM PERU/CASTOR OIL 60 GM OINT...G. TP SCH ×2 (09:00→17:45)
[2019-02-16] MEDS: LEVETIRACETAM 500 MG TAB PO SCH ×2 (09:21→17:45)
[2019-02-16] MEDS: ATENOLOL 50 MG TAB PO SCH (09:21)
[2019-02-16] MEDS: MULTIVITAMINS/MINERALS TAB PO SCH (09:21)
[2019-02-16] MEDS: ASCORBIC ACID 500 MG TAB PO SCH ×2 (09:21→17:45)
[2019-02-16] MEDS: GABAPENTIN 300 MG CAP PO SCH ×2 (09:21→17:45)
[2019-02-16] MEDS: TOPIRAMATE 100 MG TAB PO SCH ×2 (09:21→17:45)
[2019-02-16] MEDS: AMIODARONE HCL 200 MG TAB PO SCH (09:21)
[2019-02-16] MEDS: VENLAFAXINE HCL 37.5MG XR CAP PO SCH ×2 (09:21→17:45)
[2019-02-16] MEDS: VANCOMYCIN 1GM/NS 250 ML 250 ML IV SCH ×2 (10:10→20:53)
--- NOTE | 2019-02-16 11:32 | Diagnostic Imaging Report ---
Exam: KUB; 2 views dated 02/16/2019 at 9:29 AM. History: Ureteral stents and kidney stones Comparison: CT abdomen and pelvis dated 02/13/2019 Findings: Bilateral double-J ureteral stents are present. There is also an IVC filter noted at the L2 level. Vertebroplasty cement is noted in L1. There is a gastrostomy tube also seen. Multiple stones within the right ureteral stent, interpolar calyx and right lower pole calyx is noted. There are also stones adjacent to the proximal portion of the right ureteral stent at the L3 level. Upper pole stone is present on the left and there is a stone adjacent to the stent at the L5 level on the left. Impression: Bilateral ureteral stents with multiple renal and ureteral stones. Signed by: Dr. Alli Spears DO on 02/16/2019 11:29 AM
[2019-02-16] MEDS ORDERED: MEROPENEM 500MG/ NS 50ML 50 ML IV SCH (12:00)
[2019-02-16] MEDS ORDERED: MEROPENEM 500MG 500 MG in SODIUM CHLORIDE 0.9% 50ML 50 ML IV SCH ×4 (12:00)
--- NOTE | 2019-02-16 12:45 | NUR ---
PER THE PT AND FAMILY OVER THE PHONE NO ALLERGY TO MEROPENEM BUT ALLERGIC TO LEVOFLOXACIN
[2019-02-16] MEDS: MEROPENEM 500MG/ NS 50ML 50 ML IV SCH ×2 (12:50→18:04)
--- NOTE | 2019-02-16 15:22 | Consultation ---
DATE OF CONSULTATION: 02/14/2019 Urology Consultation Consultation is called by Dr. Girard, emergency room CHIEF COMPLAINT AND REASON FOR CONSULTATION: Stent, stones, urinary tract infection. HISTORY OF PRESENT ILLNESS: Marilee Ball is a very complicated 68-year-old female patient with bilateral indwelling ureteral stents, bilateral ureteral calculi, bilateral hydronephrosis, urinary tract infections, who was found to have a pulmonary embolus and deep venous thrombosis. She is allergic with anaphylactic type responses to multiple antibiotics. Dr. Haney is her Infectious Disease doctor. PAST MEDICAL HISTORY: As above. Please see prior consult for extensive review. MEDICATIONS: Please see MAR. ALLERGIES: PLEASE SEE NURSE'S NOTES. REVIEW OF SYSTEMS: Noncontributory other than problems mentioned above for 12 organ systems. PHYSICAL EXAMINATION: GENERAL: Elderly female, in no distress. VITAL SIGNS: Currently, she is afebrile with stable vital signs. EYES: Sclerae anicteric. NECK: Supple. BACK: Without costovertebral angle tenderness bilaterally. ABDOMEN: Soft. It is nontender. It is nondistended. There is no palpable mass. No palpable hernias. No palpable adenopathy. : Normal female external genitalia. EXTREMITIES: No edema. PSYCH: Alert and appropriate. SKIN: Intact, normal color. PERTINENT LABORATORY DATA: Hemoglobin 9.5, hematocrit 30, platelet count 238,000, white cell count 11,180. Sodium 140, potassium 3.5, chloride 110, bicarb 20, BUN 12, creatinine 0.6, glucose 150. Urinalysis; 20-50 reds, greater than [address] scan revealing bilateral ureteral stents, bilateral ureteral calculi, mild hydronephrosis, G-tube, IVC filter. IMPRESSION: 1. Bilateral ureteral stents. 2. Bilateral ureteral calculus. 3. Microscopic hematuria. 4. Gross hematuria. 5. Urinary tract infection. 6. Anemia. 7. Pulmonary embolus. PLAN: Antibiotics per Infectious Disease. We will tentatively schedule for left-sided stent removal and ureteroscopy performed during this admission. Thank you for allowing me to participate in the care of your patient. We will be happy to follow along with you. MD WILLAM Vazquez/MODHolly /[id number]
--- NOTE | 2019-02-16 16:03 | NUR ---
FAXING MED LIST TO [facility]
--- NOTE | 2019-02-16 19:00 | NUR ---
BEDSIDE SHIFT REPORT GIVEN TO THE BUTTON CUTTER RN. PT DENIED FURTHER NEEDS.
[2019-02-17] VITALS (8 sets, daily range): BP systolic 101–145; BP diastolic 53–80
[2019-02-17] MEDS: MEROPENEM 500MG/ NS 50ML 50 ML IV SCH ×4 (00:10→17:49)
[2019-02-17] MEDS: SODIUM CHLORIDE 0.9% 1000ML 1,000 ML IV SCH ×2 (04:01→17:14)
--- NOTE | 2019-02-17 07:00 | NUR ---
BEDSIDE SHIFT REPORT RECEIVED FROM THE RIBBON HAND RN. PT DENIES NEEDS AT THIS TIME.
--- NOTE | 2019-02-17 07:25 | NUR ---
CALLED DR. KHANNA REGARDING STENT REPLACEMENT SURGERY. PER THE DR, POSSIBLE SURGERY ON THURSDAY. PT NEED TO BE ON ABX AT LEAST [address] NPO DIET CANCELLED PER THE INSTRUCTION FROM THE .
[2019-02-17] MEDS: PANTOPRAZOLE SOD 40 MG TABEC PO SCH (08:15)
[2019-02-17] MEDS: COLLAGENASE 5 GM TUBE TP SCH (09:00)
[2019-02-17] MEDS: BALSAM PERU/CASTOR OIL 60 GM OINT...G. TP SCH ×2 (09:00→17:48)
--- NOTE | 2019-02-17 09:22 | NUR ---
CALLED DR DEWITT OFFICE AND INFORMED ABOUT PT VANC TROUGH LEVEL
[2019-02-17] MEDS: VENLAFAXINE HCL 75 MG CAPCR PO SCH ×2 (09:33→17:48)
[2019-02-17] MEDS: GABAPENTIN 300 MG CAP PO SCH ×2 (09:33→17:48)
[2019-02-17] MEDS: LEVETIRACETAM 500 MG TAB PO SCH ×2 (09:33→17:48)
[2019-02-17] MEDS: TOPIRAMATE 100 MG TAB PO SCH ×2 (09:33→17:48)
[2019-02-17] MEDS: MULTIVITAMINS/MINERALS TAB PO SCH (09:33)
[2019-02-17] MEDS: AMIODARONE HCL 200 MG TAB PO SCH (09:33)
[2019-02-17] MEDS: ASCORBIC ACID 500 MG TAB PO SCH ×2 (09:34→17:48)
[2019-02-17] MEDS: ATENOLOL 50 MG TAB PO SCH (09:40)
[2019-02-17] MEDS: VANCOMYCIN 1GM/NS 250 ML 250 ML IV SCH ×2 (10:18→20:32)
[2019-02-17] MEDS ORDERED: RISPERIDONE 0.5 MG TAB PO PRN (14:30)
--- NOTE | 2019-02-17 19:00 | NUR ---
BEDSIDE SHIFT REPORT GIVEN TO THE SOFTWARE DEVELOPMENT ANALYST RN. PT DENIED FURTHER NEEDS.
--- NOTE | 2019-02-17 20:30 | NUR ---
Patient stated she saw animal outside the window. aware. PRN med given. Continue to monitor
--- NOTE | 2019-02-17 22:04 | Consultation ---
DATE OF CONSULTATION: 02/17/2019 Psychiatric Consultation REASON FOR CONSULTATION: To evaluate the patient's psychosis. HISTORY OF PRESENT ILLNESS: The patient is a 68-year-old female, admitted to the hospital for confusion and Patel catheter. Psychiatric consultation is called to evaluate the patient's psychosis. As per the medical record, the patient has history of cancer, kidney stones, seizure disorder, migraine, depression. Upon evaluation today, the patient is found to be in the room. She is alert, awake, and oriented to situation. She reports feeling some depression, but denies any anxiety. She denies any hallucination at this time, but admits to visual in hallucination this morning of seeing some animals outside her window and also in her room. She denies any suicide at this time. She denies any problem with sleep or appetite. PAST PSYCHIATRIC HISTORY: The patient states she has history of depression. She denies past suicide attempts. She denies alcohol or drug use. FAMILY HISTORY: Denies. SOCIAL HISTORY: The patient states she lives alone. MENTAL STATUS EXAM: The patient is an elderly female. She is alert, awake, and oriented to situation. Her mood is depressed. She denies any suicidal or homicidal ideation. Her affect is congruent with mood. Insight and judgment are fair. Thought process is concrete. No delusion or paranoia elicited. CURRENT MEDICATIONS: 1. Meropenem. 2. Vancomycin. 3. Atenolol. 4. Vitamin C. 5. Effexor 150 mg p.o. b.i.d. 6. Keppra. 7. Topamax. 8. Multivitamin. 9. Neurontin 900 mg p.o. b.i.d. 10. Amiodarone. 11. Collagenase. 12. Pantoprazole. 13. Sodium chloride. 14. Ondansetron. 15. Tramadol. 16. Benadryl. CURRENT LABORATORY DATA: WBC 9.6, RBC 3.46, hemoglobin 10.2, hematocrit 31.2, platelets 388. Sodium 140, potassium 3.5, chloride 110, CO2 of 20, BUN 12, creatinine 0.62. AST 18, ALT 13. ASSESSMENT: 1. Major depressive disorder, recurrent, moderate. 2. Unspecified psychosis. PLAN OF TREATMENT: 1. Add Risperdal 0.5 mg p.o. q.6 hours p.r.n. 2. Continue with Effexor 150 mg p.o. b.i.d. 3. Continue Neurontin 900 mg p.o. b.i.d. 4. Supportive therapy. 5. Monitor for mood. Thank you for this consultation. Discussed with nursing staff. Dictated by Nina Fletcher PA-C Sadie Sandhu MD [facility] /[id number]
[2019-02-18] VITALS (7 sets, daily range): BP systolic 90–107; BP diastolic 50–55
[2019-02-18] MEDS: MEROPENEM 500MG/ NS 50ML 50 ML IV SCH ×4 (00:30→18:51)
[2019-02-18] MEDS: SODIUM CHLORIDE 0.9% 1000ML 1,000 ML IV SCH ×2 (06:54→20:44)
[2019-02-18] MEDS: COLLAGENASE 5 GM TUBE TP SCH (09:00)
[2019-02-18] MEDS: BALSAM PERU/CASTOR OIL 60 GM OINT...G. TP SCH ×2 (09:00→18:48)
[2019-02-18] MEDS: PANTOPRAZOLE SOD 40 MG TABEC PO SCH ×2 (09:08→09:38)
[2019-02-18] MEDS: ASCORBIC ACID 500 MG TAB PO SCH ×2 (09:32→18:50)
[2019-02-18] MEDS: GABAPENTIN 300 MG CAP PO SCH ×2 (09:32→18:50)
[2019-02-18] MEDS: MULTIVITAMINS/MINERALS TAB PO SCH (09:32)
[2019-02-18] MEDS: VENLAFAXINE HCL 75 MG CAPCR PO SCH ×2 (09:32→18:50)
[2019-02-18] MEDS: TOPIRAMATE 100 MG TAB PO SCH ×2 (09:33→18:50)
[2019-02-18] MEDS: AMIODARONE HCL 200 MG TAB PO SCH (09:33)
[2019-02-18] MEDS: LEVETIRACETAM 500 MG TAB PO SCH ×2 (09:38→18:50)
[2019-02-18] MEDS: ATENOLOL 50 MG TAB PO SCH (09:39)
[2019-02-18] MEDS: VANCOMYCIN 1GM/NS 250 ML 250 ML IV SCH ×2 (09:42→20:44)
--- NOTE | 2019-02-18 17:14 | Progress Note ---
DATE: 02/18/2019 Psychiatric Progress Note SUBJECTIVE: The patient was evaluated and events noted. The patient is in the room. She is alert, awake, and oriented to situation. She reports having visual hallucination and seeing animals outside of the window. She received p.r.n. Risperdal last night. She denies depression, anxiety, suicidal ideation. Denies any side effects to medication. ASSESSMENT: 1. Major depressive disorder, recurrent, moderate. 2. Unspecified psychosis. PLAN: 1. Continue Risperdal p.r.n. 2. Continue Effexor. 3. Continue Neurontin. 4. Add Risperdal 0.5 mg p.o. at bedtime. 5. Supportive therapy. 6. Monitor for mood. Dictated by Nina Fletcher PA-C Sadie Sandhu MD [facility]/MOD[facility] /[id number]
--- NOTE | 2019-02-18 19:35 | NUR ---
PATIENT RESTING IN BED COMFORTABLY. RESP EVEN AND UNLABORED. NO ACUTE DISTRESS NOTED. HALL IN PLACE. CALL LIGHT WITHIN REACH. BED LOW/LOCKED. CONTINUE TO MONITOR CLOSELY
--- NOTE | 2019-02-18 20:30 | NUR ---
PATIENT STATED SHE STILL SAW ANIMAL OUT OF THE WINDOW. MEDICATION GIVEN PER MAR. CONTINUE TO MONITOR CLOSELY
[2019-02-18] MEDS: RISPERIDONE 0.5 MG TAB PO SCH (20:44)
[2019-02-19] VITALS (8 sets, daily range): BP systolic 81–115; BP diastolic 45–57
[2019-02-19] MEDS: MEROPENEM 500MG/ NS 50ML 50 ML IV SCH ×5 (00:30→23:28)
[2019-02-19] MEDS: PANTOPRAZOLE SOD 40 MG TABEC PO SCH (08:13)
[2019-02-19] MEDS: AMIODARONE HCL 200 MG TAB PO SCH (08:13)
[2019-02-19] MEDS: VENLAFAXINE HCL 75 MG CAPCR PO SCH ×2 (08:13→17:12)
[2019-02-19] MEDS: COLLAGENASE 5 GM TUBE TP SCH (09:00)
[2019-02-19] MEDS: SODIUM CHLORIDE 0.9% 1000ML 1,000 ML IV SCH (09:21)
[2019-02-19] MEDS: LEVETIRACETAM 500 MG TAB PO SCH ×2 (10:11→17:12)
[2019-02-19] MEDS: TOPIRAMATE 100 MG TAB PO SCH ×2 (10:11→17:12)
[2019-02-19] MEDS: GABAPENTIN 300 MG CAP PO SCH ×2 (10:11→17:12)
[2019-02-19] MEDS: MULTIVITAMINS/MINERALS TAB PO SCH (10:11)
[2019-02-19] MEDS: ASCORBIC ACID 500 MG TAB PO SCH (10:12)
[2019-02-19] MEDS: VANCOMYCIN 1GM/NS 250 ML 250 ML IV SCH ×2 (10:12→21:15)
[2019-02-19] MEDS: ATENOLOL 50 MG TAB PO SCH (10:12)
[2019-02-19] MEDS: BALSAM PERU/CASTOR OIL 60 GM OINT...G. TP SCH ×2 (12:36→17:12)
[2019-02-19 14:00] LABS: BASOPHILS # (AUTO) 0.1 (0.0-0.1); BASOPHILS % 0.9 % (0.0-1.0); EOSINOPHILS # (AUTO) 0.5 (0.0-0.4); EOSINOPHILS % 5.7 % (0.0-6.0); HEMATOCRIT 31.3 % (34.2-44.1); LYMPHOCYTES # (AUTO) 3.4 (1.0-3.2); LYMPHOCYTES % 37.2 % (18.0-39.1); MEAN CORPUSCULAR HEMOGLOBIN 29.4 pg (28-32); MEAN CORPUSCULAR HGB CONC 31.9 g/dL (31-35); MEAN CORPUSCULAR VOLUME 92.1 fL (81-99); MONOCYTES # (AUTO) 0.8 (0.2-0.8); MONOCYTES % 8.2 % (4.4-11.3); NEUTROPHILS # (AUTO) 4.4 (2.1-6.9); NEUTROPHILS % 47.2 % (38.7-80.0); PLATELET COUNT 327 x10e3/uL (140-360); RED CELL DISTRIBUTION WIDTH 15.1 % (11.7-14.4)
--- NOTE | 2019-02-19 16:39 | NUR ---
Nutrition Screen Note RD Recommendation for Physician: - Continue regular diet as ordered; downgrade diet texture to mechanical soft as pt requested - Pt requested for Ensure Enlive BID Plan of Care: RD following, monitoring for tolerance and adequacy Nutrition reason for involvement: LOS Primary Diagnose(s): Ureteral calculus, hematuria, UTI, anemia PMH: seizure disorder, bed-bound status, severe muscle weakness, kidney stones, recent pulmonary embolism, was on anticoagulation Ht: 67in Wt: 148.38lb BMI: 23.2kg/m2 IBW: 135lb RD Assessment: (02/19) Chart reviewed. Labs and meds reviewed. 68yo F, who was admitted for confusion and UTI. Pt is well known to me from her previous admissions. Plan is to have ureteral stent removal on 02/21. Visited pt in the room. Pt reports good appetite with 100% observed lunch intake today. No complains of nausea or vomiting. Pt is no longer dependent on PEG for calorie intake. Weight has been stable. Pt requests for mechanical soft diet with Ensure for her lunch and dinner. ONS has been ordered. Will continue to monitor and follow. Current Diet: regular diet Malnutrition Evaluation (02/19/2019) The patient does not meet criteria for a specified degree of malnutrition at this time. Will re-evaluate at follow-up as appropriate. Diet Education Needs Assessment: Diet education not indicated. Nutrition Care Level: low Signed: Nataly Villalba, MS, RD, LD
--- NOTE | 2019-02-19 18:45 | NUR ---
Received bedside report from day shift RN. Patient is in bed call light within reach, set low, side rails up x2 and is not in distress.
[2019-02-19] MEDS: RISPERIDONE 0.5 MG TAB PO SCH (22:16)
--- NOTE | 2019-02-19 22:19 | NUR ---
Message relayed to answering service regarding the vanco trough at 24.5. Waiting for order/instruction from
--- NOTE | 2019-02-19 22:27 | NUR ---
Dr. Haney returned the call regarding the vanco trough critical lab at 24.5 stating to hold the medication and will do the next vanco trough on 02/21/2019
[2019-02-20] VITALS (8 sets, daily range): BP systolic 94–146; BP diastolic 46–64
[2019-02-20 04:59] LABS: BASOPHILS # (AUTO) 0.1 (0.0-0.1); BASOPHILS % 0.5 % (0.0-1.0); EOSINOPHILS # (AUTO) 0.5 (0.0-0.4); EOSINOPHILS % 4.8 % (0.0-6.0); HEMATOCRIT 28.9 % (34.2-44.1); HEMOGLOBIN 9.5 g/dL (12.0-16.0); LYMPHOCYTES # (AUTO) 3.4 (1.0-3.2); LYMPHOCYTES % 33.1 % (18.0-39.1); MEAN CORPUSCULAR HEMOGLOBIN 29.4 pg (28-32); MEAN CORPUSCULAR HGB CONC 32.9 g/dL (31-35); MEAN CORPUSCULAR VOLUME 89.5 fL (81-99); MONOCYTES # (AUTO) 0.8 (0.2-0.8); MONOCYTES % 8.1 % (4.4-11.3); NEUTROPHILS # (AUTO) 5.4 (2.1-6.9); NEUTROPHILS % 52.8 % (38.7-80.0); PLATELET COUNT 318 x10e3/uL (140-360); RED BLOOD COUNT 3.23 x10e6/uL (3.6-5.1); RED CELL DISTRIBUTION WIDTH 15.1 % (11.7-14.4)
[2019-02-20] MEDS: MEROPENEM 500MG/ NS 50ML 50 ML IV SCH ×3 (05:04→18:21)
[2019-02-20 05:24] LABS: ALANINE AMINOTRANSFERASE 11 IU/L (0-55); ALBUMIN 2.6 g/dL (3.5-5.0); ALBUMIN/GLOBULIN RATIO 0.7 (0.8-2.0); ALKALINE PHOSPHATASE 67 IU/L (40-150); ANION GAP 11.5 mmol/L (8-16); BLOOD UREA NITROGEN 14 mg/dL (7-26); BUN/CREATININE RATIO 25 (6-25); CALCIUM 8.9 mg/dL (8.4-10.2); CARBON DIOXIDE 22 mmol/L (22-29); CHLORIDE 113 mmol/L (98-107); CREATININE, SERUM 0.56 mg/dL (0.57-1.11); EST GLOMERULAR FILTRATION RATE > 60 ML/MIN (60-); GLUCOSE 87 mg/dL (74-118); POTASSIUM 3.5 mmol/L (3.5-5.1); SODIUM 143 mmol/L (136-145)
[2019-02-20] MEDS: COLLAGENASE 5 GM TUBE TP SCH (09:00)
[2019-02-20] MEDS: VENLAFAXINE HCL 75 MG CAPCR PO SCH ×3 (09:00→17:00)
[2019-02-20] MEDS: GABAPENTIN 300 MG CAP PO SCH ×3 (09:00→17:00)
[2019-02-20] MEDS: ATENOLOL 50 MG TAB PO SCH (09:00)
[2019-02-20] MEDS: PANTOPRAZOLE SOD 40 MG TABEC PO SCH (09:14)
[2019-02-20] MEDS: LEVETIRACETAM 500 MG TAB PO SCH ×2 (09:15→18:21)
[2019-02-20] MEDS: AMIODARONE HCL 200 MG TAB PO SCH (09:15)
[2019-02-20] MEDS: VANCOMYCIN 1GM/NS 250 ML 250 ML IV SCH ×2 (09:15→20:26)
[2019-02-20] MEDS: TOPIRAMATE 100 MG TAB PO SCH ×2 (09:16→18:21)
[2019-02-20] MEDS: BALSAM PERU/CASTOR OIL 60 GM OINT...G. TP SCH ×2 (09:16→18:21)
[2019-02-20] MEDS ORDERED: POTASSIUM CHLORIDE 10MEQ EA PO ONE (15:30)
--- NOTE | 2019-02-20 19:00 | NUR ---
Received bedside report from day shift RN. Patient is laying on the bed with no distress, bed set low, call light within reach, and side rails up x2.
[2019-02-20] MEDS: RISPERIDONE 0.5 MG TAB PO SCH (21:00)
[2019-02-21] VITALS (8 sets, daily range): BP systolic 99–140; BP diastolic 53–69
[2019-02-21] MEDS: MEROPENEM 500MG/ NS 50ML 50 ML IV SCH ×3 (00:23→12:00)
[2019-02-21] MEDS ORDERED: SODIUM CHLORIDE 0.9% 500ML 500 ML ONE (03:54)
--- NOTE | 2019-02-21 05:19 | NUR ---
Called Dr. Arpit Solis's answering service requesting order for PICC line since patient is a hard stick on the left arm and limb alert on the right arm.
--- NOTE | 2019-02-21 05:44 | NUR ---
About 0430, the patient reported there is a leak on the left AC. RN noticed there is a leak and stop the KVO. RN called OR to see if there is anyone who could start a new IV prior to today's procedure. OR is short-staffed and does not have anyone to start a new IV. Supervisory RN attempted two times on the left UA and was not successful. RN is waiting for order from Dr. Arpit Solis/Irina for PICC. dowel machine operator stated the anesthesia department will try to start an IV.
[2019-02-21] MEDS ORDERED: IOPAMIDOL 610MG/1ML 300 MG/ML VIAL IV ONE (06:29)
--- NOTE | 2019-02-21 06:40 | NUR ---
Obtained consent form for PICC insertion. Contacted radiology regarding consent form. Patient is a hard stick and requires a PICC. Patient agreed to procedure.
--- NOTE | 2019-02-21 07:00 | NUR ---
SHIFT REPORT RECEIVED FROM THE EQUIPMENT SUPERINTENDENT RN. PT IS OFF UNIT FOR PROCEDURE.
[2019-02-21] MEDS: BALSAM PERU/CASTOR OIL 60 GM OINT...G. TP SCH ×2 (09:00→17:30)
[2019-02-21] MEDS: COLLAGENASE 5 GM TUBE TP SCH (09:00)
--- NOTE | 2019-02-21 09:00 | NUR ---
CALLED DR. SCHATTE. CANNON TO CHANGE NPO TO REGULAR DIET.
--- NOTE | 2019-02-21 09:00 | NUR ---
PT IS BACK TO UNIT AFTER PROCEDURE. NO SIGNS OF DISTRESS NOTED. PT DENIES NEEDS AT THIS TIME. HALL CATHETER CHANGED TO 22 FR PER OR NURSE. PT FAMILY AT BEDSIDE.
[2019-02-21] MEDS: VANCOMYCIN 1GM/NS 250 ML 250 ML IV SCH (09:15)
[2019-02-21] MEDS: VENLAFAXINE HCL 75 MG CAPCR PO SCH ×2 (10:00→17:30)
[2019-02-21] MEDS: GABAPENTIN 300 MG CAP PO SCH ×2 (10:00→17:30)
[2019-02-21] MEDS: TOPIRAMATE 100 MG TAB PO SCH ×2 (10:00→17:30)
[2019-02-21] MEDS: ATENOLOL 50 MG TAB PO SCH (10:00)
[2019-02-21] MEDS: AMIODARONE HCL 200 MG TAB PO SCH (10:00)
[2019-02-21] MEDS: PANTOPRAZOLE SOD 40 MG TABEC PO SCH (10:00)
[2019-02-21] MEDS: LEVETIRACETAM 500 MG TAB PO SCH ×2 (10:00→17:30)
[2019-02-21 10:56] LABS: BASOPHILS % 0.4 % (0.0-1.0); EOSINOPHILS # (AUTO) 0.1 (0.0-0.4); EOSINOPHILS % 0.9 % (0.0-6.0); HEMATOCRIT 36.1 % (34.2-44.1); HEMOGLOBIN 11.4 g/dL (12.0-16.0); LYMPHOCYTES # (AUTO) 1.5 (1.0-3.2); LYMPHOCYTES % 16.6 % (18.0-39.1); MEAN CORPUSCULAR HEMOGLOBIN 29.2 pg (28-32); MEAN CORPUSCULAR HGB CONC 31.6 g/dL (31-35); MEAN CORPUSCULAR VOLUME 92.6 fL (81-99); MONOCYTES # (AUTO) 0.1 (0.2-0.8); MONOCYTES % 1.3 % (4.4-11.3); NEUTROPHILS # (AUTO) 7.2 (2.1-6.9); NEUTROPHILS % 80.1 % (38.7-80.0); PLATELET COUNT 310 x10e3/uL (140-360); RED CELL DISTRIBUTION WIDTH 15.1 % (11.7-14.4)
--- NOTE | 2019-02-21 11:00 | NUR ---
DR. RAMIREZ AT BEDSIDE TO THE PT. CANCEL PICC LINE PER DR. RAMIREZ AND CALL DR. DEWITT REGARDING PO ANTIBIOTICS.
--- NOTE | 2019-02-21 11:15 | NUR ---
CALLED DR. DEWITT AND LEFT A MESSAGE REGARDING PO ANTIBIOTICS PER DR. RAMIREZ
[2019-02-21 11:28] LABS: ANION GAP 16.4 mmol/L (8-16); BLOOD UREA NITROGEN 14 mg/dL (7-26); BUN/CREATININE RATIO 22 (6-25); CALCIUM 8.8 mg/dL (8.4-10.2); CARBON DIOXIDE 19 mmol/L (22-29); CHLORIDE 111 mmol/L (98-107); CREATININE, SERUM 0.63 mg/dL (0.57-1.11); EST GLOMERULAR FILTRATION RATE > 60 ML/MIN (60-); GLUCOSE 110 mg/dL (74-118); POTASSIUM 4.4 mmol/L (3.5-5.1); SODIUM 142 mmol/L (136-145)
[2019-02-21 11:45] LABS: ANISOCYTOSIS SLIGHT; HYPOCHROMASIA SLIGHT; LYMPHOCYTES % (MANUAL) 19 % (19-48); MONOCYTES % (MANUAL) 1 % (3.4-9.0); NEUTROPHILS % (MANUAL) 80 % (40-74); PLATELET ESTIMATE ADEQUATE; PLATELET MORPHOLOGY COMMENT NORMAL; RBC MORPHOLOGY COMMENT NORMAL; SMUDGE CELLS FEW
--- NOTE | 2019-02-21 11:49 | NUR ---
STOP VANCOMYCIN PER RICHY MINA
--- NOTE | 2019-02-21 11:50 | NUR ---
STOP ANTIBIOTICS PER JANETTE, PA
--- NOTE | 2019-02-21 11:53 | NUR ---
Called and spoke to Taryn in admissions at [facility]. She stated that auth from Thursday has and they need to restart auth. Requesting updated MD and PT notes. Clinicals faxed to [phone]
--- NOTE | 2019-02-21 16:30 | NUR ---
CM called and spoke to pt's Tu Ball [phone] and discussed discharge plan. Informed him that we restarted auth for [facility] today and are currently pending insurance approval for transfer. IMM letter discussed. Mr. Ball verbalized understanding. Signed copy placed in chart. Copy left at bedside for pt's .
[2019-02-21] MEDS ORDERED: LIDOCAINE HCL 2% LOCAL INJ 5 ML SDV VIAL INJ ONE (17:25)
[2019-02-21] MEDS ORDERED: DEXAMETHASONE SOD PHOS INJ 4 MG/ML VIAL ONE (17:25)
[2019-02-21] MEDS ORDERED: ROCURONIUM BROMIDE 10 MG/ML 5ML VIAL ONE (17:25)
[2019-02-21] MEDS ORDERED: PROPOFOL IV EMULSION 10 MG/ML 20 ML VIAL ONE (17:25)
[2019-02-21] MEDS ORDERED: SUCCINYLCHOLINE 200 MG/10 ML SYR ONE (17:25)
[2019-02-21] MEDS ORDERED: SEVOFLURANE INHAL SOLN 250 ML PEN BTL ONE (17:25)
[2019-02-21] MEDS ORDERED: ONDANSETRON HCL INJ 2MG/ML 2ML 2 MG/ML VIAL ONE (17:25)
[2019-02-21] MEDS: METHENAMINE 1 GM PO SCH (17:30)
[2019-02-21] MEDS: [UNRECOGNIZED DRUG - OTHER] PO SCH (17:30)
[2019-02-21] MEDS ORDERED: MIDAZOLAM HCL 2 MG/2 ML VIAL ONE (18:39)
[2019-02-21] MEDS ORDERED: FENTANYL CITRATE/PF 100MCG/2 ML INJ ONE (18:39)
--- NOTE | 2019-02-21 19:00 | NUR ---
BEDSIDE SHIFT REPORT GIVEN TO THE WELD INSPECTOR RN. PT DENIED FURTHER NEEDS.
[2019-02-21] MEDS: RISPERIDONE 0.5 MG TAB PO SCH (20:44)
[2019-02-22] VITALS (10 sets, daily range): BP systolic 83–104; BP diastolic 45–65
--- NOTE | 2019-02-22 07:00 | NUR ---
BEDSIDE SHIFT REPORT RECEIVED FROM THE SERVICE SPRINKLER HELPER RN. PT DENIES NEEDS AT THIS TIME.
--- NOTE | 2019-02-22 07:05 | NUR ---
REPORT GIVEN TO ONCOMING NURSE.WALKING ROUNDS MADE.PT RESTING IN BED WITH NO S/S OF DISTRESS.
--- NOTE | 2019-02-22 07:06 | NUR ---
REPORT GIVEN TO ONCOMING NURSE.WALKING ROUNDS MADE.PT RESTING IN BED WITH NO S/S OF DISTRESS.
[2019-02-22] MEDS: ACETAMINOPHEN 325 MG TAB PO PRN ×2 (07:11→19:57)
[2019-02-22] MEDS: PANTOPRAZOLE SOD 40 MG TABEC PO SCH (08:10)
[2019-02-22] MEDS: METHENAMINE 1 GM PO SCH ×2 (09:00→17:45)
[2019-02-22] MEDS: VENLAFAXINE HCL 75 MG CAPCR PO SCH ×2 (09:00→17:45)
[2019-02-22] MEDS: AMIODARONE HCL 200 MG TAB PO SCH (09:00)
[2019-02-22] MEDS: LEVETIRACETAM 500 MG TAB PO SCH ×2 (09:00→17:45)
[2019-02-22] MEDS: ATENOLOL 50 MG TAB PO SCH (09:00)
[2019-02-22] MEDS: [UNRECOGNIZED DRUG - OTHER] PO SCH ×2 (09:00→17:45)
[2019-02-22] MEDS: TOPIRAMATE 100 MG TAB PO SCH ×2 (09:00→17:45)
[2019-02-22] MEDS: COLLAGENASE 5 GM TUBE TP SCH (09:00)
[2019-02-22] MEDS: GABAPENTIN 300 MG CAP PO SCH ×2 (09:00→17:45)
[2019-02-22] MEDS: BALSAM PERU/CASTOR OIL 60 GM OINT...G. TP SCH ×2 (09:00→17:45)
--- NOTE | 2019-02-22 10:25 | NUR ---
PT BP IS LOW. INFORMED DR. RAMIREZ. HOLDING ATENOLOL PER THE
--- NOTE | 2019-02-22 11:00 | NUR ---
URINE CULTURE GIVEN TO THE LAB PER DR. EDDY
[2019-02-22 15:02] LABS: INR 1.07; PROTHROMBIN TIME 14.4 seconds (11.9-14.5)
[2019-02-22 15:03] LABS: PARTIAL THROMBOPLASTIN TIME 30.2 seconds (23.8-35.5)
--- NOTE | 2019-02-22 15:15 | NUR ---
CALL RECEIVED FROM DENISE LOCKHART. NEW ORDER RECEIVED FOR KEFLEX.
--- NOTE | 2019-02-22 15:22 | NUR ---
Received phone call from pt's Tu Ball inquiring about status of SNF referral. BEST informed him that since pt is no longer on IV abx, Sandra at [facility] is saying she does not have a skilled need and that she also does not currently qualify for placement. Pt's states that they live in separate houses. She lives in [facility] and he lives in [place] about 40 mins away. They've been for 20 years, but he still comes and helps her when he can. He states that pt lives alone and has not walked since last Fall, has been bedbound. Mr. Ball says he comes over and changes pt's diaper, gives her medications and food but cannot come stay with her 23/03. States he lives in a house with steps to get in, so pt would not be able to come live with him either. He states that if pt discharges home, then they would have to figure it out. Possibly with home health. BEST informed him that home health is not there / and pt would be unsafe at home alone in her current condition. Will talk to Dr. Solis regarding dc plan.
--- NOTE | 2019-02-22 15:43 | Operative Report ---
DATE OF PROCEDURE: 02/21/2019 SURGEON: Vega Madrigal MD PREOPERATIVE DIAGNOSES: 1. Indwelling left ureteral stent. 2. Indwelling right ureteral stent. 3. Left-sided ureteral calculus. 4. Left-sided hydronephrosis. 5. Right-sided hydronephrosis. POSTOPERATIVE DIAGNOSES: 1. Indwelling left ureteral stent. 2. Indwelling right ureteral stent. 3. Left-sided ureteral calculus. 4. Left-sided hydronephrosis. 5. Right-sided hydronephrosis. PROCEDURES: 1. Cystourethroscopy with complicated removal of left indwelling stent (entirely separate procedure for diagnosis of left ureteral stent). 2. Cystourethroscopy with complicated removal of right indwelling stent (entirely separate procedure for encrusted right ureteral stent. 3. Cystourethroscopy with insertion of left indwelling stent (entirely separate procedure for left hydronephrosis). 4. Cystourethroscopy with insertion of a right indwelling stent (entirely separate procedure for diagnosis of right hydronephrosis). 5. Left-sided ureteroscopy with laser lithotripsy (entirely separate procedure for exclusive purpose of sending or breaking a large obstructing stone). 6. Left-sided ureteroscopy, stone extraction (entirely separate procedure for left ureteral calculus). 7. Supervision of fluoroscopy. 8. Interpretation of retrograde pyelography. ANESTHESIA: General. ESTIMATED BLOOD LOSS: Minimal. COMPLICATIONS: None. INDICATIONS FOR PROCEDURE: Mrs. Ball is a very pleasant 68-year-old female with a very complicated history including pulmonary embolus and DVT. She has a bilateral obstructing ureteral calculi, now presents for an overdue stent exchange on the left side and right side as well as definitive management of left ureteral calculus. She voiced understanding of the options, alternatives, risks, and benefits and elected to proceed. PROCEDURE IN DETAIL: After informed consent was obtained, the patient was taken to the operative suite. She was placed supine on the operating table. General anesthesia by Anesthesia Service. She was placed in the dorsal lithotomy position, sterilely prepped and draped in standard fashion for cystoscopy. A 21-Cambodian cystoscope was inserted per urethra and normal urethra was noted. Panendoscopy of bladder revealed no tumors and no stones. Both ureteral orifices were in normal anatomic location and position and were seen to efflux clear urine. Bilateral stents were grasped and removed. Attempted was made to catheterize, but failed. Guidewire was inserted along the left side. Ureteroscope was advanced to mid 1 cm ureteral stone utilizing 365 micron laser fiber, the stone was obliterated. Multiple fragments were basket extracted and passed off the table as specimens. Ureteroscope was advanced to the level of renal pelvis where retrograde pyelogram was performed revealing dilated collecting system and filling defects in the lower pole consistent with clot versus nonobstructing stone. At this time, ureteral stent was deployed in the left side with coil in the renal pelvis and a coil in the bladder. This process was repeated on the right side for stent exchange, bilateral 7 x 26 cm stents were deployed with a coil in the renal pelvis and a coil in the bladder. The patient's bladder was drained. She was awakened from anesthesia and transferred to the recovery room in excellent condition, no untoward effects noted. Supervision of fluoroscopy interpretation of retrograde pyelography: I was present for the entire procedure and I supervised the use of fluoroscopy for both the stent removal portion as well as ureteroscopic dilation portions. Retrograde pyelogram was performed through left ureteroscope revealing dilated collecting system and removal of left ureteral calculi and exchange of bilateral renal stents. Vega Madrigal MD ES/MODL /[id number] cc: Vega Madrigal MD
--- NOTE | 2019-02-22 18:49 | Progress Note ---
DATE: 02/22/2019 Psychiatric Progress Note SUBJECTIVE: The patient evaluated and events noted. The patient is in the room. She is on isolation. She is lying in the bed. She is alert, awake, and oriented to situation. She states that she is having depression and still having some hallucinations, seeing things out of window. She denies any suicidal ideation. She denies any problem with sleep. She denies any problem with appetite. She denies any side effects from medications. ASSESSMENT: 1. Major depressive disorder, recurrent, moderate. 2. Unspecified psychosis. PLAN: 1. Continue with Risperdal p.r.n. 2. Continue with Risperdal 0.25 mg p.o. at bedtime. 3. Continue with Effexor. 4. Reduce Neurontin due to hypotension. 5. Supportive therapy. 6. Discussed with nursing staff. Dictated by Nina Fletcher PA-C Sadie Sandhu MD QTV/RUSTY /[id number]
--- NOTE | 2019-02-22 19:00 | NUR ---
BEDSIDE SHIFT REPORT GIVEN TO THE AVICULTURIST RN. PT DENIED FURTHER NEEDS.
--- NOTE | 2019-02-22 19:25 | NUR ---
PATIENT RESTING IN BED COMFORTABLY. RESP EVEN AND UNLABORED. NO ACUTE DISTRESS NOTED. HALL IN PLACE. CALL LIGHT WITHIN REACH. BED LOW/LOCKED. CONTINUE TO MONITOR CLOSELY
[2019-02-22] MEDS: RISPERIDONE 0.5 MG TAB PO SCH (19:56)
[2019-02-23] VITALS (7 sets, daily range): BP systolic 86–104; BP diastolic 47–58
[2019-02-23] MEDS: ACETAMINOPHEN 325 MG TAB PO PRN ×3 (06:10→21:57)
--- NOTE | 2019-02-23 08:11 | NUR ---
SPOKE WITH RUBEN PT PUT ON ABX DUE TO FEVER AND WILL MEET SNF CRITERIA, FAXED CLINICALS, WAITING ON AUTH.
[2019-02-23] MEDS: TOPIRAMATE 100 MG TAB PO SCH ×2 (08:50→15:49)
[2019-02-23] MEDS: GABAPENTIN 300 MG CAP PO SCH ×2 (08:50→15:49)
[2019-02-23] MEDS: BALSAM PERU/CASTOR OIL 60 GM OINT...G. TP SCH ×2 (08:50→15:37)
[2019-02-23] MEDS: AMIODARONE HCL 200 MG TAB PO SCH (08:51)
[2019-02-23] MEDS: PANTOPRAZOLE SOD 40 MG TABEC PO SCH (08:51)
[2019-02-23] MEDS: VENLAFAXINE HCL 75 MG CAPCR PO SCH ×2 (08:51→15:49)
[2019-02-23] MEDS: LEVETIRACETAM 500 MG TAB PO SCH ×2 (08:51→15:49)
[2019-02-23] MEDS: ATENOLOL 50 MG TAB PO SCH (09:00)
[2019-02-23] MEDS ORDERED: CEPHALEXIN 500 MG CAP PO SCH (09:00)
[2019-02-23] MEDS: COLLAGENASE 5 GM TUBE TP SCH (09:10)
--- NOTE | 2019-02-23 09:24 | NUR ---
T99.7 today and 100.2 on 02/22.Wilmer Hernandez aware. NO new orders
[2019-02-23] MEDS: [UNRECOGNIZED DRUG - OTHER] PO SCH ×2 (11:00→15:49)
[2019-02-23] MEDS: METHENAMINE 1 GM PO SCH ×2 (11:00→15:49)
--- NOTE | 2019-02-23 11:00 | NUR ---
Spoke with Dr. Solis regarding discharge plan. He states to continue SNF eval since pt now back on IV abx due to fever.
--- NOTE | 2019-02-23 11:15 | NUR ---
Wilmer Hernandez aware of patient's allergy to merrem. Per Wilmer Hernandez "okay to give and monitor the first 15 minutes." Pharmacist notified of message.
--- NOTE | 2019-02-23 11:50 | NUR ---
Dr.S. Solis aware of BP86/47. Per hold BP meds if SBP<90.
[2019-02-23] MEDS ORDERED: SODIUM CHLORIDE 0.9% 250ML 250 ML ONE (12:45)
[2019-02-23] MEDS: MEROPENEM 500MG 500 MG in SODIUM CHLORIDE 0.9% 50ML 50 ML IV SCH ×2 (12:58→21:57)
--- NOTE | 2019-02-23 13:15 | NUR ---
Merrem started at 1258. No s/s of acute distress noted. Respirations even and unlabored. Denies any discomfort.
--- NOTE | 2019-02-23 15:52 | NUR ---
T100.2. aware. See orders
[2019-02-23] MEDS: VANCOMYCIN 1GM/NS 250 ML 250 ML IV SCH (17:20)
--- NOTE | 2019-02-23 17:43 | Progress Note ---
DATE: 02/23/2019 SUBJECTIVE: Ms. Ball, she had low fever overnight. She is currently lying in bed comfortably. PHYSICAL EXAMINATION: GENERAL: She is currently alert, confused, does not seem to be in acute distress. VITAL SIGNS: Stable. Currently afebrile. HEENT: She is not icteric. NECK: Supple. CHEST: Clear. HEART: S1, S2. No S3 or S4 or murmur. ABDOMEN: Soft. IMPRESSION AND PLAN: Fever. The patient has been in the hospital. We will hold discharge. Obtain blood cultures. Obtain CBC. We will put on vancomycin and meropenem. Obtain a chest x-ray. We will follow. Other medical problems as above. MD SISSY Cardona/RUSTY /[id number]
--- NOTE | 2019-02-23 18:35 | NUR ---
Resting in bed, call light within reach, bed alarm on, side rails upx3. No s/s of acute distress noted. Report to be given to oncoming nurse of patient's status.
--- NOTE | 2019-02-23 20:00 | NUR ---
PATIENT RESTING IN BED COMFORTABLY. RESP EVEN AND UNLABORED. NO ACUTE DISTRESS NOTED. HALL IN PLACE. CALL LIGHT WITHIN REACH. BED LOW/LOCKED. CONTINUE TO MONITOR CLOSELY
--- NOTE | 2019-02-23 20:11 | Diagnostic Imaging Report ---
A single frontal view of the chest. HISTORY: Rule out aspiration, confusion COMPARISON: Chest radiograph February 13, 2019 DISCUSSION: Portable technique, limits sensitivity of the exam. Soft tissue attenuation partially limits sensitivity of the exam. Tubes/Lines: None Lungs and pleura: Low lung volumes result in bibasilar vascular crowding, accentuation of the pulmonary interstitial markings, central pulmonary vasculature, and the cardiac silhouette. Allowing for these limitations, the findings are as follows: Left basilar platelike atelectasis. No definite pleural effusion or pneumothorax is identified. Heart and mediastinum: The cardiomediastinal silhouette appears unremarkable. Bones and soft tissues: Metallic surgical clips project at the right axilla. IMPRESSION: 1. Left basilar atelectasis. 2. No specific evidence of aspiration pneumonitis. Signed by: Dr. Jama Abrams D.O., M.M.M. on 02/23/2019 8:08 PM
--- NOTE | 2019-02-23 21:10 | NUR ---
TEMP. 100.6, TYLENOL GIVEN PER MAR
[2019-02-23] MEDS: RISPERIDONE 0.5 MG TAB PO SCH (21:57)
--- NOTE | 2019-02-23 22:15 | NUR ---
MERREM WAS GIVEN PER ORDER, PA AWARE THAT PATIENT ALLERGIC TO MERREM. NO ACUTE DISTRESS NOTED, RESP EVEN AND UNLABORED AT THIS TIME
[2019-02-24] VITALS (7 sets, daily range): BP systolic 89–104; BP diastolic 51–62
[2019-02-24] MEDS: ACETAMINOPHEN 325 MG TAB PO PRN ×2 (02:21→18:55)
[2019-02-24] MEDS: MEROPENEM 500MG 500 MG in SODIUM CHLORIDE 0.9% 50ML 50 ML IV SCH ×2 (05:07→12:34)
[2019-02-24] MEDS: VANCOMYCIN 1GM/NS 250 ML 250 ML IV SCH ×3 (05:46→17:50)
[2019-02-24] MEDS: AMIODARONE HCL 200 MG TAB PO SCH (08:47)
[2019-02-24] MEDS: PANTOPRAZOLE SOD 40 MG TABEC PO SCH (08:47)
[2019-02-24] MEDS: VENLAFAXINE HCL 75 MG CAPCR PO SCH ×2 (08:47→16:15)
[2019-02-24] MEDS: BALSAM PERU/CASTOR OIL 60 GM OINT...G. TP SCH ×2 (08:50→16:15)
[2019-02-24] MEDS: TOPIRAMATE 100 MG TAB PO SCH ×2 (08:50→16:15)
[2019-02-24] MEDS: ATENOLOL 50 MG TAB PO SCH (08:50)
[2019-02-24] MEDS: LEVETIRACETAM 500 MG TAB PO SCH ×2 (08:50→16:15)
[2019-02-24] MEDS: GABAPENTIN 300 MG CAP PO SCH ×2 (08:50→16:15)
[2019-02-24] MEDS: COLLAGENASE 5 GM TUBE TP SCH (08:50)
[2019-02-24] MEDS: [UNRECOGNIZED DRUG - OTHER] PO SCH ×2 (09:40→16:15)
[2019-02-24] MEDS: METHENAMINE 1 GM PO SCH ×2 (09:40→16:15)
--- NOTE | 2019-02-24 11:20 | NUR ---
S aware of patient's temperatures. Aware of 's message to hold discharge and aware blood cultures drawn on 02/23/19. Per okay to transfer to [facility] once room available.
--- NOTE | 2019-02-24 16:43 | NUR ---
Received MOT from Lisbet Tsai at [facility] [place] [address] [place], [place] [id number] [address] Dr. Smith to attend RTF on packet at nurse's station. ESCOBAR Smiley was informed of bed assignment. CM called and spoke to pt's Tu Ball ([phone]) of acceptance for SNF. Gave telephone consent to transfer by ambulance. Stated he did not have preference for which ambulance. Reminded him of pt's Medicare Rights. He verbalized understanding. Signed copy placed in chart. Copy at pt's bedside. ESCOBAR Smiley witnessed phone consents.
--- NOTE | 2019-02-24 17:00 | NUR ---
Mr.Dale Ball aware patient to be transferred to [facility] today.
--- NOTE | 2019-02-24 17:02 | NUR ---
Report called to [facility] and given to Lorena CODY of patient's status.
--- NOTE | 2019-02-24 17:20 | NUR ---
Vancomycin held. Awaiting for vanc through results. Per ambulance service, patient to be picked up in an hour. Waiting for transport to [facility] at this time.
--- NOTE | 2019-02-24 17:50 | NUR ---
vancomycin 12.5. Vancomycin IV given
--- NOTE | 2019-02-24 19:05 | NUR ---
Report given to oncoming nurse of patient's status. Resting in bed. No s/s of acute distress noted. Side rails upx2, call light within reach, bed alarm on. Rajni Anderson RN aware patient to transfer to [facility] today. Discharge assessment to be completed by oncoming nurse.
--- NOTE | 2019-02-24 19:35 | NUR ---
[facility] IS HERE TO TRANSFER PATIENT TO SNF. VITAL SIGN STABLE AT THIS TIME.
--- NOTE | 2019-03-27 22:46 | Discharge Summary ---
CHIEF COMPLAINT: Evaluation of altered mental status, hypotension. FINAL DIAGNOSES: Pseudomonal methicillin-resistant Staphylococcus aureus urinary tract infection; fecal impaction, resolved; atrial fibrillation. DISPOSITION: Skilled facility, [facility]. HOSPITAL COURSE: A 68-year-old female with known history of seizure disorder, sacral wound due to her bed-bound status, G-tube feeding dependent along with indwelling Patel, status post bilateral ureteral stent placement, brought to the ER from her facility for evaluation of altered mental status and hypotension. No nausea or vomiting. No diarrhea. No loss of consciousness. Evaluation and review were conducted in the ER. Noted that G-tube was in place and Patel was in place. Individual is bed-bound history as mentioned. Able to move legs, but not against gravity. Once review was concluded, the patient was admitted for evaluation of seizure disorder, altered mental status, questionable sepsis with UTI. With admission, we will be culturing the urine. Her daily medications will continue. Feeding will continue. Patel will continue. We will be requesting an Infectious Disease follow. Following admission to the facility, she was seen by Dr. Haney regarding issues of altered mental status and concern for UTI. With his evaluation, he states that the patient became more confused, but resolved, probably due to dehydration. The cultures known to be colonized multidrug-resistant pathogen. Recommending to hold off antibiotics. Observed the patient clinically. History of atrial fibrillation, aspiration, debility, bed-bound, and depression. Further consults, Dr. Madrigal for UTI, regarding history of bilateral stents, kidney stones, urinary tract infection. On his evaluation, still presents with bilateral ureteral stents, bilateral ureteral calculus, microscopic hematuria, gross hematuria, urinary tract infection, anemia, pulmonary embolus. Psych evaluation with Dr. Sandhu for evaluation of psychosis. His assessment was major depressive disorder, recurrent, moderate, and specified psychosis. To her ongoing medications, recommending adding Risperdal 0.5 mg p.o. q.6 hours p.r.n. Continue with Effexor 150 p.o. b.i.d. Continue with Neurontin 900 mg p.o. b.i.d. Operative procedure by Dr. Madrigal on 02/21/2019. Preoperative diagnosis was indwelling left ureteral stent, indwelling right ureteral stent, left-sided ureteral calculus, left-sided hydronephrosis, right-sided hydronephrosis. Postoperative diagnosis was indwelling left ureteral stent, indwelling right ureteral stent, left-sided ureteral calculus, left-sided hydronephrosis, right-sided hydronephrosis. Procedures; cystourethroscopy with complicated removal of left indwelling stents, same procedure of dealing with right indwelling stent. Cystourethroscopy with insertion of left indwelling stent, insertion of right indwelling stent. Left-sided ureteroscopy with laser lithotripsy, left-sided ureteroscopy with stone extraction. Blood loss was minimal. Complications were none. The patient tolerated the procedure well and returned to recovery room in good condition. From the ER, the patient was placed on the [facility] floor. She was continued on her tube feeding. She was continued on her Patel management. She was on IV fluids, started on IV antibiotics. Lab studies were being conducted. She was noted to be confused, but she was in no acute distress. Underwent the pre sales technical consultant evaluations. The x-rays of the abdomen were showing impacted possibility. Urine was showing Pseudomonas and Staph species. Discussions were being made with Case Management for possible shelter placement when her time of discharge to occur. As she was continuing her care, altered mental status was noted to be resolving. It was felt that her bacteria in the urine were contaminants. She underwent her urology procedures per Dr. Madrigal. There was noted with her stay that the ability of being bed-bound lead to the inability to care for herself and that she is totally dependent on outside help for all activities of daily living. Efforts are being made for p.o. intake, monitored and as this was undergoing, it was noted that she was tolerating p.o. diet well with no difficulties. The G-tube feeding will be stopped and she will be continued on a regular diet. Her lab studies continue to be monitored. She was becoming more alert and more responsive. She was then undergoing a Psych evaluation for review of her psychosis. Medications will be adjusted per Dr. Sandhu. Her leukocytosis was resolving. Wound care was being initiated to her sacral region. Her p.o. intake was being monitored. She began to demonstrate poor p.o. intake, definitely caloric is better with the PEG tube. She will be continued on a regular diet for now. Case management was involved for finding a long-term placement facility and the antibiotics per Dr. Shebib were being changed to Hiprex for 6 months. She had been currently on IV vancomycin and meropenem, but the patient will be started on Keflex for now. manager analysis was able to find a long-term facility. Arrangements were then being put in place. We will transfer to that location. She will be continued on Keflex 500 mg Thursday, Wednesdays, and Fridays per Dr. Haney, requesting be on the Hiprex for 6 months. After being discharged, the Keflex will be stopped. She was accepted to the [facility]. Prior to her transfer, she was started back on IV vancomycin, continuing on her IV meropenem. Transferred to [facility] on 02/24/2019 in guarded condition. Imaging; chest x-ray reveals no acute cardiopulmonary abnormalities. Brain CT reveals no acute intracranial abnormalities. Left pterional craniotomy and underlying temporal encephalomalacia unchanged. Abdomen and pelvis CT reveals no acute CT findings. Large amount of stool within the rectum, may be impacted. Routine abdomen reveals bilateral ureteral stents with multiple renal and ureteral stones. Final chest x-ray reveals left basilar atelectasis. No specific evidence of aspiration pneumonitis. Cultures; blood studies were negative. Urine studies were showing Pratibha tropicalis and Staph MRSA along with Pseudomonas aeruginosa. Laboratory studies starts with a CBC showing a white cell count elevated at 11,100, H and H were 9.5 and 30.0. Further watch of the CBCs revealed normal white counts. H and H sumaya to 10.2 and 31.2, fell back down to 9.5 and 28.9, final study 11.4 and 36.1. Urinalysis; 2+ protein, 3+ occult blood, positive nitrites, 21 to 50 rbc's per high-power field, greater than 50 wbc's per high-power field, many bacteria. Chemistries; initial panel electrolytes normal. Kidney functions normal. Followup chemistries reveal further stable electrolytes. Glucose is as high as 150, final study 110. As stated, the patient reached potential recovery and arrangements were made for transfer to the [facility]. Transferred there in guarded condition as mentioned. She will continue on her current MARs. Transferred with her IV in place. She will continue to receive antibiotics per Dr. Haney's orders. She will continue to receive a regular diet p.o., but she is still be maintained with the PEG tube for possibility of re-initiated that avenue of nutrition. The patient will continue to be bed-bound. She will continue to have sacral tissue watch. I will be keeping abreast of the patient's condition, evaluating the status routinely. Staff will be contacting me in my office for any questions or concerns. Dictated by DHRUV Carvajal Сергей Solis MD CC/MODL /[id number]
== END 2019-02-24 20:12 | DRG 659 ==
LOC: ER 16:11 → ERHOLD 20:11 → MED/SURG2 20:57
PROC: 0T788DZ Dilation of Bilateral Ureters with Intraluminal Device, Via Natural or Artificial Opening Endoscopic (ICD-10-PCS; principal; 2019-02-21 07:00)
PROC: 0TC78ZZ Extirpation of Matter from Left Ureter, Via Natural or Artificial Opening Endoscopic (ICD-10-PCS; 2019-02-21 07:00)
DX: T83.511A Infection and inflammatory reaction due to indwelling urethral catheter, initial encounter (principal); A41.9 Sepsis, unspecified organism; G93.41 Metabolic encephalopathy; N13.2 Hydronephrosis with renal and ureteral calculous obstruction; F33.1 Major depressive disorder, recurrent, moderate; B37.49 Other urogenital candidiasis; I48.91 Unspecified atrial fibrillation; L89.152 Pressure ulcer of sacral region, stage 2; B96.5 Pseudomonas (aeruginosa) (mallei) (pseudomallei) as the cause of diseases classified elsewhere; Z88.5 Allergy status to narcotic agent; Z88.0 Allergy status to penicillin; Z88.2 Allergy status to sulfonamides; Z88.8 Allergy status to other drugs, medicaments and biological substances; Z85.3 Personal history of malignant neoplasm of breast; Z74.01 Bed confinement status; Z93.1 Gastrostomy status; E86.0 Dehydration; R53.81 Other malaise; Z96.0 Presence of urogenital implants; R31.29 Other microscopic hematuria; D64.9 Anemia, unspecified; F29 Unspecified psychosis not due to a substance or known physiological condition; G40.909 Epilepsy, unspecified, not intractable, without status epilepticus; Z16.12 Extended spectrum beta lactamase (ESBL) resistance; N32.81 Overactive bladder; R32 Unspecified urinary incontinence; D63.8 Anemia in other chronic diseases classified elsewhere; K56.41 Fecal impaction; B95.62 Methicillin resistant Staphylococcus aureus infection as the cause of diseases classified elsewhere
CPT/HCPCS: 36415; 51700; 70450; 71045; 74018; 74177; 74420; 80048; 80053; 80202; 81001; 82150; 82550; 82553; 82948; 83605; 83690; 83735; 84484; 85025; 85610; 85730; 87040; 87086; 87186; 88300; 93005; 97139; 99284; C1758; C2617; J1100; J1200; J1956; J2001; J2185; J2250; J2405; J2930; J3010; J3370; J7030; J7040; J7050; Q9967

== ENCOUNTER 2019-04-05 15:12 | Inpatient (IN) | payer MEDICARE, OTHER ==
[2019-04-05] VITALS (7 sets, daily range): BP systolic 91–102; BP diastolic 50
[~2019-04-05] VITALS: Ht 170.2 cm; Wt 73.0 kg
[~2019-04-05 15:12] MED LIST changes: +ATENOLOL25 MG PO; +BISACODYL5 MG PO; +DIPHENHYDRAMINE25 M2 PO; +OXYBUTYNIN CHLOR5 M1 PO
--- OUTSIDE RECORDS SUMMARY | 2019-04-05 15:15 | XMS REPORT | Clinical Summary ---
Author Author [facility] Address Unknown Phone Unavailable Care Team Providers Care Enologist Name Role Phone Asked, No Pcp PCP [...] 11/16/2018 Discontinued vit Take 1 tablet 0 M-gjqea-vbsssc-bioflv-ros by mouth e 1,000-50-50 mg tablet nightly. [...] Dx) 11/16/2018 Pre-Admit Pre-Admission Testing Testing Appointment after 04/04/2018 Family History Medical History Relation Name Comments [...] Description Date Type Specialty Kartik Sullivan MD [address] [address] 05/18/2019 Office Visit Neurology Health Maintenance Due Date Last Done Comments BREAST CANCER SCREENING 2000 COLONOSCOPY SCREENING 2000 SHINGLES VACCINES (#1) 2000 65+ PNEUMOCOCCAL VACCINE 2015 (1 of 2 - PCV13) INFLUENZA VACCINE 03/31/2019 Implants Device Identifier Shelf Expiration Date Model / Serial / Lot Implanted Type Area Manufactur er 11/26/2018 [id number] / / [id number] Kit Mixer Bone Cmnt Kyphon Kyphx Surgical N/A: N/A KYPHON DIV Hv-R - [id number] Implants; OF Implanted: Qty: 1 on 05/08/2017 by Expanders; MEDTc Zhang MD Extenders; SPINE Surgical Wires 1600 [id number] / / Wire K Dual Trcr Pt [id number] Ns - Temporary Left: Thumb MICRO AIRE [id number] Fixation SURGICAL Implanted: Qty: 2 on 08/21/2017 by Pin or INSTRUMENT Marilu Summers MD Wire 09/07/2021 [id number] / / [id number] Stent Uretl Unvrsa 6fr 26cm Urological N/A: N/A COOK Hydrphlc W/O Gw - [id number] Implants UROLOGICAL Implanted: Qty: 1 on 11/17/2018 by or Vega Colvin MD Procedures Comments Procedure Name Priority Date/Time Associated Diagnosis SURGICAL PATHOLOGY Routine 11/17/2018 REQUEST 2:48 PM CDT CALCULI ANALYSIS WITH Routine 11/17/2018 PHOTO 2:48 PM CDT FL AN ELECTIVE Routine 11/17/2018 SUPRAGLOTTIC AIRWAY 2:27 [...] Routine 11/16/2018 Preop testing 10:14 AM CDT after 04/04/2018 Results * Calculi analysis with photo (11/17/2018 [...] by FTIR analysis. EER calculi See Note [facility]) Comment: analysis and Access [facility] Enhanced Report photo using either link below: -Direct access: [email or web address] is [email or web address] -Enter Username, Password: [email or web address] Username: [email or web address] Password: [email or web address] Performed by [facility], [address], [place] [id number] [email or web address], Junito Heck MD - Lab. Director Specimen Serum Narrative Performed At [id number] [facility] Performing Organization Address City/State/Zipcode Phone Number [facility] [address] [place] [address] [facility] [address] [place] [address] * Surgical pathology request (11/17/2018 2:48 PM CDT) [facility] DEPARTMENT OF PATHOLOGY AND GENOMIC MEDICINE Surgical See link below for PDF Lab [facility] pathology Report DEPARTMENT OF report PATHOLOGY AND GENOMIC MEDICINE Result status This is Final Report for [facility] [id number] DEPARTMENT OF PATHOLOGY AND GENOMIC MEDICINE Specimen Performing Organization Address City/[facility]/Zipcode Phone Number [facility] DEPARTMENT [address] [place] [address] PATHOLOGY AND GENOMIC MEDICINE * XR Kub [...] Bilateral renal calculi Right-sided double-J ureteral stent [facility]-[id number] Procedure Note Interface, Radiology Results Incoming - [...] Bilateral renal calculi Right-sided double-J ureteral stent [facility]-[id number] Performing Organization Address City/[facility]/Zipcode Phone Number [facility] [address] [place] [address] * XR Chest 1 Vw (11/16/2018 12:14 [...] The bony structures are within normal limits. [facility]-[id number] Procedure Note Hm Interface, Radiology Results Incoming - 11/16/2018 1:04 [...] The bony structures are within normal limits. [facility]-[id number] Performing Organization Address City/[facility]/Zipcode Phone Number [facility] [address] [place] [address] * Smear review (11/16/2018 11:02 AM CDT) Platelet slide Violeta adequate [place] review [facility] Anisocytosis Few [facility] Reactive 100 [place] lymphocytes [facility] Specimen Performing Organization Address City/State/Zipcode Phone Number [facility] [place] [id number] [place] [address] [place] [address] PATHOLOGY AND GENOMIC MEDICINE [address] * CBC with platelet and differential (11/16/2018 11:02 AM CDT) WBC 11.21 (H) 4.50 - 11.00 k/uL [facility] RBC 4.78 4.20 - 5.50 m/uL [facility] HGB 14.7 12.0 - 16.0 g/dL [facility] HCT 47.8 (H) 37.0 - 47.0 % [facility] MCV 100.0 82.0 - 100.0 fL [facility] MCH 30.8 27.0 - 34.0 pg [facility] MCHC 30.8 (L) 31.0 - 37.0 g/dL [facility] RDW - SD 44.9 37.0 - 55.0 fL [facility] MPV 9.4 8.8 - 13.2 fL [facility] Platelet count 303 150 - 400 k/uL [facility] Nucleated RBC 0.00 /100 WBC [facility] Neutrophils 35.7 (L) 39.0 - 69.0 % [facility] Lymphocytes 53.4 (H) 25.0 - 45.0 % [facility] Monocytes 8.2 0.0 - 10.0 % [facility] Eosinophils 2.0 0.0 - 5.0 % [facility] Basophils 0.4 0.0 - 1.0 % [facility] Specimen Blood Performing Organization Address City/State/Zipcode Phone Number [facility] DEPARTMENT OF [address] [place] [address] [place] [address] PATHOLOGY AND GENOMIC MEDICINE [facility] [id number] [place] [address] [place] [address] [facility] * ECG 12 lead (11/16/2018 10:14 AM CDT) Ventricular 80 [facility] rate Atrial rate 80 [facility] FL interval 142 [facility] QRSD interval 80 [...] At Performing Organization Address City/State/Zipcode Phone Number [facility] [address] [place] [address] after 04/04/2018 Insurance Type Payer Benefit Subscriber ID Effective Phone Address Plan / Dates Group PPO HUMANA MEDICARE HUMANA xxxxxxxxx [id number] MEDICARE resent PPO/PFFS/E [facility] Advance Directives Patient has advance care planning documents, and code status on file. For more i nformation, please contact: Jesus Manuel Ochoa [address] [place] [address] Date Inactivated Comments Code Status Date Activated 09/09/2016 6:38 PM Full Code 09/08/2016 2:20 PM Code Status decision reached by: Patient
--- NOTE | 2019-04-05 15:51 | NUR ---
Received this 68 y/o female from [facility] facility with c\o weakness and suspected urinary tract infection. The pt. arrives with a Peg tube and munoz cath and stage 2 decubs to sacral area.There is also a sm wound to the left knee. The pt'.s report received stated that the pt. can swallow small pills but large ones can be crushed and placed into the peg. Dr. Ceci Solis was notified of the pt's arrival and orders received. There is no record of medicine sent from the facility and a call was placed to them to have med sheet faxed to us.
[2019-04-05] MEDS ORDERED: CEFEPIME HCL 1 GM VIAL IV SCH (18:15)
[2019-04-05] MEDS ORDERED: MAGNESIUM/ALUMINUM/SIMETHICONE 30 ML UDC PO PRN (18:45)
[2019-04-05] MEDS ORDERED: MAGNESIUM HYDROXIDE 30 ML UDC PO PRN (18:45)
[2019-04-05] MEDS ORDERED: TRAMADOL HCL 50 MG TAB PO PRN ×2 (18:45→19:45)
[2019-04-05] MEDS ORDERED: SOD PHOSPHATE/SOD BIPHOSPHATE ENEMA 132 ML BTL PR PRN (18:45)
[2019-04-05] MEDS ORDERED: OMEPRAZOLE 20 MG CAP PO PRN (18:45)
[2019-04-05] MEDS ORDERED: GUAIFENESIN 200 MG/10 ML UDC PO PRN (18:45)
[2019-04-05] MEDS ORDERED: ACETAMINOPHEN 325 MG SUPP PR PRN (18:45)
[2019-04-05] MEDS ORDERED: NON-FORMULARY MEDICATION (Ondansetron Hcl* (Zofran*) 4 MG) PO PRN (18:45)
[2019-04-05 20:09] LABS: BASOPHILS # (AUTO) 0.1 (0.0-0.1); BASOPHILS % 0.5 % (0.0-1.0); EOSINOPHILS # (AUTO) 0.6 (0.0-0.4); EOSINOPHILS % 4.4 % (0.0-6.0); HEMATOCRIT 28.6 % (34.2-44.1); HEMOGLOBIN 8.6 g/dL (12.0-16.0); LYMPHOCYTES # (AUTO) 5.3 (1.0-3.2); LYMPHOCYTES % 35.9 % (18.0-39.1); MEAN CORPUSCULAR HEMOGLOBIN 27.8 pg (28-32); MEAN CORPUSCULAR HGB CONC 30.1 g/dL (31-35); MEAN CORPUSCULAR VOLUME 92.6 fL (81-99); MONOCYTES # (AUTO) 1.2 (0.2-0.8); NEUTROPHILS # (AUTO) 7.2 (2.1-6.9); NEUTROPHILS % 49.1 % (38.7-80.0); PLATELET COUNT 394 x10e3/uL (140-360); RED BLOOD COUNT 3.09 x10e6/uL (3.6-5.1)
[2019-04-05 20:28] LABS: ALANINE AMINOTRANSFERASE 12 IU/L (0-55); ALBUMIN 2.5 g/dL (3.5-5.0); ALBUMIN/GLOBULIN RATIO 0.5 (0.8-2.0); ALKALINE PHOSPHATASE 80 IU/L (40-150); ANION GAP 13.7 mmol/L (8-16); BLOOD UREA NITROGEN 29 mg/dL (7-26); BUN/CREATININE RATIO 47 (6-25); CARBON DIOXIDE 23 mmol/L (22-29); CHLORIDE 105 mmol/L (98-107); CREATININE, SERUM 0.62 mg/dL (0.57-1.11); EST GLOMERULAR FILTRATION RATE > 60 ML/MIN (60-); GLUCOSE 76 mg/dL (74-118); POTASSIUM 3.7 mmol/L (3.5-5.1); SODIUM 138 mmol/L (136-145)
[2019-04-05] MEDS ORDERED: LEVETIRACETAM ORAL SOLUTION 500 MG/5 ML SOLN PO SCH (21:00)
[2019-04-05 21:27] LABS: EOSINOPHILS % (MANUAL) 4 % (0-7); LYMPHOCYTES % (MANUAL) 29 % (19-48); METAMYELOCYTES % (MANUAL) 1 % (0-0); MONOCYTES % (MANUAL) 6 % (3.4-9.0); NEUTROPHILS % (MANUAL) 57 % (40-74)
[2019-04-05 21:28] LABS: ANISOCYTOSIS SLIGHT; HYPOCHROMASIA SLIGHT; PLATELET ESTIMATE ADEQUATE; PLATELET MORPHOLOGY COMMENT NORMAL; RBC MORPHOLOGY COMMENT NORMAL
[2019-04-05] MEDS: MIRTAZAPINE 15 MG TAB PO SCH (22:29)
[2019-04-05] MEDS ORDERED: SODIUM CHLORIDE 0.9% 250ML 250 ML ONE (22:41)
[2019-04-05] MEDS: CEFEPIME 1GM/NS 0.9% 50 ML 50 ML IV SCH (23:00)
--- NOTE | 2019-04-05 23:00 | NUR ---
urine collected and sent to lab
--- NOTE | 2019-04-05 23:01 | NUR ---
patient antibiotics was not administered in the day time, as per day nurse, patient came in with no iv access, patient is hard stick, iv was placed in on my shift by Nurse ORDOÑEZ.
--- NOTE | 2019-04-05 23:40 | NUR ---
Order of tramadol was changed, and patient received 50mg, as per day nurse, she spoke to Dr. Solis who ordered her to continue patients facility medication, no changes made, facility was called and they verified tramadol and keppra order.
[2019-04-06] VITALS (7 sets, daily range): BP systolic 89–110; BP diastolic 51–56
[2019-04-06] MEDS: TRAMADOL HCL 50 MG TAB PO PRN ×3 (04:28→22:08)
[2019-04-06] MEDS: CEFEPIME 1GM/NS 0.9% 50 ML 50 ML IV SCH ×2 (05:27→17:34)
--- NOTE | 2019-04-06 07:00 | NUR ---
Pt received resting in bed. Alert and oriented to staff and surroundings. Encouraged to press call whitehead if help needed. Call whitehead within reach. Pt with left arm saline lock. Call whitehead within reach. Will monitor
--- NOTE | 2019-04-06 07:36 | NUR ---
patient endorsed to next shift for continuity of care.
[2019-04-06] MEDS: GABAPENTIN 300 MG CAP PO SCH ×2 (08:31→16:39)
[2019-04-06] MEDS: FLUCONAZOLE 100 MG TAB PO SCH (08:31)
[2019-04-06] MEDS: TOPIRAMATE 100 MG TAB PO SCH ×2 (08:31→16:39)
[2019-04-06] MEDS: VENLAFAXINE HCL 75 MG CAPCR PO SCH ×2 (08:31→16:38)
[2019-04-06] MEDS: LIDOCAINE 5% PATCH TP SCH (08:32)
[2019-04-06] MEDS: ATENOLOL 50 MG TAB PO SCH (09:00)
[2019-04-06] MEDS: LEVETIRACETAM 1500 MG PO SCH ×2 (09:00→14:09)
[2019-04-06] MEDS ORDERED: VENLAFAXINE HCL 37.5MG XR CAP PO SCH (09:00)
[2019-04-06] MEDS ORDERED: NON-FORMULARY MEDICATION (Atenolol 25 MG) PO SCH (09:00)
[2019-04-06] MEDS ORDERED: BALSAM PERU/CASTOR OIL 60 GM OINT...G. TP SCH (09:00)
[2019-04-06] MEDS ORDERED: ATENOLOL 50 MG TAB PO SCH (09:00)
[2019-04-06] MEDS: LEVETIRACETAM ORAL SOLUTION 500 MG/5 ML SOLN PEG SCH ×2 (09:46→21:51)
--- NOTE | 2019-04-06 12:06 | NUR ---
[id number] beginning of November,, Ms. Ball underwent cystoscopy with removal of an encrusted indwelling right ureteral stent, placement of another stent, and removal of renal calculus. Ms. Ball reportedly tolerated the procedure well and was discharged to home postoperatively. A urine culture from this hospitalization grew Pseudomonas and Enterococcus. It is unknown whether or not the patient was treated with antibiotics at that time. On December 14, 2018, Ms. Ball presented to the emergency center at [facility] with worsening lethargy. Ms. Ball was admitted to the hospital with a urinary tract infection and sepsis. Overnight, the patient developed septic shock. She was transferred to the Intensive Care Unit and placed on a continuous Levophed infusion. While in the Intensive Care Unit, Ms. Ball was evaluated by Dr. Haney who diagnosed the patient with pyelonephritis. The patient was treated with intravenous cefepime and Levaquin, pending the results of a urine culture. Once the results of the urine culture returns, the patient will be prescribed meropenem. Ms. Ball gradually improved over the next 1-2 days. She was weaned from Levophed. On December 16, 2018, the patient was transferred from the Intensive Care Unit to a Medicine/Surgery floor. On the evening of December 16, 2018, at approximately 2200 hours, a Rapid Response was called because the patient was somnolent and had witnessed apneic episodes. Of note, Ms. Ball had received a dose of Dilaudid at 2100 hours, 1 hour before the Rapid Response was called. At 2220 hours, Ms. Ball was administered Narcan. At 2246 hours, the patient was reportedly awake and alert. No further apnea was observed. After the Rapid Response was called, Ms. Ball was transferred back to the Intensive Care Unit for closer monitoring. Throughout the day of December 17, 2018, the patient gradually became more awake and alert. However, in the late afternoon/early evening of December 17, 2018, the patient developed atrial fibrillation with rapid ventricular response. Ms. Ball was placed on an amiodarone drip. A Cardiology consultation has been requested and is pending. The Neurology Service is consulted for evaluation and treatment of altered mental status and generalized weakness. As regard to the generalized weakness, Ms. Ball was reportedly able to ambulate with a walker in the fall of 2017. However, according to her , the patient underwent a prolonged hospitalization in July 2018 with urinary tract infection and nephrolithiasis. Following this prolonged hospitalization, Ms. Ball did receive some rehabilitation. However, it is not known what that rehabilitation consisted of (i.e. occupational therapy, physical therapy, etc.). It is also not known where this rehabilitation took place (the patient's home, a group home facility, inpatient rehabilitation facility). Following a short course of rehabilitation, Ms. Ball was able to ambulate with assistance for very short distances (i.e. to the bathroom). However, shortly after the rehabilitation services were discontinued, the patient became bed-bound. According to Ms. Ball's , the patient requires total assistance with any in all activities of daily living as well as independent activities of daily living. At the time of this encounter, Ms. Huffman neck is hyperextended. When questioned as to how long her neck has been hyperextended, the patient reports the hyperextension began last night, 12/15/2018. However, according to one of the patient's nurses, Ms. Huffman neck has been hyperextended since her admission on December 14, 2018. When asked if she has any burning pain, tingling, pins and needles sensation, or numbness affecting her feet, legs, hands, or arms, Ms. Ball replies in the negatives. The patient does report pain in her ankles and knees. She describes this pain as a constant dull aching pain. According to the patient's nurse, Ms. Schmidts ability to do things for herself waxes and wanes. For example, the patient recently alerted her nurse, requesting the nurse come in and turn off the patient's television. The button to turn off the television is located near the button to call the nurse on the patient's handheld control. Another example is as follows: When given Tylenol for pain, Ms. Ball had the nurse tip the pills from a cup into her mouth, followed by the nurse holding a straw to her lip, so she could drink water from a glass with which to swallow her pills. However, a short time later, Ms. Ball was able to feed herself chocolate pudding. REVIEW OF SYSTEMS: Lethargy, fast or irregular heartbeat, nausea, vomiting, generalized weakness, neck and back pain, hyperextension of the neck. Otherwise, a 12-point review of systems is negative. PAST MEDICAL HISTORY: Newly diagnosed atrial fibrillation, multiple urinary tract infections, nephrolithiasis, gastroesophageal reflux disease, mixed depression/anxiety disorder, migraines, seizure disorder, right breast cancer, status post mastectomy and radiation. PAST SURGICAL HISTORY: Right breast mastectomy, multiple ureteral stents placed, appendectomy, cholecystectomy, section, total hysterectomy, bilateral cataract removal, and bilateral carpal tunnel release, excision of an arachnoid cyst, surgical repair of vertebral compression fractures. PAST HOSPITALIZATIONS: Surgeries/procedures as listed, numerous other hospitalizations. FAMILY MEDICAL HISTORY: Ms. Ball reports other family members have had "brain cyst." Multiple maternal relatives have had either breast, uterine, or ovarian cancer. SOCIAL HISTORY: Ms. Ball is , but legally from her . The patient is retired. Ms. Ball does not report current or prior tobacco, alcohol, or recreational drug use. HOME MEDICATIONS: Reviewed. Please see the list of home medications available in the electronic medical record. HOSPITAL MEDICATIONS: Reviewed. Please see the list of hospital medications available in the electronic medical record. ALLERGIES: NEMBUTAL, PENICILLIN, SULFA, TRYPTIZOL (TRIAVIL ?), CARBAMAZEPINE, CODEINE, ERYTHROMYCIN, MEPERIDINE, MORPHINE, PHENOBARBITAL. NO KNOWN FOOD ALLERGIES. NO KNOWN ALLERGIES TO LATEX. MS. BALL DOES REPORT AN ALLERGY TO ADHESIVE TAPE. NO KNOWN ALLERGIES TO IODINE OR OTHER CONTRAST MATERIALS.
--- NOTE | 2019-04-06 14:29 | NUR ---
Nutrition Intervention Note RD Recommendation(s) for Physician: - Recommend nocturnal feeding of Jevity 1.2 at 50mL/hr x 10 hrs from 1999 0600, to provide 600 kcal and 28 gm protein - Rec regular diet (mechanical soft texture) during daytime for pleasure feeding - Rec Ensure Enlive BID (700kcal, 40g protein) to promote protein-calorie intake through PO - Continue to check daily labs, gastric tolerance, weight Plan of Care: RD following, monitoring for tolerance and adequacy, TF, ONS Nutrition reason for involvement: Nutrition Risk Trigger MST, TF RD Assessment 04/06 68yo F, who was admitted for ureteral stent infection. Pt has scheduled stent replacement tomorrow. Pt is well known to me from her previous admissions. PEG tube is present. Pt reported tolerating mechanical soft texture foods with thin liquids NURSE OFFICE. If weight taken at admission is accurate, pt has gained some weights since last admission. Communicated plan of care and pt was agreeable. Will continue to monitor and follow. Principal Problems/Diagnoses: Possible ureteral stent infection PMH: seizure disorder, bed-bound status, severe muscle weakness, kidney stones, recent pulmonary embolism, was on anticoagulation GI: PEG present, LBM 04/06, abdomen flat, soft, non-tender Skin: stage II bilateral sacral wound Wound care consulted Labs: (04/06) BUN 29 H Meds: cefepime Ht: 68in Wt: 161.37lb BMI: 24.5kg/m2 IBW: 140lb Malnutrition Evaluation (04/06) The patient does not meet criteria for a specified degree of malnutrition at this time. Will re-evaluate at follow-up as appropriate. Nutrition Prescription (Diet Order): Glucerna 1.2 with cardiac diet Estimated Nutritional Needs: 1729 - 2075 kcals at 25-30 kcals/kg/bw 83 - 103g of protein at 1.2-1.5g/kg/bw Diet Adequacy: Not meeting calorie needs, Not meeting protein needs Diet Education Needs Assessment: Diet education indicated, but patient not appropriate for education at this time. Nutrition Care Level: mod Goal: Patient will meet 75-100% of estimated needs by follow up Progress: Progressing Interventions: Texture-modified diet, Composition, Rate, Formula, Multivitamin/mineral supplement therapy, Collaboration with other providers Monitoring/Evaluation: Total energy intake, Total protein intake, Modified diet, Formula/ solution, Weight change, Labs, Gastric tolerance Signed: Nataly Villalba, MS, RD, LD
--- NOTE | 2019-04-06 15:27 | NUR ---
SPOKE WITH PATIENT AND ABOUT HISTORY OF TREATMENT. PT WAS HERE AND THEN DISCHARGED TO [facility] WENT HOME FOR 3 DAYS THEN WENT TO [facility]. SPOKE WITH ABOUT OPTIONS FOR DISCHARGE, IF ABLE WANT TO RETURN TO [facility] GAVE RESOURCES FOR [facility] [employer]. PT GETS 2600 A MONTH AND IS OVER RESOURCE FOR MEDICAID. WILL FOLLOW UP AND GET ASSISTANCE WITH OTHER PLACEMENTS, PT IS STILL BED BOUND AND HAS NOT BEEN ABLE TO WALK OR ATTEMPT TO WALK EVEN AT REHAB DUE TO FEVER AND INFECTION. SPOKE WITH ATTENDING AND HE HOPES FOR HER TO RETURN TO BE ABLE TO COMPLETE THERAPY.
[2019-04-06] MEDS: DIPHENHYDRAMINE HCL 25 MG CAP PO PRN (16:45)
--- NOTE | 2019-04-06 17:02 | NUR ---
Wound consultation for superficial wounds to buttocks and thighs. R Buttocks stage II 100% granulation L Sacrum linear unstageable pressure ulcer L buttock Partial thinkness abrasion L perianal partial thickness L post thigh unstageable wound possibly from munoz L heel blancheable redness. Continue Alternating pressure relief surface set to patients weight. Turn q 2 hrs. Heel protectors with heel lifts. Venelex ointment to wounds with allevyn foam. Change daily.
--- NOTE | 2019-04-06 17:46 | Consultation ---
DATE OF CONSULTATION: REASON FOR CONSULTATION: UTI. HISTORY OF PRESENT ILLNESS: This patient, who is known to me from before. She is a 68-year-old white female, who has history of chronic Patel catheter, recurrent bacteriuria, and recurrent UTI. She has ureteral stent placement before and multiple renal stones before. The patient has history of hypertension, hyperlipidemia, and seizure disorder. The patient, who has history of multiple infections. She is coming with fever and chills and not feeling well. She has been in this hospital several times. She does have history of seizure disorder, obesity, multiple renal surgeries, debility, multiple hospitalization before. She had cystoscopy with removal of encrusted indwelling right ureteral stent before removal of several renal calculi before. She had an extensive workup on multiple admissions. Please refer to my note in the chart. She is currently lying in bed comfortably, weak. Her past medical history and past surgical history were reviewed. The patient comes in with fever and chills and not feeling well. LABORATORY DATA: White count on admission 14.6, hemoglobin 8.6, and platelet of 294. Sodium 138 and potassium 3.7. Liver enzyme within normal limit. Urine culture is still pending. MEDICATIONS: She is currently on Keppra, Effexor, Diflucan, Topamax, Neurontin, cefepime, Zofran, Tylenol, and atenolol. REVIEW OF SYSTEMS: HEENT: Negative. PULMONARY: Negative. CARDIAC: Negative. : She states she is having suprapubic discomfort. She does have Patel catheter. SKIN: There is no rash. JOINTS: There is no erythema or edema. IMPRESSION: Fever, feeling of suprapubic pain in the patient, who had suprapubic catheter multidrug-resistant pathogen before. Agree with above plan. Agree with urine cultures, blood cultures. Agree with cefepime. We will follow with you. Further recommendation depending on the progress on the cultures. MD SISSY Cardona/RUSTY /[id number]
--- NOTE | 2019-04-06 19:25 | NUR ---
Received patient from day nurse, patient is stable, assessed, safety and fall precautions maintained as per hospital protocol: bed in lowest position and locked, needed items beside bed and patient educated about the use of the call light.
[2019-04-06] MEDS: MIRTAZAPINE 15 MG TAB PO SCH (21:51)
[2019-04-07] VITALS (7 sets, daily range): BP systolic 98–118; BP diastolic 53–73
[2019-04-07] MEDS: CEFEPIME 1GM/NS 0.9% 50 ML 50 ML IV SCH (06:17)
--- NOTE | 2019-04-07 07:02 | NUR ---
Endorsed to next shift for continuity of care.
--- NOTE | 2019-04-07 07:20 | NUR ---
patient received her tube feedings as ordered
[2019-04-07] MEDS: FLUCONAZOLE 100 MG TAB PO SCH (09:00)
[2019-04-07] MEDS: VENLAFAXINE HCL 75 MG CAPCR PO SCH ×2 (09:00→17:34)
[2019-04-07] MEDS: ATENOLOL 50 MG TAB PO SCH (09:00)
[2019-04-07] MEDS: GABAPENTIN 300 MG CAP PO SCH ×2 (09:00→17:34)
[2019-04-07] MEDS: LEVETIRACETAM 1500 MG PO SCH ×2 (09:00→17:00)
[2019-04-07] MEDS: TOPIRAMATE 100 MG TAB PO SCH ×2 (09:00→17:34)
[2019-04-07] MEDS: LEVETIRACETAM ORAL SOLUTION 500 MG/5 ML SOLN PEG SCH ×2 (09:00→20:20)
[2019-04-07] MEDS: BALSAM PERU/CASTOR OIL 60 GM OINT...G. TP SCH (11:29)
[2019-04-07] MEDS: LIDOCAINE 5% PATCH TP SCH (11:29)
[2019-04-07] MEDS: DIPHENHYDRAMINE HCL 25 MG CAP PO PRN (12:06)
[2019-04-07] MEDS: TRAMADOL HCL 50 MG TAB PO PRN ×2 (13:23→17:45)
--- NOTE | 2019-04-07 19:20 | NUR ---
Patient visited in room during nursing rounds. Patient asleep but easily arousable. Plan to re-start PEG feeding (Jevity 1.2 ebony) at 2000 per MD order. HOB at 60 degrees. Stage 2 to sacrum with allevyn dressing (C/D/I). Turn Q2hr. Bed alarm active. Call whitehead within reach.
--- NOTE | 2019-04-07 19:27 | NUR ---
report given to oncoming nurse, pt stable at this time.
--- NOTE | 2019-04-07 20:00 | NUR ---
PEG feed (Jevity 1.2 ebony) started at 50ml/hr rate per MD order. Pt aware and was positioned with HOB elevated 60 degrees. Gauze dressing changed on PEG insertion site to abdomen.
[2019-04-07] MEDS: MIRTAZAPINE 15 MG TAB PO SCH (20:20)
[2019-04-08] VITALS (9 sets, daily range): BP systolic 104–132; BP diastolic 53–102
--- NOTE | 2019-04-08 06:00 | NUR ---
PEG feed (Jevity 1.2 ebony) was stopped as per MD order. Will resume again PEG feed at 2000 tonight. Pt will be on Soft mech diet for now.
[2019-04-08 06:34] LABS: BASOPHILS # (AUTO) 0.1 (0.0-0.1); BASOPHILS % 0.3 % (0.0-1.0); EOSINOPHILS # (AUTO) 0.3 (0.0-0.4); EOSINOPHILS % 2.1 % (0.0-6.0); HEMATOCRIT 29.2 % (34.2-44.1); LYMPHOCYTES # (AUTO) 4.6 (1.0-3.2); LYMPHOCYTES % 27.9 % (18.0-39.1); MEAN CORPUSCULAR HEMOGLOBIN 28.5 pg (28-32); MEAN CORPUSCULAR HGB CONC 30.8 g/dL (31-35); MEAN CORPUSCULAR VOLUME 92.4 fL (81-99); MONOCYTES # (AUTO) 2.1 (0.2-0.8); MONOCYTES % 12.9 % (4.4-11.3); NEUTROPHILS # (AUTO) 9.1 (2.1-6.9); NEUTROPHILS % 55.5 % (38.7-80.0); PLATELET COUNT 386 x10e3/uL (140-360); RED BLOOD COUNT 3.16 x10e6/uL (3.6-5.1); RED CELL DISTRIBUTION WIDTH 16.4 % (11.7-14.4)
[2019-04-08 06:49] LABS: BLOOD UREA NITROGEN 31 mg/dL (7-26); BUN/CREATININE RATIO 42 (6-25); CALCIUM 9.3 mg/dL (8.4-10.2); CARBON DIOXIDE 27 mmol/L (22-29); CHLORIDE 103 mmol/L (98-107); CREATININE, SERUM 0.74 mg/dL (0.57-1.11); EST GLOMERULAR FILTRATION RATE > 60 ML/MIN (60-); GLUCOSE 121 mg/dL (74-118); SODIUM 137 mmol/L (136-145)
--- NOTE | 2019-04-08 07:00 | NUR ---
BED SIDE REPORT GIVEN BY THE NIGHT NURSE PT WAS SLEEPING BED LOW AND LOCKED CALL LIGHT IN REACH
--- NOTE | 2019-04-08 07:45 | NUR ---
Spoke to Dr. Madrigal regarding plan to exchange stents. He states currently pending cultures, pt needs to be on antibiotics for a few days due to UTI, prior to procedure. Tentatively will have procedure on Thursday or Thursday.
[2019-04-08 07:57] LABS: BAND NEUTROPHILS % (MANUAL) 7 %; EOSINOPHILS % (MANUAL) 2 % (0-7); LYMPHOCYTES % (MANUAL) 23 % (19-48); MONOCYTES % (MANUAL) 11 % (3.4-9.0); NEUTROPHILS % (MANUAL) 57 % (40-74)
[2019-04-08 07:58] LABS: ANISOCYTOSIS SLIGHT; PLATELET ESTIMATE SLIGHTLY INCREASED; PLATELET MORPHOLOGY COMMENT NORMAL; POIKILOCYTOSIS SLIGHT; POLYCHROMASIA FEW; RBC MORPHOLOGY COMMENT ABNORMAL
--- NOTE | 2019-04-08 08:00 | NUR ---
WHILE DOING THE ASSESSMENT PT IS SLEEPY TALK IS NOT CLEAR CHECKED VITAL SIGNS BP 114/102 ,HR 97 /MT BP CHECKED BY MANUALLY 132/98 MM/HG ,HALL DRAINING BY GRAVITY BED LOW AND LOCKED CALL LIGHT IN REACH
[2019-04-08] MEDS: ATENOLOL 50 MG TAB PO SCH (09:00)
[2019-04-08] MEDS: BALSAM PERU/CASTOR OIL 60 GM OINT...G. TP SCH (09:00)
[2019-04-08] MEDS: TOPIRAMATE 100 MG TAB PO SCH ×2 (09:00→17:00)
[2019-04-08] MEDS: LIDOCAINE 5% PATCH TP SCH (09:00)
[2019-04-08] MEDS: LEVETIRACETAM ORAL SOLUTION 500 MG/5 ML SOLN PEG SCH ×2 (09:00→22:28)
[2019-04-08] MEDS: VENLAFAXINE HCL 75 MG CAPCR PO SCH ×2 (09:00→17:00)
[2019-04-08] MEDS: GABAPENTIN 300 MG CAP PO SCH ×2 (09:00→17:00)
[2019-04-08] MEDS: LEVETIRACETAM 1500 MG PO SCH ×2 (09:00→17:00)
[2019-04-08] MEDS: FLUCONAZOLE 100 MG TAB PO SCH (09:00)
[2019-04-08] MEDS ORDERED: CEFEPIME HCL 1 GM VIAL IV SCH (10:00)
[2019-04-08] MEDS ORDERED: VANCOMYCIN 1GM/NS 250 ML 250 ML IV SCH (10:00)
--- NOTE | 2019-04-08 10:30 | NUR ---
PT IS [facility] NEED CLARIFICATION WITH DR SCOTT AND TALKED AL PA HE SAID DC CEFEPIME AND START MEROPENEM
--- NOTE | 2019-04-08 10:50 | Diagnostic Imaging Report ---
EXAMINATION: CHEST SINGLE (PORTABLE) INDICATION: Fever COMPARISON: Chest radiograph of 02/23/2019 FINDINGS: LINES/TUBES:None LUNGS:The lung volumes are low. Subsegmental atelectasis at the left lung base. PLEURA:No pleural effusion or pneumothorax. MEDIASTINUM:The cardiomediastinal silhouette appears unchanged in size and shape. BONES/SOFT TISSUES:No acute osseous injury. Surgical clips at the right axilla. Prior lower thoracic vertebral augmentations. ABDOMEN:No free air under the diaphragm. IMPRESSION: Low lung volumes. No focal pneumonia or pulmonary edema. Signed by: Thanh Pierce MD on 04/08/2019 10:47 AM
--- NOTE | 2019-04-08 11:00 | NUR ---
PT IS ALLERGIC TO [facility] PAGED AND NOTIFIED AL PA GOT THE ORDER TO DC MERUM
--- NOTE | 2019-04-08 11:07 | Diagnostic Imaging Report ---
CT BRAIN WO HISTORY: Altered mental status COMPARISON: Head CT 02/13/2019 Technique: Noncontrast axial scans were obtained from skull base to the vertex. Coronal and sagittal reconstructions obtained from the axial data. One or more of the following dose reduction techniques were used: Automated exposure control, adjustment of the mA and/or kV according to patient size, and/or utilization of iterative reconstruction technique. DISCUSSION: Scalp/Skull: Left pterional craniotomy changes Brain sulci: Mildly prominent. Ventricles: Compensatory dilatation. Extra-axial spaces: Arachnoid cyst along the left temporal pole is stable. No new masses or fluid collections. Carotid siphon calcifications are present. Parenchyma: Mild focal encephalomalacia in the left temporal pole is stable. Mild bilateral deep white matter hypodensity is likely chronic microvascular ischemic change. Otherwise, no masses, hemorrhage, or large vascular territory acute infarct. Dural sinuses: No abnormal densities. Sellar/Suprasellar region: Intact. Skull base: Intact. Incidental findings: Both ocular lenses are thinned. IMPRESSION: 1. No acute intracranial abnormalities. 2. Mild supratentorial chronic microvascular ischemic change. Mild generalized cerebral volume loss. 3. Left pterional craniotomy with stable underlying mild focal left temporal pole encephalomalacia. 4. Unchanged left middle cranial fossa arachnoid cyst. Signed by: Dr. Sterling Carey M.D. on 04/08/2019 11:04 AM
--- NOTE | 2019-04-08 11:35 | NUR ---
SPOKE WITH CATY SHE WAS DISCHARGED AND IF NEEDS TO RETURN A NEW REFERRAL IS NEEDED
[2019-04-08] MEDS: TRAMADOL HCL 50 MG TAB PO PRN (12:28)
--- NOTE | 2019-04-08 13:14 | NUR ---
Received order for LTAC eval from Dr. Solis. Spoke to pt at bedside. Pt states that she has been to [facility] previously and would like to go back. Choice letter signed and placed in chart. Copy to pt's transition of care folder. 's business card was given to pt for any questions/concerns. Rosibel Krishnan with [facility] was notified of referral.
[2019-04-08 13:23] LABS: BILIRUBIN,URINE NEGATIVE (NEGATIVE); CLARITY,URINE SL CLOUDY (CLEAR); COLOR,URINE YELLOW (YELLOW); KETONES,URINE NEGATIVE (NEGATIVE); LEUKOCYTE ESTERASE ,URINE SMALL (NEGATIVE); NITRITE,URINE NEGATIVE (NEGATIVE); PROTEIN,URINE DIPSTICK 2+ (NEGATIVE); URINE UROBILINOGEN 0.2 mg/dL (0.2 - 1)
[2019-04-08 13:37] LABS: RBC,URINE >50 /HPF (0-5); WBC,URINE (MAN) >50 /HPF (0-5)
[2019-04-08 13:38] LABS: BACTERIA,URINE MODERATE /HPF; EPITHELIAL CELLS,URINE FEW /LPF
[2019-04-08] MEDS ORDERED: MEROPENEM 500MG 500 MG in SODIUM CHLORIDE 0.9% 50ML 50 ML IV SCH (14:00)
--- NOTE | 2019-04-08 14:03 | NUR ---
Pending insurance auth for LTAC.
[2019-04-08] MEDS ORDERED: CEFTRIAXONE SOD 1 GM/NS 50 ML 50 ML IV SCH (14:30)
[2019-04-08] MEDS ORDERED: FLUCONAZOLE 200 MG/100 ML 100 ML IV SCH (15:00)
--- NOTE | 2019-04-08 18:45 | NUR ---
UNABLE TO ACCESS PICC LINE PAGED AND NOTIFIED DR DEWITT GOT THE ORDER TO [facility]
--- NOTE | 2019-04-08 18:54 | NUR ---
PT RESTING ON BED BED SIDE REPORT GIVEN TO ONCOMING NURSE
[2019-04-08] MEDS: CEFTRIAXONE SOD 1 GM/NS 50 ML 50 ML IV SCH (21:00)
[2019-04-08] MEDS: DIPHENHYDRAMINE HCL 25 MG CAP PO PRN (22:00)
--- NOTE | 2019-04-08 22:00 | NUR ---
Started p-tube feeding at this time. 5cc of residual of stomach contents and returned. Denies discomfort.
[2019-04-08] MEDS: MIRTAZAPINE 15 MG TAB PO SCH (22:28)
[2019-04-08] MEDS: FLUCONAZOLE 200 MG/100 ML 100 ML IV SCH (23:25)
[2019-04-09] VITALS (8 sets, daily range): BP systolic 95–121; BP diastolic 53–70
[2019-04-09 06:40] LABS: BASOPHILS # (AUTO) 0.1 (0.0-0.1); BASOPHILS % 0.4 % (0.0-1.0); EOSINOPHILS # (AUTO) 0.4 (0.0-0.4); EOSINOPHILS % 3.5 % (0.0-6.0); HEMATOCRIT 26.8 % (34.2-44.1); HEMOGLOBIN 8.3 g/dL (12.0-16.0); LYMPHOCYTES # (AUTO) 2.5 (1.0-3.2); LYMPHOCYTES % 22.5 % (18.0-39.1); MEAN CORPUSCULAR HEMOGLOBIN 28.4 pg (28-32); MEAN CORPUSCULAR VOLUME 91.8 fL (81-99); MONOCYTES # (AUTO) 1.6 (0.2-0.8); MONOCYTES % 13.7 % (4.4-11.3); NEUTROPHILS # (AUTO) 6.6 (2.1-6.9); NEUTROPHILS % 58.9 % (38.7-80.0); PLATELET COUNT 327 x10e3/uL (140-360); RED BLOOD COUNT 2.92 x10e6/uL (3.6-5.1); RED CELL DISTRIBUTION WIDTH 16.3 % (11.7-14.4)
--- NOTE | 2019-04-09 06:45 | NUR ---
Stopped feedings at this time. Patient tolerated well. Denies n/v/or discomfort.
--- NOTE | 2019-04-09 07:00 | NUR ---
BEDSIDE SHIFT CHANGE REPORT FROM MARK CODY. PT DENIES NEEDS AT THIS TIME.
--- NOTE | 2019-04-09 07:00 | NUR ---
BEDSIDE SHIFT CHANGE REPORT FROM MARK CODY. PT DENIES NEEDS AT THIS TIME.
[2019-04-09 07:21] LABS: BAND NEUTROPHILS % (MANUAL) 1 %; EOSINOPHILS % (MANUAL) 4 % (0-7); LYMPHOCYTES % (MANUAL) 34 % (19-48); MONOCYTES % (MANUAL) 1 % (3.4-9.0); NEUTROPHILS % (MANUAL) 60 % (40-74)
[2019-04-09 07:22] LABS: PLATELET ESTIMATE ADEQUATE; PLATELET MORPHOLOGY COMMENT NORMAL; RBC MORPHOLOGY COMMENT NORMAL
[2019-04-09] MEDS: LEVETIRACETAM 1500 MG PO SCH ×2 (09:00→17:00)
[2019-04-09] MEDS: ATENOLOL 50 MG TAB PO SCH (09:36)
[2019-04-09] MEDS: LIDOCAINE 5% PATCH TP SCH (09:36)
[2019-04-09] MEDS: BALSAM PERU/CASTOR OIL 60 GM OINT...G. TP SCH (09:36)
[2019-04-09] MEDS: TOPIRAMATE 100 MG TAB PO SCH ×2 (09:36→17:17)
[2019-04-09] MEDS: GABAPENTIN 300 MG CAP PO SCH ×2 (09:36→17:17)
[2019-04-09] MEDS: VENLAFAXINE HCL 75 MG CAPCR PO SCH ×2 (09:36→17:17)
[2019-04-09] MEDS: LEVETIRACETAM ORAL SOLUTION 500 MG/5 ML SOLN PEG SCH ×2 (09:59→20:49)
--- NOTE | 2019-04-09 17:38 | Progress Note ---
DATE: SUBJECTIVE: Ms. Ball is doing well. REVIEW OF SYSTEMS: HEENT: Negative. PULMONARY: Negative. CARDIAC: Negative. : Negative. PHYSICAL EXAMINATION: GENERAL: She is currently alert, oriented, does not seem to be in acute distress. VITAL SIGNS: Stable. Currently afebrile. HEENT: Not icteric. NECK: Supple. CHEST: Clear. HEART: S1, S2. No murmur. ABDOMEN: Soft. Bowel sounds present. No tenderness. EXTREMITIES: No edema. SKIN: There is no rash. IMPRESSION AND PLAN: 1. Urinary tract infection with yeast. Clinically, seems to be stable. 2. History of obesity. 3. Had altered mental status, probably drug related, now she is fully alert. 4. Stable from Infectious Disease point of view. 5. Discharge planning per Internal Medicine. MD SISSY Cardona/RUSTY /[id number]
[2019-04-09] MEDS: MIRTAZAPINE 15 MG TAB PO SCH (20:49)
[2019-04-09] MEDS: CEFTRIAXONE SOD 1 GM/NS 50 ML 50 ML IV SCH (20:49)
[2019-04-09] MEDS: DIPHENHYDRAMINE HCL 25 MG CAP PO PRN (20:50)
[2019-04-09] MEDS: TRAMADOL HCL 50 MG TAB PO PRN (20:50)
--- NOTE | 2019-04-09 20:54 | NUR ---
Started p-tube feeding at this time. No residual. Denies discomfort.
[2019-04-09] MEDS: FLUCONAZOLE 200 MG/100 ML 100 ML IV SCH (21:41)
[2019-04-10] VITALS (8 sets, daily range): BP systolic 90–108; BP diastolic 51–70
[2019-04-10] MEDS: TRAMADOL HCL 50 MG TAB PO PRN (03:28)
--- NOTE | 2019-04-10 06:00 | NUR ---
Stopped feedings at this time. Patient tolerated well. Denies n/v/or discomfort.
[2019-04-10] MEDS: LEVETIRACETAM 1500 MG PO SCH ×2 (09:00→17:00)
[2019-04-10] MEDS: ATENOLOL 50 MG TAB PO SCH (09:00)
[2019-04-10] MEDS: GABAPENTIN 300 MG CAP PO SCH ×2 (09:42→17:33)
[2019-04-10] MEDS: TOPIRAMATE 100 MG TAB PO SCH ×2 (09:42→17:33)
[2019-04-10] MEDS: BALSAM PERU/CASTOR OIL 60 GM OINT...G. TP SCH (09:42)
[2019-04-10] MEDS: VENLAFAXINE HCL 75 MG CAPCR PO SCH ×2 (09:42→17:33)
[2019-04-10] MEDS: LIDOCAINE 5% PATCH TP SCH (10:00)
[2019-04-10] MEDS: LEVETIRACETAM ORAL SOLUTION 500 MG/5 ML SOLN PEG SCH ×2 (10:00→20:30)
--- NOTE | 2019-04-10 15:33 | NUR ---
Ms. Ball is a 68-year-old female. She initially came in during last admission when she was admitted on 12/15/2018 with complaints of lethargy and weakness and she was found to have UTI. The patient had recent stent placement and Urology was consulted. The patient also has a history of seizure disorder, was bed-bound. She stayed in the hospital, was treated with IV antibiotic, developed atrial fibrillation and shortness of breath. Cardiology was consulted. The patient underwent CT of the chest, which showed PE. She was discharged on antibiotics and Eliquis to the halfway. She came back because of hematuria. She has been bed-bound for unknown reason for which Neurology was consulted. Complete workup was not possible with possibility of myopathy. The patient has a history of a seizure disorder. On last admission, she had a swallow eval and the patient was aspirating and underwent PEG tube placement by Dr. Bjorn Solis. She is denying any complaints of chest pain, nausea, or vomiting. She has history of ESBL Proteus during the last admission. REVIEW OF SYSTEMS: GENERAL: Denies any fever or chills. HEAD: Denies any head trauma. ENT: Denies any earache. CVS: Denies any chest pain. RESPIRATORY: Denies any shortness of breath. The rest of the review of systems are negative except as in HPI. PAST MEDICAL HISTORY: History of seizure disorder, bed-bound status, severe muscle weakness, kidney stones, recent pulmonary embolism, was on anticoagulation. FAMILY AND SOCIAL HISTORY: She does not smoke and does not drink. [id number]
--- NOTE | 2019-04-10 16:03 | Progress Note ---
DATE: SUBJECTIVE: Ms. Ball is doing well. No new complaints. REVIEW OF SYSTEMS: HEENT: Negative. PULMONARY: Negative. CARDIAC: Negative. All symptoms within normal limit. Her review of systems otherwise unremarkable. PHYSICAL EXAMINATION: GENERAL: She is currently alert, oriented, does not seem to be in acute distress. VITAL SIGNS: Stable, afebrile. HEENT: Not icteric. NECK: Supple. No JVD. No lymphadenopathy. No thyromegaly. CHEST: Clear bilaterally. HEART: S1, S2. No S3, S4 or murmur. ABDOMEN: Soft. Bowel sounds present. No tenderness. EXTREMITIES: No edema. SKIN: No rash. IMPRESSION: Sepsis on admission. Urinary tract infection, seems to be better. Her white count came down to 11.28. If she grew yeast, I am concerned about bacteria. Also, she responded to Rocephin and Diflucan. Other medical problem neuropathy, history of ESBL, history of seizure disorder, bed bound standard, severe muscle weakness, history of pulmonary embolism, all seemed to be stable. Multiple admissions before. We will follow. MD SISSY Cardona/RUSTY /[id number]
--- NOTE | 2019-04-10 16:39 | Consultation ---
DATE OF CONSULTATION: 04/06/2019 ADDENDUM: This patient was seen and examined. Chart reviewed. The patient when I saw her, the computer system was down, so I had to add an addendum to her note. The patient who is a well known to me from before, has multiple admissions. She is a 68-year-old female, comes in with lethargy, altered mental status. She had done this twice. The patient has history of hypertension, hyperlipidemia, seizure disorder, neuropathy, bed ridden, debility, was treated couple of times with IV antibiotic and discharged to halfway, coming back with fever and chills and not doing well. The patient is known to the Urology service. The patient who has history of depression, vitamin deficiency before, and neuropathy. PAST SURGICAL HISTORY: Multiple bladder procedures. REVIEW OF SYSTEMS: HEENT: Negative. PULMONARY: Negative. CARDIAC: Negative. : Negative. GI: Negative. SKIN: There is no rash. PHYSICAL EXAMINATION: GENERAL: The patient is currently alert, oriented, does not seem in acute distress. VITAL SIGNS: Stable. Currently afebrile. HEENT: Not icteric. NECK: Supple. CHEST: Clear. HEART: S1, S2. No murmur. ABDOMEN: Soft. Bowel sounds present. EXTREMITIES: No edema. LABORATORY DATA: Reviewed. Chart reviewed. MEDICATIONS: Record reviewed. IMPRESSION: 1. Concerned about sepsis. 2. Concerned about urinary tract infection. 3. Neuropathy. 4. History of seizure disorder. 5. Anemia of chronic disease. PLAN: Obtain the blood cultures, urine cultures, start her on Rocephin. Recheck CBC. Recheck Chem panel. We will modify after the availability of the cultures. MD SISSY Cardona/RUSTY /[id number]
[2019-04-10] MEDS: CEFTRIAXONE SOD 1 GM/NS 50 ML 50 ML IV SCH (20:30)
[2019-04-10] MEDS: MIRTAZAPINE 15 MG TAB PO SCH (20:30)
--- NOTE | 2019-04-10 20:30 | NUR ---
Started p-tube feeding at this time. No residual. Denies discomfort.
[2019-04-10] MEDS: FLUCONAZOLE 200 MG/100 ML 100 ML IV SCH (23:02)
[2019-04-11] VITALS (7 sets, daily range): BP systolic 98–121; BP diastolic 52–69
[2019-04-11] MEDS: DIPHENHYDRAMINE HCL 25 MG CAP PO PRN (01:22)
--- NOTE | 2019-04-11 08:40 | NUR ---
patient resting in bed , alert with no distress, she said she will all her morning meds later
[2019-04-11] MEDS: LEVETIRACETAM 1500 MG PO SCH ×2 (09:00→17:00)
[2019-04-11] MEDS: LEVETIRACETAM ORAL SOLUTION 500 MG/5 ML SOLN PEG SCH ×2 (10:40→20:56)
[2019-04-11] MEDS: ATENOLOL 50 MG TAB PO SCH (10:40)
[2019-04-11] MEDS: VENLAFAXINE HCL 75 MG CAPCR PO SCH ×2 (10:40→17:20)
[2019-04-11] MEDS: TOPIRAMATE 100 MG TAB PO SCH ×2 (10:40→17:20)
[2019-04-11] MEDS: GABAPENTIN 300 MG CAP PO SCH ×2 (10:40→17:20)
[2019-04-11] MEDS: LIDOCAINE 5% PATCH TP SCH (10:41)
--- NOTE | 2019-04-11 10:42 | NUR ---
Patient tolerated morning meds, bowel sounds and tube patency checked,dressing changed, repositioned her
[2019-04-11] MEDS: BALSAM PERU/CASTOR OIL 60 GM OINT...G. TP SCH (10:45)
--- NOTE | 2019-04-11 15:18 | NUR ---
Spoke with Dr. Madrigal, who states he's planning on exchanging pt's stent on Thursday.
--- NOTE | 2019-04-11 17:00 | NUR ---
Spoke to Rosibel with [facility]. She just submitted additional clinicals. Still pending auth.
--- NOTE | 2019-04-11 19:00 | NUR ---
RECEIVED REPORT FROM DAY NURSE. PATIENT IS RESTING COMFORTABLY IN BED. BED IS IN LOWEST POSITION AND CALL ARIAS IS WITHIN REACH. WILL CONTINUE TO MONITOR PATIENT.
[2019-04-11] MEDS: FLUCONAZOLE 200 MG/100 ML 100 ML IV SCH ×2 (20:30→20:56)
[2019-04-11] MEDS: MIRTAZAPINE 15 MG TAB PO SCH (20:56)
[2019-04-11] MEDS: CEFTRIAXONE SOD 1 GM/NS 50 ML 50 ML IV SCH (23:18)
[2019-04-12] VITALS (8 sets, daily range): BP systolic 98–138; BP diastolic 58–78
--- NOTE | 2019-04-12 06:42 | NUR ---
report given to day nurse. patient is resting comfortably in bed. bed is in lowest position and call whitehead is within reach.
[2019-04-12] MEDS: LEVETIRACETAM 1500 MG PO SCH ×2 (09:00→17:46)
[2019-04-12] MEDS: TOPIRAMATE 100 MG TAB PO SCH ×2 (09:20→17:46)
[2019-04-12] MEDS: GABAPENTIN 300 MG CAP PO SCH ×2 (09:20→17:46)
[2019-04-12] MEDS: LEVETIRACETAM ORAL SOLUTION 500 MG/5 ML SOLN PEG SCH ×2 (09:20→21:39)
[2019-04-12] MEDS: ATENOLOL 50 MG TAB PO SCH (09:20)
[2019-04-12] MEDS: VENLAFAXINE HCL 75 MG CAPCR PO SCH ×2 (09:20→17:46)
[2019-04-12] MEDS: LIDOCAINE 5% PATCH TP SCH (09:22)
[2019-04-12] MEDS: BALSAM PERU/CASTOR OIL 60 GM OINT...G. TP SCH (10:15)
--- NOTE | 2019-04-12 16:13 | NUR ---
Nutrition Follow-up Note RD Recommendation(s) for Physician: -Continue nocturnal feeding of Jevity 1.2 at 50mL/hr x 10 hrs from 1999 0600, to provide 600 kcal and 28 gm protein -Continue regular diet (mechanical soft texture) during daytime for pleasure feeding -Conitnue Ensure Enlive BID (700kcal, 40g protein) to promote protein-calorie intake through PO -Continue to check daily labs, gastric tolerance, weight - Rec MVi w/minerals and vitamin C for wound healing Plan of Care: RD following, monitoring for tolerance and adequacy, TF, ONS Nutrition reason for involvement: Follow up RD Assessment 04/12 - Visited pt in the room. Pt reported fair appetite. PCT recorded 25-50% meal intake. Pt has been drinking 100% of Ensure ordered. No GI complains noted. TF has been tolerating well. Planned for ureteral stent exchange tomorrow. 04/06 68yo F, who was admitted for ureteral stent infection. Pt has scheduled stent replacement tomorrow. Pt is well known to me from her previous admissions. PEG tube is present. Pt reported tolerating mechanical soft texture foods with thin liquids MANAGER ADMINISTRATION. If weight taken at admission is accurate, pt has gained some weights since last admission. Communicated plan of care and pt was agreeable. Will continue to monitor and follow. Principal Problems/Diagnoses: Possible ureteral stent infection PMH: seizure disorder, bed-bound status, severe muscle weakness, kidney stones, recent pulmonary embolism, was on anticoagulation GI: PEG present, LBM 04/12, abdomen round, soft, non-tender Skin: stage II bilateral sacral wound Wound care consulted Labs: No lab for 04/12 (04/06) BUN 29 H Meds: reviewed Ht: 68in Wt: 161.37lb BMI: 24.5kg/m2 IBW: 140lb Malnutrition Evaluation (04/06) The patient does not meet criteria for a specified degree of malnutrition at this time. Will re-evaluate at follow-up as appropriate. Nutrition Prescription (Diet Order): Jevity 1.2 with mechanical soft diet Estimated Nutritional Needs: 1729 - 2075 kcals at 25-30 kcals/kg/bw 83 - 103g of protein at 1.2-1.5g/kg/bw Diet Adequacy: meeting calorie needs, meeting protein needs Diet Education Needs Assessment: Diet education not indicated. Nutrition Care Level: low Goal: Patient will meet 75-100% of estimated needs by follow up Progress: Goal met Interventions: Texture-modified diet, Composition, Rate, Formula, Multivitamin/mineral supplement therapy, Collaboration with other providers Monitoring/Evaluation: Total energy intake, Total protein intake, Modified diet, Formula/ solution, Weight change, Labs, Gastric tolerance Signed: Nataly Villalba MS, RD, LD
--- NOTE | 2019-04-12 19:00 | NUR ---
received report from day nurse. patient is resting comfortably in bed. bed is in lowest position and call whitehead is within reach. will continue to monitor patient.
[2019-04-12] MEDS: MIRTAZAPINE 15 MG TAB PO SCH (21:39)
[2019-04-12] MEDS: CEFTRIAXONE SOD 1 GM/NS 50 ML 50 ML IV SCH (21:39)
[2019-04-12] MEDS: ONDANSETRON HCL 4 MG ORAL DISINTEGRATING TAB PO PRN (22:14)
[2019-04-13] VITALS (10 sets, daily range): BP systolic 105–134; BP diastolic 55–82
--- NOTE | 2019-04-13 07:05 | NUR ---
RCD PT AT BED PT IS ALERT AND ORIENTED PT RESTING ON BED NO SIGNS OF ANY DISTRESS NOTED IV PATENT PT NPO FOR PROCEDURE BED LOW AND LOCKED CALL LIGHT IN REACH
[2019-04-13] MEDS: BALSAM PERU/CASTOR OIL 60 GM OINT...G. TP SCH (09:00)
[2019-04-13] MEDS: TOPIRAMATE 100 MG TAB PO SCH ×2 (09:00→17:00)
[2019-04-13] MEDS: LIDOCAINE 5% PATCH TP SCH (09:00)
[2019-04-13] MEDS: GABAPENTIN 300 MG CAP PO SCH ×2 (09:00→15:00)
[2019-04-13] MEDS: LEVETIRACETAM 1500 MG PO SCH ×2 (09:00→17:00)
--- NOTE | 2019-04-13 11:08 | NUR ---
CM was informed by Rosibel Krishnan yesterday evening that pt was denied for LTAC. Appeal form placed on chart for Dr. Solis to sign. Pt to have cytoscopy/retrograde, stent exchange today.
[2019-04-13] MEDS ORDERED: IOPAMIDOL 610MG/1ML 300 MG/ML VIAL IV ONE (11:47)
--- NOTE | 2019-04-13 12:15 | NUR ---
PT WENT TO PROCEDURE IN SAFE CONDITION
--- NOTE | 2019-04-13 14:10 | NUR ---
PT BACK AFTER PROCEDURE PT IS ALERT AND ORIENTED PT RESTING ON BED NO SIGNS OF ANY DISTRESS NOTED VITALS CHECKED BED LOW AND LOCKED CALL LIGHT IN REACH
[2019-04-13] MEDS ORDERED: SEVOFLURANE INHAL SOLN 250 ML PEN BTL ONE (14:30)
[2019-04-13] MEDS ORDERED: ONDANSETRON HCL INJ 2MG/ML 2ML 2 MG/ML VIAL ONE (14:30)
[2019-04-13] MEDS ORDERED: DEXAMETHASONE SOD PHOS INJ 4 MG/ML VIAL ONE (14:30)
[2019-04-13] MEDS ORDERED: PROPOFOL IV EMULSION 10 MG/ML 20 ML VIAL ONE (14:30)
[2019-04-13] MEDS ORDERED: LIDOCAINE HCL 2% LOCAL INJ 5 ML SDV VIAL INJ ONE (14:30)
[2019-04-13] MEDS: VENLAFAXINE HCL 75 MG CAPCR PO SCH ×2 (15:00→17:00)
[2019-04-13] MEDS: LEVETIRACETAM ORAL SOLUTION 500 MG/5 ML SOLN PEG SCH ×2 (15:00→20:59)
[2019-04-13] MEDS: ATENOLOL 50 MG TAB PO SCH (15:00)
[2019-04-13] MEDS ORDERED: MIDAZOLAM HCL 2 MG/2 ML VIAL ONE (15:14)
[2019-04-13] MEDS ORDERED: FENTANYL CITRATE/PF 100MCG/2 ML INJ ONE (15:14)
--- NOTE | 2019-04-13 16:57 | Operative Report ---
DATE OF PROCEDURE: 04/13/2019 SURGEON: Vega Madrigal MD PREOPERATIVE DIAGNOSES: 1. Bilateral indwelling ureteral stents. 2. Right-sided hydronephrosis. 3. Bilateral renal calculi. 4. Right ureteral calculi. PROCEDURES: 1. Staged cystoscopy with left stent removal (entirely separate procedure for removing the left ureteral stent in a staged fashion). 2. Staged Cystourethroscopy with removal of a right indwelling stent (separate procedure for removal of a right indwelling stent). 3. Staged Right-sided ureteroscopy with laser lithotripsy (entirely separate procedure to ablate right ureteral calculi in a staged fashion). 4. Staged left-sided ureteroscopy with stone extraction (entirely separate procedure for removal of left renal calculi). 5. Staged right-sided ureteroscopy with stone extraction (entirely separate procedure for the purpose of removing right ureteral stones). 6. Staged insertion of a right indwelling stent (entirely separate procedure staged fashion to ensure there was no obstruction hydronephrotic right kidney). 7. Supervision of fluoroscopy for ureteroscopic and stent removal portions. ANESTHESIA: General. ESTIMATED BLOOD LOSS: Minimal. COMPLICATIONS: Ms. Ball is a very pleasant 68-year-old female with a pulmonary embolus, IVC filter, presenting for removal of ureteral stents, ureteroscopy; at minimal clearance of the left side, hopefully advancement of a large stone burden on the right side. She voiced understanding options of the alternatives, risks, and benefits and the fact the stent is a temporary indwelling device and it must be removed, and she elected to proceed. PROCEDURE IN DETAIL: After informed consent was obtained, the patient was taken to the operative suite. She was placed supine on the operating table, underwent general anesthesia by Anesthesia service, placed in the dorsal lithotomy position, sterilely prepped and draped for cystoscopy. A 21-German scope was inserted per urethra. Normal urethra was noted. Bilateral ureteral stents were removed, passed off the table as specimens. Photograph, which was taken showing incrustation and they are both heavily calcified and unable to be cannulated with guidewire. Attention was turned to the left ureteral orifice first. Ureteroscope was advanced to the level of the renal pelvis were stone was seen, this was grasped with a basket extracted and there were no other obstructing stones seen. The wire was removed and ureteroscope withdrawn on the left side. Attention was then turned to right side, multiple large obstructing stones were seen in the right proximal ureter. Utilizing a 365 micron laser fiber, the stones were obliterated in multiple small fragments. Pictures which were taken and placed in the chart as per record. The scope was advanced to the level of renal pelvis stone there were approximately 4 mm, it was grasped with a basket, this was used as a drain plug to pull much of the powder in the ureter. Ureteroscope was advanced again to the level of renal pelvis, no other stones were seen easily. The ureter was completely open. A 7 x 26 ureteral stent was deployed with a coil in renal pelvis and a coil in right side only on the right side. The bladder was then drained. The patient was awakened anesthesia and transferred to recovery room. Supervision of fluoroscopy was present for the entire procedure and supervised fluoroscopy. There was no radiologist present. MD WILLAM Vazquez/RUSTY /[id number] MAJO
--- NOTE | 2019-04-13 18:18 | NUR ---
PT C/O PAIN PAGED DR Ceci RAMIREZ TO THE ORDER FOR PAIN MEDS
--- NOTE | 2019-04-13 18:32 | NUR ---
DR RAMIREZ RETURNED CALL AND GOT NEW ORDERS
[2019-04-13] MEDS: TRAMADOL HCL 50 MG TAB PO PRN (19:05)
--- NOTE | 2019-04-13 19:11 | NUR ---
PT RESTING ON BED BED SIDE REPORT GIVEN TO ONCOMING NURSE
--- NOTE | 2019-04-13 20:45 | NUR ---
PATIENT RESTING IN BED, NO SIGNS OF DISTRESS NOTED. PATIENT VOICES NO PAIN AT THIS TIME, AND WAS MEDICATED ORDERED THROUGH PEG TUBE. PATIENT ALSO VOICED UNDERSTANDING OF NEW DIET, BOTH SIDE RAILS ARE UP, CALL LIGHT WITHIN EASY REACH, WILL CONTINUE TO MONITOR.
[2019-04-13] MEDS: CEFTRIAXONE SOD 1 GM/NS 50 ML 50 ML IV SCH (20:59)
[2019-04-13] MEDS: MIRTAZAPINE 15 MG TAB PO SCH (20:59)
[2019-04-13] MEDS: FLUCONAZOLE 200 MG/100 ML 100 ML IV SCH (21:33)
[2019-04-14] VITALS (8 sets, daily range): BP systolic 94–121; BP diastolic 57–72
[2019-04-14] MEDS: TRAMADOL HCL 50 MG TAB PO PRN ×3 (00:42→17:58)
--- NOTE | 2019-04-14 07:00 | NUR ---
BEDSIDE SHIFT REPORT RECEIVED FROM THE GROUP CONTRACT ANALYST RN. PT DENIES NEEDS AT THIS TIME.
[2019-04-14] MEDS: BALSAM PERU/CASTOR OIL 60 GM OINT...G. TP SCH (09:00)
[2019-04-14] MEDS: LEVETIRACETAM 1500 MG PO SCH (09:00)
[2019-04-14] MEDS: LEVETIRACETAM ORAL SOLUTION 500 MG/5 ML SOLN PEG SCH ×2 (09:31→20:50)
[2019-04-14] MEDS: VENLAFAXINE HCL 75 MG CAPCR PO SCH ×2 (09:31→17:58)
[2019-04-14] MEDS: GABAPENTIN 300 MG CAP PO SCH ×2 (09:31→17:59)
[2019-04-14] MEDS: LIDOCAINE 5% PATCH TP SCH (09:32)
[2019-04-14] MEDS: ATENOLOL 50 MG TAB PO SCH (09:32)
[2019-04-14] MEDS: TOPIRAMATE 100 MG TAB PO SCH ×2 (09:32→17:59)
--- NOTE | 2019-04-14 12:33 | NUR ---
CM SPOKE WITH LEOPOLDO WHITING AT [facility] DR RAMIREZ SIGNED EXPEDITED PEER TO PEER AWAIT DECISION FROM INSURANCE
--- NOTE | 2019-04-14 19:00 | NUR ---
received report from day nurse. patient is resting comfortably in the bed. bed is in the lowest position and call whitehead is within reach. will continue to monitor patient.
--- NOTE | 2019-04-14 19:00 | NUR ---
BEDSIDE SHIFT REPORT GIVEN TO THE ASIC ENGINEER RN. PT DENIED FURTHER NEEDS.
[2019-04-14] MEDS: ACETAMINOPHEN 325 MG TAB PO PRN (20:50)
[2019-04-14] MEDS: CEFTRIAXONE SOD 1 GM/NS 50 ML 50 ML IV SCH (20:50)
[2019-04-14] MEDS: MIRTAZAPINE 15 MG TAB PO SCH (20:50)
[2019-04-14] MEDS: ONDANSETRON HCL 4 MG ORAL DISINTEGRATING TAB PO PRN (20:50)
[2019-04-14] MEDS: FLUCONAZOLE 200 MG/100 ML 100 ML IV SCH (21:32)
[2019-04-15] VITALS (7 sets, daily range): BP systolic 93–128; BP diastolic 50–69
--- NOTE | 2019-04-15 07:00 | NUR ---
RECEIVED AM REPORT FROM NURSE, MORNING ROUNDS DONE. PT IS ALERT LYING IN BED, NO S/S OF DISTRESS. CALL LIGHT WITHIN REACH, INSTRUCTED TO CALL NURSE FOR HELP.
--- NOTE | 2019-04-15 07:07 | NUR ---
REPORT GIVEN TO DAY NURSE. PATIENT IS RESTING COMFORTABLY IN BED. BED IS IN LOWEST POSITION AND CALL ARIAS IS WITHIN REACH.
[2019-04-15] MEDS: LEVETIRACETAM ORAL SOLUTION 500 MG/5 ML SOLN PEG SCH ×2 (08:32→21:28)
[2019-04-15] MEDS: VENLAFAXINE HCL 75 MG CAPCR PO SCH ×2 (08:32→18:42)
[2019-04-15] MEDS: GABAPENTIN 300 MG CAP PO SCH ×2 (08:33→18:42)
[2019-04-15] MEDS: ATENOLOL 50 MG TAB PO SCH (08:34)
[2019-04-15] MEDS: TOPIRAMATE 100 MG TAB PO SCH ×2 (08:34→18:42)
[2019-04-15] MEDS: BALSAM PERU/CASTOR OIL 60 GM OINT...G. TP SCH (09:00)
[2019-04-15] MEDS: LIDOCAINE 5% PATCH TP SCH (09:00)
--- NOTE | 2019-04-15 09:15 | NUR ---
Spoke to Rosibel chaves [facility] regarding appeal status. She states they anticipate a decision today.
[2019-04-15] MEDS: TRAMADOL HCL 50 MG TAB PO PRN (14:38)
--- NOTE | 2019-04-15 15:49 | NUR ---
Spoke with Rosibel, still pending auth for LTAC.
[2019-04-15] MEDS: ACETAMINOPHEN 325 MG TAB PO PRN (20:29)
[2019-04-15] MEDS: CEFTRIAXONE SOD 1 GM/NS 50 ML 50 ML IV SCH (20:29)
--- NOTE | 2019-04-15 20:29 | NUR ---
BLOOD PRESSURE REASSESSED WITH READING OF 115/54, HEART RATE 72. PATIENT C/O HEADACHE, MEDICATED WITH TYLENOL 650MG PER PEG TUBE. NO RESPIRATORY DISTRESS OBSERVED, CALL LIGHT WITHIN EASY REACH, SHE'S INSTRUCTED TO CALL FOR ASSISTANCE NEEDED.
[2019-04-15] MEDS: FLUCONAZOLE 200 MG/100 ML 100 ML IV SCH (21:05)
[2019-04-15] MEDS: MIRTAZAPINE 15 MG TAB PO SCH (21:28)
--- NOTE | 2019-04-15 23:30 | NUR ---
PATIENT INCONTINENT OF URINE, SHE'S KEPT CLEAN AND DRY, SKIN PROTECTANT APPLIED TO THE SACRUM. REPOSITION IN BED FOR COMFORT, CALL LIGHT WITHIN EASY REACH.
[2019-04-16] VITALS (7 sets, daily range): BP systolic 95–124; BP diastolic 55–69
[2019-04-16] MEDS: TRAMADOL HCL 50 MG TAB PO PRN ×2 (01:02→19:59)
--- NOTE | 2019-04-16 01:03 | NUR ---
PATIENT C/O PAIN TO THE FEET AND HEADACHE, MEDICATED WITH TRAMADOL ORDERED. CALL LIGHT WITHIN EASY REACH, WILL REASSESS.
--- NOTE | 2019-04-16 03:15 | NUR ---
PATIENT REPOSITION IN BED FOR COMFORT, NO RESPIRATORY DISTRESS OBSERVED. BED ALARM ON, CALL LIGHT WITHIN EASY REACH.
[2019-04-16] MEDS: ACETAMINOPHEN 325 MG TAB PO PRN (04:29)
--- NOTE | 2019-04-16 04:30 | NUR ---
PATIENT C/O HEADACHE, BLOOD PRESSURE 114/66, HEART RATE 68. MEDICATED WITH TYLENOL 650MG PER PEG TUBE ORDERED. CALL LIGHT WITHIN EASY REACH, WILL REASSESS.
--- NOTE | 2019-04-16 07:00 | NUR ---
received am report from [facility], morning rounds done. pt is alert resting in bed, no s/s of distress. side rails are up, call light within reach, instructed to call nurse for help.
[2019-04-16] MEDS: LEVETIRACETAM ORAL SOLUTION 500 MG/5 ML SOLN PEG SCH ×2 (09:17→20:43)
[2019-04-16] MEDS: VENLAFAXINE HCL 75 MG CAPCR PO SCH ×2 (09:17→17:36)
[2019-04-16] MEDS: ATENOLOL 50 MG TAB PO SCH (09:18)
[2019-04-16] MEDS: BALSAM PERU/CASTOR OIL 60 GM OINT...G. TP SCH (09:18)
[2019-04-16] MEDS: TOPIRAMATE 100 MG TAB PO SCH ×2 (09:18→17:36)
[2019-04-16] MEDS: LIDOCAINE 5% PATCH TP SCH (09:20)
--- NOTE | 2019-04-16 14:14 | NUR ---
CM RECEIVED CALL FROM MILO GRANT AT [facility] STATING THEY REC'D AUTH TODAY FROM INSURANCE FOR TRANSFER MOT INITIATED AND SIGNED BY PT MOT PLACED IN PACKET AT DESK CM CALLED AND NOTIFIED PT'S , [place] [phone] OF PT'S PENDING TRANSFER NO ANSWER, LEFT VOICE MAIL [facility] [address] [facility] [address] ROOM 308 AFTER 7PM PT'S NURSE FLAVIO NOTIFIED OF ABOVE
[2019-04-16] MEDS ORDERED: SUMATRIPTAN SUCCINATE 25 MG TAB PO PRN (14:30)
--- NOTE | 2019-04-16 15:49 | Discharge Summary ---
HOSPITAL COURSE: The patient is a 68-year-old female, past medical history positive for craniotomy in the past, history of migraine headaches, came with an infected stent in the ureter that was removed by Dr. Madrigal, Urology. The patient was started on IV antibiotic because of sepsis. The patient is going to be transferred to [place] today. PHYSICAL EXAMINATION: HEART: Showed regular rhythm. Normal S1 and S2 sound. LUNGS: Clear bilaterally. ABDOMEN: Soft. IMPRESSION: 1. Sepsis secondary to urinary tract infection. 2. Hydronephrosis, status post stent removal in the ureter secondary to infection. 3. Migraine headaches. 4. Anemia. 5. Acute renal failure. PLAN OF TREATMENT: The patient is going to be transferred to [facility] for continuation of IV antibiotics. MD ANURAG Garrett/RUSTY /[id number]
--- NOTE | 2019-04-16 16:14 | Progress Note ---
DATE: Internal Medicine Progress Note SUBJECTIVE: The patient is going to [place] today. She is complaining of migraine headaches. PHYSICAL EXAMINATION: VITAL SIGNS: Blood pressure 124/69, temperature 96.8, heart rate 71 per minute, respiratory rate 18 per minute, oxygen saturation 98%. ABDOMEN: Soft, nontender. No distention. No visceromegaly. EXTREMITIES: Showed no evidence of cyanosis or hematoma. LABORATORY DATA: On the BMP; sodium 137, potassium 4.0 chloride 103, CO2 of 27, BUN 31, creatinine 0.74, glucose 121. On the CBC, white count 11,200, hemoglobin 8.3, hematocrit 26.8, platelet count 327,000. AST 15, ALT 12, total bilirubin 0.2 alkaline phosphatase 80. IMPRESSION: 1. Urinary tract infection. 2. Sepsis, which is resolved. 3. Migraine headaches. 4. Anemia. 5. Acute renal insufficiency. 6. Ureteral stent infection. PLAN OF TREATMENT: Continue ceftriaxone 2 g IV daily, fluconazole daily, atenolol 25 mg daily, Remeron 15 mg at bedtime, omeprazole 20 mg daily, Benadryl 25 mg q.6 hours as needed, magnesium aluminum 30 mL daily, Keppra 1500 mg twice a day, Tylenol 650 mg q.6 hours as needed, magnesium hydroxide 30 mL daily, Zofran 4 mg IV q.4 hours as needed for vomiting, Balsam Carney/castor oil 60 g topically daily, Topamax 100 mg twice a day, guaifenesin 100 mg q.6 hours as needed for cough, venlafaxine 150 mg twice a day, and tramadol 50 mg q.4 hours as needed. We are going to put her on Imitrex 25 mg p.o. q.6 hours as needed for migraine headaches. The patient is going to go to [facility] today. MD ANURAG Garrett/RUSTY /[id number]
--- NOTE | 2019-04-16 19:33 | NUR ---
called and gave report to Karime in ICU overflow. .
[2019-04-16] MEDS: CEFTRIAXONE SOD 1 GM/NS 50 ML 50 ML IV SCH (19:59)
--- NOTE | 2019-04-16 20:01 | NUR ---
PATIENT IS TO BE DISCHARGE TO [facility], AWAITING AMBULANCE SERVICE FOR TRANSPORT. PATIENT C/O HEADACHE, MEDICATED WITH TRAMADOL ORDERED. CALL LIGHT WITHIN EASY REACH, SHE'S EATING DINNER AT THIS TIME.
[2019-04-16] MEDS: MIRTAZAPINE 15 MG TAB PO SCH (20:43)
--- NOTE | 2019-04-16 20:44 | NUR ---
PATIENT IS DISCHARGED TO [facility]. SHE LEFT THE UNIT ON STRETCHER PER AMBULANCE SERVICE IN STABLE CONDITION, ALL PERSONAL ITEMS TAKEN WITH HER AND [facility] REMAINS INTACT TO THE LEFT UPPER ARM.
== END 2019-04-16 20:44 | DRG 659 ==
LOC: MED/SURG2 15:12
PROC: 0TC78ZZ Extirpation of Matter from Left Ureter, Via Natural or Artificial Opening Endoscopic (ICD-10-PCS; 2019-04-13)
PROC: 0TC68ZZ Extirpation of Matter from Right Ureter, Via Natural or Artificial Opening Endoscopic (ICD-10-PCS; 2019-04-13)
PROC: BT141ZZ Fluoroscopy of Kidneys, Ureters and Bladder using Low Osmolar Contrast (ICD-10-PCS; 2019-04-13)
PROC: 0TP98DZ Removal of Intraluminal Device from Ureter, Via Natural or Artificial Opening Endoscopic (ICD-10-PCS; principal; 2019-04-13 13:00)
PROC: 0T768DZ Dilation of Right Ureter with Intraluminal Device, Via Natural or Artificial Opening Endoscopic (ICD-10-PCS; 2019-04-13 13:00)
DX: T83.593A Infection and inflammatory reaction due to other urinary stents, initial encounter (principal); A41.9 Sepsis, unspecified organism; R53.2 Functional quadriplegia; N39.0 Urinary tract infection, site not specified; N13.6 Pyonephrosis; N20.2 Calculus of kidney with calculus of ureter; N17.9 Acute kidney failure, unspecified; Z86.711 Personal history of pulmonary embolism; Z79.01 Long term (current) use of anticoagulants; G43.909 Migraine, unspecified, not intractable, without status migrainosus; D64.9 Anemia, unspecified
CPT/HCPCS: 36415; 70450; 71045; 74420; 80048; 80053; 81001; 82948; 85025; 87040; 87086; 88300; 93005; 96367; C1758; C2617; J0692; J0696; J1100; J1450; J2001; J2250; J2405; J3010; J3370; J7050; Q0162

== ENCOUNTER → 2019-10-27 | Outpatient (CLI) | payer OTHER ==
[~2019-10-27] MED LIST changes: +FUROSEMIDE INJ 10 MG/ML 4 ML VIAL ONE
--- NOTE | 2019-10-27 21:09 | Diagnostic Imaging Report ---
Renal Scan with Lasix Washout Clinical information: Hydronephrosis. History of renal calculi with multiple surgeries. Technique: Following intravenous administration of 10 mCi of Tc-99m MAG3, dynamic images of the kidneys in the posterior projection were obtained through 40 minutes. Lasix 40 mg was administered intravenously at 13 minutes post injection of the tracer. Report: Left kidney: Perfusion of the left kidney is prompt. The kidney is overall mild to moderately reduced in size although retains a reniform shape with smooth contours.. Extraction of tracer from the blood pool is decreased. Clearance of tracer from the renal parenchyma is prompt. The pelvicalyceal system is not dilated although an upper pole calyx is prominent. Increased pooling of tracer is seen within the prominent upper pole calyx. Some drainage of tracer from the pelvicalyceal system is seen prior to administration of Lasix. Washout of tracer from the pelvicalyceal system following administration of Lasix is adequate with a T-1/2 of 8 minutes (normal less than 15 minutes). No significant stasis of tracer is seen within the left ureter. Right kidney: Perfusion to the right kidney is prompt. 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 Extraction of tracer by the remaining renal parenchyma is normal. Clearance of tracer from the renal parenchyma is adequate. The pelvicalyceal system is not dilated. Physiologic pooling of tracer is seen within the pelvicalyceal system. No net drainage of tracer from the pelvicalyceal system is seen prior to administration of Lasix. Washout of tracer from the pelvicalyceal system following administration of Lasix is adequate with a T-1/2 of 10 minutes (normal less than 15 minutes). No tracer is seen within the right ureter. Differential renal function: The left kidney contributes 85% of total renal function and the right kidney contributes 15% (normal 43-57%). Impression: 1. The left kidney is mild to moderately reduced in size although the remaining renal parenchyma appears to function normally. No hydronephrosis is present. No physiologically significant obstruction of the renal collecting system is present. 2. 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 The extent of scarring accounts for the decreased differential function of 15% (compared to the right kidney that also shows loss of renal parenchyma). The markedly impaired renal function renders assessment of the pelvicalyceal system and drainage/washout suboptimal, however, no hydronephrosis or physiologically significant obstruction of the renal collecting system appears to be present. Signed by: Dr. Cielo Monaco M.D. on 10/27/2019 9:07 PM
== END ==
LOC: NM 11:56
PROVIDERS: ATTEND Urology
DX: N13.30 Unspecified hydronephrosis (principal)
CPT/HCPCS: 78708; A9562; J1940